=== PATIENT | male | born 1935 | race Caucasian/White ===

== ENCOUNTER 2017-10-02 22:10 | Emergency (ER) | payer MEDICARE, MEDICAID ==
[2017-10-02] MEDS ORDERED: ALBUTEROL SULFATE 0.083% NEB 2.5 MG/3 ML AMPUL NEB ONE (22:18)
--- NOTE | 2017-10-02 22:23 | ER Document Report ---
ED General - General Stated Complaint: SHORTNESS OF BREATH Time Seen by Provider: 10/02/17 22:13 Notes: Patient is a 2-year-old male presents with complaint of cough and congestion. Says he has been coughing for about 2 weeks now. He said his wheezing got worse over last 24 hours and frequent emesis. EMS arrived and wheezing and rhonchi throughout. The given to do nebs as well as Solu-Medrol. Patient says he feels much improved. Oxygen saturations when paramedics arrived was 96% on room air. He denies any chest pain. No leg swelling or edema. No subjective fevers at home. He did see his doctor on the week and he says he was placed on medication that he took for 5 days. He does not remember the name of it. No vomiting. No diarrhea. No other complaints at this time. He otherwise feels well. TRAVEL OUTSIDE OF THE [place] IN LAST 30 DAYS: No - Related Data Allergies/Adverse Reactions: Penicillins Allergy (Verified 05/22/15 17:20) SWELLS Past Medical History - Social History Smoking Status: Unknown if Ever Smoked Frequency of alcohol use: None Drug Abuse: None Family History: Reviewed & Not Pertinent, CAD, Hypertension - Past Medical History Cardiac Medical History: Reports: Hx Coronary Artery Disease, Hx Heart Attack, Hx Hypertension Pulmonary Medical History: Reports: Hx COPD, Hx Sleep Apnea Neurological Medical History: Reports: Hx Cerebrovascular Accident - "years ago " Endocrine Medical History: Reports: Hx Diabetes Mellitus Type 2 Renal/ Medical History: Reports: Hx Benign Prostatic Hyperplasia GI Medical History: Reports: Hx Gastroesophageal Reflux Disease Musculoskeltal Medical History: Reports Hx Arthritis Past Surgical History: Reports: Hx Cardiac Catheterization - RCA, LDA, Hx Coronary Stent - RCA & LAD, Hx Orthopedic Surgery - right clavicle - Immunizations Hx Diphtheria, Pertussis, Tetanus Vaccination: Yes Review of Systems - Review of Systems Notes: My Normal Review Basic REVIEW OF SYSTEMS: CONSTITUTIONAL : Denies fever, chills, or sweats. EENT: Congestion CARDIOVASCULAR: Denies chest pain. RESPIRATORY: Coughing GASTROINTESTINAL: Denies abdominal pain. Denies nausea, vomiting, or diarrhea. Denies constipation. Last BM: MUSCULOSKELETAL: Denies neck or back pain or joint pain or swelling. SKIN: Denies rash or skin lesions. NEUROLOGICAL: Denies altered mental status or loss of consciousness. Denies headache. Denies weakness or paralysis or loss of use of either side. Denies problems with gait or speech. Denies sensory or motor loss. ALL OTHER SYSTEMS REVIEWED AND NEGATIVE. Physical Exam - Notes Notes: General Appearance: Well nourished, alert, cooperative, no acute distress, no obvious discomfort. Well-appearing. Vitals: reviewed, See vital signs table. Head: no swelling or tenderness to the head Eyes: PERRL, EOMI, Conjuctiva clear Mouth: No decreasd moisture Throat: No tonsillar inflammation, No airway obstruction Lungs: Scattered wheezing and rhonchi. No accessory muscle use, good air exchange bilaterally. Heart: Normal rate, Regular rythm, No murmur, no rub Abdomen: Normal BS, soft, No rigidity, No abdominal tenderness, No guarding, no rebound, no abdominal masses, no organomegaly Extremities: strength 5/5 in all extremities, good pulses in all extremities, no swelling or tenderness in the extremities, no edema. Skin: warm, dry, appropriate color, no rash Neuro: speech clear, oriented x 3, normal affect, responds appropriately to questions. Course - Re-evaluation Re-evalutation: 10/02/17 23:34 On reevaluation patient's lung camacho are clear. He looks and feels much improved. He is slightly tachycardic but I suspect this is related to the breathing treatments he received. Clinically he has no tachypnea and no hypoxemia. He has no accessory muscle use. He is speaking full sentences and looks well. I feel he is safe to be discharged home. I will place him on low- dose Prednisone for the next 3 days. I am using a lower dose of Prednisone since he is diabetic. He takes Lantus 50 units in the morning and 50 units in the evening. I will have them increase this to 55 units in the morning and evening to help offset the effect of adding prednisone to his regimen. I informed him he should still keep a close eye on his blood sugars return to ER immediately if his blood sugar start to increase or if he starts having difficulty breathing or fevers. Patient's son is also in the room and agrees with plan. Patient agrees with plan will be discharged home. - Laboratory Result Diagrams: 10/02/17 22:47 10/02/17 22:47 Laboratory results interpreted by me: 12/25/17 12/25/17 22:47 22:47 Hgb 11.7 L Hct 37.4 L MCV 74 L MCH 23.2 L MCHC 31.2 L RDW 18.1 H Glucose 150 H - EKG Interpretation by Me Additional EKG results interpreted by me: 10/02/17 22:42 EKG is reviewed and interpreted by me. EKG shows sinus tachycardia with rate of [address] segment elevation. Very mild ST segment depression in lead I. This is consistent with his old EKG from April 18, 2015. OR interval, QRS duration, QTc intervals are within normal range. Discharge - Discharge Clinical Impression: Bronchitis Condition: Good Disposition: HOME, SELF-CARE Additional Instructions: I started you on prednisone for the next 3 days. You will take 3 tablets a day for the next 3 days. This helps reduce inflammation in your lungs. Continue to use your albuterol inhaler as 2 puffs every 4 hours to help with coughing or wheezing. Return to the ER if you start having wheezing or difficulty breathing despite using your inhaler. The prednisone may increase your blood sugar. Therefore please increase your insulin from 50 units to 55 units in the morning and evening. Please keep a close eye on your blood sugars. If your blood sugars are consistently high or are going above 300 please return to the ER so we can treat your blood sugar. Please return to the ER immediately if you have fevers, difficulty breathing, chest pain, or feel unwell. Prescriptions: Prednisone 30 mg PO DAILY #9 tablet
[2017-10-02 22:56] LABS: ABSOLUTE EOSINOPHILS # (AUTO) 0.1 10^3/uL (0.0-0.6); ABSOLUTE LYMPHOCYTES (AUTO) 2.2 10^3/uL (0.5-4.7); ABSOLUTE MONOCYTES (AUTO) 0.7 10^3/uL (0.1-1.4); ABSOLUTE NEUT (AUTO) 7.2 10^3/uL (1.7-8.2); BASOPHILS % (AUTO) 0.3 % (0-2); EOSINOPHILS % (AUTO) 1.4 % (0-6); HEMATOCRIT 37.4 % (37.9-51.0); HEMOGLOBIN 11.7 g/dL (13.5-17.0); HGB HCT DIFFERENCE -2.3; LYMPHOCYTES % (AUTO) 21.7 % (13-45); MEAN CORPUSCULAR HEMOGLOBIN 23.2 pg (27.0-33.4); MEAN CORPUSCULAR HGB CONC 31.2 g/dL (32.0-36.0); MEAN CORPUSCULAR VOLUME 74 fl (80-97); MONOCYTES % (AUTO) 6.4 % (3-13); RED BLOOD COUNT 5.03 10^6/uL (4.35-5.55); RED CELL DISTRIBUTION WIDTH 18.1 % (11.5-14.0); SEGMENTED NEUTROPHILS % (AUTO) 70.2 % (42-78); WHITE BLOOD COUNT 10.3 10^3/uL (4.0-10.5)
--- NOTE | 2017-10-02 23:11 | RADIOLOGY REPORT (SQ) ---
EXAM DESCRIPTION: CHEST SINGLE VIEW COMPLETED DATE/TIME: 10/02/2017 11:03 pm REASON FOR STUDY: wheezing, cough COMPARISON: 04/22/2015 NUMBER OF VIEWS: One view. TECHNIQUE: Single frontal radiographic view of the chest acquired. LIMITATIONS: None. FINDINGS: LUNGS AND PLEURA: No opacities, masses or pneumothorax. No pleural effusion. MEDIASTINUM AND HILAR STRUCTURES: No masses. Contour normal. HEART AND VASCULAR STRUCTURES: Heart enlarged without failure. Normal vasculature. BONES: No acute findings. HARDWARE: None in the chest. OTHER: No other significant finding. IMPRESSION: HEART ENLARGED WITHOUT FAILURE. NO OTHER SIGNIFICANT RADIOGRAPHIC FINDING IN THE CHEST. TECHNICAL DOCUMENTATION: JOB ID: [id number] [employer] All Rights Reserved
[2017-10-02 23:17] LABS: ANION GAP 13 (5-19); BLOOD UREA NITROGEN 17 mg/dL (7-20); CALCIUM 9.4 mg/dL (8.4-10.2); CARBON DIOXIDE 26 mmol/L (22-30); CHLORIDE 105 mmol/L (98-107); CREATININE RESULT 1.08 mg/dL (0.52-1.25); GLUCOSE 150 mg/dL (75-110); SODIUM 143.6 mmol/L (137-145)
[2017-10-02 23:49] VITALS: BP 185/104
--- NOTE | 2017-10-02 23:58 | EKG REPORT ---
SEVERITY:- OTHERWISE NORMAL ECG - SINUS TACHYCARDIA ATRIAL PREMATURE COMPLEX : Confirmed by: Arpan Aleman 02-Oct-2017 23:57:41
== END 2017-10-02 23:45 | disposition home or self-care (01) ==
LOC: ER 22:10
DX: J40 Bronchitis, not specified as acute or chronic (principal); I25.10 Atherosclerotic heart disease of native coronary artery without angina pectoris; I10 Essential (primary) hypertension; J44.9 Chronic obstructive pulmonary disease, unspecified; E11.9 Type 2 diabetes mellitus without complications; Z88.0 Allergy status to penicillin; I25.2 Old myocardial infarction; Z86.73 Personal history of transient ischemic attack (TIA), and cerebral infarction without residual deficits; Z79.4 Long term (current) use of insulin
CPT/HCPCS: 93005; 94640; 99285; 36415; 85025; 80048; 71010; 93010; A9270

== ENCOUNTER 2017-10-14 05:56 | Inpatient (IN) | payer MEDICARE, MEDICAID ==
--- NOTE | 2017-10-14 06:45 | ER Document Report ---
ED General - General Chief Complaint: Hip Pain Stated Complaint: FALL, HIP PAIN Time Seen by Provider: 10/14/17 06:07 Mode of Arrival: Medic Information source: Patient Notes: 82 yr old male hx copd diabetes presents with complaints of left hip pain after fall. pt unable ot bear weight. denies any other injuries pt given fentanyl by ems. pt on 2L nc at all times TRAVEL OUTSIDE OF THE [place] IN LAST 30 DAYS: No - HPI Onset: Just prior to arrival Onset/Duration: Sudden Quality of pain: Sharp Severity: Moderate Pain Level: 4 Associated symptoms: Body/muscle aches Exacerbated by: Movement Relieved by: Denies Similar symptoms previously: No Recently seen / treated by doctor: No - Related Data Allergies/Adverse Reactions: Penicillins Allergy (Verified 05/22/15 17:20) SWELLS Past Medical History - Social History Smoking Status: Former Smoker Cigarette use (# per day): No Chew tobacco use (# tins/day): No Smoking Education Provided: No Family History: Reviewed & Not Pertinent, CAD, Hypertension - Past Medical History Cardiac Medical History: Reports: Hx Coronary Artery Disease, Hx Heart Attack, Hx Hypertension Pulmonary Medical History: Reports: Hx COPD, Hx Sleep Apnea Neurological Medical History: Reports: Hx Cerebrovascular Accident - "years ago " Endocrine Medical History: Reports: Hx Diabetes Mellitus Type 2 Renal/ Medical History: Reports: Hx Benign Prostatic Hyperplasia. Denies: Hx Peritoneal Dialysis GI Medical History: Reports: Hx Gastroesophageal Reflux Disease Musculoskeltal Medical History: Reports Hx Arthritis Past Surgical History: Reports: Hx Cardiac Catheterization - RCA, LDA, Hx Coronary Stent - RCA & LAD, Hx Orthopedic Surgery - right clavicle - Immunizations Hx Diphtheria, Pertussis, Tetanus Vaccination: Yes Review of Systems - Review of Systems Notes: REVIEW OF SYSTEMS: CONSTITUTIONAL : Denies fever, chills, or sweats. Denies recent illness. EENT: Denies eye, ear, throat, or mouth pain or symptoms. Denies nasal or sinus congestion or discharge. Denies throat, tongue, or mouth swelling or difficulty swallowing. CARDIOVASCULAR: Denies chest pain. Denies palpitations or racing or irregular heart beat. Denies ankle edema. RESPIRATORY: Denies cough, cold, or chest congestion. Denies shortness of breath, difficulty breathing, or wheezing. GASTROINTESTINAL: Denies abdominal pain or distention. Denies nausea, vomiting , or diarrhea. Denies blood in vomitus, stools, or per rectum. Denies black, tarry stools. Denies constipation. GENITOURINARY: Denies difficulty urinating, painful urination, burning, frequency, blood in urine, or discharge. MUSCULOSKELETAL: admits to left hip pain SKIN: Denies rash, lesions or sores. HEMATOLOGIC : Denies easy bruising or bleeding. LYMPHATIC: Denies swollen, enlarged glands. NEUROLOGICAL: Denies confusion or altered mental status. Denies passing out or loss of consciousness. Denies dizziness or lightheadedness. Denies headache. Denies weakness or paralysis or loss of use of either side. Denies problems with gait or speech. Denies sensory loss, numbness, or tingling. Denies seizures. PSYCHIATRIC: Denies anxiety or stress. Denies depression, suicidal ideation, or homicidal ideation. ALL OTHER SYSTEMS REVIEWED AND NEGATIVE. Dictation was performed using [employer] voice recognition software PHYSICAL EXAMINATION: GENERAL: Well-appearing, well-nourished and in no acute distress. HEAD: Atraumatic, normocephalic. EYES: Pupils equal round and reactive to light, extraocular movements intact, sclera anicteric, conjunctiva are normal. ENT: Nares patent, oropharynx clear without exudates. Moist mucous membranes. NECK: Normal range of motion, supple without lymphadenopathy LUNGS: Breath sounds clear to auscultation bilaterally and equal. No wheezes rales or rhonchi. HEART: Regular rate and rhythm without murmurs ABDOMEN: Soft, nontender, nondistended abdomen. No guarding, no rebound. No masses appreciated. Musculoskeletal: limited rom of the left leg due ot pain, shortened and externally rotated NEUROLOGICAL: Cranial nerves grossly intact. Normal speech, normal gait. Normal sensory, motor exams PSYCH: Normal mood, normal affect. SKIN: Warm, Dry, normal turgor, no rashes or lesions noted. Physical Exam - Vital signs Vitals: Resp BP Pulse Ox 22 H 152/78 H 99 10/14/17 07:00 10/14/17 07:00 10/14/17 07:00 Course - Re-evaluation Re-evalutation: 10/14/17 07:00 X-ray immediately performed, patient is noted to have a hip fracture, hospitalist Minor , has been called and they will call back with a day shift 10/14/17 07:50 Dr Olga casillas ,she will admit - Vital Signs Vital signs: Temp Pulse Resp BP Pulse Ox 22 H 152/78 H 99 10/14/17 07:00 10/14/17 07:00 10/14/17 07:00 - Laboratory Result Diagrams: 10/14/17 07:10 10/14/17 07:10 Laboratory results interpreted by me: 10/14/17 10/14/17 10/14/17 07:10 07:10 07:30 WBC 18.3 H Hgb 11.6 L Hct 37.7 L MCV 74 L MCH 23.0 L MCHC 30.9 L RDW 17.9 H Seg Neutrophils % 82.4 H Lymphocytes % 7.6 L Absolute Neutrophils 15.1 H Absolute Monocytes 1.7 H Glucose 206 H Alkaline Phosphatase 146 H Urine Protein 30 H Urine Glucose (UA) >=500 H Urine Ketones TRACE H Urine Blood SMALL H - Diagnostic Test Radiology reviewed: Image reviewed, Reports reviewed Discharge - Discharge Clinical Impression: Femur fracture, left Qualifiers: Encounter type: initial encounter Femur location: unspecified portion of femur Fracture type: closed Fracture morphology: unspecified fracture morphology Qualified Code(s): S72.92XA - Unspecified fracture of left femur, initial encounter for closed fracture Coronary artery disease Qualifiers: Coronary Disease-Associated Artery/Lesion type: unspecified vessel or lesion type [place] vs. transplanted heart: [place] heart Associated angina: with unspecified angina Qualified Code(s): I25.119 - Atherosclerotic heart disease of [place] coronary artery with unspecified angina pectoris COPD (chronic obstructive pulmonary disease) Qualifiers: COPD type: chronic bronchitis Chronic bronchitis type: simple Qualified Code(s) : J41.0 - Simple chronic bronchitis Condition: Stable Disposition: ADMITTED INPATIENT Admitting Provider: Hospitalist Unit Admitted: Telemetry
--- NOTE | 2017-10-14 07:07 | RADIOLOGY REPORT (SQ) ---
EXAM DESCRIPTION: HIP LEFT AP/LATERAL CLINICAL HISTORY: 82 years, Male, fall COMPARISON: None. NUMBER OF VIEWS:1 LIMITATIONS: Positioning. Single frontal view only. FINDINGS: Deformity of the left proximal femur may indicate impacted intertrochanteric fracture. Atherosclerosis. Metallic seeds of the lower pelvis. IMPRESSION: Left proximal femoral fracture/deformity. Limitation. 2010 [facility] [employer]- All Rights Reserved
--- NOTE | 2017-10-14 07:13 | RADIOLOGY REPORT (SQ) ---
EXAM DESCRIPTION: CHEST SINGLE VIEW CLINICAL HISTORY: 82 years, Male, fall with injury COMPARISON: 10/02/2017. NUMBER OF VIEWS: 2 LIMITATIONS: None. FINDINGS: Prominent interstitium, normal cardiac silhouette, atherosclerosis, partial resection/deformity of an right mid thoracic anterior ribs and right first anterior rib deformity, metallic anchors of the left humeral head, and no pneumothorax. Stable. IMPRESSION: No acute cardiopulmonary findings. 2010 [employer]- All Rights Reserved
[2017-10-14 07:25] LABS: ABSOLUTE BASOPHILS # (AUTO) 0.1 10^3/uL (0.0-0.2); ABSOLUTE LYMPHOCYTES (AUTO) 1.4 10^3/uL (0.5-4.7); ABSOLUTE MONOCYTES (AUTO) 1.7 10^3/uL (0.1-1.4); ABSOLUTE NEUT (AUTO) 15.1 10^3/uL (1.7-8.2); BASOPHILS % (AUTO) 0.5 % (0-2); EOSINOPHILS % (AUTO) 0.3 % (0-6); HEMATOCRIT 37.7 % (37.9-51.0); HEMOGLOBIN 11.6 g/dL (13.5-17.0); LYMPHOCYTES % (AUTO) 7.6 % (13-45); MEAN CORPUSCULAR HGB CONC 30.9 g/dL (32.0-36.0); MEAN CORPUSCULAR VOLUME 74 fl (80-97); MONOCYTES % (AUTO) 9.2 % (3-13); PLATELET COUNT 379 10^3/uL (150-450); RED BLOOD COUNT 5.06 10^6/uL (4.35-5.55); RED CELL DISTRIBUTION WIDTH 17.9 % (11.5-14.0); SEGMENTED NEUTROPHILS % (AUTO) 82.4 % (42-78); TOTAL CELLS COUNTED % (AUTO) 100 %; WHITE BLOOD COUNT 18.3 10^3/uL (4.0-10.5)
[2017-10-14 07:31] LABS: INTERNATIONAL RATION (INR) 1.01; PARTIAL THROMBOPLASTIN TIME 29.1 SEC (23.5-35.8)
[2017-10-14 07:42] LABS: APPEARANCE,URINE CLEAR; BILIRUBIN,URINE NEGATIVE (NEGATIVE); COLOR,URINE YELLOW; GLUCOSE, URINE >=500 mg/dL (NEGATIVE); KETONES,URINE TRACE mg/dL (NEGATIVE); LEUKOCYTE ESTERASE,URINE NEGATIVE (NEGATIVE); NITRITE,URINE NEGATIVE (NEGATIVE); PROTEIN,URINE 30 mg/dL (NEGATIVE); URINE SPECIFIC GRAVITY 1.028; UROBILINOGEN,URINE NEGATIVE mg/dL (<2.0)
[2017-10-14 07:45] LABS: ALANINE AMINOTRANSFERASE 47 U/L (21-72); ALKALINE PHOSPHATASE 146 U/L (38-126); ANION GAP 12 (5-19); ASPARTATE AMINO TRANSFERASE 38 U/L (17-59); BILIRUBIN,DIRECT 0.2 mg/dL (0.0-0.4); BILIRUBIN,TOTAL 0.7 mg/dL (0.2-1.3); BLOOD UREA NITROGEN 19 mg/dL (7-20); CALCIUM 9.1 mg/dL (8.4-10.2); CARBON DIOXIDE 26 mmol/L (22-30); CHLORIDE 105 mmol/L (98-107); GLUCOSE 206 mg/dL (75-110); POTASSIUM 4.3 mmol/L (3.6-5.0); SODIUM 143.4 mmol/L (137-145); TOTAL PROTEIN 6.8 g/dL (6.3-8.2)
[2017-10-14] MEDS ORDERED: ONDANSETRON 4 MG TAB.RAPDIS PO PRN (08:19)
[2017-10-14] MEDS ORDERED: OXYCODONE-ACETAMINOPHEN 5-325 MG TABLET PO PRN (08:19)
[2017-10-14] MEDS ORDERED: ONDANSETRON HCL INJ/PF 4 MG/2 ML SDV IV PRN (08:19)
[2017-10-14] MEDS ORDERED: DEXTROSE 40% GEL 15 GM TUBE PO PRN ×4 (08:27→11:47)
[2017-10-14] MEDS ORDERED: DEXTROSE 50%-WATER 25 GM/50 ML DISP.SYRIN IV PRN ×4 (08:27→11:47)
[2017-10-14] MEDS ORDERED: GLUCAGON,HUMAN RECOMB 1 MG INJ IM PRN (08:27)
[2017-10-14 08:37] LABS: MAGNESIUM 1.9 mg/dL (1.6-2.3); PHOSPHORUS 3.9 mg/dL (2.5-4.5)
[2017-10-14] MEDS ORDERED: PANTOPRAZOLE SODIUM 40 MG VIAL IV SCH (10:00)
[2017-10-14] MEDS: HYDROCODONE/ACETAMINOPHEN 5-325 MG TABLET PO PRN (10:06)
--- NOTE | 2017-10-14 11:37 | EKG REPORT ---
SEVERITY:- BORDERLINE ECG - SINUS TACHYCARDIA BORDERLINE T ABNORMALITIES, LATERAL LEADS : Confirmed by: Arpan Aleman 14-Oct-2017 11:37:06
[2017-10-14] MEDS ORDERED: GLUCAGON,HUMAN RECOMB 1 MG INJ SUBCUT PRN (11:47)
--- NOTE | 2017-10-14 12:11 | RADIOLOGY REPORT (SQ) ---
EXAM DESCRIPTION: CT LT LOWER EXTREMITY WITHOUT COMPLETED DATE/TIME: 10/14/2017 11:55 am REASON FOR STUDY: left hip fracture COMPARISON: None. TECHNIQUE: CT scan of the left hip performed without intravenous or oral contrast. Images reviewed with soft tissue and bone windows. Reconstructed coronal and sagittal MPR images reviewed. All imag es stored on PACS. All CT scanners at this facility use dose modulation, iterative reconstruction, and/or weight based d osing when appropriate to reduce radiation dose to as low as reasonably achievable (ALARA). [facility]: Dose Right [facility]: CareDose [facility]: Dose Right [facility]: Teradose 4D [facility]: [employer] RADIATION DOSE: CT Rad equipment meets quality standard of care and radiation dose reduction techniq ues were employed. CTDIvol: 22.5 mGy. DLP: 537 mGy-cm. mGy. LIMITATIONS: None. FINDINGS: VISUALIZE PELVIC BONES: No acute fracture. No worrisome bone lesions. VISUALIZED SPINE: No acute findings. SYMPTOMATIC HIP: Unchanged appearance of intertrochanteric femoral neck fracture. OPPOSITE HIP: Not imaged. PELVIC SOFT TISSUES: No significant findings. EXTRAPELVIC SOFT TISSUES: No significant findings. OTHER: [place] catheter in place. IMPRESSION: STABLE APPEARANCE OF LEFT FEMORAL NECK FRACTURE. TECHNICAL DOCUMENTATION: JOB ID: [id number] Quality ID # [id number]: Final reports with documentation of one or more dose reduction techniques (e.g., Au tomated exposure control, adjustment of the mA and/or kV according to patient size, use of iterative reconstruction technique) 2010 [employer]- All Rights Reserved
[2017-10-14] MEDS: MORPHINE SULFATE 10 MG/ML INJ IV PRN ×3 (13:13→22:32)
[2017-10-14] MEDS: LEVALBUTEROL HCL NEB 1.25 MG/3 ML AMPUL NEB PRN ×3 (13:39→23:11)
--- NOTE | 2017-10-14 17:58 | XCELERA REPORT ---
[address] [address] Transthoracic Echocardiogram Report Name: MICHAELA KUHN Age: 82 yrs Gender: Male : 1935 Patient Status: Inpatient Patient Location: [address] [place] [address] Study Date: 10/14/2017 03:22 PM Height: 67 in Weight: 180 lb BSA: 1.9 m2 Procedure: A two-dimensional transthoracic echocardiogram with color flow and Doppler was performed. Study Quality: Technically suboptimal. Poor endocardial visualisation.Poor doppler interogation..Hence interpretation is limited by these. Reason For Study: CAD / Preoperative Cardiac Evaluation. History: CAD / Preoperative Cardiac Evaluation. Ordering Physician: MAXX DRAKE Performed By: Vida Potter Interpretation Summary Poor endocardial visualisation.Poor doppler interogation..Hence interpretation is limited by these. The left ventricle is grossly normal size. There is mild concentric left ventricular hypertrophy. LV EF is Probaly 35% Left ventricular systolic function is moderately reduced. LV diastolic function not assessed. The LV apex is seerely Hypokinetic.(Probably akinetic.).The rest of the LV keller probably moderately hypokietic. The right ventricle is not well visualized secondary to technical limitations Right atrium not well visualized secondary to technical limitations Probably normal LA size.. There is no evidence of mitral valve prolapse. There is a trace amount of mitral regurgitation There is no mitral valve stenosis. There is no aortic valve stenosis There is no LVOT obstruction. No aortic regurgitation is present. There is no tricuspid stenosis. Probably no TR , but poor doppler interogation of the valve..Cannot assess RVSP due to lack of TR jet. There is no pericardial effusion. MMode/2D Measurements & Calculations RVDd: 2.3 cm LVIDd: 5.6 cm FS: 19.5 % Ao root diam: 2.8 cm IVSd: 1.2 cm LVIDs: 4.5 cm EDV(Teich): 156.5 ml LVPWd: 1.2 cm ESV(Teich): 94.6 ml Ao root area: 6.3 cm2 EF(Teich): 39.6 % LA dimension: 2.8 cm Doppler Measurements & Calculations MV E max leisa: MV P1/2t max leisa: Ao V2 max: LV V1 max P.8 cm/sec 144.8 cm/sec 120.8 cm/sec 2.5 mmHg MV P1/2t: 31.1 msec Ao max PG: LV V1 max: 5.8 mmHg 79.5 cm/sec MVA(P1/2t): 7.1 cm2 MV dec slope: 1365 cm/sec2 PA V2 max: 144.8 cm/sec PA max P.4 mmHg Left Ventricle The left ventricle is grossly normal size. There is mild concentric left ventricular hypertrophy. LV EF is Probaly 35%. Left ventricular systolic function is moderately reduced. LV diastolic function not assessed. The LV apex is seerely Hypokinetic.(Probably akinetic.).The rest of the LV keller probably moderately hypokietic. There is no thrombus. Right Ventricle The right ventricle is not well visualized secondary to technical limitations. Atria Right atrium not well visualized secondary to technical limitations. Probably normal LA size.. Mitral Valve There is no evidence of mitral valve prolapse. There is no vegetation seen on the mitral valve. There is no mitral valve stenosis. There is a trace amount of mitral regurgitation. Aortic Valve There is no aortic valvular vegetation. There is no aortic valve stenosis. There is no LVOT obstruction. No aortic regurgitation is present. Tricuspid Valve There is no tricuspid stenosis. Probably no TR , but poor doppler interogation of the valve..Cannot assess RVSP due to lack of TR jet. Pulmonic Valve The pulmonic valve is not well visualized. Great Vessels The aortic root is not well visualized. Effusions There is no pericardial effusion. : MAXX DRAKE > Herminia Hussein
[2017-10-14] MEDS ORDERED: LORAZEPAM 1 MG TABLET PO PRN (18:08)
--- NOTE | 2017-10-14 18:08 | PDOC H&P ---
History of Present Illness Admission Date/PCP: October 14, 2017 Dr. Juan A Hdz History of Present Illness: 82-year-old gentleman with past medical history of COPD, oxygen dependent Diabetes Former smoker Coronary artery disease, status post RCA and LAD stents CA Hypertension Sleep apnea History of stroke Benign prostatic hypertrophy Gastroesophageal reflux disease Arthritis Right clavicle orthopedic surgery He sustained a fall and then developed left hip pain and was unable to bear weight. X-ray showed a left hip fracture. He says he was sitting in the kitchen at the table and got up suddenly and felt lightheaded and fell down. Past Medical History Cardiac Medical History: Reports: Coronary Artery Disease, Myocardial Infarction , Hypertension Pulmonary Medical History: Reports: Chronic Obstructive Pulmonary Disease (COPD) , Sleep Apnea Endocrine Medical History: Reports: Diabetes Mellitus Type 2 GI Medical History: Reports: Gastroesophageal Reflux Disease Musculoskeltal Medical History: Reports: Arthritis Hematology: Denies: Anemia, Sickle Cell Disease Past Surgical History Past Surgical History: Reports: Cardiac Catheterization - RCA, LDA, Coronary Stent - RCA & LAD, Orthopedic Surgery - right clavicle Social History Smoking Status: Former Smoker Frequency of Alcohol Use: None Hx Recreational Drug Use: No Hx Prescription Drug Abuse: No Family History Family History: Reviewed & Not Pertinent, CAD, Hypertension Parental Family History Reviewed: Yes Children Family History Reviewed: Yes Sibling(s) Family History Reviewed.: Yes Medication/Allergy Home Medications: Albuterol Sulfate [Ventolin Hfa] 2 puff IH Q4HP PRN 10/14/17 Aspirin [Aspirin EC] 81 mg PO QAM 10/14/17 Budesonide/Formoterol Fumarate [Symbicort Hfa 160-4.5 Mcg Inhaler 6 gm] 2 puff IH Q12 10/14/17 Cetirizine HCl [Zyrtec 10 mg Tablet] 1 tab PO DAILY 10/14/17 Diltiazem HCl [Cardizem Cd 120 mg Capsule] 1 cap.sr PO DAILY 10/14/17 Dorzolamide HCl [Trusopt] 1 drop OU BID 10/14/17 Empagliflozin [Jardiance] 25 mg PO QAM 10/14/17 Gabapentin [Neurontin 300 mg Capsule] 300 mg PO BID 10/14/17 Insulin Detemir [Levemir Flextouch] 50 unit SQ BID 10/14/17 Ipratropium/Albuterol Sulfate [Duoneb 3 ml Ampul] 3 ml NEB RTQIDP PRN 10/14/17 Lorazepam [Ativan 1 mg Tablet] 1 mg PO DAILYP PRN 10/14/17 Omeprazole 40 mg PO Q6AM 10/14/17 Sitagliptin Phos/Metformin HCl [Janumet Xr 100-1,000 mg Tablet] 1 ea PO DAILY Tamsulosin HCl [Flomax 0.4 mg Cap.sr] 0.4 mg PO DAILY 10/14/17 Tramadol HCl [Ultram 50 mg Tablet] 50 mg PO TIDP PRN 10/14/17 Allergies/Adverse Reactions: Penicillins Allergy (Verified 05/22/15 17:20) CHIKIS Review of Systems All systems: reviewed and no additional remarkable complaints except as stated Cardiovascular: ABSENT: chest pain, orthropnea, palpitations Gastrointestinal: ABSENT: abdominal pain, dysphagia Musculoskeletal: PRESENT: other - Right hip pain Neurological: ABSENT: focal weakness Psychiatric: ABSENT: anxiety, hallucinations Physical Exam Vital Signs: Temp Pulse Resp BP Pulse Ox 99 F 20 143/72 H 99 10/14/17 08:12 10/14/17 08:00 10/14/17 08:00 10/14/17 07:00 Intake & Output 10/13/17 10/14/17 10/15/17 06:59 06:59 06:59 Weight 81.647 kg Additional comments: Elderly gentleman, lying in bed not in acute distress Lungs: Clear to auscultation bilaterally Cardiac: S1-S2 regular no murmurs heard no peripheral edema Abdomen: Soft, no focal tenderness, normal bowel sounds Skin: Warm and dry Neurologic: Awake and alert oriented 3 no facial droop. Results Laboratory Results: 10/14/17 07:10 10/14/17 07:10 10/14/17 10/14/17 10/14/17 07:10 07:10 07:30 WBC 18.3 H RBC 5.06 Hgb 11.6 L Hct 37.7 L MCV 74 L MCH 23.0 L MCHC 30.9 L RDW 17.9 H Plt Count 379 Seg Neutrophils % 82.4 H Lymphocytes % 7.6 L Monocytes % 9.2 Eosinophils % 0.3 Basophils % 0.5 Absolute Neutrophils 15.1 H Absolute Lymphocytes 1.4 Absolute Monocytes 1.7 H Absolute Eosinophils 0.0 Absolute Basophils 0.1 Sodium 143.4 Potassium 4.3 Chloride 105 Carbon Dioxide 26 Anion Gap 12 BUN 19 Creatinine 0.96 Est GFR ( Amer) > 60 Est GFR (Non-Af Amer) > 60 Glucose 206 H Calcium 9.1 Total Bilirubin 0.7 AST 38 ALT 47 Alkaline Phosphatase 146 H Total Protein 6.8 Albumin 4.0 Urine Color YELLOW Urine Appearance CLEAR Urine pH 6.0 Ur Specific [place] 1.028 Urine Protein 30 H Urine Glucose (UA) >=500 H Urine Ketones TRACE H Urine Blood SMALL H Urine Nitrite NEGATIVE Ur Leukocyte Esterase NEGATIVE Urine RBC (Auto) 1 Impressions: Chest X-Ray 10/14/17 00:00 IMPRESSION: No acute cardiopulmonary findings. 2010 [employer]- All Rights Reserved Hip X-Ray 10/14/17 06:00 IMPRESSION: Left proximal femoral fracture/deformity. Limitation. 2010 [employer]- All Rights Reserved Assessment & Plan - Diagnosis (1) Closed left hip fracture Qualifiers: Encounter type: initial encounter Qualified Code(s): S72.002A - Fracture of unspecified part of neck of left femur, initial encounter for closed fracture Is this a current diagnosis for this admission?: Yes Plan: Plan for surgery tomorrow after cardiology clearance. Would be moderate to high risk given his comorbidities. He denies angina. (2) Hypertension Is this a current diagnosis for this admission?: Yes Plan: Continue outpatient medications. (3) BPH (benign prostatic hyperplasia) Is this a current diagnosis for this admission?: Yes (4) COPD (chronic obstructive pulmonary disease) Qualifiers: COPD type: chronic bronchitis Chronic bronchitis type: simple Qualified Code(s): J41.0 - Simple chronic bronchitis (5) Coronary artery disease Qualifiers: Coronary Disease-Associated Artery/Lesion type: unspecified vessel or lesion type [place] vs. transplanted heart: [place] heart Associated angina: with unspecified angina Qualified Code(s): I25.119 - Atherosclerotic heart disease of [place] coronary artery with unspecified angina pectoris (6) Diabetes mellitus Qualifiers: Diabetes mellitus type: type 2 Is this a current diagnosis for this admission?: Yes (7) Obstructive sleep apnea Is this a current diagnosis for this admission?: Yes - Time Time Spent: 50 to 70 Minutes
[2017-10-14] MEDS ORDERED: GABAPENTIN 300 MG CAPSULE PO ONE (19:30)
[2017-10-14] MEDS ORDERED: BUDESONIDE/FORMOTEROL 160-4.5 MCG 60 PUFF/6 GM MDI IH ONE (19:30)
[2017-10-14] MEDS ORDERED: DILTIAZEM HCL 120 MG CAP.SR.24H PO ONE (19:30)
[2017-10-14] MEDS ORDERED: DORZOLAMIDE HCL 2% OPH SOLN 10 ML OU ONE (19:30)
[2017-10-14] MEDS ORDERED: TAMSULOSIN HCL 0.4 MG CAP.SR.24H PO ONE (19:30)
--- NOTE | 2017-10-14 20:08 | EKG REPORT ---
SEVERITY:- ABNORMAL ECG - SINUS TACHYCARDIA PROBABLE INFERIOR INFARCT, OLD LATERAL LEADS ARE ALSO INVOLVED : Confirmed by: Arpan Aleman 14-Oct-2017 20:08:35
[2017-10-14] MEDS ORDERED: METOPROLOL TARTRATE PF/INJ 5 MG/5 ML SDV IV ONE (20:30)
[2017-10-14] MEDS ORDERED: ASPIRIN 81 MG TABLET, CHEWABLE PO ONE (20:30)
--- NOTE | 2017-10-14 21:06 | PDOC PROGRESS REPORT ---
Subjective Progress Note for:: 10/14/17 Subjective:: Progress note for Charlie Mcmullen: Reason for consultation: Preoperative cardiac risk assessment in a patient with a history of coronary artery disease old myocardial infarction, history of stents, hypertension, diabetes mellitus, and COPD. Note that the patient's echocardiogram was suboptimal and poor, but showed old MD in the LV apex, with a estimated LV ejection fraction of probably 35%. Patient without any chest pain or discomfort. There is no symptoms of acute exacerbation of COPD. The patient states that he has been feeling lightheaded for a few days. He came to the emergency room after he felt dizzy and fell, and had pain in his left hip. He was found to have a left femoral neck fracture. The patient denies any loss of consciousness. No palpitations, no chest pain or discomfort. His EKG initially showed some subtle lateral ST T changes. In view of this is the patient is a diabetic, even though it was thought that the patient was a high risk for surgery due to his multiple medical problems, a troponin I was ordered. The troponin came back at 8.8. His CPK-MB was 37.5. Patient has been asymptomatic. The results came back after I spoke to the patient and the patient's son that the patient was high risk, with complications including perioperative MD, congestive heart failure, arrhythmia, and even . The patient and his son was spoken to prior to the results of the troponin I, and CPK-MB results when available. Even though the excepted the risks to undergo surgery, I had discussed with Dr. HARRIS about the high risk, but in view of the patient's asymptomatic status that he would be moderate to high risk for cardiac complications perioperatively, and that we would watch him closely cardiac claire with EKG serial EKGs, monitoring and cardiac biomarkers. But in view of the abnormal troponin results, and CPK-MB results we have decided to reschedule the surgery, after discussions with the patient's training development manager Dr. Frank. In the meantime we would get a chest CTA, to make sure that the patient did not have a pulmonary embolism. Also would get thyroid function tests. This was discussed with Dr. Troy Gaxoila the hospitalist, and also Dr. Gaxiola discussed with Dr. HORACE LOJA to hold off on the surgery, until further clarification of the causes of the patient's elevated cardiac biomarkers. Will transfer him to the [facility] telemetry setting, and get serial EKGs and enzymes. Would also get cardiac biomarkers in the a.m. This was rediscussed with the patient and patient's son, and they are agreeable. Subjective what we find in the pulmonary CT angiogram, we discussed with the patient's primary training development manager , as to whether the patient needs cardiac catheterization on not. FORMAL CONSULTATION WILL BE DICTATED/DONE tomorrow. Reason For Visit: LEFT HIP FRACTURE WITH MEDICAL COMORBIDITIES Physical Exam Vital Signs: Temp Pulse Resp BP Pulse Ox 98.5 F 106 H 18 144/77 H 99 10/14/17 17:56 10/14/17 17:56 10/14/17 17:56 10/14/17 17:56 10/14/17 17:56 Intake & Output 10/13/17 10/14/17 10/15/17 06:59 06:59 06:59 Intake Total 1170 Output Total 700 Balance 470 Results Laboratory Results: 10/14/17 10/14/17 10/14/17 18:20 18:20 18:20 Creatine Kinase 589 H CK-MB (CK-2) 37.50 H Troponin I 8.800 Cancelled Impressions: Chest X-Ray 10/14/17 00:00 IMPRESSION: No acute cardiopulmonary findings. 2010 [employer]- All Rights Reserved Lower Extremity CT 10/14/17 00:00 IMPRESSION: STABLE APPEARANCE OF LEFT FEMORAL NECK FRACTURE. Hip X-Ray 10/14/17 06:00 IMPRESSION: Left proximal femoral fracture/deformity. Limitation. 2010 [employer]- All Rights Reserved
[2017-10-14] MEDS: TEMAZEPAM 7.5 MG CAPSULE PO PRN (22:32)
--- NOTE | 2017-10-14 22:40 | RADIOLOGY REPORT (SQ) ---
EXAM DESCRIPTION: CTA CHEST COMPLETED DATE/TIME: 10/14/2017 9:57 pm REASON FOR STUDY: elevated tropoinin COMPARISON: None. TECHNIQUE: CT scan of the chest performed using helical scanning technique with dynamic intravenous contrast injection. Images reviewed with lung, soft tissue and bone windows. Reconstructed coronal and sagittal MPR images reviewed. Additional 3 dimensional post-processing performed to develop Maximal Intensity Projection images (FL P). All images stored on PACS. All CT scanners at this facility use dose modulation, iterative reconstruction, and/or weight based d osing when appropriate to reduce radiation dose to as low as reasonably achievable (ALARA). [facility]: Dose Right [facility]: CareDose [facility]: Dose Right [facility]: Teradose 4D [facility]: [employer] CONTRAST TYPE AND DOSE: contrast/concentration: Isovue mg/ml; Total Contrast Delivered: 73.0 ml; To wade Saline Delivered: 110.0 ml Contrast bolus optimized for the pulmonary arteries. Not diagnostic for the aorta. RENAL FUNCTION: BUN 19; creatinine 0.96 RADIATION DOSE: CT Rad equipment meets quality standard of care and radiation dose reduction techniq ues were employed. CTDIvol: 13.2 - 22.6 mGy. DLP: 916 mGy-cm. . LIMITATIONS: None. FINDINGS: LUNGS AND PLEURA: No masses, infiltrates, pneumothorax. No pleural effusions, calcificati ons. AORTA AND GREAT VESSELS: No aneurysm. Contrast bolus not optimized for the aorta. HEART: No pericardial effusion. Coronary artery calcifications are present. PULMONARY ARTERIES: No emboli visualized in the main pulmonary arteries or the segmental branches. HILAR AND MEDIASTINAL STRUCTURES: No identified masses or abnormal nodes. HARDWARE: None in the chest. UPPER ABDOMEN: No significant findings. Limited exam. THYROID AND OTHER SOFT TISSUES: No masses. No adenopathy. BONES: Healed rib fractures bilaterally with incidental note made of a chronic fracture of the right 8th rib laterally. 3D MIPS: Confirm above findings. OTHER: No other significant finding. IMPRESSION: NORMAL CTA OF THE CHEST. NO PULMONARY EMBOLI. COMMENT: Quality ID # [id number]: Final reports with documentation of one or more dose reduction techniques (e.g., Automated exposure control, adjustment of the mA and/or kV according to patient size, use of iterative reconstruction technique) TECHNICAL DOCUMENTATION: JOB ID: [id number] 2008 [employer]- All Rights Reserved
[2017-10-15] MEDS ORDERED: RINGERS SOLUTION,LACTATED 1,000 ML IV PRN
[2017-10-15] MEDS: MORPHINE SULFATE 10 MG/ML INJ IV PRN ×2 (04:32→17:58)
[2017-10-15 04:59] LABS: ABSOLUTE BASOPHILS # (AUTO) 0.1 10^3/uL (0.0-0.2); ABSOLUTE EOSINOPHILS # (AUTO) 0.1 10^3/uL (0.0-0.6); ABSOLUTE LYMPHOCYTES (AUTO) 1.4 10^3/uL (0.5-4.7); ABSOLUTE MONOCYTES (AUTO) 1.4 10^3/uL (0.1-1.4); ABSOLUTE NEUT (AUTO) 11.7 10^3/uL (1.7-8.2); BASOPHILS % (AUTO) 0.5 % (0-2); EOSINOPHILS % (AUTO) 0.6 % (0-6); HEMATOCRIT 34.7 % (37.9-51.0); LYMPHOCYTES % (AUTO) 9.7 % (13-45); MEAN CORPUSCULAR HEMOGLOBIN 23.6 pg (27.0-33.4); MEAN CORPUSCULAR HGB CONC 31.6 g/dL (32.0-36.0); MEAN CORPUSCULAR VOLUME 75 fl (80-97); MONOCYTES % (AUTO) 9.7 % (3-13); PLATELET COUNT 326 10^3/uL (150-450); RED BLOOD COUNT 4.65 10^6/uL (4.35-5.55); RED CELL DISTRIBUTION WIDTH 18.4 % (11.5-14.0); SEGMENTED NEUTROPHILS % (AUTO) 79.5 % (42-78); TOTAL CELLS COUNTED % (AUTO) 100 %; WHITE BLOOD COUNT 14.6 10^3/uL (4.0-10.5)
[2017-10-15 05:19] LABS: ALANINE AMINOTRANSFERASE 43 U/L (21-72); ALBUMIN 3.3 g/dL (3.5-5.0); ALKALINE PHOSPHATASE 121 U/L (38-126); ANION GAP 16 (5-19); ASPARTATE AMINO TRANSFERASE 88 U/L (17-59); BILIRUBIN,DIRECT 0.4 mg/dL (0.0-0.4); BILIRUBIN,TOTAL 0.8 mg/dL (0.2-1.3); BLOOD UREA NITROGEN 20 mg/dL (7-20); CALCIUM 9.1 mg/dL (8.4-10.2); CARBON DIOXIDE 20 mmol/L (22-30); CHLORIDE 105 mmol/L (98-107); CHOLESTEROL 132.35 mg/dL (0-200); GLUCOSE 161 mg/dL (75-110); MAGNESIUM 2.2 mg/dL (1.6-2.3); PHOSPHORUS 3.8 mg/dL (2.5-4.5); POTASSIUM 4.5 mmol/L (3.6-5.0); SODIUM 141.3 mmol/L (137-145); TRIGLYCERIDES 159 mg/dL (<150)
[2017-10-15] MEDS: LANSOPRAZOLE 30 MG TAB.RAP.DR PO SCH (05:24)
[2017-10-15] MEDS: LEVALBUTEROL HCL NEB 1.25 MG/3 ML AMPUL NEB PRN ×2 (05:26→10:09)
[2017-10-15 05:29] LABS: DIRECT LDL 52 mg/dL (<100)
[2017-10-15 05:34] LABS: FREE T3 2.56 pg/mL (2.77-5.27); FREE T4 (FREE THYROXINE) 1.35 ng/dL (0.78-2.19); VLDL CHOLESTEROL 31.8 mg/dL (10-31)
[2017-10-15 05:35] LABS: TROPONIN I 12.3 ng/mL
[2017-10-15 05:47] LABS: THYROID STIMULATING HORMONE 2.36 uIU/mL (0.47-4.68)
[2017-10-15] MEDS: TAMSULOSIN HCL 0.4 MG CAP.SR.24H PO SCH (09:05)
[2017-10-15] MEDS: GABAPENTIN 300 MG CAPSULE PO SCH ×2 (09:06→17:18)
[2017-10-15] MEDS: INSULIN LISPRO 100 UNIT/ML 3 ML VIAL SUBCUT PRN ×4 (09:06→23:33)
[2017-10-15] MEDS ORDERED: DILTIAZEM HCL 120 MG CAP.SR.24H PO SCH (10:00)
[2017-10-15] MEDS: DORZOLAMIDE HCL 2% OPH SOLN 10 ML OU SCH ×2 (10:39→17:21)
[2017-10-15] MEDS: BUDESONIDE/FORMOTEROL 160-4.5 MCG 60 PUFF/6 GM MDI IH SCH ×2 (10:40→21:38)
[2017-10-15] MEDS ORDERED: METOPROLOL SUCCINATE 25 MG TAB.SR.24H PO ONE ×2 (12:46→17:13)
[2017-10-15] MEDS: IPRATROPIUM/ALBUTEROL 0.5-2.5 MG/3 ML AMPUL NEB PRN (13:06)
[2017-10-15] MEDS ORDERED: NITROGLYCERIN 2% OINTMENT 1 GM PACKET ONE (17:14)
--- NOTE | 2017-10-15 17:28 | EKG REPORT ---
SEVERITY:- BORDERLINE ECG - SINUS TACHYCARDIA BORDERLINE PROLONGED QT INTERVAL : Confirmed by: Arpan Aleman 15-Oct-2017 12:16:24
[2017-10-15] MEDS: HYDROCODONE/ACETAMINOPHEN 5-325 MG TABLET PO PRN ×2 (18:31→22:26)
--- NOTE | 2017-10-15 19:58 | PROGRESS NOTE E ---
Progress Note NAME: MICHAELA KUHN : 1935 AGE: 82Y DATE: 10/15/2017 ROOM: 302 SUBJECTIVE: The patient is an 82-year-old gentleman with a history of coronary artery disease, cardiomyopathy, insulin-dependent diabetes, and hypertension who had a fall and presented to the emergency room with left hip fracture on 10/14. During his cardiac workup, he was found to have positive troponins with a peak of 12. He did not have any chest pain. No EKG changes. OBJECTIVE: VITAL SIGNS: Stable. GENERAL: Elderly gentleman, lying in bed, not in acute distress. LUNGS: Clear to auscultation bilaterally. CARDIAC: S1, S2 regular. No murmurs heard. No peripheral edema. No cyanosis. ABDOMEN: Soft, nontender, nondistended. Bowel sounds normal. ASSESSMENT/PLAN 1. Coronary artery disease: Continue current medications, including aspirin, statin, beta camila, nitroglycerin patch. He is high risk for hip surgery and Dr. Hussein's input is appreciated. Plans are underway to transfer him to [facility] where his correspondence coordinator practices to perhaps get a left heart cath prior to surgery. 2. Left hip fracture: Continue analgesics. 3. Diabetes: Lantus and sliding scale with diabetic diet. DICTATING PHYSICIAN: MAXX DRAKE M.D. [id number] 1946 PHY#: [id number] ID: [id number] JOB#: [id number] ACCT: [id number] cc: >
--- NOTE | 2017-10-15 20:58 | PROGRESS NOTE E ---
Progress Note NAME: MICHAELA KUHN : 1935 AGE: 82Y DATE: 10/15/2017 ROOM: 302 SUBJECTIVE: The patient denies any chest pain or discomfort. He denies any palpitations. There is no shortness of breath or palpitations. There is no arrhythmia seen on the monitor. There is no leg edema. There is no PND. The patient has chronic orthopnea which is unchanged. He has no wheezing, cough, or sputum production. There are no anginal symptoms, pleuritic chest pain or chest pain of other nature. He has no dizziness, near syncope or syncope. There are no symptoms of congestive heart failure. OBJECTIVE: GENERAL: On examination, the patient is well groomed, well nourished, in no acute distress. VITAL SIGNS: He is afebrile with a temperature of 98.8 degrees Fahrenheit, his pulse is 107 beats per minute (sinus tachycardia), the blood pressure is 145/62, the respirations are 20 per minute, O2 sats are 97% on 2 L nasal cannula. HEENT: Head is atraumatic, normocephalic. Eyes: Pupils are equal, round, regular, reactive to light and accommodation. Extraocular movements are normal. There is no conjunctival pallor. There is no scleral icterus. Ears: Tympanic membranes are intact. External auditory canals clear. Nose: There is no nasal mucous membrane inflammation. Nares are patent. Mouth: Mucous membranes of the mouth and tongue are moist. He has no bleeding from the mouth. Throat: There is no redness of the oropharynx. There are no exudates. SKIN: There are no skin rashes. There are no petechiae or ecchymosis. There are no skin lesions. NECK: Supple. There is no JVD. Carotids are equal. There is no bruit. There is no goiter. There is no lymphadenopathy. Trachea central. LUNGS: Show diminished air entry, prolonged expiration on auscultation without any rhonchi, rales or wheezing. On percussion, there is hyperresonance throughout. There is no chest wall tenderness. HEART: S1 and S2 are heard. There is no S3 gallop. There is no S4 gallop. There is a systolic murmur at the left sternal border on the apex. There is no rub. ABDOMEN: Soft and nontender. There is no hepatosplenomegaly. Bowel sounds are well heard. There are no tender areas or masses. EXTREMITIES: Femorals are diminished. There are no femoral bruits. Leg pulses are diminished. There is no pedal edema. There is no DVT or cellulitis. There is no calf tenderness. There is no cyanosis or clubbing. CENTRAL NERVOUS SYSTEM: The patient is conscious, awake, alert, oriented x3 with no focal deficits of his prior CVA. PSYCHIATRIC: The patient's judgment and insight are intact. His affect is normal. DIAGNOSTIC STUDIES: The patient's EKG shows sinus rhythm with mild ST changes which are nonspecific. LABORATORY DATA: The patient's white count is 14,600; hemoglobin is 11; hematocrit is 37.41; platelet count is 326,000. The patient's blood sugar is 171. His BNP is *------*. His calcium is 9.1. His BUN is 20, creatinine is 1.02, his GFR is greater than 60. His potassium is 4.5, his CO2 is 20, and his sodium is 141.3. His albumin is low at 3.3. The patient's troponin I has gone up from 8.8 to 12.3 but the patient has been asymptomatic and there are no signs of congestive heart failure. There are no signs of anginal symptoms and no acute changes on the EKG. IMPRESSION: 1. Elevated troponin I seems to be very increased. The cause of his is perplexing. Although it could occur in a patient with femoral neck fracture, it is too high for that. Also, the patient has cardiomyopathy and may have chronic congestive heart failure but again, it is too high for this. Hence, would need to treat this as an non-ST elevation KS but we will discuss with the patient's primary voyage management system operator, Dr. Frank or the voyage management system operator covering him as to what the next course should be. Also note that the patient's pulmonary CT angiogram done yesterday shows no evidence of pulmonary emboli. 2. Left femoral fracture. Still not ready for surgery until the elevation of troponin I cause is determined. 3. Dizzy spells, question cause. Also the patient states that due to dizziness, he fell but did not lose consciousness. 4. Coronary artery disease. History of old KS. No anginal symptoms. 5. History of LAD and RCA stent a few years ago. 6. Cardiomyopathy with LV ejection fraction of 35% with wall motion abnormalities with moderate diffuse hypokinesis and there being severely hypokinetic to akinetic LV apex, although the echo is not of good quality. 7. Hypertension, fairly well controlled. 8. Diabetes mellitus. 9. COPD, stable, at baseline. 10. Obstructive sleep apnea. Patient is on CPAP. 11. Past history of CVA with right sided weakness which completely resolved and the patient is able to walk. RECOMMENDATION: In view of this, patient's CAD and the rise of his troponin I and the patient's history of cardiomyopathy by echocardiogram done this admission, would recommend stopping the patient's Cardizem which would be deleterious to his survival. We will place the patient on a small dose of Lasix. We will continue the patient on aspirin. Continue the patient on his antidiabetic medication. Also continue CPAP at night. After dropping the patient's Cardizem, we will start the patient on Toprol XL 25 mg p.o. q. 12 hours. Also would start the patient on lisinopril 2.5 mg p.o. q. [address] the patient on nitro paste 2%, 1/2 inch to chest wall q. 6 hours. A message has been sent for the covering voyage management system operator for Dr. Frank to call me. ADDENDUM: At present, the patient is not yet ready for surgery. Dr. Tran who is the covering voyage management system operator for Dr. Frank, spoke to DrEmerald *------* and said that he could not give an opinion unless he saw the patient. Hence, the wait, since the patient seems relatively stable. We will wait to talk to Dr. Frank tomorrow. TIME SPENT: Forty minutes spent on this patient with more than 50% of the time spent on direct patient care. MEDICATIONS: His medications have been reviewed and medications stopped and medication instituted, as mentioned above. At present, would not start the patient on full dose Lovenox or full dose heparin since the patient is asymptomatic, although elevation of troponin I in view of recent femoral neck fracture, which might precipitate bleeding into his hip/groin and further reduce the hemoglobin and cause further problems to his heart. These were discussed with the patient and the patient's son. CODE STATUS: The patient is DNR but his son is the surrogate healthcare decision maker. Medical decision making is of highly complex nature/high complexity. We will follow the patient closely. Discussed with the hospitalist taking care of the patient. We will follow with you. DICTATING PHYSICIAN: CHRISTINA BERGMAN M.D. [id number] PHY#: [id number] ID: [id number] JOB#: [id number] ACCT: [id number] cc: >
[2017-10-15] MEDS ORDERED: LISINOPRIL 5 MG TABLET ONE (21:26)
[2017-10-15] MEDS: TEMAZEPAM 7.5 MG CAPSULE PO PRN (22:25)
[2017-10-16] MEDS: NITROGLYCERIN 2% OINTMENT 1 GM PACKET TP SCH ×3 (00:37→11:20)
[2017-10-16 05:14] LABS: ABSOLUTE BASOPHILS # (AUTO) 0.1 10^3/uL (0.0-0.2); ABSOLUTE EOSINOPHILS # (AUTO) 0.2 10^3/uL (0.0-0.6); ABSOLUTE LYMPHOCYTES (AUTO) 1.2 10^3/uL (0.5-4.7); ABSOLUTE MONOCYTES (AUTO) 1.2 10^3/uL (0.1-1.4); ABSOLUTE NEUT (AUTO) 11.6 10^3/uL (1.7-8.2); BASOPHILS % (AUTO) 0.4 % (0-2); EOSINOPHILS % (AUTO) 1.6 % (0-6); HEMATOCRIT 32.4 % (37.9-51.0); LYMPHOCYTES % (AUTO) 8.5 % (13-45); MEAN CORPUSCULAR HGB CONC 30.8 g/dL (32.0-36.0); MEAN CORPUSCULAR VOLUME 75 fl (80-97); MONOCYTES % (AUTO) 8.3 % (3-13); PLATELET COUNT 284 10^3/uL (150-450); RED BLOOD COUNT 4.34 10^6/uL (4.35-5.55); RED CELL DISTRIBUTION WIDTH 18.5 % (11.5-14.0); SEGMENTED NEUTROPHILS % (AUTO) 81.2 % (42-78); TOTAL CELLS COUNTED % (AUTO) 100 %; WHITE BLOOD COUNT 14.2 10^3/uL (4.0-10.5)
[2017-10-16 05:44] LABS: ANION GAP 12 (5-19); BLOOD UREA NITROGEN 26 mg/dL (7-20); CALCIUM 8.6 mg/dL (8.4-10.2); CARBON DIOXIDE 24 mmol/L (22-30); CHLORIDE 103 mmol/L (98-107); GLUCOSE 177 mg/dL (75-110); MAGNESIUM 2.4 mg/dL (1.6-2.3); PHOSPHORUS 4.2 mg/dL (2.5-4.5); POTASSIUM 4.1 mmol/L (3.6-5.0); SODIUM 138.7 mmol/L (137-145)
[2017-10-16] MEDS: LANSOPRAZOLE 30 MG TAB.RAP.DR PO SCH (06:26)
[2017-10-16] MEDS: INSULIN LISPRO 100 UNIT/ML 3 ML VIAL SUBCUT PRN ×2 (08:36→12:32)
[2017-10-16] MEDS: HYDROCODONE/ACETAMINOPHEN 5-325 MG TABLET PO PRN (08:36)
[2017-10-16] MEDS ORDERED: METOPROLOL SUCCINATE 25 MG TAB.SR.24H PO SCH (10:00)
[2017-10-16] MEDS ORDERED: LISINOPRIL 5 MG TABLET PO SCH (10:00)
[2017-10-16] MEDS: TAMSULOSIN HCL 0.4 MG CAP.SR.24H PO SCH (10:10)
[2017-10-16] MEDS: GABAPENTIN 300 MG CAPSULE PO SCH (10:10)
[2017-10-16] MEDS: DORZOLAMIDE HCL 2% OPH SOLN 10 ML OU SCH (10:11)
[2017-10-16] MEDS: BUDESONIDE/FORMOTEROL 160-4.5 MCG 60 PUFF/6 GM MDI IH SCH (10:11)
--- NOTE | 2017-10-16 10:41 | PDOC TRANSFER SUMMARY ---
General Admission Date/PCP: 10/14/17 08:12 DEVON PHOENIX MD Transfer Date: 10/16/17 Accepting Facility: [facility] Accepting Physician: Dr. Sarah Robbins and Rosamaria Morejon NP Resuscitation Status: Do Not Resuscitate - Transfer Diagnosis (1) Closed left hip fracture Is this a current diagnosis for this admission?: Yes (2) Hypertension Is this a current diagnosis for this admission?: Yes (3) BPH (benign prostatic hyperplasia) Is this a current diagnosis for this admission?: Yes (6) Diabetes mellitus Is this a current diagnosis for this admission?: Yes (7) Obstructive sleep apnea Is this a current diagnosis for this admission?: Yes (8) Ischemic cardiomyopathy Is this a current diagnosis for this admission?: Yes - Transfer Medications Home Medications: Albuterol Sulfate [Ventolin Hfa] 2 puff IH Q4HP PRN 10/14/17 Aspirin [Aspirin EC] 81 mg PO QAM 10/14/17 Budesonide/Formoterol Fumarate [Symbicort HFA 160-4.5 mcg Inhaler 6 gm] 2 puff IH Q12 10/14/17 Cetirizine HCl [Zyrtec 10 mg Tablet] 1 tab PO DAILY 10/14/17 Diltiazem HCl [Cardizem Cd 120 mg Capsule] 1 cap.sr PO DAILY 10/14/17 Dorzolamide HCl [Trusopt] 1 drop OU BID 10/14/17 Empagliflozin [Jardiance] 25 mg PO QAM 10/14/17 Gabapentin [Neurontin 300 mg Capsule] 300 mg PO BID 10/14/17 Insulin Detemir [Levemir Flextouch] 50 unit SQ BID 10/14/17 Ipratropium/Albuterol Sulfate [Duoneb 3 ml Ampul] 3 ml NEB RTQIDP PRN 10/14/17 Lorazepam [Ativan 1 mg Tablet] 1 mg PO DAILYP PRN 10/14/17 Omeprazole 40 mg PO Q6AM 10/14/17 Sitagliptin Phos/Metformin HCl [Janumet Xr 100-1,000 mg Tablet] 1 ea PO DAILY Tamsulosin HCl [Flomax 0.4 mg Cap.sr] 0.4 mg PO DAILY 10/14/17 Tramadol HCl [Ultram 50 mg Tablet] 50 mg PO TIDP PRN 10/14/17 Transfer Medications: Current Medications Hydrocodone Bitart/Acetaminophen ([place] 5-325 Mg Tablet) 1 tab PO Q4HP PRN PRN Reason: MILD TO MODERATE PAIN Stop: 10/21/17 08:24 Last Admin: 10/16/17 08:36 Dose: 1 tab Albuterol/Ipratropium (Duoneb 3 Ml Ampul) 3 ml NEB RTQIDP PRN PRN Reason: SHORTNESS OF BREATH Stop: 11/13/17 18:07 Last Admin: 10/15/17 13:06 Dose: 3 ml Budesonide/Formoterol Fumarate (Symbicort Hfa 160-4.5 Mcg Inhaler 6 Gm) 2 puff IH Q12 IDA Stop: 11/14/17 09:59 Last Admin: 10/16/17 10:11 Dose: 2 puff Dextrose (Dextrose Inj 50% Syringe (25 Gm/50 Ml)) 12.5 gm IV PRN PRN; Protocol PRN Reason: FOR BG 50-69 IN ALERT PATIENT Stop: 11/13/17 08:26 Dextrose (Dextrose Inj 50% Syringe (25 Gm/50 Ml)) 25 gm IV PRN PRN PRN Reason: Protocol Stop: 11/13/17 08:26 Dorzolamide HCl (Trusopt Plus 2% Oph Soln 10 Ml) 1 drop OU BID [facility] Stop: 11/14/17 09:59 Last Admin: 10/16/17 10:11 Dose: 1 drop Gabapentin (Neurontin 300 Mg Capsule) 300 mg PO BID [facility] Stop: 11/14/17 09:59 Last Admin: 10/16/17 10:10 Dose: 300 mg Glucagon (Glucagen Inj 1 Mg Vial) 1 mg IM PRN PRN; Protocol PRN Reason: Evaluate for BG < 70 Stop: 11/13/17 08:26 Glucose (Glutose 40% Gel 15 Gm Tube) 30 gm PO PRN PRN; Protocol PRN Reason: FOR BG < 50 IN ALERT PATIENT Stop: 11/13/17 08:26 Glucose (Glutose 40% Gel 15 Gm Tube) 15 gm PO PRN PRN; Protocol PRN Reason: FOR BG 50-69 IN ALERT PATIENT Stop: 11/13/17 08:26 Insulin Human Lispro (Humalog Insulin 100 Unit/1 Ml 3 Ml Vial) 0 - 12 unit SUBCUT Q6HP PRN PRN Reason: Protocol Stop: 11/13/17 08:26 Last Admin: 10/16/17 08:36 Dose: 2 unit Lansoprazole (Prevacid 30 Mg Odt Tablet) 30 mg PO Q6AM [facility] Stop: 11/14/17 05:59 Last Admin: 10/16/17 06:26 Dose: 30 mg Levalbuterol HCl (Xopenex Neb 1.25 Mg/3 Ml Ampul) 1.25 mg NEB RTQ2HP PRN PRN Reason: SHORTNESS OF BREATH Stop: 11/13/17 08:18 Last Admin: 10/15/17 10:09 Dose: 1.25 mg Lisinopril (Prinivil 5 Mg Tablet) 2.5 mg PO Q12 [facility] Stop: 11/15/17 09:59 Last Admin: 10/16/17 10:09 Dose: 2.5 mg Lorazepam (Ativan 1 Mg Tablet) 1 mg PO DAILYP PRN PRN Reason: ANXIETY Stop: 10/21/17 18:07 Last Admin: 10/15/17 22:25 Dose: 1 mg Metoprolol Succinate (Toprol Xl 25 Mg Tab.Sr) 25 mg PO Q12 [facility] Stop: 11/15/17 09:59 Last Admin: 10/16/17 10:08 Dose: 25 mg Morphine Sulfate (Morphine 10 Mg/Ml Inj) 2 mg IV Q4HP PRN PRN Reason: SEVERE PAIN Stop: 10/21/17 08:27 Last Admin: 10/15/17 17:58 Dose: 2 mg Nitroglycerin (Nitrol 2% Ointment 1gm Packet) 0.5 gm TP Q6 [facility] Stop: 11/15/17 00:00 Last Admin: 10/16/17 06:26 Dose: 0.5 gm Ondansetron HCl (Zofran Odt 4 Mg Tablet) 4 mg PO Q4HP PRN PRN Reason: FOR NAUSEA/VOMITING Stop: 11/13/17 08:18 Ondansetron HCl (Zofran Inj/Pf 4 Mg/2 Ml Sdv) 4 mg IV Q8HP PRN PRN Reason: FOR NAUSEA/VOMITING Stop: 11/13/17 08:18 Tamsulosin HCl (Flomax 0.4 Mg Cap.Sr) 0.4 mg PO DAILY [facility] Stop: 11/14/17 09:59 Last Admin: 10/16/17 10:10 Dose: 0.4 mg Temazepam (Restoril 7.5 Mg Capsule) 7.5 mg PO HSP PRN PRN Reason: SLEEP OR INSOMNIA Stop: 10/21/17 08:18 Last Admin: 10/15/17 22:25 Dose: 7.5 mg - Allergies Allergies/Adverse Reactions: Penicillins Allergy (Verified 05/22/15 17:20) SWELLS - Diet/Activity Discharge Diet: Diabetic Hospital Course Hospital Course: 82-year-old gentleman with past medical history of COPD, oxygen dependent Diabetes Former smoker Coronary artery disease, status post RCA and LAD stents HI Hypertension Sleep apnea History of stroke Benign prostatic hypertrophy Gastroesophageal reflux disease Arthritis Right clavicle orthopedic surgery He reports feeling lightheaded when he got up from sitting at the kitchen table , fell and then developed left hip pain and was unable to bear weight. X-ray showed a left hip fracture. Denies chest pain or discomfort no palpitations or shortness of breath. No edema no paroxysmal nocturnal dyspnea. He has been in sinus rhythm on the monitor. He has chronic orthopnea which is unchanged. Denies any chest pain. No anginal symptoms. Home medications: Albuterol Sulfate [Ventolin Hfa] 2 puff IH Q4HP PRN 10/14/17 Aspirin [Aspirin EC] 81 mg PO QAM 10/14/17 Budesonide/Formoterol Fumarate [Symbicort Hfa 160-4.5 Mcg Inhaler 6 gm] 2 puff IH Q12 10/14/17 Cetirizine HCl [Zyrtec 10 mg Tablet] 1 tab PO DAILY 10/14/17 Diltiazem HCl [Cardizem Cd 120 mg Capsule] 1 cap.sr PO DAILY 10/14/17 Dorzolamide HCl [Trusopt] 1 drop OU BID 10/14/17 Empagliflozin [Jardiance] 25 mg PO QAM 10/14/17 Gabapentin [Neurontin 300 mg Capsule] 300 mg PO BID 10/14/17 Insulin Detemir [Levemir Flextouch] 50 unit SQ BID 10/14/17 Ipratropium/Albuterol Sulfate [Duoneb 3 ml Ampul] 3 ml NEB RTQIDP PRN 10/14/17 Lorazepam [Ativan 1 mg Tablet] 1 mg PO DAILYP PRN 10/14/17 Omeprazole 40 mg PO Q6AM 10/14/17 Sitagliptin Phos/Metformin HCl [Janumet Xr 100-1,000 mg Tablet] 1 ea PO DAILY Tamsulosin HCl [Flomax 0.4 mg Cap.sr] 0.4 mg PO DAILY 10/14/17 Tramadol HCl [Ultram 50 mg Tablet] 50 mg PO TIDP PRN 10/14/17 Allergies: Penicillin Physical exam at the time of discharge: Elderly gentleman, lying in bed not in acute distress Lungs: Clear to auscultation bilaterally Cardiac: S1-S2 regular no murmurs heard no peripheral edema Abdomen: Soft, no focal tenderness, normal bowel sounds Skin: Warm and dry Neurologic: Awake and alert oriented 3 no facial droop. Cardiology preop evaluation was performed troponin and CK was checked as part of this evaluation and initial troponin was 8 and marika up to 12. It is 6 this morning. CK-MB was also elevated 37. The patient had no chest pain whatsoever and EKG showed no acute ST segment or T -wave changes. Dr. Hussein recommended starting the patient on lisinopril. He also stopped the patient's Cardizem and started him on Toprol and also ordered nitroglycerin paste. Dr. Hussein spoke to Dr. Nathan Robertson who agrees that the patient will probably need a left heart catheterization prior to hip surgery. The patient is being transferred to [facility]. He is agreeable. Physical Exam Vital Signs: Temp Pulse Resp BP Pulse Ox 98.3 F 94 18 133/60 H 97 10/16/17 07:50 10/16/17 07:50 10/16/17 07:50 10/16/17 07:50 10/16/17 08:25 Intake & Output 10/15/17 10/16/17 10/17/17 06:59 06:59 06:59 Intake Total 2082 310 Output Total 1375 475 Balance 707 -165 Weight 82.3 kg 83.5 kg Additional comments: see above Results Laboratory Results: 10/16/17 04:07 10/16/17 04:07 10/16/17 10/16/17 04:07 04:07 WBC 14.2 H RBC 4.34 L Hgb 10.0 L Hct 32.4 L MCV 75 L MCH 23.0 L MCHC 30.8 L RDW 18.5 H Plt Count 284 Seg Neutrophils % 81.2 H Lymphocytes % 8.5 L Monocytes % 8.3 Eosinophils % 1.6 Basophils % 0.4 Absolute Neutrophils 11.6 H Absolute Lymphocytes 1.2 Absolute Monocytes 1.2 Absolute Eosinophils 0.2 Absolute Basophils 0.1 Sodium 138.7 Potassium 4.1 Chloride 103 Carbon Dioxide 24 Anion Gap 12 BUN 26 H Creatinine 1.04 Est GFR ( Amer) > 60 Est GFR (Non-Af Amer) > 60 Glucose 177 H Calcium 8.6 Phosphorus 4.2 Magnesium 2.4 H 10/14/17 10/14/17 10/14/17 18:20 18:20 18:20 Creatine Kinase 589 H CK-MB (CK-2) 37.50 H Troponin I 8.800 Cancelled NT-Pro-B Natriuret Pep 10/15/17 10/16/17 10/16/17 03:58 04:07 08:09 Creatine Kinase CK-MB (CK-2) Troponin I 12.300 6.770 NT-Pro-B Natriuret Pep 67235 H 7020 H Impressions: Chest X-Ray 10/14/17 00:00 IMPRESSION: No acute cardiopulmonary findings. 2010 [email or web address]- All Rights Reserved Chest/Abdomen CTA 10/14/17 00:00 IMPRESSION: NORMAL CTA OF THE CHEST. NO PULMONARY EMBOLI. Lower Extremity CT 10/14/17 00:00 IMPRESSION: STABLE APPEARANCE OF LEFT FEMORAL NECK FRACTURE. Hip X-Ray 10/14/17 06:00 IMPRESSION: Left proximal femoral fracture/deformity. Limitation. 2010 [email or web address]- All Rights Reserved Status: Image reviewed by or Plan Discharge Plan: Transfer to [facility]. Time Spent: Greater than 30 Minutes
[2017-10-16] MEDS: IPRATROPIUM/ALBUTEROL 0.5-2.5 MG/3 ML AMPUL NEB PRN (10:48)
[2017-10-16] MEDS: MORPHINE SULFATE 10 MG/ML INJ IV PRN ×2 (11:04→16:43)
[2017-10-16 11:16] VITALS: BP 137/57
--- NOTE | 2017-10-16 16:48 | EKG REPORT ---
SEVERITY:- ABNORMAL ECG - SINUS RHYTHM PACS NONSPECIFIC LATERAL ST-T CHANGES : Confirmed by: Martir Beck MD 16-Oct-2017 16:47:30
--- NOTE | 2017-10-22 18:19 | PROGRESS NOTE E ---
Progress Note NAME: MICHEALA KUHN : 1935 AGE: 82Y DATE: 10/16/2017 ROOM: 302 SUBJECTIVE: The patient denies any chest pain or discomfort. He denies any palpitations. There is no shortness of breath. There is no arrhythmia seen on the monitor. There is no leg edema. There is no PND. The patient had chronic orthopnea which is unchanged. He has no wheezing, cough, or sputum production. There are no anginal symptoms. The patient has no pleuritic chest pain or chest pain of other nature. He has no dizziness, near syncope, or syncope. There are no symptoms of congestive heart failure. OBJECTIVE: GENERAL: On examination, the patient is well groomed and well nourished, in no acute distress. VITAL SIGNS: He is afebrile with a temperature of 98 degrees Fahrenheit. Pulse is 81 beats per minute. Blood pressure 137/57. Respirations are 18 per minute. O2 sats are 97% on 2 L nasal cannula. HEAD: Atraumatic, normocephalic. EYES: Pupils are equal, round, regular, reactive to light and accommodation. Extraocular movements are normal. There is no conjunctival pallor. There is no scleral icterus. EARS: Tympanic membranes are intact. External auditory canals are clear. NOSE: There is no nasal mucosal membrane inflammation. The nares are patent. MOUTH: Mucous membranes of mouth and tongue are moist. There is no bleeding from the mouth. THROAT: There is no redness of the oropharynx. There are no exudates. SKIN: There are no skin rashes. There are no petechiae or ecchymosis. There are no skin lesions. NECK: Supple. There is no JVD. Carotids are equal. There is no bruit. There is no goiter. There is no lymphadenopathy. Trachea is central. LUNGS: Show diminished air entry, prolonged expiration on auscultation, without any rhonchi, rales, or wheezing. On percussion there is hyperresonance throughout. There is no chest-wall tenderness. HEART: S1 and S2 are heard. There is no S3 gallop. There is no S4 gallop. There is a systolic murmur at the left sternal border and the apex. There is no rub. ABDOMEN: Soft, nontender. There is no hepatosplenomegaly. Bowel sounds are well heard. There are no tender areas or masses. EXTREMITIES: Femorals are diminished. . I believe that the patient needs to have his coronaries checked to see if there are any lesions. He has accepted the patient in transfer. Discussed this with the hospitalist and patient and patient's son. NOTE, THE PATIENT IS A DNR. His son is his surrogate healthcare decision maker. 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 The patient has been accepted in transfer. Will sign off. DICTATING PHYSICIAN: CHRISTINA BERGMAN M.D. [id number] ISIS#: [id number] ID: [id number] JOB#: [id number] ACCT: [id number] cc: >
== END 2017-10-16 17:31 | disposition short-term general hospital (02) | DRG 536 ==
LOC: ER 05:56 → EH 08:12 → 5 09:58 → 3N 23:45
PROVIDERS: ADMIT Internal Medicine; ATTEND Internal Medicine
DX: S72.002A Fracture of unspecified part of neck of left femur, initial encounter for closed fracture (principal); Z66 Do not resuscitate; R79.89 Other specified abnormal findings of blood chemistry; I25.10 Atherosclerotic heart disease of native coronary artery without angina pectoris; I50.9 Heart failure, unspecified; I11.0 Hypertensive heart disease with heart failure; I25.5 Ischemic cardiomyopathy; J44.9 Chronic obstructive pulmonary disease, unspecified; E11.9 Type 2 diabetes mellitus without complications; K21.9 Gastro-esophageal reflux disease without esophagitis; N40.0 Benign prostatic hyperplasia without lower urinary tract symptoms; G47.33 Obstructive sleep apnea (adult) (pediatric); I25.2 Old myocardial infarction; W19.XXXA Unspecified fall, initial encounter; Y93.9 Activity, unspecified; Y92.9 Unspecified place or not applicable; Z75.1 Person awaiting admission to adequate facility elsewhere; Z87.891 Personal history of nicotine dependence; Z79.84 Long term (current) use of oral hypoglycemic drugs; Z79.4 Long term (current) use of insulin; Z79.51 Long term (current) use of inhaled steroids; Z79.899 Other long term (current) drug therapy
CPT/HCPCS: 36415; 71045; 71275; 80048; 80053; 80061; 80076; 81001; 82550; 82553; 82962; 83036; 83735; 83880; 84100; 84439; 84443; 84481; 84484; 85025; 85610; 85730; 86850; 86900; 86901; 87040; 87086; 93005; 93010; 93306; 94640; 94660; 99285; J1815; J2270; J3490; J7120; J7620; S0164

== ENCOUNTER 2017-10-28 20:12 | Inpatient (IN) | payer MEDICARE, MEDICAID ==
[2017-10-28] MEDS ORDERED: IPRATROPIUM/ALBUTEROL 0.5-2.5 MG/3 ML AMPUL NEB ONE (20:18)
--- NOTE | 2017-10-28 20:19 | ER Document Report ---
ED Respiratory Problem - General Chief Complaint: Shortness Of Breath Stated Complaint: SHORTNESS OF BREATH Time Seen by Provider: 10/28/17 20:17 Notes: 82-year-old male to the emergency department via EMS for severe shortness of breath. Patient was recently admitted to the hospital for a broken hip. Was transferred to a correction. His only been there for about 2 days. Today began to have severe shortness of breath. Denies any chest pain. Taking all of his regular medications as instructed. TRAVEL OUTSIDE OF THE [place] IN LAST 30 DAYS: No - HPI Patient complains to provider of: CHF, Short of breath Onset: Just prior to arrival Duration: Continuous Severity: Severe Pain Level: 0 Context: Hx CHF, Recent immobilization, Recent surgery - Related Data Allergies/Adverse Reactions: Penicillins Allergy (Verified 10/28/17 20:55) SWELLS Past Medical History - General Information source: Patient - Social History Smoking Status: Smoker,Current Status Unk Frequency of alcohol use: None Drug Abuse: None Lives with: Skilled Nursing Family History: Reviewed & Not Pertinent, CAD, Hypertension - Past Medical History Cardiac Medical History: Reports: Hx Coronary Artery Disease, Hx Heart Attack, Hx Hypertension Pulmonary Medical History: Reports: Hx COPD, Hx Sleep Apnea Neurological Medical History: Reports: Hx Cerebrovascular Accident - "years ago " Endocrine Medical History: Reports: Hx Diabetes Mellitus Type 2 Renal/ Medical History: Reports: Hx Benign Prostatic Hyperplasia. Denies: Hx Peritoneal Dialysis GI Medical History: Reports: Hx Gastroesophageal Reflux Disease Musculoskeltal Medical History: Reports Hx Arthritis Psychiatric Medical History: Denies: Hx Depression Past Surgical History: Reports: Hx Cardiac Catheterization - RCA, LDA, Hx Coronary Stent - RCA & LAD, Hx Orthopedic Surgery - right clavicle - Immunizations Hx Diphtheria, Pertussis, Tetanus Vaccination: Yes Review of Systems - Review of Systems Constitutional: denies: Fever, Malaise, Weakness EENT: No symptoms reported Cardiovascular: Palpitations, Heart racing, Orthopnea, Dizziness, Lightheaded, Edema. denies: Chest pain Respiratory: Cough, Short of breath. denies: Wheezing Gastrointestinal: No symptoms reported Genitourinary: No symptoms reported Male Genitourinary: No symptoms reported Musculoskeletal: See HPI, Other - Right hip pain Skin: No symptoms reported Hematologic/Lymphatic: No symptoms reported Neurological/Psychological: No symptoms reported Physical Exam - Vital signs Vitals: Pulse 160 H 10/28/17 20:18 Interpretation: Tachycardic - General General appearance: Alert, Anxious In distress: Moderate - HEENT Head: Normocephalic, Atraumatic Eyes: Normal Pupils: PERRL - Respiratory Respiratory status: No respiratory distress Chest status: Nontender Breath sounds: Normal Chest palpation: Normal - Cardiovascular Rhythm: Tachycardia Heart sounds: Normal auscultation Murmur: No - Abdominal Inspection: Normal Distension: No distension Bowel sounds: Normal Tenderness: Nontender Organomegaly: No organomegaly - Back Back: Normal, Nontender - Extremities General upper extremity: Normal inspection, Nontender, Normal color, Normal ROM , Normal temperature General lower extremity: Normal inspection, Nontender, Edema, Normal color, Normal ROM, Normal temperature, Normal weight bearing. No: Catrachita's sign - Neurological Neuro grossly intact: Yes Cognition: Normal Orientation: AAOx4 [place] Coma Scale Eye Opening: Spontaneous [place] Coma Scale Verbal: Oriented [place] Coma Scale Motor: Obeys Commands Tucker Coma Scale Total: 15 Speech: Normal Motor strength normal: LUE, RUE, LLE, RLE Sensory: Normal - Psychological Associated symptoms: Normal affect, Normal mood - Skin Skin Temperature: Warm Skin Moisture: Dry Skin Color: Normal Course - Re-evaluation Re-evalutation: 10/28/17 21:41 Patient initially seen when EMS arrived. Heart rate was in the 160s. Appeared to be SVT versus sinus tachycardia. Patient was initially given 10 mg of diltiazem and placed on a diltiazem drip. Heart rate is now much improved and patient is feeling better with a heart rate of 100. Note patient was recently seen here. Troponin was grossly elevated. His hip was fixed. [facility] 10/28/17 23:01 Patient resting comfortably at this time. Heart rate came down with diltiazem. On a diltiazem drip at this time. Troponin is slightly elevated however given the fact that his troponin was over 12 a few weeks ago it is likely trending back down but regardless will need to repeat troponin, keep on drip. Will place in IMCU at this time. Consulted hospitalist who agrees with the admission. - Vital Signs Vital signs: Temp Pulse Resp BP Pulse Ox 98.5 F 160 H 20 133/71 H 100 10/28/17 20:21 10/28/17 20:18 10/28/17 21:01 10/28/17 21:01 10/28/17 21:01 - Laboratory Result Diagrams: 10/28/17 20:23 10/28/17 20:23 Laboratory results interpreted by me: 10/28/17 10/28/17 10/28/17 20:23 20:23 20:23 RBC 3.97 L Hgb 9.4 L Hct 30.8 L MCV 78 L MCH 23.7 L MCHC 30.5 L RDW 19.9 H Plt Count 689 H ABG pO2 ABG O2 Saturation Glucose 132 H Alkaline Phosphatase 184 H NT-Pro-B Natriuret Pep 3410 H Albumin 3.4 L 10/28/17 21:26 RBC Hgb Hct MCV MCH MCHC RDW Plt Count ABG pO2 121.6 H ABG O2 Saturation 98.4 H Glucose Alkaline Phosphatase NT-Pro-B Natriuret Pep Albumin - EKG Interpretation by De EKG shows normal: Intervals, QRS Complexes, ST-T Waves Rate: Tachycardia Critical Care Note - Critical Care Note Total time excluding time spent on procedures (mins): 60 Discharge - Discharge Clinical Impression: Supraventricular tachycardia Heart failure Qualifiers: Heart failure type: unspecified Heart failure chronicity: acute on chronic Qualified Code(s): I50.9 - Heart failure, unspecified Referrals: CLAYTON BURNETT MD [Primary Care Provider] - Follow up as needed
[2017-10-28] MEDS ORDERED: DILTIAZEM HCL INJ 25 MG/5 ML VIAL IV ONE (20:26)
[2017-10-28] MEDS ORDERED: DILTIAZEM HCL/D5W 125 MG/125 ML RTUINJ IV PRN (20:27)
[2017-10-28 20:39] LABS: ABSOLUTE EOSINOPHILS # (AUTO) 0.1 10^3/uL (0.0-0.6); ABSOLUTE LYMPHOCYTES (AUTO) 1.6 10^3/uL (0.5-4.7); ABSOLUTE MONOCYTES (AUTO) 0.7 10^3/uL (0.1-1.4); ABSOLUTE NEUT (AUTO) 5.8 10^3/uL (1.7-8.2); BASOPHILS % (AUTO) 0.6 % (0-2); EOSINOPHILS % (AUTO) 1.8 % (0-6); HEMATOCRIT 30.8 % (37.9-51.0); HEMOGLOBIN 9.4 g/dL (13.5-17.0); LYMPHOCYTES % (AUTO) 19.5 % (13-45); MEAN CORPUSCULAR HEMOGLOBIN 23.7 pg (27.0-33.4); MEAN CORPUSCULAR HGB CONC 30.5 g/dL (32.0-36.0); MEAN CORPUSCULAR VOLUME 78 fl (80-97); MONOCYTES % (AUTO) 8.5 % (3-13); PLATELET COUNT 689 10^3/uL (150-450); RED BLOOD COUNT 3.97 10^6/uL (4.35-5.55); RED CELL DISTRIBUTION WIDTH 19.9 % (11.5-14.0); SEGMENTED NEUTROPHILS % (AUTO) 69.6 % (42-78); TOTAL CELLS COUNTED % (AUTO) 100 %; WHITE BLOOD COUNT 8.4 10^3/uL (4.0-10.5)
[2017-10-28 21:10] LABS: ALANINE AMINOTRANSFERASE 37 U/L (21-72); ALBUMIN 3.4 g/dL (3.5-5.0); ALKALINE PHOSPHATASE 184 U/L (38-126); ANION GAP 9 (5-19); ASPARTATE AMINO TRANSFERASE 37 U/L (17-59); BILIRUBIN,DIRECT 0.3 mg/dL (0.0-0.4); BILIRUBIN,TOTAL 0.5 mg/dL (0.2-1.3); BLOOD UREA NITROGEN 18 mg/dL (7-20); CALCIUM 8.6 mg/dL (8.4-10.2); CARBON DIOXIDE 26 mmol/L (22-30); CHLORIDE 106 mmol/L (98-107); CREATINE KINASE 101 U/L (55-170); GLUCOSE 132 mg/dL (75-110); SODIUM 141.4 mmol/L (137-145); TOTAL PROTEIN 6.7 g/dL (6.3-8.2)
--- NOTE | 2017-10-28 21:17 | RADIOLOGY REPORT (SQ) ---
EXAM DESCRIPTION: CHEST SINGLE VIEW COMPLETED DATE/TIME: 10/28/2017 8:47 pm REASON FOR STUDY: sob COMPARISON: 10/14/2017 EXAM PARAMETERS: NUMBER OF VIEWS: One view. TECHNIQUE: Single frontal radiographic view of the chest acquired. RADIATION DOSE: NA LIMITATIONS: None. FINDINGS: LUNGS AND PLEURA: No opacities, masses or pneumothorax. No pleural effusion. MEDIASTINUM AND HILAR STRUCTURES: No masses. Contour normal. HEART AND VASCULAR STRUCTURES: Heart normal in size. Normal vasculature. BONES: No acute findings. HARDWARE: None in the chest. OTHER: No other significant finding. IMPRESSION: NO ACUTE RADIOGRAPHIC FINDING IN THE CHEST. TECHNICAL DOCUMENTATION: JOB ID: [id number] [employer]- All Rights Reserved
[2017-10-28 21:21] LABS: CREATINE KINASE MB 2.77 ng/mL (<4.55)
[2017-10-28 21:29] LABS: TROPONIN I 0.095 ng/mL
[2017-10-28 21:31] LABS: INTERNATIONAL RATION (INR) 0.97; PROTHROMBIN TIME 13.6 SEC (11.4-15.4)
[2017-10-28 21:32] LABS: PARTIAL THROMBOPLASTIN TIME 32.8 SEC (23.5-35.8)
[2017-10-28 21:46] LABS: ARTERIAL BLOOD BASE EXCESS -0.8 mmol/L; ARTERIAL BLOOD H2CO3 1.19 mmol/L (1.05-1.35); ARTERIAL BLOOD HCO3 23.8 mmol/L (20-26); ARTERIAL BLOOD O2 SATURATION 98.4 % (94-98); ARTERIAL BLOOD PCO2 39.6 mmHg (35-45); ARTERIAL BLOOD PO2 121.6 mmHg (80-100)
[2017-10-28 21:51] LABS: ARTERIAL BLOOD FIO2 4L
--- NOTE | 2017-10-28 22:13 | EKG REPORT ---
SEVERITY:- ABNORMAL ECG - SUPRAVENTRICULAR TACHYCARDIA REPOLARIZATION ABNORMALITY, PROB RATE RELATED : Confirmed by: Arpan Aleman 28-Oct-2017 22:12:42
--- NOTE | 2017-10-28 22:13 | EKG REPORT ---
SEVERITY:- BORDERLINE ECG - SINUS TACHYCARDIA PROBABLE LEFT ATRIAL ABNORMALITY : Confirmed by: Arpan Aleman 28-Oct-2017 22:12:02
[2017-10-28] MEDS ORDERED: MORPHINE SULFATE 10 MG/ML INJ IV ONE (22:16)
--- NOTE | 2017-10-28 22:33 | RADIOLOGY REPORT (SQ) ---
EXAM DESCRIPTION: CTA CHEST COMPLETED DATE/TIME: 10/28/2017 10:04 pm REASON FOR STUDY: sob, tachy, recent sx COMPARISON: 10/14/2017 TECHNIQUE: CT scan of the chest performed using helical scanning technique with dynamic intravenous contrast injection. Images reviewed with lung, soft tissue and bone windows. Reconstructed coronal and sagittal MPR images reviewed. Additional 3 dimensional post-processing performed to develop Maximal Intensity Projection images (OR P). All images stored on PACS. All CT scanners at this facility use dose modulation, iterative reconstruction, and/or weight based d osing when appropriate to reduce radiation dose to as low as reasonably achievable (ALARA). [facility]: Dose Right [facility]: CareDose [facility]: Dose Right [facility]: Teradose 4D [facility]: [employer] CONTRAST TYPE AND DOSE: contrast/concentration: Isovue 370.00 mg/ml; Total Contrast Delivered: 73.0 ml; Total Saline Delivered: 110.0 ml Contrast bolus optimized for the pulmonary arteries. Not diagnostic for the aorta. RENAL FUNCTION: BUN 18; creatinine 0.88 RADIATION DOSE: CT Rad equipment meets quality standard of care and radiation dose reduction techniq ues were employed. CTDIvol: 19.8 - 22.6 mGy. DLP: 890 mGy-cm. . LIMITATIONS: None. FINDINGS: LUNGS AND PLEURA: Small bilateral pleural effusions are present. The lungs appear clear a nd evenly aerated. No pneumothorax. AORTA AND GREAT VESSELS: No aneurysm. Contrast bolus not optimized for the aorta. HEART: No pericardial effusion. Coronary artery disease is present. PULMONARY ARTERIES: No emboli visualized in the main pulmonary arteries or the segmental branches. HILAR AND MEDIASTINAL STRUCTURES: No identified masses or abnormal nodes. HARDWARE: None in the chest. UPPER ABDOMEN: No significant findings. Limited exam. THYROID AND OTHER SOFT TISSUES: No masses. No adenopathy. BONES: Healed and chronic rib fractures unchanged in the study interval. No evidence of acute osseou s injury. 3D MIPS: Confirm above findings. OTHER: No other significant finding. IMPRESSION: 1. Normal CTA of the chest. No pulmonary emboli. 2. Small bilateral pleural effusions without focal consolidation. COMMENT: Quality ID # [id number]: Final reports with documentation of one or more dose reduction techniques (e.g., Automated exposure control, adjustment of the mA and/or kV according to patient size, use of iterative reconstruction technique) TECHNICAL DOCUMENTATION: JOB ID: [id number] [employer]- All Rights Reserved
[2017-10-28] MEDS ORDERED: DILTIAZEM HCL 120 MG CAP.SR.24H PO SCH (23:00)
[2017-10-28] MEDS ORDERED: LEVALBUTEROL HCL NEB 1.25 MG/3 ML AMPUL NEB PRN (23:03)
[2017-10-28] MEDS ORDERED: MAGNESIUM HYDROXIDE SUSP 30 ML UDCUP PO PRN (23:03)
[2017-10-28] MEDS ORDERED: MAG HYDROX/AL HYDROX/SIMETH SUSP 30 ML UDCUP PO PRN (23:03)
[2017-10-28] MEDS ORDERED: DEXTROSE 40% GEL 15 GM TUBE PO PRN ×2 (23:09)
[2017-10-28] MEDS ORDERED: GLUCAGON,HUMAN RECOMB 1 MG INJ IM PRN (23:09)
[2017-10-28] MEDS ORDERED: DEXTROSE 50%-WATER 25 GM/50 ML DISP.SYRIN IV PRN ×2 (23:09)
[2017-10-29] MEDS ORDERED: DILTIAZEM HCL 120 MG CAP.SR.24H PO ONE (01:00)
[2017-10-29 01:03] LABS: ABSOLUTE RETICS # 0.116 10^6/uL (0.028-0.122); RETICULOCYTE COUNT (AUTO) 2.94 % (0.66-2.85)
[2017-10-29] MEDS: ACETAMINOPHEN 325 MG TABLET PO PRN (01:32)
[2017-10-29 02:51] LABS: ABSOLUTE BASOPHILS # (AUTO) 0.1 10^3/uL (0.0-0.2); ABSOLUTE EOSINOPHILS # (AUTO) 0.1 10^3/uL (0.0-0.6); ABSOLUTE LYMPHOCYTES (AUTO) 1.7 10^3/uL (0.5-4.7); ABSOLUTE MONOCYTES (AUTO) 0.7 10^3/uL (0.1-1.4); ABSOLUTE NEUT (AUTO) 4.1 10^3/uL (1.7-8.2); BASOPHILS % (AUTO) 0.9 % (0-2); EOSINOPHILS % (AUTO) 1.9 % (0-6); HEMATOCRIT 28.6 % (37.9-51.0); HEMOGLOBIN 8.9 g/dL (13.5-17.0); LYMPHOCYTES % (AUTO) 25.5 % (13-45); MEAN CORPUSCULAR HGB CONC 31.2 g/dL (32.0-36.0); MEAN CORPUSCULAR VOLUME 77 fl (80-97); MONOCYTES % (AUTO) 10.5 % (3-13); PLATELET COUNT 596 10^3/uL (150-450); RED BLOOD COUNT 3.73 10^6/uL (4.35-5.55); RED CELL DISTRIBUTION WIDTH 19.6 % (11.5-14.0); SEGMENTED NEUTROPHILS % (AUTO) 61.2 % (42-78); TOTAL CELLS COUNTED % (AUTO) 100 %; WHITE BLOOD COUNT 6.6 10^3/uL (4.0-10.5)
[2017-10-29 03:17] LABS: ANION GAP 8 (5-19); BLOOD UREA NITROGEN 15 mg/dL (7-20); CALCIUM 8.4 mg/dL (8.4-10.2); CARBON DIOXIDE 27 mmol/L (22-30); CHLORIDE 108 mmol/L (98-107); CREATINE KINASE 105 U/L (55-170); GLUCOSE 87 mg/dL (75-110); POTASSIUM 4.3 mmol/L (3.6-5.0); SODIUM 143.3 mmol/L (137-145)
[2017-10-29 03:29] LABS: CREATINE KINASE MB 4.64 ng/mL (<4.55)
[2017-10-29 03:30] LABS: IRON(TIBC) 17.9 ug/dL (49-181)
[2017-10-29 03:39] LABS: TROPONIN I 1.02 ng/mL
[2017-10-29] MEDS ORDERED: ASPIRIN 81 MG TABLET, CHEWABLE PO ONE (03:51)
[2017-10-29] MEDS ORDERED: ENOXAPARIN SODIUM INJ 100 MG/1 ML DISP.SYRIN SUBCUT ONE (04:15)
[2017-10-29] MEDS ORDERED: NORMAL SALINE 250 ML IV PRN ×2 (04:46)
--- NOTE | 2017-10-29 05:58 | PDOC H&P ---
History of Present Illness Admission Date/PCP: 10/28/17 23:12 CLAYTON BURNETT MD Patient complains of: Shortness of breath History of Present Illness: MICHAELA KUHN is a 82 year old male with a past medical history of coronary artery disease status post RCA and LAD stent, congestive heart failure, obstructive sleep apnea, oxygen dependent COPD, diabetes and recent left hip fracture status post ORIF 1 week ago. Patient had been in rehabilitation at [facility] when developed severe shortness of breath and chest tightness prompting call to EMS finding SVT in the 170s. He received diltiazem 10 IV and placed at 5/h resulting in heart rate in the 90s and resolution of symptoms. Initial workup is unremarkable and is referred to the hospitalist for admission however results returned during his examination revealing an elevation of troponin from 0.0 to 0.1 he remains pain-free without EKG changes suggestive of acute VA. Past Medical History Cardiac Medical History: Reports: Atrial Fibrillation, Coronary Artery Disease, Myocardial Infarction, Hypertension Pulmonary Medical History: Reports: Chronic Obstructive Pulmonary Disease (COPD) , Sleep Apnea Endocrine Medical History: Reports: Diabetes Mellitus Type 1, Diabetes Mellitus Type 2 GI Medical History: Reports: Gastroesophageal Reflux Disease Musculoskeltal Medical History: Reports: Arthritis Psychiatric Medical History: Denies: Depression Hematology: Denies: Anemia, Sickle Cell Disease Past Surgical History Past Surgical History: Reports: Cardiac Catheterization - RCA, LDA, Coronary Stent - RCA & LAD, Orthopedic Surgery - right clavicle Social History Information Source: Patient, [facility] Records Lives with: Assisted Smoking Status: Former Smoker Frequency of Alcohol Use: None Hx Recreational Drug Use: No Drugs: None Hx Prescription Drug Abuse: No - Advance Directive Resuscitation Status: Do Not Resuscitate Family History Family History: CAD, Hypertension Parental Family History Reviewed: Yes Children Family History Reviewed: Yes Sibling(s) Family History Reviewed.: Yes Medication/Allergy Home Medications: Albuterol Sulfate [Ventolin Hfa] 2 puff IH Q4HP PRN 10/14/17 Aspirin [Aspirin EC] 81 mg PO QAM 10/14/17 Budesonide/Formoterol Fumarate [Symbicort HFA 160-4.5 mcg Inhaler 6 gm] 2 puff IH Q12 10/14/17 Cetirizine HCl [Zyrtec 10 mg Tablet] 1 tab PO DAILY 10/14/17 Diltiazem HCl [Cardizem Cd 120 mg Capsule] 1 cap.sr PO DAILY 10/14/17 Dorzolamide HCl [Trusopt] 1 drop OU BID 10/14/17 Empagliflozin [Jardiance] 25 mg PO QAM 10/14/17 Gabapentin [Neurontin 300 mg Capsule] 300 mg PO BID 10/14/17 Insulin Detemir [Levemir Flextouch] 50 unit SQ BID 10/14/17 Ipratropium/Albuterol Sulfate [Duoneb 3 ml Ampul] 3 ml NEB RTQIDP PRN 10/14/17 Lorazepam [Ativan 1 mg Tablet] 1 mg PO DAILYP PRN 10/14/17 Omeprazole 40 mg PO Q6AM 10/14/17 Sitagliptin Phos/Metformin HCl [Janumet Xr 100-1,000 mg Tablet] 1 ea PO DAILY Tamsulosin HCl [Flomax 0.4 mg Cap.sr] 0.4 mg PO DAILY 10/14/17 Tramadol HCl [Ultram 50 mg Tablet] 50 mg PO TIDP PRN 10/14/17 Dextrose [Glutose 40% Gel 15 gm Tube] 15 gm PO PRN PRN tube 10/16/17 Dextrose [Glutose 40% Gel 15 gm Tube] 30 gm PO PRN PRN tube 10/16/17 Gabapentin [Neurontin 300 mg Capsule] 300 mg PO BID capsule 10/16/17 Glucagon,Human Recombinant [Glucagen Inj 1 mg Vial] 1 mg IM PRN PRN vial Hydrocodone/Acetaminophen [Burgin 5-325 mg Tablet] 1 tab PO Q4HP PRN tablet 05/26 Insulin Lispro [Humalog Insulin (Lispro) 100 unit/mL] 0 - 12 unit SUBCUT Q6HP PRN unit 10/16/17 Levalbuterol HCl [Xopenex Neb 1.25 mg/3 ml Ampul] 1.25 mg NEB RTQ2HP PRN vial.neb 10/16/17 Lisinopril [Prinivil 5 mg Tablet] 2.5 mg PO Q12 tablet 10/16/17 Metoprolol Succinate [Toprol Xl 25 mg Tab.sr] 25 mg PO Q12 tab.sr.24h 10/16/17 Morphine Sulfate [Morphine 10 mg/ml Inj] 2 mg IV Q4HP PRN vial 10/16/17 Nitroglycerin [Nitrol 2% Ointment 1Gm Packet] 0.5 gm TP Q6 oint..gm. 10/16/17 Ondansetron [Zofran Odt 4 mg Tablet] 4 mg PO Q4HP PRN tab.rapdis 10/16/17 Temazepam [Restoril 7.5 mg Capsule] 7.5 mg PO HSP PRN capsule 10/16/17 Allergies/Adverse Reactions: Penicillins Allergy (Verified 10/28/17 20:55) CHIKIS Review of Systems Constitutional: ABSENT: chills, fever(s), headache(s), weight gain, weight loss Eyes: ABSENT: visual disturbances Ears: ABSENT: hearing changes Cardiovascular: ABSENT: chest pain, dyspnea on exertion, edema, orthropnea, palpitations Respiratory: ABSENT: cough, hemoptysis Gastrointestinal: ABSENT: abdominal pain, constipation, diarrhea, hematemesis, hematochezia, nausea, vomiting Genitourinary: ABSENT: dysuria, hematuria Musculoskeletal: ABSENT: joint swelling Integumentary: ABSENT: rash, wounds Neurological: ABSENT: abnormal gait, abnormal speech, confusion, dizziness, focal weakness, syncope Psychiatric: ABSENT: anxiety, depression, homidical ideation, suicidal ideation Endocrine: ABSENT: cold intolerance, heat intolerance, polydipsia, polyuria Hematologic/Lymphatic: ABSENT: easy bleeding, easy bruising Physical Exam Vital Signs: Temp Pulse Resp BP Pulse Ox 97.5 F 90 20 116/48 L 100 10/29/17 03:18 10/29/17 03:18 10/29/17 03:18 10/29/17 03:18 10/29/17 03:18 Intake & Output 10/27/17 10/28/17 10/29/17 11:59 11:59 11:59 Weight 84.3 kg General appearance: PRESENT: no acute distress, well-developed, well-nourished Head exam: PRESENT: atraumatic, normocephalic Eye exam: PRESENT: conjunctiva pink, EOMI, PERRLA. ABSENT: scleral icterus Ear exam: PRESENT: normal external ear exam Mouth exam: PRESENT: moist, tongue midline Neck exam: ABSENT: carotid bruit, JVD, lymphadenopathy, thyromegaly Respiratory exam: PRESENT: clear to auscultation crystal. ABSENT: rales, rhonchi, wheezes Cardiovascular exam: PRESENT: RRR. ABSENT: diastolic murmur, rubs, systolic murmur Pulses: PRESENT: normal dorsalis pedis pul Vascular exam: PRESENT: normal capillary refill GI/Abdominal exam: PRESENT: normal bowel sounds, soft. ABSENT: distended, guarding, mass, organolmegaly, rebound, tenderness Rectal exam: PRESENT: deferred Extremities exam: PRESENT: full ROM. ABSENT: calf tenderness, clubbing, pedal edema Neurological exam: PRESENT: alert, awake, oriented to person, oriented to place , oriented to time, oriented to situation, CN II-XII grossly intact. ABSENT: motor sensory deficit Psychiatric exam: PRESENT: appropriate affect, normal mood. ABSENT: homicidal ideation, suicidal ideation Skin exam: PRESENT: dry, intact, warm. ABSENT: cyanosis, rash Results Laboratory Results: 10/29/17 02:43 10/29/17 02:43 10/28/17 10/29/17 10/29/17 23:25 02:43 02:43 WBC 6.6 RBC 3.73 L Hgb 8.9 L Hct 28.6 L MCV 77 L MCH 24.0 L MCHC 31.2 L RDW 19.6 H Plt Count 596 H Seg Neutrophils % 61.2 Lymphocytes % 25.5 Monocytes % 10.5 Eosinophils % 1.9 Basophils % 0.9 Absolute Neutrophils 4.1 Absolute Lymphocytes 1.7 Absolute Monocytes 0.7 Absolute Eosinophils 0.1 Absolute Basophils 0.1 Sodium 143.3 Potassium 4.3 Chloride 108 H Carbon Dioxide 27 Anion Gap 8 BUN 15 Creatinine 0.85 Est GFR ( Amer) > 60 Est GFR (Non-Af Amer) > 60 Glucose 87 Lactic Acid 1.7 Calcium 8.4 10/29/17 10/29/17 02:43 02:43 Creatine Kinase 105 CK-MB (CK-2) 4.64 H Troponin I 1.020 Impressions: Chest X-Ray 10/28/17 20:17 IMPRESSION: NO ACUTE RADIOGRAPHIC FINDING IN THE CHEST. Chest/Abdomen CTA 10/28/17 20:28 IMPRESSION: 1. Normal CTA of the chest. No pulmonary emboli. 2. Small bilateral pleural effusions without focal consolidation. Assessment & Plan - Diagnosis (1) Non-ST elevation VA (NSTEMI) Is this a current diagnosis for this admission?: Yes Plan: Admission to [facility], continue oxygen, IV Cardizem, aspirin, full dose Lovenox follow-up cardiac enzymes and EKG. Dr. Hussein consulted (2) Anemia Is this a current diagnosis for this admission?: Yes Plan: Multifactorial secondary to acute blood loss of surgery complicated by non-ST elevation VA, 2 units of packed red blood cells ordered, follow-up as transfusion CBC. (3) Heart failure Qualifiers: Heart failure type: unspecified Heart failure chronicity: acute on chronic Qualified Code(s): I50.9 - Heart failure, unspecified Is this a current diagnosis for this admission?: Yes Plan: Exacerbation secondary to SVT, rate control, correct anemia. (4) Supraventricular tachycardia Is this a current diagnosis for this admission?: Yes Plan: Unclear cause however known ischemic cardiomyopathy continue IV Cardizem. Cardiology consulted, (5) Diabetes mellitus Qualifiers: Diabetes mellitus type: type 2 Is this a current diagnosis for this admission?: Yes Plan: Outpatient regiment with sliding scale insulin (6) Obstructive sleep apnea Is this a current diagnosis for this admission?: Yes Plan: BiPAP while asleep - Time Time Spent: 50 to 70 Minutes - Inpatient Certification Medical Necessity: Need Close Monitoring Due to Risk of Patient Decompensation
[2017-10-29] MEDS ORDERED: HEPARIN SOD (PORCINE) 5,000 UNIT/ML 1 ML SYRINGE SUBCUT SCH (06:00)
[2017-10-29] MEDS: LEVALBUTEROL HCL NEB 1.25 MG/3 ML AMPUL NEB SCH ×3 (07:14→19:40)
[2017-10-29] MEDS ORDERED: (PENDING PHARMACY ID) (Empagliflozin [Jardiance] 25 MG) PO SCH (08:00)
[2017-10-29] MEDS: GABAPENTIN 300 MG CAPSULE PO SCH ×2 (09:25→17:29)
[2017-10-29] MEDS: TAMSULOSIN HCL 0.4 MG CAP.SR.24H PO SCH (09:26)
[2017-10-29] MEDS: CETIRIZINE 10 MG TABLET PO SCH (09:26)
[2017-10-29] MEDS: ASPIRIN 81 MG TABLET, ENT COATED PO SCH (09:27)
[2017-10-29] MEDS: DOCUSATE SODIUM 100 MG CAPSULE PO SCH ×2 (09:27→17:29)
[2017-10-29] MEDS ORDERED: LISINOPRIL 5 MG TABLET PO SCH (10:00)
[2017-10-29] MEDS ORDERED: BUDESONIDE/FORMOTEROL 160-4.5 MCG 60 PUFF/6 GM MDI IH SCH (10:00)
[2017-10-29] MEDS ORDERED: DILTIAZEM HCL 120 MG CAP.SR.24H PO SCH (10:00)
[2017-10-29] MEDS ORDERED: METOPROLOL SUCCINATE 25 MG TAB.SR.24H PO SCH ×2 (10:00→15:54)
[2017-10-29] MEDS ORDERED: INSULIN DETEMIR 100 UNIT/ML 3 ML PEN SUBCUT SCH (10:00)
[2017-10-29] MEDS: INSULIN LISPRO 100 UNIT/ML 3 ML VIAL SUBCUT PRN ×2 (12:36→20:48)
[2017-10-29] MEDS: DORZOLAMIDE HCL 2% OPH SOLN 10 ML OU SCH ×2 (12:39→17:29)
[2017-10-29 13:27] LABS: CREATINE KINASE MB 4.09 ng/mL (<4.55); TROPONIN I 0.88 ng/mL
[2017-10-29 14:56] LABS: ABSOLUTE BASOPHILS # (AUTO) 0.1 10^3/uL (0.0-0.2); ABSOLUTE EOSINOPHILS # (AUTO) 0.2 10^3/uL (0.0-0.6); ABSOLUTE MONOCYTES (AUTO) 0.7 10^3/uL (0.1-1.4); ABSOLUTE NEUT (AUTO) 4.9 10^3/uL (1.7-8.2); EOSINOPHILS % (AUTO) 2.2 % (0-6); HEMATOCRIT 30.6 % (37.9-51.0); HEMOGLOBIN 9.7 g/dL (13.5-17.0); LYMPHOCYTES % (AUTO) 15.1 % (13-45); MEAN CORPUSCULAR HEMOGLOBIN 24.8 pg (27.0-33.4); MEAN CORPUSCULAR HGB CONC 31.6 g/dL (32.0-36.0); MEAN CORPUSCULAR VOLUME 78 fl (80-97); MONOCYTES % (AUTO) 9.9 % (3-13); PLATELET COUNT 583 10^3/uL (150-450); RED CELL DISTRIBUTION WIDTH 20.4 % (11.5-14.0); SEGMENTED NEUTROPHILS % (AUTO) 71.8 % (42-78); TOTAL CELLS COUNTED % (AUTO) 100 %; WHITE BLOOD COUNT 6.9 10^3/uL (4.0-10.5)
[2017-10-29] MEDS: TRAMADOL HCL 50 MG TABLET PO PRN (15:03)
[2017-10-29] MEDS ORDERED: LEVALBUTEROL HCL NEB 1.25 MG/3 ML AMPUL NEB PRN (15:17)
[2017-10-29] MEDS ORDERED: IPRATROPIUM/ALBUTEROL 0.5-2.5 MG/3 ML AMPUL NEB PRN (15:17)
[2017-10-29] MEDS ORDERED: LORAZEPAM 1 MG TABLET PO PRN (15:17)
[2017-10-29] MEDS ORDERED: (PENDING PHARMACY ID) (Ondansetron Hcl [Zofran] 4 MG) PO PRN (15:17)
[2017-10-29] MEDS ORDERED: ONDANSETRON 4 MG TAB.RAPDIS PO PRN (15:28)
[2017-10-29 15:38] LABS: CREATINE KINASE MB 3.62 ng/mL (<4.55); TROPONIN I 0.809 ng/mL
--- NOTE | 2017-10-29 15:41 | PDOC PROGRESS REPORT ---
Subjective Progress Note for:: 10/29/17 Subjective:: The patient is sitting up on the side of the bed receiving a breathing treatment. He is acutely short of breath and states that he cannot breathe. It is difficult to get a good review of systems as the patient is quite uncomfortable. He states he is not having any chest pain. No abdominal pain. He is tolerating a diet. Nursing staff reports that he was ordered 2 units of blood at the time of admission. After the first unit the patient's shortness of breath acutely worsened. Reason For Visit: AFIB CHF,COPD EXACERBATION EXACERBATION Physical Exam Vital Signs: Temp Pulse Resp BP Pulse Ox 98.0 F 97 24 H 135/61 H 99 10/29/17 09:04 10/29/17 14:00 10/29/17 07:48 10/29/17 14:01 10/29/17 14:01 Intake & Output 10/28/17 10/29/17 10/30/17 06:59 06:59 06:59 Intake Total 643 790 Output Total 25 Balance 643 765 Weight 81.9 kg General appearance: PRESENT: mild distress, thin, other - Chronically ill- appearing Head exam: PRESENT: atraumatic, normocephalic Mouth exam: PRESENT: moist, tongue midline Respiratory exam: PRESENT: crackles, other - The patient has coarse breath sounds and crackles in the lower bases bilaterally. Cardiovascular exam: PRESENT: tachycardia. ABSENT: diastolic murmur, rubs, systolic murmur GI/Abdominal exam: PRESENT: normal bowel sounds, soft. ABSENT: distended, guarding, mass, organolmegaly, rebound, tenderness Extremities exam: PRESENT: full ROM. ABSENT: calf tenderness, clubbing, pedal edema Neurological exam: PRESENT: alert, awake, oriented to person, oriented to place , oriented to time, oriented to situation, CN II-XII grossly intact. ABSENT: motor sensory deficit Skin exam: PRESENT: dry, intact, warm. ABSENT: cyanosis, rash Results Laboratory Results: 10/29/17 14:13 10/29/17 02:43 10/28/17 10/29/17 10/29/17 23:25 02:43 02:43 WBC 6.6 RBC 3.73 L Hgb 8.9 L Hct 28.6 L MCV 77 L MCH 24.0 L MCHC 31.2 L RDW 19.6 H Plt Count 596 H Seg Neutrophils % 61.2 Lymphocytes % 25.5 Monocytes % 10.5 Eosinophils % 1.9 Basophils % 0.9 Absolute Neutrophils 4.1 Absolute Lymphocytes 1.7 Absolute Monocytes 0.7 Absolute Eosinophils 0.1 Absolute Basophils 0.1 Sodium 143.3 Potassium 4.3 Chloride 108 H Carbon Dioxide 27 Anion Gap 8 BUN 15 Creatinine 0.85 Est GFR ( Amer) > 60 Est GFR (Non-Af Amer) > 60 Glucose 87 Lactic Acid 1.7 Calcium 8.4 Blood Type Antibody Screen 10/29/17 10/29/17 05:10 14:13 WBC 6.9 RBC 3.90 L Hgb 9.7 L Hct 30.6 L MCV 78 L MCH 24.8 L MCHC 31.6 L RDW 20.4 H Plt Count 583 H Seg Neutrophils % 71.8 Lymphocytes % 15.1 Monocytes % 9.9 Eosinophils % 2.2 Basophils % 1.0 Absolute Neutrophils 4.9 Absolute Lymphocytes 1.0 Absolute Monocytes 0.7 Absolute Eosinophils 0.2 Absolute Basophils 0.1 Sodium Potassium Chloride Carbon Dioxide Anion Gap BUN Creatinine Est GFR ( Amer) Est GFR (Non-Af Amer) Glucose Lactic Acid Calcium Blood Type B POSITIVE Antibody Screen NEGATIVE 10/29/17 10/29/17 10/29/17 02:43 02:43 12:34 Creatine Kinase 105 90 CK-MB (CK-2) 4.64 H Troponin I 1.020 10/29/17 10/29/17 12:34 14:13 Creatine Kinase 77 CK-MB (CK-2) 4.09 Troponin I 0.880 Impressions: Chest X-Ray 10/28/17 20:17 IMPRESSION: NO ACUTE RADIOGRAPHIC FINDING IN THE CHEST. Chest/Abdomen CTA 10/28/17 20:28 IMPRESSION: 1. Normal CTA of the chest. No pulmonary emboli. 2. Small bilateral pleural effusions without focal consolidation. Assessment & Plan - Diagnosis (1) Non-ST elevation IN (NSTEMI) Is this a current diagnosis for this admission?: Yes Plan: I believe this was likely a type I myocardial infarction due to his tachycardia at the time of admission. Cardiology has been consulted. He recently had stent placement. We will just continue to keep a close eye on him today. (2) Acute systolic (congestive) heart failure Is this a current diagnosis for this admission?: Yes Plan: The patient had an echocardiogram on October 14, 2017 and was found to have an ejection fraction of 35%. The patient appears to be acutely volume overloaded after his unit of blood. I have asked the nurse to stop the second unit. This was ordered at the time of admission. His repeat H&H is 9.7. I do not believe he needs any more blood at this point. I am going to place the patient on Lasix 40 mg IV twice daily. I will have the nursing staff obtain strict I's and O's. Cardiology has been consulted but has not yet seen the patient. (3) Supraventricular tachycardia Is this a current diagnosis for this admission?: Yes Plan: Resolved at this point. The patient is stable on p.o. Cardizem. No evidence of atrial fibrillation. (4) Anemia Is this a current diagnosis for this admission?: Yes Plan: The patient was ordered 2 units of packed red blood cells. His hemoglobin was 8.9 at the time of admission. I have stopped his second unit of blood as his hemoglobin is 9.7. He does have a microcytic anemia and further workup can be performed as an outpatient. (5) Obstructive sleep apnea Plan: Continue BiPAP at night - Time Time Spent with patient: 25-34 minutes - Inpatient Certification Medical Necessity: Other - Inpatient hospitalization remains necessary. The patient is acutely short of breath this afternoon and is requiring parenteral therapies. He needs evaluation from cardiology. Timing of disposition will be determined by his clinical course.
[2017-10-29] MEDS ORDERED: FUROSEMIDE INJ/PF 20 MG/2 ML SDV IV SCH (15:45)
[2017-10-29] MEDS: LEVOFLOXACIN 500 MG/D5W RTU 500 MG/100 ML RTUPB IV SCH (17:28)
[2017-10-29] MEDS: FUROSEMIDE INJ/PF 40 MG/4 ML SDV IV SCH (17:29)
[2017-10-29] MEDS ORDERED: BUDESONIDE/FORMOTEROL 80-4.5 MCG 60 PUFF/6.9 GM MDI IH SCH (18:00)
[2017-10-29] MEDS ORDERED: DOCUSATE SODIUM 100 MG CAPSULE PO SCH (18:00)
[2017-10-29] MEDS ORDERED: DORZOLAMIDE HCL 2% OPH SOLN 10 ML OU SCH (18:00)
[2017-10-29] MEDS ORDERED: ENOXAPARIN SODIUM INJ 100 MG/1 ML DISP.SYRIN SUBCUT SCH (18:00)
--- NOTE | 2017-10-29 19:49 | EKG REPORT ---
SEVERITY:- ABNORMAL ECG - SINUS RHYTHM NONSPECIFIC T ABNORMALITIES, LATERAL LEADS : Confirmed by: Arpan Aleman 29-Oct-2017 19:48:15
[2017-10-29] MEDS: INSULIN GLARGINE,HUM.REC.ANLOG 1,000 UNIT/10 ML UNIT SUBCUT SCH (20:47)
[2017-10-29] MEDS: ATORVASTATIN CALCIUM 10 MG TABLET PO SCH (20:48)
[2017-10-29] MEDS: BUDESONIDE/FORMOTEROL 80-4.5 MCG 60 PUFF/6.9 GM MDI IH SCH (20:48)
[2017-10-29] MEDS: METOPROLOL SUCCINATE 50 MG TAB.SR.24H PO SCH (20:48)
[2017-10-29] MEDS: TEMAZEPAM 7.5 MG CAPSULE PO PRN (20:48)
[2017-10-29] MEDS ORDERED: GABAPENTIN 300 MG CAPSULE PO SCH (22:00)
[2017-10-29] MEDS ORDERED: INSULIN GLARGINE,HUM.REC.ANLOG 1,000 UNIT/10 ML UNIT SUBCUT SCH (22:00)
[2017-10-29] MEDS ORDERED: INSULIN GLARGINE,HUM.REC.ANLOG 300 UNIT/3 ML INSULN.PEN SUBCUT SCH (22:00)
[2017-10-29] MEDS ORDERED: TAMSULOSIN HCL 0.4 MG CAP.SR.24H PO SCH (22:00)
[2017-10-30] MEDS: LORAZEPAM 1 MG TABLET PO PRN (01:27)
[2017-10-30] MEDS: FUROSEMIDE INJ/PF 40 MG/4 ML SDV IV SCH ×2 (05:38→17:53)
[2017-10-30 06:41] LABS: HEMATOCRIT 30.3 % (37.9-51.0); HEMOGLOBIN 9.6 g/dL (13.5-17.0); MEAN CORPUSCULAR HEMOGLOBIN 24.9 pg (27.0-33.4); MEAN CORPUSCULAR HGB CONC 31.8 g/dL (32.0-36.0); MEAN CORPUSCULAR VOLUME 78 fl (80-97); PLATELET COUNT 574 10^3/uL (150-450); RED BLOOD COUNT 3.87 10^6/uL (4.35-5.55); RED CELL DISTRIBUTION WIDTH 20.9 % (11.5-14.0)
[2017-10-30 07:07] LABS: ANION GAP 8 (5-19); BLOOD UREA NITROGEN 16 mg/dL (7-20); CALCIUM 8.8 mg/dL (8.4-10.2); CARBON DIOXIDE 24 mmol/L (22-30); CHLORIDE 105 mmol/L (98-107); GLUCOSE 152 mg/dL (75-110); POTASSIUM 5.1 mmol/L (3.6-5.0)
--- NOTE | 2017-10-30 08:17 | RADIOLOGY REPORT (SQ) ---
EXAM DESCRIPTION: CHEST SINGLE VIEW COMPLETED DATE/TIME: 10/30/2017 8:08 am REASON FOR STUDY: chf COMPARISON: 10/28/2017. 10/02/2017. FINDINGS: Single-view chest, AP portable upright image timed approximately 0750 hours. Hyperinflated. Mild relatively stable increased markings in the lung bases. No evidence of overt de veloping failure or focal pneumonia. Stable cardiomediastinal silhouette. IMPRESSION: Stable chest without evidence of acute CHF or definite pneumonia. TECHNICAL DOCUMENTATION: JOB ID: [id number]
[2017-10-30] MEDS: LEVALBUTEROL HCL NEB 1.25 MG/3 ML AMPUL NEB SCH ×3 (08:29→20:26)
[2017-10-30] MEDS: ASPIRIN 81 MG TABLET, ENT COATED PO SCH (08:45)
[2017-10-30] MEDS: INSULIN GLARGINE,HUM.REC.ANLOG 1,000 UNIT/10 ML UNIT SUBCUT SCH ×2 (08:45→21:56)
--- NOTE | 2017-10-30 08:51 | EKG REPORT ---
SEVERITY:- ABNORMAL ECG - SINUS RHYTHM PROBABLE ANTEROSEPTAL INFARCT, AGE INDETERM LATERAL LEADS ARE ALSO INVOLVED : Confirmed by: Arpan Aleman 30-Oct-2017 08:50:44
[2017-10-30] MEDS: ENOXAPARIN SODIUM INJ 40 MG/0.4 ML DISP.SYRIN SUBCUT SCH (09:04)
[2017-10-30] MEDS: DORZOLAMIDE HCL 2% OPH SOLN 10 ML OU SCH ×2 (09:04→17:52)
[2017-10-30] MEDS: CETIRIZINE 10 MG TABLET PO SCH (09:05)
[2017-10-30] MEDS: BUDESONIDE/FORMOTEROL 80-4.5 MCG 60 PUFF/6.9 GM MDI IH SCH ×2 (09:05→21:47)
[2017-10-30] MEDS: METOPROLOL SUCCINATE 50 MG TAB.SR.24H PO SCH ×2 (09:06→21:46)
[2017-10-30] MEDS: LISINOPRIL 10 MG TABLET PO SCH (09:06)
[2017-10-30] MEDS: GABAPENTIN 300 MG CAPSULE PO SCH ×2 (09:06→17:52)
[2017-10-30] MEDS: TAMSULOSIN HCL 0.4 MG CAP.SR.24H PO SCH (09:06)
[2017-10-30] MEDS: DOCUSATE SODIUM 100 MG CAPSULE PO SCH ×2 (09:07→17:01)
[2017-10-30 09:11] LABS: APPEARANCE,URINE CLEAR; BILIRUBIN,URINE NEGATIVE (NEGATIVE); COLOR,URINE YELLOW; GLUCOSE, URINE NEGATIVE (NEGATIVE); KETONES,URINE NEGATIVE (NEGATIVE); LEUKOCYTE ESTERASE,URINE NEGATIVE (NEGATIVE); NITRITE,URINE NEGATIVE (NEGATIVE); PROTEIN,URINE NEGATIVE (NEGATIVE); URINE SPECIFIC GRAVITY 1.006; UROBILINOGEN,URINE NEGATIVE mg/dL (<2.0)
--- NOTE | 2017-10-30 09:42 | CONSULTATION REPORT E ---
Consultation Report NAME: MICHAELA KUHN : 1935 AGE: 82Y DATE: 10/29/2017 321 B TO: CHRISTINA BERGMAN M.D. FROM: INES GOMES M.D. Requesting Physician Note that the patient was seen around 9:00 and 45 minutes spent with the patient with more than 50% of the time spent in direct patient care. Also, records from [facility] have been reviewed. HISTORY: The patient is well known to me during the last admission. The patient was here recently with a history of dizziness and fall without syncope and fracture of the left femur. The patient, at that time, had a troponin I, which was elevated suggestive of non-ST elevation MA, although the patient had no chest pain. In view of this, the patient was transferred to [facility] for further workup, including cardiac catheterization and head surgery. The patient was seen there and did not undergo cardiac catheterization, but underwent uneventful and successful surgery of the left femoral fracture. [facility]. As per the patient, there were some problems in him getting his medications and he had sudden onset of palpitations with chest pressure when he had the rapid palpitations and also had shortness of breath with wheezing and cough productive of scanty yellowish sputum. There was no chest pain or discomfort. There was no PND, and the patient has chronic orthopnea. There was no leg edema. Review of the EKG of the rapid heart rate shows that the patient had multifocal atrial tachycardia and not atrial fibrillation. The patient received Cardizem in the emergency room intravenously and converted to sinus rhythm at present. Also, the patient received 1 unit of packed RBCs since his hemoglobin was down to 8.9. At present, the patient states he feels better, although he does have some cough with minimal wheezing. There are no TIA or CVA symptoms. PAST MEDICAL HISTORY: Positive for: 1. History of coronary artery disease. 2. History of MA. 3. History of stents in the LAD and the RCA in the past. He also had an MA at that time. 4. He also has a history of diabetes mellitus type 2. 5. He also has a history of GERD. 6. He also has COPD. 7. Sleep apnea and uses CPAP. 8. He has a past history of right-sided hemiparesis, which completely resolved and the patient is able to walk without any problems. 9. He has no history of seizures or migraines. 10. He also has a history of sleep apnea and uses CPAP. 11. The patient has cardiomyopathy, ischemia, with LV ejection fraction of 30%. SOCIAL HISTORY: The patient is a former smoker. There is no history of ETOH abuse. The patient is a FULL CODE. In the last admission, he was a DNR. His son is the surrogate healthcare decision making. PAST SURGICAL HISTORY: Positive for: 1. Cardiac catheterization. 2. Orthopedic surgery of the right clavicle. 3. Prostate surgery for prostate cancer. 4. He has had bilateral shoulder surgery. 5. Right cataract extraction. REVIEW OF SYSTEMS: CONSTITUTIONAL: Denies any fevers, chills, or rigors. Complains of generalized fatigue and weakness. HEAD: Denies headaches or head injury. EYES: No history of amblyopia, diplopia. No history of amaurosis fugax. EARS: The patient is hard of hearing slightly, but there are no recurrent ear infections. There is no tinnitus. NOSE: No history of hay fever. No history of nosebleeds. No history of nasal polyps. MOUTH: No history of altered taste sensation. No history of ulcers in the mouth. No bleeding from the gums. THROAT: No odynophagia or dysphagia. No history of recurrent sore throats. SKIN: There is no pruritus. There is no skin cancer. There is no psoriasis. NECK: No symptoms of C-spine arthritis. No swelling in the neck. LUNGS: History of asthma and asthmatic bronchitis and COPD. Patient recently with symptoms suggestive of acute exacerbation of COPD and asthmatic bronchitis with scanty sputum production, which is yellowish in color. No hemoptysis. No pleuritic chest pain. No history of pulmonary emboli. History of sleep apnea. He uses CPAP. CARDIAC: History of cardiomyopathy, ischemic. History of coronary artery disease, old MA. History of stent to the LAD and RCA. No recent symptoms. The patient, his last admission, had troponin I elevation. The troponin I is also elevated this admission. He denies any PND. He has chronic orthopnea. There is no leg edema. The patient does have palpitations with chest pressure only when the heart rate is fast. This admission, he is found to have multifocal atrial tachycardia, which has resolved. He has a history of paroxysmal atrial fibrillation in the past. There is no history of syncope. History of dizziness off and on with the fall and recent left femoral fracture for which he was transferred to [facility] for left hip surgery. GASTROINTESTINAL: History of GERD. No history of fatty food intolerance. No history of altered bowel movements. No history of GI bleed. No history of cirrhosis. No abdominal pain. ENDOCRINE: History of diabetes mellitus type 2, insulin dependent. No history of thyroid disease. No history of polydipsia, polyuria. No history of heat or cold intolerance. RENAL: No history of chronic kidney disease. No symptoms of UTI. No history of hematuria, pyuria, or dysuria. History of prostate cancer for which he has had prostate surgery in the past with no recurrence. CENTRAL NERVOUS SYSTEM: No history of TIA or CVA. No history of recurrence. 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 No history of seizures, headaches, or migraines. No history of gait imbalance. MUSCULOSKELETAL: History of arthritis present, but no history of rheumatoid arthritis. CARDIAC: Apart from what is mentioned earlier, he has a history of cardiomyopathy, but no acute symptoms of congestive heart failure. He has chronic systolic heart failure without any decompensation at present. He does have chronic orthopnea as mentioned earlier. PSYCHIATRIC: No history of anxiety or depression. No history of suicide ideation. No history of suicidal ideation. No history of homicidal ideation. HEMATOLOGICAL: No history of calf or buttock claudication. No history of DVT. No bleeding diathesis. When he came in, his hemoglobin was down to 8.9. The patient has received 1 unit of packed RBCs and hemoglobin came up to 9.7. ALLERGIES: He is allergic to PENICILLIN. MEDICATIONS: 1. Tylenol 650 mg p.o. q. 4 hours p.r.n. 2. Aspirin 325 mg p.o. x1 yesterday and 81 mg p.o. q. a.m. 3. Atorvastatin 10 mg p.o. daily at bedtime. 4. Symbicort HFA 160/4.5 mcg inhaler q. 12 hours. 5. Cardizem drip at 5 mg per hour. 6. Cardizem CD 120 mg p.o. q. 12 hours. 7. Colace 100 mg p.o. b.i.d. 8. Trusopt Plus 2% ophthalmic solution 1 drop both eyes b.i.d. 9. Lovenox 80 mg subcutaneously x1 and 85 mg subcutaneously q. 12 hours. 10. Lasix 40 mg IV q. 12 hours. 11. Neurontin 300 mg p.o. b.i.d. for his diabetic neuropathy. 12. Lantus insulin 38 units subcutaneously q. a.m. and 35 units subcutaneously daily at bedtime. 13. Accu-Chek before meals t.i.d. and at bedtime sliding scale insulin coverage. 14. Ipratropium/albuterol nebulizer treatment x1. 15. Xopenex 1.25 mg nebulizer treatment q. 12 hours and 1.25 mg nebulizer treatment q. 6 hours p.r.n. 16. Lisinopril 10 mg p.o. daily. 17. Lorazepam 1 mg p.o. daily. 18. Metoprolol 25 mg q. 12 hours. 19. Morphine 4 mg IV x1. 20. Zofran 4 mg p.o. q. 4 hours p.r.n. for his enlarged prostate, which is controlling his symptoms. 21. Flomax 0.4 mg p.o. daily. 22. Temazepam 7.5 mg p.o. at bedtime p.r.n. 23. Tramadol 50 mg p.o. t.i.d. p.r.n. 24. Hypoglycemic precautions with glucose 40% gel, 15 g and 30 g p.o. respectively p.r.n. hypoglycemia. 25. Glucagon 1 mg IM subcutaneously p.r.n. hypoglycemia. 26. Dextrose 50% 12.5 mg and 25 g IV push p.r.n. hypoglycemia. PHYSICAL EXAMINATION: GENERAL: The patient is well built and well nourished, at present in no acute distress, sitting up in the chair. VITAL SIGNS: He is afebrile with a temperature of 98 degrees Fahrenheit, pulse is 78 beats per minute, which shows regular rhythm with chaotic atrial mechanism. His blood pressure is 121/58, respirations are 18 per minute, O2 saturation is 100% on 4 L nasal cannula. HEAD: Atraumatic, normocephalic. EYES: Pupils are equal, round, regular, reactive to light and accommodation. Extraocular movements are normal. There is no conjunctival pallor. There is no scleral icterus. EARS: Tympanic membranes are intact. External auditory canals are clear. NOSE: There is no deviated nasal septum. There is no inflammation of the nasal mucous membrane. MOUTH: Mucous membranes of the mouth are moist. Tongue is moist. There are no ulcers. There is no bleeding from the gums. THROAT: There is no redness of the oropharynx. There are no exudates. NECK: Supple. There is no JVD. Carotids are equal. There is no bruit. There is no goiter. There is no lymphadenopathy. There are no accessory muscles of respiration in use. JVD is within normal limits. LUNGS: There is diminished air entry, prolonged expiration on auscultation with scattered end-expiratory wheezing and scattered rhonchi. There are no rales or CHF. There is no chest wall tenderness. On percussion, there is hyperresonance. CARDIOVASCULAR: S1 and S2 are heard. There is no S3 gallop. There is no S4 gallop. There is a systolic murmur in the left sternal border of the apex. There is no rub. ABDOMEN: Soft, nontender. There is no hepatosplenomegaly. Bowel sounds are well heard. There are no tender areas or masses. There is no rebound, guarding, or rigidity. EXTREMITIES: Femorals are diminished. There is no femoral bruit. Leg pulses are diminished. There is no pedal edema. There is no DVT or cellulitis. There is no calf tenderness. There is no cyanosis or clubbing. CENTRAL NERVOUS SYSTEM: The patient is conscious, awake, alert, oriented x3 with no focal deficits. PSYCHIATRIC: The patient's judgment and insight are intact. His affect is normal. IMAGING: The patient's initial EKG shows SVT, which is most likely multifocal atrial tachycardia with a ventricular response of 158. Repolarization abnormalities most likely related. His subsequent EKG shows sinus rhythm with chaotic atrial mechanism and left atrial enlargement, which I doubt. The patient's chest CTA shows no evidence of pulmonary embolism, small without focal consolidation. The patient's chest x-ray is essentially negative. The patient's is not accurate. LABORATORY: The patient's sodium is 143.3, potassium 4.3, chloride is 108, CO2 of 27. The patient's BUN is 15, creatinine 0.85. GFR is greater than 60. His glucose is 174, calcium is 8.4. His troponin I initially was 0.88 and has now gone up to 1.020. His CK-MB is 4.64. His CPK-MB is 105. His B12 is 618. His folate is 11.60. The patient's TSH is 4.43. The patient's NT proBNP is 3410. His initial troponin I was 0.095, recently went up to 0.88 and subsequently had gone up to 1.02 and subsequently is now 0.880. The patient's white count is 6600, hemoglobin is 8.9, hematocrit is 28.6. The patient received 1 unit of packed RBC. His platelet count is 596,000 subsequently. His hemoglobin will be repeated and if it is still low, we will get another unit of packed RBC transfusion. The patient's pH yesterday was 7.40, PCO2 was 39.6, PO2 was 121.6, and the O2 saturation was 98.4% on FiO2 of 4 L. IMPRESSION: 1. Multifocal atrial tachycardia. No recurrence of atrial fibrillation. 2. COPD, acute exacerbation. 3. Asthmatic bronchitis. 4. Elevated troponin I, most likely secondary to the patient's cardiomyopathy and the patient's rapid heartbeat. No definite evidence of non-ST elevation MA. 5. Coronary artery disease, history of MA. 6. History of stent in the RCA and diagnosis in the past. 7. Cardiomyopathy, ischemic, with LV ejection fraction in the region of 30-35%. 8. Hypertension, well controlled. 9. Diabetes mellitus type 2, insulin dependent. 10. Sleep apnea syndrome. The patient does use BiPAP. RECOMMENDATION: Will clarify as to whether the patient is a FULL CODE or a DNR. Discussed with the patient and the patient's son. Would recommend continuing current medications. Will stop the patient's Cardizem drip and Cardizem CD and increase patient's metoprolol to 50 mg p.o. q. 12 hours. Continue lisinopril. Continue Lasix. For the asthmatic bronchitis/acute exacerbation of COPD, continue nebulizer treatment, continue antibiotics. Consider also replacing the patient's steroids. Also, would recommend continuing his anti-diabetic medication and also continue aspirin and the JEFF inhibitor. Also, would watch the patient's hemoglobin. If the patient's blood pressure permits, will place the patient on nitrates topically. NOTE: Forty five minutes spent on this patient with more than 50% of the time spent on direct patient care. His medications have been reviewed and medications adjusted. Note that the patient, at present, is a FULL CODE. He used to be a DNR, but will clarify this. The patient's son is the surrogate healthcare decision maker. NOTE: Medical decision making was of high complexity. Will follow with you. DICTATING PHYSICIAN: CHRISTINA BERGMAN M.D. [id number] PHY#: [id number] ID: [id number] JOB#: [id number] ACCT: [id number] cc:CHRISTINA BERGMAN M.D. >
[2017-10-30] MEDS ORDERED: ASPIRIN 325 MG TABLET PO SCH (10:00)
[2017-10-30] MEDS: INSULIN LISPRO 100 UNIT/ML 3 ML VIAL SUBCUT PRN ×2 (13:22→18:14)
[2017-10-30] MEDS: LEVOFLOXACIN 500 MG/D5W RTU 500 MG/100 ML RTUPB IV SCH (17:52)
--- NOTE | 2017-10-30 19:06 | PDOC PROGRESS REPORT ---
Subjective Progress Note for:: 10/30/17 Subjective:: The patient is an 82-year-old male with past medical history significant for coronary artery disease status post stent placement. He has known congestive heart failure with an ejection fraction of 35%. He has oxygen dependent COPD and obstructive sleep apnea. He recently had left hip fracture and was transferred from this facility to [facility] where he had an ORIF and was eventually discharged to subacute rehabilitation. The patient was brought to this facility from rehab after developing severe shortness of breath. He was found to have SVT in the 170s and was referred for admission. The admitting doctor ordered blood for the patient as his hemoglobin was a little on the low side. When I saw the patient yesterday he received 1 unit of packed red blood cells and was in significant respiratory distress. He appeared to be acutely volume overloaded and was started on IV Lasix. Cardiology has seen the patient and we certainly appreciate their input. Today the patient states that he feels better than yesterday but still feels quite short of breath. He states that he cannot lay flat. He states that when he gets up and moves to gets significantly winded. He has a little bit of cough. He has had no chest pain or heart palpitations. No nausea vomiting or diarrhea. No urinary complaints. Reason For Visit: AFIB CHF,COPD EXACERBATION EXACERBATION Physical Exam Vital Signs: Temp Pulse Resp BP Pulse Ox 98.3 F 95 20 142/65 H 100 10/30/17 16:07 10/30/17 16:07 10/30/17 16:07 10/30/17 16:07 10/30/17 17:06 Intake & Output 10/29/17 10/30/17 10/31/17 06:59 06:59 06:59 Intake Total 643 2361 1223 Output Total 525 800 Balance 643 1836 423 Weight 81.9 kg 81.6 kg General appearance: PRESENT: no acute distress, well-developed, well-nourished Head exam: PRESENT: atraumatic, normocephalic Ear exam: PRESENT: normal external ear exam Mouth exam: PRESENT: moist, tongue midline Neck exam: ABSENT: carotid bruit, JVD, lymphadenopathy, thyromegaly Respiratory exam: PRESENT: crackles, decreased breath sounds. ABSENT: rales, rhonchi, wheezes Cardiovascular exam: PRESENT: RRR. ABSENT: diastolic murmur, rubs, systolic murmur Pulses: PRESENT: normal dorsalis pedis pul GI/Abdominal exam: PRESENT: normal bowel sounds, soft. ABSENT: distended, guarding, mass, organolmegaly, rebound, tenderness Extremities exam: PRESENT: full ROM. ABSENT: calf tenderness, clubbing, pedal edema Neurological exam: PRESENT: alert, awake, oriented to person, oriented to place , oriented to time, oriented to situation, CN II-XII grossly intact. ABSENT: motor sensory deficit Skin exam: PRESENT: dry, intact, warm. ABSENT: cyanosis, rash Results Laboratory Results: 10/30/17 06:10 10/30/17 06:10 10/30/17 10/30/17 10/30/17 06:10 06:10 08:50 WBC 6.0 RBC 3.87 L Hgb 9.6 L Hct 30.3 L MCV 78 L MCH 24.9 L MCHC 31.8 L RDW 20.9 H Plt Count 574 H Sodium 137.0 Potassium 5.1 H Chloride 105 Carbon Dioxide 24 Anion Gap 8 BUN 16 Creatinine 0.97 Est GFR ( Amer) > 60 Est GFR (Non-Af Amer) > 60 Glucose 152 H Calcium 8.8 Magnesium 2.0 Urine Color YELLOW Urine Appearance CLEAR Urine pH 5.0 Ur Specific [place] 1.006 Urine Protein NEGATIVE Urine Glucose (UA) NEGATIVE Urine Ketones NEGATIVE Urine Blood NEGATIVE Urine Nitrite NEGATIVE Ur Leukocyte Esterase NEGATIVE Urine RBC (Auto) 0 Stool Occult Blood 10/30/17 11:45 WBC RBC Hgb Hct MCV MCH MCHC RDW Plt Count Sodium Potassium Chloride Carbon Dioxide Anion Gap BUN Creatinine Est GFR ( Amer) Est GFR (Non-Af Amer) Glucose Calcium Magnesium Urine Color Urine Appearance Urine pH Ur Specific [place] Urine Protein Urine Glucose (UA) Urine Ketones Urine Blood Urine Nitrite Ur Leukocyte Esterase Urine RBC (Auto) Stool Occult Blood POSITIVE 10/29/17 10/29/17 10/29/17 02:43 02:43 12:34 Creatine Kinase 105 90 CK-MB (CK-2) 4.64 H Troponin I 1.020 NT-Pro-B Natriuret Pep 10/29/17 10/29/17 10/29/17 12:34 14:13 14:13 Creatine Kinase 77 CK-MB (CK-2) 4.09 3.62 Troponin I 0.880 0.809 NT-Pro-B Natriuret Pep 10/30/17 06:10 Creatine Kinase CK-MB (CK-2) Troponin I NT-Pro-B Natriuret Pep 3770 H Impressions: Chest/Abdomen CTA 10/28/17 20:28 IMPRESSION: 1. Normal CTA of the chest. No pulmonary emboli. 2. Small bilateral pleural effusions without focal consolidation. Chest X-Ray 10/30/17 00:00 IMPRESSION: Stable chest without evidence of acute CHF or definite pneumonia. Assessment & Plan - Diagnosis (1) Elevated troponin Is this a current diagnosis for this admission?: Yes Plan: Cardiology does not feel like this was a non-ST elevation myocardial infarction. It was likely due to his respiratory distress at the time of admission. (2) Acute systolic (congestive) heart failure Is this a current diagnosis for this admission?: Yes Plan: His BNP is actually higher today. Continue 40 mg of IV Lasix twice daily and we will continue to have the nursing staff collect strict I's and O's. (3) Supraventricular tachycardia Is this a current diagnosis for this admission?: Yes Plan: Resolved at this point. Cardiology feels this is a multifocal atrial tachycardia. The patient is stable on p.o. Cardizem. No evidence of atrial fibrillation. (4) Anemia Is this a current diagnosis for this admission?: Yes Plan: The patient was ordered 2 units of packed red blood cells. His hemoglobin was 8.9 at the time of admission. This is his second unit of blood was stopped yesterday. His hemoglobin is quite stable. He does have a heme positive stool. If his hemoglobin remained stable further workup can be obtained as an outpatient. (5) Obstructive sleep apnea Is this a current diagnosis for this admission?: Yes Plan: Continue BiPAP at night - Time Time Spent with patient: 25-34 minutes - Inpatient Certification Medical Necessity: Other - Inpatient hospitalization remains necessary. The patient is still requiring parenteral diuresis and is significantly short of breath. He needs further input from cardiology. Timing of disposition will be determined by his clinical course.
[2017-10-30] MEDS: ATORVASTATIN CALCIUM 10 MG TABLET PO SCH (21:46)
[2017-10-30] MEDS: TEMAZEPAM 7.5 MG CAPSULE PO PRN (21:46)
[2017-10-31] MEDS: LORAZEPAM 1 MG TABLET PO PRN (00:26)
[2017-10-31] MEDS: TRAMADOL HCL 50 MG TABLET PO PRN ×3 (03:09→21:58)
[2017-10-31 05:46] LABS: ABSOLUTE BASOPHILS # (AUTO) 0.1 10^3/uL (0.0-0.2); ABSOLUTE EOSINOPHILS # (AUTO) 0.2 10^3/uL (0.0-0.6); ABSOLUTE LYMPHOCYTES (AUTO) 1.4 10^3/uL (0.5-4.7); ABSOLUTE MONOCYTES (AUTO) 0.8 10^3/uL (0.1-1.4); ABSOLUTE NEUT (AUTO) 3.2 10^3/uL (1.7-8.2); EOSINOPHILS % (AUTO) 3.8 % (0-6); HEMATOCRIT 31.7 % (37.9-51.0); HEMOGLOBIN 10.2 g/dL (13.5-17.0); LYMPHOCYTES % (AUTO) 25.1 % (13-45); MEAN CORPUSCULAR VOLUME 78 fl (80-97); MONOCYTES % (AUTO) 13.7 % (3-13); PLATELET COUNT 554 10^3/uL (150-450); RED BLOOD COUNT 4.07 10^6/uL (4.35-5.55); RED CELL DISTRIBUTION WIDTH 20.5 % (11.5-14.0); SEGMENTED NEUTROPHILS % (AUTO) 56.4 % (42-78); TOTAL CELLS COUNTED % (AUTO) 100 %; WHITE BLOOD COUNT 5.7 10^3/uL (4.0-10.5)
[2017-10-31 06:06] LABS: ANION GAP 6 (5-19); BLOOD UREA NITROGEN 15 mg/dL (7-20); CALCIUM 8.8 mg/dL (8.4-10.2); CARBON DIOXIDE 30 mmol/L (22-30); CHLORIDE 104 mmol/L (98-107); GLUCOSE 108 mg/dL (75-110); MAGNESIUM 1.9 mg/dL (1.6-2.3); POTASSIUM 4.4 mmol/L (3.6-5.0); SODIUM 139.8 mmol/L (137-145)
[2017-10-31] MEDS: LEVALBUTEROL HCL NEB 1.25 MG/3 ML AMPUL NEB SCH ×3 (07:58→20:28)
[2017-10-31] MEDS: DORZOLAMIDE HCL 2% OPH SOLN 10 ML OU SCH ×2 (09:27→19:01)
[2017-10-31] MEDS: ENOXAPARIN SODIUM INJ 40 MG/0.4 ML DISP.SYRIN SUBCUT SCH (09:27)
[2017-10-31] MEDS: BUDESONIDE/FORMOTEROL 80-4.5 MCG 60 PUFF/6.9 GM MDI IH SCH ×2 (09:27→22:54)
[2017-10-31] MEDS: INSULIN GLARGINE,HUM.REC.ANLOG 1,000 UNIT/10 ML UNIT SUBCUT SCH ×2 (09:27→21:58)
[2017-10-31] MEDS: METOPROLOL SUCCINATE 50 MG TAB.SR.24H PO SCH ×2 (09:28→21:58)
[2017-10-31] MEDS: CETIRIZINE 10 MG TABLET PO SCH (09:28)
[2017-10-31] MEDS: LISINOPRIL 10 MG TABLET PO SCH (09:28)
[2017-10-31] MEDS: ASPIRIN 81 MG TABLET, ENT COATED PO SCH (09:28)
[2017-10-31] MEDS: FUROSEMIDE 40 MG TABLET PO SCH (09:28)
[2017-10-31] MEDS: GABAPENTIN 300 MG CAPSULE PO SCH ×2 (09:29→19:00)
[2017-10-31] MEDS: DOCUSATE SODIUM 100 MG CAPSULE PO SCH ×2 (09:29→19:01)
[2017-10-31] MEDS: TAMSULOSIN HCL 0.4 MG CAP.SR.24H PO SCH (09:29)
--- NOTE | 2017-10-31 10:51 | PROGRESS NOTE E ---
Progress Note NAME: MICHAELA KUHN : 1935 AGE: 82Y DATE: 10/30/2017 ROOM: 321 SUBJECTIVE: The patient states that his shortness of breath is slightly improved. He has chronic orthopnea. He denies any chest pain or discomfort. There is no recurrence of MAT or atrial fibrillation. There is no pedal edema. There is no PND. There are no palpitations. There is no syncope or near syncope. There is no ventricular . There is no pedal edema. OBJECTIVE: GENERAL: On examination, the patient is well built and well nourished, at present in no acute distress. He is sitting up in his bed. VITAL SIGNS: He is afebrile with a temperature of 98 degrees Fahrenheit, pulse is 81 beats per minute, blood pressure is 117/55, respirations are 20 per minute, O2 sats 100% on 2 L nasal cannula. HEENT: Head is atraumatic, normocephalic. Eyes: Pupils are equal, round, regular, reactive to light and accommodation. Extraocular movements are normal. There is no conjunctival pallor. There is no scleral icterus. Ears: The patient is hard of hearing. Tympanic membranes are intact. External auditory canals clear. Nose: There is no deviated nasal septum. There is no inflammation of the nasal mucous membrane. Mouth: Mucous membranes of the mouth are moist. Tongue is moist. There are no ulcers. There is no bleeding from the gums. Throat: There is no redness of the oropharynx. There are no exudates. NECK: Supple. There is no JVD. Carotids are equal. There is no bruit. There is no goiter. There is no lymphadenopathy. There is no auxiliary muscles of respirations use. JVD is within normal limits. LUNGS: There is diminished air entry, prolonged expiration on auscultation with scattered end expiratory wheezing which is much less than yesterday and scattered rhonchi. There are no rales of CHF. There is no chest wall tenderness. On percussion, there is hyperresonance. HEART: S1 and S2 are heard. There is no S3 gallop. There is no S4 gallop. S1 is of normal intensity. There is a systolic murmur in the left sternal border on the apex. There is no rub. ABDOMEN: Soft, nontender. There is no hepatosplenomegaly. Bowel sounds are well heard. There are no tender areas or masses. There is no rebound, guarding or rigidity. EXTREMITIES: Femorals are diminished. There are no femoral bruits. Leg pulses are diminished. There is no pedal edema. There is no DVT or cellulitis. There is no calf tenderness. There is no cyanosis or clubbing. CENTRAL NERVOUS SYSTEM: The patient is conscious, awake, alert, oriented x3 with no focal deficit. PSYCHIATRIC: The patient's judgment and insight are intact. His affect is normal. DIAGNOSTIC STUDIES: The patient's EKG shows sinus rhythm with frequent APCs versus chaotic atrial mechanism. I believe the patient chaotic atrial mechanism. The patient probable anterior septal infarct or old lateral and there is T inversion in I and aVL. IMAGING STUDIES: The patient's chest x-ray shows no evidence of congestive heart failure or definite pneumonia. LABORATORY DATA: The patient's white count is 6000; hemoglobin is 9.6; hematocrit is 30.3; platelet count is . The patient's sodium is 137, potassium slightly elevated at 5.1, chloride is 105, CO2 is 24. The patient's BUN is 16, creatinine 0.97, GFR is greater than 60. The patient's glucose is 152, calcium is 8.8, magnesium is 2.0. His NT-proBNP is 3770. The patient's stool occult blood is positive, done today. IMPRESSION: 1. MULTIFOCAL ATRIAL TACHYCARDIA. NO RECURRENCE OF ATRIAL FIBRILLATION. THE MULTIFOCAL ATRIAL TACHYCARDIA IS RESOLVED. THE PATIENT NOW IN CHAOTIC ATRIAL MECHANISM. 2. COPD ACUTE EXACERBATION. 3. ASTHMATIC BRONCHITIS. 4. ELEVATED TROPONIN, MOST LIKELY SECONDARY TO THE PATIENT'S CARDIOMYOPATHY AND THE PATIENT'S RAPID HEARTBEAT. NO DEFINITE EVIDENCE OF NON-ST ELEVATION NM. 5. CORONARY ARTERY DISEASE, HISTORY OF NM. 6. HISTORY OF STENT TO THE RCA AND LAD IN THE PAST. 7. CARDIOMYOPATHY EJECTION FRACTION IN THE REGION OF 30-35%. 8. HYPERTENSION, WELL CONTROLLED. 9. DIABETES MELLITUS TYPE 2, INSULIN DEPENDENT. 10. SLEEP APNEA SYNDROME. Patient does use BiPAP. 11. AT PRESENT, NO EVIDENCE OF DECOMPENSATED CONGESTIVE HEART FAILURE. RECOMMENDATION: 1. Would stop the patient's IV Lasix and start the patient on p.o. Lasix. 2. Would continue the patient's lisinopril and also note that the patient's Cardizem has been discontinued and the patient is on Toprol XL 50 mg p.o. q. 12 hours. 3. Continue antibiotics. 4. Continue respiratory treatments and CPAP/BiPAP at night for sleep apnea. 5. Continue his antidiabetic medications and protocol. 6. Continue respiratory treatments. 7. Note, 30 minutes spent on this patient with more than 50% of the time spent on direct patient care. 8. The patient's medications have been reviewed and adjusted. 9. The plan of care has been discussed with the hospitalist taking care of the patient. 10. Note, medical decision making is of high complexity. 11. Dr. Aleman will follow the patient in the morning. DICTATING PHYSICIAN: CHRISTINA BERGMAN M.D. [id number] BIANCAY#: [id number] ID: [id number] JOB#: [id number] ACCT: [id number] cc: >
--- NOTE | 2017-10-31 11:05 | PDOC PROGRESS REPORT ---
Subjective Progress Note for:: 10/31/17 Subjective:: Patient did not denies any significant complaints. He is noted to be comfortable. He is denying any chest, neck discomfort. Patient denied any sustained palpitations, syncope, near syncope. Patient does have mild pedal edema. Currently wearing support stockings. Reason For Visit: AFIB CHF,COPD EXACERBATION EXACERBATION Physical Exam Vital Signs: Temp Pulse Resp BP Pulse Ox 97.8 F 79 18 132/63 H 96 10/31/17 07:48 10/31/17 08:29 10/31/17 08:29 10/31/17 07:48 10/31/17 08:29 Intake & Output 10/30/17 10/31/17 11/01/17 06:59 06:59 06:59 Intake Total 2361 2019 Output Total 525 1425 Balance 1836 594 Weight 81.6 kg 79.8 kg Exam: GENERAL: well-nourished and in no acute distress. Alert and oriented x3 HEAD: Atraumatic, normocephalic. EYES: Pupils equal round and reactive to light, extraocular movements intact, sclera anicteric, conjunctiva are normal. ENT: TMs normal, nares patent, oropharynx clear without exudates. Moist mucous membranes. No oral ulcerations or bleeding gums noted NECK: supple without lymphadenopathy. Trachea is central. No cervical or axillary lymphadenopathy noted. Carotids are 2+, JVD WNL LUNGS: Respiration seems nonlabored, no significant accessory muscle action noted. Breath sounds clear to auscultation bilaterally and equal noted. No wheezes rales or rhonchi noted. No significant dullness noted on percussion. CHEST: Palpation of the chest wall shows no significant chest wall tenderness. No other significant abnormalities noted. HEART: [place] ACCT EXEC, No PSH, 1/6 RICK aortic area, 1/6 [place]uj[place] systolic murmur mitral area, no rubs, no gallops. ABDOMEN: Soft, no significant tenderness appreciated, normoactive bowel sounds. No guarding, no rebound. No rigidity noted . No masses appreciated. EXTREMITIES: Pedal pulses are 1-2+, no calf tenderness noted. No clubbing or cyanosis.trace to 1+ pedal edema noted. Patient wearing support stockings NEUROLOGICAL: Focused neurological exam showed no significant neurologic deficit. Normal speech, no focal weakness appreciated. PSYCH: Normal mood, normal affect. Judgment and insight within normal limits. SKIN: No significant ecchymosis, rash, ulcerations or signs of pruritus noted. MUSCULOSKELETAL EXAM: No significant joint swelling noted. Results Laboratory Results: 10/31/17 05:26 10/31/17 05:26 10/30/17 10/31/17 10/31/17 11:45 05:26 05:26 WBC 5.7 RBC 4.07 L Hgb 10.2 L Hct 31.7 L MCV 78 L MCH 25.0 L MCHC 32.0 RDW 20.5 H Plt Count 554 H Seg Neutrophils % 56.4 Lymphocytes % 25.1 Monocytes % 13.7 H Eosinophils % 3.8 Basophils % 1.0 Absolute Neutrophils 3.2 Absolute Lymphocytes 1.4 Absolute Monocytes 0.8 Absolute Eosinophils 0.2 Absolute Basophils 0.1 Sodium 139.8 Potassium 4.4 Chloride 104 Carbon Dioxide 30 Anion Gap 6 BUN 15 Creatinine 0.92 Est GFR ( Amer) > 60 Est GFR (Non-Af Amer) > 60 Glucose 108 Calcium 8.8 Magnesium 1.9 Stool Occult Blood POSITIVE 10/29/17 10/29/17 10/29/17 02:43 02:43 12:34 Creatine Kinase 105 90 CK-MB (CK-2) 4.64 H Troponin I 1.020 NT-Pro-B Natriuret Pep 10/29/17 10/29/17 10/29/17 12:34 14:13 14:13 Creatine Kinase 77 CK-MB (CK-2) 4.09 3.62 Troponin I 0.880 0.809 NT-Pro-B Natriuret Pep 10/30/17 06:10 Creatine Kinase CK-MB (CK-2) Troponin I NT-Pro-B Natriuret Pep 3770 H EKG Comments: Telemetry strips shows sinus rhythm without any sustained tacky or bradycardia arrhythmias. Impressions: Chest/Abdomen CTA 10/28/17 20:28 IMPRESSION: 1. Normal CTA of the chest. No pulmonary emboli. 2. Small bilateral pleural effusions without focal consolidation. Chest X-Ray 10/30/17 00:00 IMPRESSION: Stable chest without evidence of acute CHF or definite pneumonia. Assessment & Plan - Diagnosis (1) Elevated troponin Is this a current diagnosis for this admission?: Yes (2) Non-ST elevation MT (NSTEMI) Is this a current diagnosis for this admission?: Yes (3) Supraventricular tachycardia Is this a current diagnosis for this admission?: Yes (4) Coronary artery disease Qualifiers: Coronary Disease-Associated Artery/Lesion type: [place] artery [place] vs. transplanted heart: [place] heart Associated angina: with unspecified angina Qualified Code(s): I25.119 - Atherosclerotic heart disease of [place] coronary artery with unspecified angina pectoris Is this a current diagnosis for this admission?: Yes (5) Ischemic cardiomyopathy Is this a current diagnosis for this admission?: Yes (6) Obstructive sleep apnea Is this a current diagnosis for this admission?: Yes - Notes Notes: Elevated troponin I: Most likely related to supraventricular tachycardia. Currently maintaining sinus rhythm. Recommend beta-camila and digoxin therapy in view of reduced LVEF. Non-ST elevation MT: Most likely precipitated by supply demand mismatch from SVT. Will review previous records and would consider a nuclear stress test if needed. Supraventricular tachycardia: Recommend beta-camila and digoxin therapy. Currently patient on metoprolol succinate 50 mg p.o. twice daily. If these are not tolerated then may consider calcium channel camila therapy such as Cardizem. Coronary artery disease: Recommend aggressive antilipid therapy, antiplatelet, beta blockers, JEFF inhibitor/ARB/entresto therapy. Cardiomyopathy: Recent 2D echocardiogram showed severely depressed LVEF at around 35%. Currently seems euvolemic. Obstructive sleep apnea: Patient will benefit from continuation of CPAP therapy. He could see me in this regard in the office. - Time Time with patient: Greater than 35 minutes - CODE STATUS was discussed, patient remains full code. Surrogate decision-maker unchanged. Multiple medical problems were addressed. More than 50% of the time spent coordinating care, discussing management plans with involved caregivers. Management plans discussed with involved personnels. Medical decision making was of moderate to high complexity, patient's has multiple comorbidities. Medications reviewed and adjusted accordingly: Yes
[2017-10-31] MEDS: INSULIN LISPRO 100 UNIT/ML 3 ML VIAL SUBCUT PRN (13:00)
[2017-10-31] MEDS ORDERED: RANOLAZINE 500 MG TAB.SR.12H PO ONE (13:30)
--- NOTE | 2017-10-31 17:58 | PDOC PROGRESS REPORT ---
Subjective Progress Note for:: 10/31/17 Subjective:: Patient complains of mild shortness of breath Review of systems All organ systems evaluated and negative except as seen subjective All significant laboratories and diagnostics have been reviewed Reason For Visit: AFIB CHF,COPD EXACERBATION EXACERBATION Physical Exam Vital Signs: Temp Pulse Resp BP Pulse Ox 97.5 F 81 18 130/71 H 99 10/31/17 03:08 10/31/17 06:58 10/31/17 03:08 10/31/17 03:08 10/31/17 03:08 Intake & Output 10/30/17 10/31/17 11/01/17 06:59 06:59 06:59 Intake Total 2361 2019 Output Total 525 1425 Balance 1836 594 Weight 81.6 kg 79.8 kg General appearance: PRESENT: no acute distress, cooperative, obese Head exam: PRESENT: normocephalic Eye exam: PRESENT: EOMI, PERRLA Ear exam: PRESENT: normal external ear exam, TM's normal bilaterally Mouth exam: PRESENT: moist, neck supple Neck exam: PRESENT: full ROM. ABSENT: JVD, lymphadenopathy, tenderness Respiratory exam: PRESENT: crackles - Soft basilar crackles. ABSENT: tachypnea , unlabored, wheezes Cardiovascular exam: PRESENT: RRR. ABSENT: diastolic murmur, systolic murmur Vascular exam: PRESENT: normal capillary refill GI/Abdominal exam: PRESENT: normal bowel sounds, soft. ABSENT: guarding, tenderness Extremities exam: PRESENT: full ROM. ABSENT: clubbing, joint swelling, pedal edema Musculoskeletal exam: PRESENT: ambulatory Neurological exam: PRESENT: alert, awake, oriented to person, oriented to place , oriented to time, oriented to situation, CN II-XII grossly intact Psychiatric exam: PRESENT: appropriate affect, normal mood Skin exam: PRESENT: intact, normal color Results Laboratory Results: 10/31/17 05:26 10/31/17 05:26 10/30/17 10/30/17 10/31/17 08:50 11:45 05:26 WBC 5.7 RBC 4.07 L Hgb 10.2 L Hct 31.7 L MCV 78 L MCH 25.0 L MCHC 32.0 RDW 20.5 H Plt Count 554 H Seg Neutrophils % 56.4 Lymphocytes % 25.1 Monocytes % 13.7 H Eosinophils % 3.8 Basophils % 1.0 Absolute Neutrophils 3.2 Absolute Lymphocytes 1.4 Absolute Monocytes 0.8 Absolute Eosinophils 0.2 Absolute Basophils 0.1 Sodium Potassium Chloride Carbon Dioxide Anion Gap BUN Creatinine Est GFR ( Amer) Est GFR (Non-Af Amer) Glucose Calcium Magnesium Urine Color YELLOW Urine Appearance CLEAR Urine pH 5.0 Ur Specific [place] 1.006 Urine Protein NEGATIVE Urine Glucose (UA) NEGATIVE Urine Ketones NEGATIVE Urine Blood NEGATIVE Urine Nitrite NEGATIVE Ur Leukocyte Esterase NEGATIVE Urine RBC (Auto) 0 Stool Occult Blood POSITIVE 10/31/17 05:26 WBC RBC Hgb Hct MCV MCH MCHC RDW Plt Count Seg Neutrophils % Lymphocytes % Monocytes % Eosinophils % Basophils % Absolute Neutrophils Absolute Lymphocytes Absolute Monocytes Absolute Eosinophils Absolute Basophils Sodium 139.8 Potassium 4.4 Chloride 104 Carbon Dioxide 30 Anion Gap 6 BUN 15 Creatinine 0.92 Est GFR ( Amer) > 60 Est GFR (Non-Af Amer) > 60 Glucose 108 Calcium 8.8 Magnesium 1.9 Urine Color Urine Appearance Urine pH Ur Specific [place] Urine Protein Urine Glucose (UA) Urine Ketones Urine Blood Urine Nitrite Ur Leukocyte Esterase Urine RBC (Auto) Stool Occult Blood 10/29/17 10/29/17 10/29/17 02:43 02:43 12:34 Creatine Kinase 105 90 CK-MB (CK-2) 4.64 H Troponin I 1.020 NT-Pro-B Natriuret Pep 10/29/17 10/29/17 10/29/17 12:34 14:13 14:13 Creatine Kinase 77 CK-MB (CK-2) 4.09 3.62 Troponin I 0.880 0.809 NT-Pro-B Natriuret Pep 10/30/17 06:10 Creatine Kinase CK-MB (CK-2) Troponin I NT-Pro-B Natriuret Pep 3770 H Impressions: Chest/Abdomen CTA 10/28/17 20:28 IMPRESSION: 1. Normal CTA of the chest. No pulmonary emboli. 2. Small bilateral pleural effusions without focal consolidation. Chest X-Ray 10/30/17 00:00 IMPRESSION: Stable chest without evidence of acute CHF or definite pneumonia. Assessment & Plan - Diagnosis (1) Acute systolic (congestive) heart failure Is this a current diagnosis for this admission?: Yes Plan: Continue current regimen (2) Anemia Qualifiers: Anemia type: unspecified type Qualified Code(s): D64.9 - Anemia, unspecified Is this a current diagnosis for this admission?: Yes Plan: Stable (3) Non-ST elevation [place] (NSTEMI) Is this a current diagnosis for this admission?: Yes Plan: Likely due to myocardial demand (4) Obstructive sleep apnea Is this a current diagnosis for this admission?: Yes Plan: Contributing to presentation (5) Supraventricular tachycardia Is this a current diagnosis for this admission?: Yes Plan: Resolved - Time Time Spent with patient: 15-24 minutes Medications reviewed and adjusted accordingly: Yes Anticipated discharge: Acute Rehab Within: within 24 hours - Inpatient Certification Based on my medical assessment, after consideration of the patient's comorbidities, presenting symptoms, or acuity I expect that the services needed warrant INPATIENT care.: Yes I certify that my determination is in accordance with my understanding of Medicare's requirements for reasonable and necessary INPATIENT services [42 CFR 412.3e].: Yes Medical Necessity: Need Close Monitoring Due to Risk of Patient Decompensation
[2017-10-31] MEDS: LEVOFLOXACIN 500 MG TABLET PO SCH (21:57)
[2017-10-31] MEDS: ATORVASTATIN CALCIUM 10 MG TABLET PO SCH (21:58)
[2017-10-31] MEDS: RANOLAZINE 500 MG TAB.SR.12H PO SCH (21:58)
[2017-10-31] MEDS: TEMAZEPAM 7.5 MG CAPSULE PO PRN (21:58)
[2017-11-01] MEDS: LORAZEPAM 1 MG TABLET PO PRN (02:28)
[2017-11-01] MEDS: ACETAMINOPHEN 325 MG TABLET PO PRN ×2 (02:28→21:10)
[2017-11-01 05:14] LABS: HEMATOCRIT 30.6 % (37.9-51.0); HEMOGLOBIN 9.7 g/dL (13.5-17.0); MEAN CORPUSCULAR HEMOGLOBIN 24.7 pg (27.0-33.4); MEAN CORPUSCULAR HGB CONC 31.6 g/dL (32.0-36.0); MEAN CORPUSCULAR VOLUME 78 fl (80-97); PLATELET COUNT 512 10^3/uL (150-450); RED BLOOD COUNT 3.91 10^6/uL (4.35-5.55); RED CELL DISTRIBUTION WIDTH 20.6 % (11.5-14.0); WHITE BLOOD COUNT 5.1 10^3/uL (4.0-10.5)
[2017-11-01] MEDS: TRAMADOL HCL 50 MG TABLET PO PRN ×2 (05:54→17:20)
[2017-11-01] MEDS ORDERED: INSULIN GLARGINE,HUM.REC.ANLOG 1,000 UNIT/10 ML UNIT SUBCUT SCH (08:00)
[2017-11-01] MEDS: LEVALBUTEROL HCL NEB 1.25 MG/3 ML AMPUL NEB SCH ×3 (08:12→20:15)
[2017-11-01] MEDS: ENOXAPARIN SODIUM INJ 40 MG/0.4 ML DISP.SYRIN SUBCUT SCH (10:14)
[2017-11-01] MEDS: FUROSEMIDE 40 MG TABLET PO SCH (10:15)
[2017-11-01] MEDS: ASPIRIN 81 MG TABLET, ENT COATED PO SCH (10:15)
[2017-11-01] MEDS: BUDESONIDE/FORMOTEROL 80-4.5 MCG 60 PUFF/6.9 GM MDI IH SCH ×2 (10:15→21:10)
[2017-11-01] MEDS: CETIRIZINE 10 MG TABLET PO SCH (10:16)
[2017-11-01] MEDS: METOPROLOL SUCCINATE 50 MG TAB.SR.24H PO SCH ×2 (10:16→21:10)
[2017-11-01] MEDS: LISINOPRIL 10 MG TABLET PO SCH (10:16)
[2017-11-01] MEDS: TAMSULOSIN HCL 0.4 MG CAP.SR.24H PO SCH (10:17)
[2017-11-01] MEDS: GABAPENTIN 300 MG CAPSULE PO SCH ×2 (10:17→17:19)
[2017-11-01] MEDS: RANOLAZINE 500 MG TAB.SR.12H PO SCH ×2 (10:17→21:10)
[2017-11-01] MEDS: DOCUSATE SODIUM 100 MG CAPSULE PO SCH ×2 (10:18→17:21)
[2017-11-01] MEDS: DORZOLAMIDE HCL 2% OPH SOLN 10 ML OU SCH ×2 (10:18→17:20)
--- NOTE | 2017-11-01 13:58 | PDOC DISCHARGE SUMMARY ---
General - Admit/Disc Date/PCP Admission Date/Primary Care Provider: 10/28/17 23:12 CLAYTON BURNETT MD Discharge Date: 11/01/17 - Discharge Diagnosis (1) Acute systolic (congestive) heart failure Is this a current diagnosis for this admission?: Yes (2) Anemia Is this a current diagnosis for this admission?: Yes (3) Non-ST elevation [place] (NSTEMI) Is this a current diagnosis for this admission?: Yes (4) Obstructive sleep apnea Is this a current diagnosis for this admission?: Yes (5) Supraventricular tachycardia Is this a current diagnosis for this admission?: Yes (6) COPD (chronic obstructive pulmonary disease) Is this a current diagnosis for this admission?: Yes - Additional Information Resuscitation Status: Do Not Resuscitate Discharge Diet: Cardiac, Diabetic Discharge Activity: Activity As Tolerated, Balance Activity w/Rest, Weigh Daily Prescriptions: Furosemide [Lasix 40 mg Tablet] 40 mg PO DAILY #30 tablet Levofloxacin [Levaquin 500 mg Tablet] 500 mg PO QHS #5 tablet Metoprolol Succinate [Toprol Xl 50 mg Tab.sr] 50 mg PO Q12 #60 tab.sr.24h Ranolazine [Ranexa 500 mg Tab.sr] 500 mg PO Q12 #60 tab.sr.12h Home Medications: Aspirin [Aspirin 325 mg Tablet] 325 mg PO DAILY 10/29/17 Atorvastatin Calcium [Lipitor 10 mg Tablet] 10 mg PO QHS 10/29/17 Budesonide/Formoterol Fumarate [Symbicort HFA 80-4.5 mcg Inhaler 6.9 gm] 2 puff IH BID 10/29/17 Docusate Sodium [Colace 100 mg Capsule] 100 mg PO BID 10/29/17 Dorzolamide HCl [Trusopt Plus 2% Oph Soln 10 ml] 1 drop OU BID 10/29/17 Gabapentin [Neurontin 300 mg Capsule] 300 mg PO Q12 10/29/17 Insulin Aspart [Novolog Flexpen] 0 unit SUBCUT .SLD SCALE 10/29/17 Insulin Glargine,Hum.rec.anlog [Lantus] 34 unit SQ QHS 10/29/17 Insulin Glargine,Hum.rec.anlog [Lantus] 38 unit SQ QAM 10/29/17 Ipratropium/Albuterol Sulfate [Duoneb 3 ml Ampul] 3 ml NEB RTQIDP PRN 10/29/17 Levalbuterol HCl [Xopenex Neb 1.25 mg/3 ml Ampul] 1.25 mg NEB RTQ2HP PRN Lisinopril [Prinivil 10 mg Tablet] 10 mg PO DAILY 10/29/17 Lorazepam [Ativan 1 mg Tablet] 1 mg PO DAILYP PRN 10/29/17 Nitroglycerin [Nitrol 2% Ointment 1Gm Packet] 1 gm TP Q6 10/29/17 Omeprazole Magnesium [Prilosec Otc] 30 mg PO DAILY 10/29/17 Ondansetron HCl [Zofran] 4 mg PO Q4HP PRN 10/29/17 Tamsulosin HCl [Flomax 0.4 mg Cap.sr] 0.4 mg PO QHS 10/29/17 Temazepam [Restoril 7.5 mg Capsule] 7.5 mg PO HSP PRN 10/29/17 Furosemide [Lasix 40 mg Tablet] 40 mg PO DAILY #30 tablet 11/01/17 Levofloxacin [Levaquin 500 mg Tablet] 500 mg PO QHS #5 tablet 11/01/17 Metoprolol Succinate [Toprol Xl 50 mg Tab.sr] 50 mg PO Q12 #60 tab.sr.24h Ranolazine [Ranexa 500 mg Tab.sr] 500 mg PO Q12 #60 tab.sr.12h 11/01/17 History of Present Illness History of Present Illness: The patient is an 82-year-old male with past medical history significant for coronary artery disease status post stent placement. He has known congestive heart failure with an ejection fraction of 35%. He has oxygen dependent COPD and obstructive sleep apnea. He recently had left hip fracture and was transferred from this facility to [facility] where he had an ORIF and was eventually discharged to subacute rehabilitation. The patient was brought to this facility from rehab after developing severe shortness of breath. He was found to have SVT in the 170s and was referred for admission. Patient was placed on Cardizem drip with further improvement of rate. Patient was then admitted under the hospitalist service Hospital Course Hospital Course: Patient was admitted under the hospitalist service. Cardiac enzymes were trended and became positive. Findings were consistent with non-STEMI secondary to myocardial demand ischemia in the setting of supraventricular tachycardia. Patient was treated for congestive heart failure as well as for COPD with further improvement of respiratory status. He was transfused 1 unit of packed red blood cell since hemoglobin was less than 10. Patient had been not quite sure where to go as he voiced to this provider that he wanted to go home however later on I was informed that he was agreeable to go [facility]. Since patient had achieved maximum benefit of hospitalization stay prompted to discharge under stable condition Physical Exam Vital Signs: Temp Pulse Resp BP Pulse Ox 97.9 F 70 17 113/52 L 95 11/01/17 03:31 11/01/17 03:31 11/01/17 03:31 11/01/17 03:31 11/01/17 03:31 Intake & Output 10/30/17 10/31/17 11/01/17 06:59 06:59 06:59 Intake Total 2361 2019 1737 Output Total 525 1425 1570 Balance 1836 594 167 Weight 81.6 kg 79.8 kg 78.6 kg General appearance: PRESENT: no acute distress, cooperative Head exam: PRESENT: atraumatic, normocephalic Eye exam: PRESENT: conjunctiva pink, EOMI, PERRLA Mouth exam: PRESENT: moist, neck supple Neck exam: PRESENT: full ROM, tenderness. ABSENT: JVD, lymphadenopathy Respiratory exam: PRESENT: clear to auscultation crystal Cardiovascular exam: PRESENT: RRR. ABSENT: diastolic murmur, systolic murmur Vascular exam: PRESENT: normal capillary refill GI/Abdominal exam: PRESENT: normal bowel sounds, soft. ABSENT: tenderness Extremities exam: PRESENT: full ROM. ABSENT: clubbing, joint swelling, pedal edema Musculoskeletal exam: PRESENT: ambulatory Neurological exam: PRESENT: alert, awake, oriented to person, oriented to place , oriented to time, oriented to situation, CN II-XII grossly intact Psychiatric exam: PRESENT: appropriate affect, normal mood Skin exam: PRESENT: intact, normal color, petechiae Results Laboratory Results: 11/01/17 04:40 10/31/17 05:26 11/01/17 04:40 WBC 5.1 RBC 3.91 L Hgb 9.7 L Hct 30.6 L MCV 78 L MCH 24.7 L MCHC 31.6 L RDW 20.6 H Plt Count 512 H 10/29/17 10/29/17 10/29/17 02:43 02:43 12:34 Creatine Kinase 105 90 CK-MB (CK-2) 4.64 H Troponin I 1.020 NT-Pro-B Natriuret Pep 10/29/17 10/29/17 10/29/17 12:34 14:13 14:13 Creatine Kinase 77 CK-MB (CK-2) 4.09 3.62 Troponin I 0.880 0.809 NT-Pro-B Natriuret Pep 10/30/17 06:10 Creatine Kinase CK-MB (CK-2) Troponin I NT-Pro-B Natriuret Pep 3770 H Impressions: Chest/Abdomen CTA 10/28/17 20:28 IMPRESSION: 1. Normal CTA of the chest. No pulmonary emboli. 2. Small bilateral pleural effusions without focal consolidation. Chest X-Ray 10/30/17 00:00 IMPRESSION: Stable chest without evidence of acute CHF or definite pneumonia. Plan Discharge Plan: Discharge to jail facility Time Spent: Less than 30 Minutes
--- NOTE | 2017-11-01 19:47 | PDOC PROGRESS REPORT ---
Subjective Progress Note for:: 11/01/17 Subjective:: Patient did not denies any significant complaints. He is noted to be comfortable. He is denying any chest, neck discomfort. Patient denied any sustained palpitations, syncope, near syncope. Patient does have mild pedal edema. Currently wearing support stockings. Patient has done well. No further cardiac evaluation planned at this point but patient will benefit from cardiology follow-up as an outpatient. Reason For Visit: AFIB CHF,COPD EXACERBATION EXACERBATION Physical Exam Vital Signs: Temp Pulse Resp BP Pulse Ox 98.4 F 81 16 115/58 L 90 L 11/01/17 15:36 11/01/17 15:36 11/01/17 15:36 11/01/17 15:36 11/01/17 15:36 Intake & Output 10/31/17 11/01/17 11/02/17 06:59 06:59 06:59 Intake Total 2018 1737 1071 Output Total 1425 1570 750 Balance 594 167 321 Weight 79.8 kg 78.6 kg Exam: GENERAL: well-nourished and in no acute distress. Alert and oriented x3 HEAD: Atraumatic, normocephalic. EYES: Pupils equal round and reactive to light, extraocular movements intact, sclera anicteric, conjunctiva are normal. ENT: TMs normal, nares patent, oropharynx clear without exudates. Moist mucous membranes. No oral ulcerations or bleeding gums noted NECK: supple without lymphadenopathy. Trachea is central. No cervical or axillary lymphadenopathy noted. Carotids are 2+, JVD WNL LUNGS: Respiration seems nonlabored, no significant accessory muscle action noted. Breath sounds clear to auscultation bilaterally and equal noted. No wheezes rales or rhonchi noted. No significant dullness noted on percussion. CHEST: Palpation of the chest wall shows no significant chest wall tenderness. No other significant abnormalities noted. 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 ABDOMEN: Soft, no significant tenderness appreciated, normoactive bowel sounds. No guarding, no rebound. No rigidity noted . No masses appreciated. EXTREMITIES: Pedal pulses are 1-2+, no calf tenderness noted. No clubbing or cyanosis.trace to 1+ pedal edema noted. Patient wearing support stockings. NEUROLOGICAL: Focused neurological exam showed no significant neurologic deficit. Normal speech, no focal weakness appreciated. PSYCH: Normal mood, normal affect. Judgment and insight within normal limits. SKIN: No significant ecchymosis, rash, ulcerations or signs of pruritus noted. MUSCULOSKELETAL EXAM: No significant joint swelling noted. Results Laboratory Results: 11/01/17 04:40 10/31/17 05:26 11/01/17 04:40 WBC 5.1 RBC 3.91 L Hgb 9.7 L Hct 30.6 L MCV 78 L MCH 24.7 L MCHC 31.6 L RDW 20.6 H Plt Count 512 H 10/29/17 10/29/17 10/29/17 02:43 02:43 12:34 Creatine Kinase 105 90 CK-MB (CK-2) 4.64 H Troponin I 1.020 NT-Pro-B Natriuret Pep 10/29/17 10/29/17 10/29/17 12:34 14:13 14:13 Creatine Kinase 77 CK-MB (CK-2) 4.09 3.62 Troponin I 0.880 0.809 NT-Pro-B Natriuret Pep 10/30/17 06:10 Creatine Kinase CK-MB (CK-2) Troponin I NT-Pro-B Natriuret Pep 3770 H Impressions: Chest/Abdomen CTA 10/28/17 20:28 IMPRESSION: 1. Normal CTA of the chest. No pulmonary emboli. 2. Small bilateral pleural effusions without focal consolidation. Chest X-Ray 10/30/17 00:00 IMPRESSION: Stable chest without evidence of acute CHF or definite pneumonia. Assessment & Plan - Diagnosis (1) Elevated troponin Is this a current diagnosis for this admission?: Yes (2) Non-ST elevation RI (NSTEMI) Is this a current diagnosis for this admission?: Yes (3) Supraventricular tachycardia Is this a current diagnosis for this admission?: Yes (4) Coronary artery disease Qualifiers: Coronary Disease-Associated Artery/Lesion type: [place] artery [place] vs. transplanted heart: [place] heart Associated angina: with unspecified angina Qualified Code(s): I25.119 - Atherosclerotic heart disease of [place] coronary artery with unspecified angina pectoris Is this a current diagnosis for this admission?: Yes (5) Ischemic cardiomyopathy Is this a current diagnosis for this admission?: Yes (6) Obstructive sleep apnea Is this a current diagnosis for this admission?: Yes - Notes Notes: Elevated troponin I: Most likely related to supraventricular tachycardia. Currently maintaining sinus rhythm. Recommend beta-camila and digoxin therapy in view of reduced LVEF. Non-ST elevation RI: Most likely precipitated by supply demand mismatch from SVT. Will review previous records and would consider a nuclear stress test if needed. Supraventricular tachycardia: Recommend beta-camila and digoxin therapy. Currently patient on metoprolol succinate 50 mg p.o. twice daily. If these are not tolerated then may consider calcium channel camila therapy such as Cardizem. Coronary artery disease: Recommend aggressive antilipid therapy, antiplatelet, beta blockers, JEFF inhibitor/ARB/entresto therapy. Cardiomyopathy: Recent 2D echocardiogram showed severely depressed LVEF at around 35%. Currently seems euvolemic. Obstructive sleep apnea: Patient will benefit from continuation of CPAP therapy. He could see me in this regard in the office. Patient should follow-up with boilermaker's assistant as he needs quite close follow-up for medication adjustment especially in view of severely depressed LVEF. - Time Time with patient: Greater than 35 minutes - CODE STATUS was discussed, patient remains full code. Surrogate decision-maker unchanged. Multiple medical problems were addressed. More than 50% of the time spent coordinating care, discussing management plans with involved caregivers. Management plans discussed with involved personnels. Medical decision making was of moderate to high complexity, patient's has multiple comorbidities. Medications reviewed and adjusted accordingly: Yes
[2017-11-01 21:07] VITALS: BP 105/47
[2017-11-01] MEDS: LEVOFLOXACIN 500 MG TABLET PO SCH (21:10)
[2017-11-01] MEDS: ATORVASTATIN CALCIUM 10 MG TABLET PO SCH (21:10)
[2017-11-01] MEDS: INSULIN GLARGINE,HUM.REC.ANLOG 1,000 UNIT/10 ML UNIT SUBCUT SCH (22:12)
== END 2017-11-02 07:48 | DRG 281 ==
LOC: ER 20:12 → EH 23:12 → 3W 10-29 02:20
PROVIDERS: ADMIT Internal Medicine; ATTEND Internal Medicine
PROC: 30233N1 Transfusion of Nonautologous Red Blood Cells into Peripheral Vein, Percutaneous Approach (ICD-10-PCS; principal; 2017-10-29)
DX: I11.0 Hypertensive heart disease with heart failure (principal); I21.4 Non-ST elevation (NSTEMI) myocardial infarction; I47.1 Supraventricular tachycardia; J44.1 Chronic obstructive pulmonary disease with (acute) exacerbation; I69.851 Hemiplegia and hemiparesis following other cerebrovascular disease affecting right dominant side; I50.23 Acute on chronic systolic (congestive) heart failure; Z66 Do not resuscitate; I25.10 Atherosclerotic heart disease of native coronary artery without angina pectoris; D64.9 Anemia, unspecified; E11.9 Type 2 diabetes mellitus without complications; N40.0 Benign prostatic hyperplasia without lower urinary tract symptoms; K21.9 Gastro-esophageal reflux disease without esophagitis; G47.33 Obstructive sleep apnea (adult) (pediatric); I25.2 Old myocardial infarction; Z99.81 Dependence on supplemental oxygen; Z79.84 Long term (current) use of oral hypoglycemic drugs; Z79.82 Long term (current) use of aspirin; Z79.4 Long term (current) use of insulin; Z79.51 Long term (current) use of inhaled steroids; Z79.899 Other long term (current) drug therapy
CPT/HCPCS: 36415; 36430; 71045; 71275; 80048; 80053; 81001; 82272; 82550; 82553; 82607; 82728; 82746; 82803; 82962; 83540; 83550; 83605; 83735; 83880; 84443; 84484; 85025; 85027; 85045; 85610; 85730; 86850; 86900; 86901; 86920; 93005; 93010; 94640; 94660; 96365; 96366; 96375; 99291; J1650; J1815; J1940; J1956; J2270; J3490; J7620; P9016

== ENCOUNTER 2017-11-23 21:46 | Emergency (ER) | payer MEDICARE, MEDICAID ==
[2017-11-23] MEDS ORDERED: IPRATROPIUM/ALBUTEROL 0.5-2.5 MG/3 ML AMPUL NEB ONE (22:53)
[2017-11-23 22:54] LABS: APPEARANCE,URINE CLEAR; BILIRUBIN,URINE NEGATIVE (NEGATIVE); COLOR,URINE STRAW; GLUCOSE, URINE NEGATIVE (NEGATIVE); KETONES,URINE NEGATIVE (NEGATIVE); LEUKOCYTE ESTERASE,URINE NEGATIVE (NEGATIVE); NITRITE,URINE NEGATIVE (NEGATIVE); PROTEIN,URINE NEGATIVE (NEGATIVE); URINE SPECIFIC GRAVITY 1.009; UROBILINOGEN,URINE NEGATIVE mg/dL (<2.0)
--- NOTE | 2017-11-23 23:31 | ER Document Report ---
ED General - General Chief Complaint: Breathing Difficulty Stated Complaint: BLOOD PRESSURE ISSUE Time Seen by Provider: 11/23/17 22:53 Mode of Arrival: Ambulatory Information source: Patient Notes: 82-year-old male history of hypertension COPD CHF presents with complaints of intermittent cough of one-month duration. Patient denies any fevers or chills, denies any nausea vomiting or diarrea. Pt notes non productive cough, is supposed to be on oxygen at home but does not use it. TRAVEL OUTSIDE OF THE [place] IN LAST 30 DAYS: No - HPI Onset: Other Onset/Duration: Intermittent Quality of pain: No pain Severity: Mild Pain Level: Denies Context: Family also notes they had 3 blood pressure readings which were either very high or very low within 5-10 minutes, including one with a systolic diastolic were tender points away from each other Associated symptoms: Nonproductive cough Exacerbated by: Denies Relieved by: Denies Similar symptoms previously: Yes Recently seen / treated by doctor: Yes - Related Data Allergies/Adverse Reactions: Penicillins Allergy (Verified 10/28/17 20:55) SWELLS Past Medical History - Social History Smoking Status: Former Smoker Cigarette use (# per day): Yes Chew tobacco use (# tins/day): No Smoking Education Provided: No Family History: CAD, Hypertension - Past Medical History Cardiac Medical History: Reports: Hx Atrial Fibrillation, Hx Coronary Artery Disease, Hx Heart Attack, Hx Hypertension Pulmonary Medical History: Reports: Hx COPD, Hx Sleep Apnea Neurological Medical History: Reports: Hx Cerebrovascular Accident - "years ago " Endocrine Medical History: Reports: Hx Diabetes Mellitus Type 1, Hx Diabetes Mellitus Type 2 Renal/ Medical History: Reports: Hx Benign Prostatic Hyperplasia. Denies: Hx Peritoneal Dialysis GI Medical History: Reports: Hx Gastroesophageal Reflux Disease Musculoskeltal Medical History: Reports Hx Arthritis Psychiatric Medical History: Denies: Hx Depression Past Surgical History: Reports: Hx Cardiac Catheterization - RCA, LDA, Hx Coronary Stent - RCA & LAD, Hx Orthopedic Surgery - right clavicle - Immunizations Hx Diphtheria, Pertussis, Tetanus Vaccination: Yes Review of Systems - Review of Systems Notes: REVIEW OF SYSTEMS: CONSTITUTIONAL : Denies fever, chills, or sweats. Denies recent illness. EENT: Denies eye, ear, throat, or mouth pain or symptoms. Denies nasal or sinus congestion or discharge. Denies throat, tongue, or mouth swelling or difficulty swallowing. CARDIOVASCULAR: Denies chest pain. Denies palpitations or racing or irregular heart beat. Denies ankle edema. RESPIRATORY: Admits to cough congestion GASTROINTESTINAL: Denies abdominal pain or distention. Denies nausea, vomiting , or diarrhea. Denies blood in vomitus, stools, or per rectum. Denies black, tarry stools. Denies constipation. GENITOURINARY: Denies difficulty urinating, painful urination, burning, frequency, blood in urine, or discharge. MUSCULOSKELETAL: Denies back or neck pain or stiffness. Denies joint pain or swelling. SKIN: Denies rash, lesions or sores. HEMATOLOGIC : Denies easy bruising or bleeding. LYMPHATIC: Denies swollen, enlarged glands. NEUROLOGICAL: Denies confusion or altered mental status. Denies passing out or loss of consciousness. Denies dizziness or lightheadedness. Denies headache. Denies weakness or paralysis or loss of use of either side. Denies problems with gait or speech. Denies sensory loss, numbness, or tingling. Denies seizures. PSYCHIATRIC: Denies anxiety or stress. Denies depression, suicidal ideation, or homicidal ideation. ALL OTHER SYSTEMS REVIEWED AND NEGATIVE. Dictation was performed using [employer] voice recognition software PHYSICAL EXAMINATION: GENERAL: Elderly male no acute distress HEAD: Atraumatic, normocephalic. EYES: Pupils equal round and reactive to light, extraocular movements intact, sclera anicteric, conjunctiva are normal. ENT: Nares patent, oropharynx clear without exudates. Moist mucous membranes. NECK: Normal range of motion, supple without lymphadenopathy LUNGS: Coarse breath sound left upper lobe HEART: Regular rate and rhythm without murmurs ABDOMEN: Soft, nontender, nondistended abdomen. No guarding, no rebound. No masses appreciated. Musculoskeletal: Normal range of motion, no pitting or edema. No cyanosis. NEUROLOGICAL: Cranial nerves grossly intact. Normal speech, normal gait. Normal sensory, motor exams PSYCH: Normal mood, normal affect. SKIN: Warm, Dry, normal turgor, no rashes or lesions noted. Physical Exam - Vital signs Vitals: Temp Pulse Resp BP Pulse Ox 97.6 F 102 H 24 H 149/77 H 97 11/23/17 21:57 11/23/17 21:57 11/23/17 21:57 11/23/17 21:57 11/23/17 21:57 Course - Re-evaluation Re-evalutation: 11/24/17 02:19 X-ray noted no significant abnormality patient feels much better after breathing treatment BNP was slightly elevated but no pleural effusion edema noted a CTA has been ordered given the patient has been intermittently tachycardic 11/24/17 02:39 Patient's IV infiltrated, he is refusing any further IV attempts, obviously cannot rule out a pulmonary emboli as a result, patient is alert oriented understands risks and benefits 11/24/17 03:21 CT without contrast noted nodules, report has been given to family patient. Patient still does not want a CTA, I will therefore discharge him with understand that this is not a complete workup and is AGAINST MEDICAL ADVICE After performing a Medical Screening Examination, I spoke with the patient at length in regards to leaving the hospital against medical advice. I do not believe the patient should leave but the patient is alert oriented x4, understands the risks and benefits of staying and leaving including disability and . Pt understands that he can return at any time for further care and is more than welcome to do so. Pt verbalizes this understanding. - Vital Signs Vital signs: Temp Pulse Resp BP Pulse Ox 97.6 F 102 H 24 H 149/77 H 98 11/23/17 21:57 11/23/17 21:57 11/23/17 21:57 11/23/17 21:57 11/23/17 22:53 - Laboratory Result Diagrams: 11/24/17 00:15 11/24/17 00:15 Laboratory results interpreted by me: 11/24/17 11/24/17 11/24/17 00:15 00:15 00:15 Hgb 11.8 L Hct 36.8 L MCV 78 L MCH 25.1 L RDW 19.6 H Potassium 3.5 L Glucose 60 L Alkaline Phosphatase 131 H Creatine Kinase 51 L NT-Pro-B Natriuret Pep 4900 H - Diagnostic Test Radiology reviewed: Image reviewed, Reports reviewed - EKG Interpretation by Me EKG shows normal: Doran - As noted, Intervals, QRS Complexes, ST-T Waves Discharge - Discharge Clinical Impression: COPD (chronic obstructive pulmonary disease) Qualifiers: COPD type: unspecified COPD Qualified Code(s): J44.9 - Chronic obstructive pulmonary disease, unspecified Hypertension Qualifiers: Hypertension type: essential hypertension Qualified Code(s): I10 - Essential ( primary) hypertension CHF (congestive heart failure) Qualifiers: Heart failure type: unspecified Heart failure chronicity: unspecified Qualified Code(s): I50.9 - Heart failure, unspecified Condition: Stable Disposition: AGAINST MEDICAL ADVICE Instructions: Chronic Obstructive Lung Disease ([facility]), Congestive Heart Failure ([facility]) Referrals: DEVON PHOENIX MD [Primary Care Provider] - Follow up tomorrow
--- NOTE | 2017-11-23 23:46 | RADIOLOGY REPORT (SQ) ---
EXAM DESCRIPTION: CHEST SINGLE VIEW CLINICAL HISTORY: 82 years, Male, copd chf, wheezing sob COMPARISON: 10/30/2017 NUMBER OF VIEWS: 1 LIMITATIONS: None. FINDINGS: Adequate lung volume, clear parenchyma, normal cardiac silhouette, atherosclerosis, and multilevel deformity at the lateral aspect of the right hemithorax. Partially imaged osteotomy plate and screws of the right humeral shaft. Metallic anchor fixation of the left humeral head. IMPRESSION: No acute cardiopulmonary findings.
[2017-11-24 00:26] LABS: ABSOLUTE EOSINOPHILS # (AUTO) 0.2 10^3/uL (0.0-0.6); ABSOLUTE LYMPHOCYTES (AUTO) 2.8 10^3/uL (0.5-4.7); ABSOLUTE MONOCYTES (AUTO) 0.7 10^3/uL (0.1-1.4); ABSOLUTE NEUT (AUTO) 4.4 10^3/uL (1.7-8.2); BASOPHILS % (AUTO) 0.3 % (0-2); EOSINOPHILS % (AUTO) 2.1 % (0-6); HEMATOCRIT 36.8 % (37.9-51.0); HEMOGLOBIN 11.8 g/dL (13.5-17.0); LYMPHOCYTES % (AUTO) 35.1 % (13-45); MEAN CORPUSCULAR HEMOGLOBIN 25.1 pg (27.0-33.4); MEAN CORPUSCULAR HGB CONC 32.1 g/dL (32.0-36.0); MEAN CORPUSCULAR VOLUME 78 fl (80-97); MONOCYTES % (AUTO) 8.7 % (3-13); PLATELET COUNT 325 10^3/uL (150-450); RED CELL DISTRIBUTION WIDTH 19.6 % (11.5-14.0); SEGMENTED NEUTROPHILS % (AUTO) 53.8 % (42-78); TOTAL CELLS COUNTED % (AUTO) 100 %; WHITE BLOOD COUNT 8.1 10^3/uL (4.0-10.5)
[2017-11-24 00:46] LABS: ALANINE AMINOTRANSFERASE 43 U/L (21-72); ALBUMIN 3.7 g/dL (3.5-5.0); ALKALINE PHOSPHATASE 131 U/L (38-126); ANION GAP 13 (5-19); ASPARTATE AMINO TRANSFERASE 42 U/L (17-59); BILIRUBIN,DIRECT 0.4 mg/dL (0.0-0.4); BILIRUBIN,TOTAL 0.4 mg/dL (0.2-1.3); BLOOD UREA NITROGEN 16 mg/dL (7-20); CALCIUM 9.1 mg/dL (8.4-10.2); CARBON DIOXIDE 26 mmol/L (22-30); CHLORIDE 104 mmol/L (98-107); CREATINE KINASE 51 U/L (55-170); GLUCOSE 60 mg/dL (75-110); POTASSIUM 3.5 mmol/L (3.6-5.0); SODIUM 142.9 mmol/L (137-145); TOTAL PROTEIN 6.8 g/dL (6.3-8.2)
[2017-11-24 01:02] LABS: CREATINE KINASE MB 1.62 ng/mL (<4.55); TROPONIN I 0.031 ng/mL
--- NOTE | 2017-11-24 03:17 | RADIOLOGY REPORT (SQ) ---
EXAM DESCRIPTION: CT CHEST WITHOUT CLINICAL HISTORY: 82 years Male, COUGH,COPD,CHF COMPARISON: None. TECHNIQUE: No contrast. Coronal and sagittal reformat. This exam was performed according to our departmental dose-optimization program, which includes automated exposure control, adjustment of the mA and/or kV according to patient size and/or use of iterative reconstruction technique. FINDINGS: No acute cardiopulmonary findings. Two likely benign 0.2 and 0.3 cm pulmonary nodules the right lower lobe and 0.2 cm calcified granuloma the left upper lobe without suspicious interval change compared with prior exam from October 28, 2017; for low-risk patients, no follow-up is warranted and for high-risk patients, optional twelve-month CT surveillance recommended. Mild mediastinal lymphadenopathy includes a precarinal lymph node measuring 1.6 x 0.5 cm without suspicious interval change. Moderate coronary arterial calcification. Atherosclerosis. Moderate pancreatic atrophy. Atherosclerosis. Metallic anchor fixation of the left humeral head and osteotomy plate-screw fixation partially imaged the right humeral shaft. IMPRESSION: 1. No acute cardiopulmonary findings. 2. Two likely benign pulmonary nodules of the right lower lobe; for low-risk patients, no follow up is recommended. If high risk, patient's, optional [address] surveillance recommended.
[2017-11-24 03:27] VITALS: BP 148/71
--- NOTE | 2017-11-24 10:59 | EKG REPORT ---
SEVERITY:- ABNORMAL ECG - SINUS RHYTHM ATRIAL PREMATURE COMPLEX PROBABLE INFERIOR INFARCT, OLD BORDERLINE PROLONGED QT INTERVAL : Confirmed by: Arpan Aleman 24-Nov-2017 10:58:57
== END 2017-11-24 03:41 | disposition left against medical advice (07) ==
LOC: ER 21:46
DX: J44.9 Chronic obstructive pulmonary disease, unspecified (principal); Z91.19 Patient's noncompliance with other medical treatment and regimen; I11.0 Hypertensive heart disease with heart failure; I50.9 Heart failure, unspecified; I25.10 Atherosclerotic heart disease of native coronary artery without angina pectoris; R91.8 Other nonspecific abnormal finding of lung field; R00.0 Tachycardia, unspecified; E11.9 Type 2 diabetes mellitus without complications; R05 Cough; Z88.0 Allergy status to penicillin; Z95.5 Presence of coronary angioplasty implant and graft; Z53.20 Procedure and treatment not carried out because of patient's decision for unspecified reasons
CPT/HCPCS: 93005; 94640; 99285; 36415; 82553; 82550; 85025; 80053; 81001; 84484; 83880; 71045; 71250; 93010; A9270; J7620

== ENCOUNTER 2018-01-30 04:22 | Emergency (ER) | payer MEDICARE, MEDICAID ==
--- NOTE | 2018-01-30 04:42 | ER Document Report ---
ED Respiratory Problem - General Stated Complaint: DIFFICULTY BREATHING Time Seen by Provider: 01/30/18 04:31 Notes: Patient is an 82-year-old male who presents emergency department the chief complaint of shortness of breath. Patient states he has had shortness of breath for the past couple weeks. Patient states that he woke up this evening short of breath that he utilized 3 home albuterol treatments without any significant improvement in shortness of breath. He denies any chest pain. Admits to significant wheezing prior to arrival. Also received an A&A2 and 125 mg of IM Solu-Medrol via EMS. Was initially satting 88% on room air despite that he supposed to be on 2 L nasal cannula at night when he sleeps. Patient patient is afebrile with a temp of 98.7 Past medical history significant for COPD on 2 L nightly, congestive heart failure, history of coronary artery disease with previous stents location unknown, diabetes TRAVEL OUTSIDE OF THE [place] IN LAST 30 DAYS: No - Related Data Allergies/Adverse Reactions: Penicillins Allergy (Verified 10/28/17 20:55) SWELLS Past Medical History - Social History Smoking Status: Former Smoker Family History: CAD, Hypertension - Past Medical History Cardiac Medical History: Reports: Hx Atrial Fibrillation, Hx Coronary Artery Disease, Hx Heart Attack, Hx Hypertension Pulmonary Medical History: Reports: Hx COPD, Hx Sleep Apnea Neurological Medical History: Reports: Hx Cerebrovascular Accident - "years ago " Endocrine Medical History: Reports: Hx Diabetes Mellitus Type 1, Hx Diabetes Mellitus Type 2 Renal/ Medical History: Reports: Hx Benign Prostatic Hyperplasia. Denies: Hx Peritoneal Dialysis GI Medical History: Reports: Hx Gastroesophageal Reflux Disease Musculoskeltal Medical History: Reports Hx Arthritis Psychiatric Medical History: Denies: Hx Depression Past Surgical History: Reports: Hx Cardiac Catheterization - RCA, LDA, Hx Coronary Stent - RCA & LAD, Hx Orthopedic Surgery - right clavicle - Immunizations Hx Diphtheria, Pertussis, Tetanus Vaccination: Yes Review of Systems - Review of Systems Notes: REVIEW OF SYSTEMS: CONSTITUTIONAL : Denies fever, chills, or sweats. Denies recent illness. EENT: Denies eye, ear, throat, or mouth pain or symptoms. Denies nasal or sinus congestion or discharge. Denies throat, tongue, or mouth swelling or difficulty swallowing. CARDIOVASCULAR: Denies chest pain. Denies palpitations or racing or irregular heart beat. Denies ankle edema. RESPIRATORY: Denies cough, cold, or chest congestion. Admits to shortness of breath, difficulty breathing, or wheezing. GASTROINTESTINAL: Denies abdominal pain or distention. Denies nausea, vomiting , or diarrhea. Denies blood in vomitus, stools, or per rectum. Denies black, tarry stools. Denies constipation. GENITOURINARY: Denies difficulty urinating, painful urination, burning, frequency, blood in urine, or discharge. MUSCULOSKELETAL: Denies any muscle spasms, difficulty walking, extremity pain SKIN: Denies rash, lesions or sores. HEMATOLOGIC : Denies easy bruising or bleeding. LYMPHATIC: Denies swollen, enlarged glands. NEUROLOGICAL: Denies confusion or altered mental status. Denies passing out or loss of consciousness. Denies dizziness or lightheadedness. Denies headache. Denies weakness or paralysis or loss of use of either side. Denies problems with gait or speech. Denies sensory loss, numbness, or tingling. Denies seizures. PSYCHIATRIC: Denies anxiety or stress. Denies depression, suicidal ideation, or homicidal ideation. ALL OTHER SYSTEMS REVIEWED AND NEGATIVE. Dictation was performed using [employer] voice recognition software first 1 she is chest pain-free came back she is at 0.4 and she said her chest pain was coming back Physical Exam - Vital signs Vitals: Pulse Ox 100 01/30/18 04:32 - Notes Notes: PHYSICAL EXAM GENERAL: Alert, interacts well. HEAD: Normocephalic, atraumatic. EYES: Pupils equal, round, and reactive to light. Extraocular movements intact. ENT: Oral mucosa moist, tongue midline. NECK: Full range of motion. Supple. Trachea midline. LUNGS: Rhonchi noted throughout without rales. No respiratory distress. HEART: Regular rate and rhythm. No murmurs, gallops, or rubs. ABDOMEN: Soft, nondistended, nontender. No guarding, rebound, or rigidity.. Bowel sounds present in all 4 quadrants. EXTREMITIES: Moves all 4 extremities spontaneously. 2+ pitting edema, radial and dorsalis pedis pulses 2/4 bilaterally. No cyanosis. NEUROLOGICAL: Alert and oriented x4. Normal speech. PSYCH: Normal affect, normal mood. SKIN: Warm, dry, normal turgor. No rashes or lesions noted. Course - Re-evaluation Re-evalutation: 01/30/18 06:24 Patient is an 82-year-old male who presents emergency department with chief complaint of shortness of breath and continues to deny chest pain. EKG shows evidence of A. fib with RVR at a rate of 120. Patient not anticoagulated. New when compared to previous EKG on 01/16/2018 when he was sinus rhythm. Troponin elevated at .303 which is elevated from his baseline when it was .046 on . Patient breathing comfortably on home O2 01/30/18 06:47 Accepted to [facility] for A fib RVR with NSTEMI vs. demand ischemia by Dr. William Michael. Will not initiate anticoagulants at this time per hospitalist request. HR controlled at 93 and BP with systolic of 156. 01/30/18 07:30 Patient resting comfortably and easily arousable. Vital signs improved after initiation of Cardizem drip. Heart rate remaining in the 90s with a blood pressure of systolics of 150s. Symptomatically improved after multiple breathing treatments received via EMS. Patient stable for transport. - Vital Signs Vital signs: Temp Pulse Resp BP Pulse Ox 17 151/67 H 96 01/30/18 07:01 01/30/18 07:00 01/30/18 07:01 - Laboratory Result Diagrams: 01/30/18 04:45 01/30/18 04:45 Laboratory results interpreted by me: 01/30/18 01/30/18 01/30/18 04:45 04:45 04:45 WBC 13.2 H Hgb 10.2 L Hct 33.1 L MCV 76 L MCH 23.5 L MCHC 30.9 L RDW 16.4 H Absolute Neutrophils 10.2 H VBG pCO2 VBG HCO3 Sodium 147.3 H Potassium 3.3 L Glucose 174 H NT-Pro-B Natriuret Pep 3770 H 01/30/18 04:45 WBC Hgb Hct MCV MCH MCHC RDW Absolute Neutrophils VBG pCO2 66.0 H* VBG HCO3 33.6 H Sodium Potassium Glucose NT-Pro-B Natriuret Pep - Diagnostic Test Radiology reviewed: Image reviewed, Reports reviewed - EKG Interpretation by Me EKG shows normal: abnormal: ST-T Waves Rate: Tachycardia Rhythm: A.Fib - new onset When compared to previous EKG there are: Changes noted Discharge - Discharge Clinical Impression: Non-ST elevation IN (NSTEMI) Atrial fibrillation Qualifiers: Atrial fibrillation type: unspecified Qualified Code(s): I48.91 - Unspecified atrial fibrillation Condition: Stable Disposition: [facility]
[2018-01-30 04:55] LABS: VENOUS BLOOD HCO3 33.6 mmol/L (20-32); VENOUS BLOOD PH 7.33 (7.30-7.42)
[2018-01-30 04:58] LABS: ABSOLUTE EOSINOPHILS # (AUTO) 0.1 10^3/uL (0.0-0.6); ABSOLUTE LYMPHOCYTES (AUTO) 1.9 10^3/uL (0.5-4.7); ABSOLUTE MONOCYTES (AUTO) 0.9 10^3/uL (0.1-1.4); ABSOLUTE NEUT (AUTO) 10.2 10^3/uL (1.7-8.2); BASOPHILS % (AUTO) 0.3 % (0-2); EOSINOPHILS % (AUTO) 1.1 % (0-6); HEMATOCRIT 33.1 % (37.9-51.0); HEMOGLOBIN 10.2 g/dL (13.5-17.0); LYMPHOCYTES % (AUTO) 14.4 % (13-45); MEAN CORPUSCULAR HEMOGLOBIN 23.5 pg (27.0-33.4); MEAN CORPUSCULAR HGB CONC 30.9 g/dL (32.0-36.0); MEAN CORPUSCULAR VOLUME 76 fl (80-97); MONOCYTES % (AUTO) 6.9 % (3-13); PLATELET COUNT 324 10^3/uL (150-450); RED BLOOD COUNT 4.35 10^6/uL (4.35-5.55); RED CELL DISTRIBUTION WIDTH 16.4 % (11.5-14.0); SEGMENTED NEUTROPHILS % (AUTO) 77.3 % (42-78); TOTAL CELLS COUNTED % (AUTO) 100 %; WHITE BLOOD COUNT 13.2 10^3/uL (4.0-10.5)
[2018-01-30] MEDS ORDERED: LEVOFLOXACIN 750 MG/D5W RTU 750 MG/150 ML RTUPB IV ONE (05:04)
[2018-01-30 05:10] LABS: ALANINE AMINOTRANSFERASE 34 U/L (21-72); ALBUMIN 3.6 g/dL (3.5-5.0); ALKALINE PHOSPHATASE 114 U/L (38-126); ANION GAP 14 (5-19); ASPARTATE AMINO TRANSFERASE 25 U/L (17-59); BILIRUBIN,DIRECT 0.3 mg/dL (0.0-0.4); BILIRUBIN,TOTAL 0.5 mg/dL (0.2-1.3); BLOOD UREA NITROGEN 15 mg/dL (7-20); CALCIUM 8.9 mg/dL (8.4-10.2); CARBON DIOXIDE 30 mmol/L (22-30); CHLORIDE 103 mmol/L (98-107); GLUCOSE 174 mg/dL (75-110); POTASSIUM 3.3 mmol/L (3.6-5.0); SODIUM 147.3 mmol/L (137-145); TOTAL PROTEIN 6.9 g/dL (6.3-8.2)
[2018-01-30] MEDS ORDERED: MAGNESIUM SULFATE/D5W 1 GM/100 ML RTUPB IV SCH (05:15)
[2018-01-30 05:27] LABS: TROPONIN I 0.303 ng/mL
[2018-01-30] MEDS ORDERED: DILTIAZEM HCL INJ 25 MG/5 ML VIAL IV ONE (05:41)
[2018-01-30] MEDS ORDERED: DILTIAZEM HCL/D5W 125 MG/125 ML RTUINJ IV PRN (05:41)
--- NOTE | 2018-01-30 05:50 | RADIOLOGY REPORT (SQ) ---
EXAM DESCRIPTION: CHEST SINGLE VIEW CLINICAL HISTORY: 82 years Male, SOB COMPARISON: 2.15.18 NUMBER OF VIEWS/TECHNIQUE: 1/AP LIMITATIONS: None. FINDINGS: Small right basilar opacity-effusion, mild interstitial markings, normal cardiac silhouette, atherosclerosis, right sixth posterior rib deformity, and partially imaged hardware in the left humeral head. Stable. IMPRESSION: Mild pulmonary edema. Small right basilar pneumonia, atelectasis, and/or effusion.
[2018-01-30] MEDS ORDERED: DILTIAZEM HCL INJ 25 MG/5 ML VIAL ONE (06:04)
[2018-01-30 07:30] VITALS: BP 151/67
--- NOTE | 2018-01-30 07:47 | EKG REPORT ---
SEVERITY:- ABNORMAL ECG - ATRIAL FIBRILLATION, V-RATE 97-142 RBBB AND LPFB BORDERLINE INFERIOR Q WAVES : Confirmed by: Martir Beck MD 30-Jan-2018 07:46:40
== END 2018-01-30 07:45 | disposition short-term general hospital (02) ==
LOC: ER 04:22
DX: I21.4 Non-ST elevation (NSTEMI) myocardial infarction (principal); R06.02 Shortness of breath; R06.00 Dyspnea, unspecified; I48.91 Unspecified atrial fibrillation; I25.10 Atherosclerotic heart disease of native coronary artery without angina pectoris; I10 Essential (primary) hypertension; J44.9 Chronic obstructive pulmonary disease, unspecified; E11.9 Type 2 diabetes mellitus without complications; Z86.73 Personal history of transient ischemic attack (TIA), and cerebral infarction without residual deficits; Z88.0 Allergy status to penicillin; I25.2 Old myocardial infarction
CPT/HCPCS: 93005; 99285; 96365; 36415; 85025; 80053; 84484; 82803; 83605; 83880; 71045; 93010; J3490

== ENCOUNTER 2018-02-16 11:10 | Emergency (ER) | payer MEDICARE, MEDICAID ==
--- NOTE | 2018-02-16 11:40 | ER Document Report ---
ED Fall - General Stated Complaint: LOW BLOOD SUGAR Time Seen by Provider: 02/16/18 11:23 Notes: Patient was found on the floor this morning by visiting granddaughter. He apparently fell, perhaps due to low blood sugar. EMS was called and found his blood sugar was 29. They gave him an amp of D50. They noted skin tears on his right arm and his right shoulder was injured, questioning whether he might have a dislocation. Patient lives alone, but his granddaughter visits him for 6 hours a day 7 days a week. He was fine yesterday when she last saw him. 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 He is usually ambulatory. Granddaughter says he has been his usual self in the past few days , not ill in any way. No vomiting or diarrhea. No chest pains. Some shortness of breath. Patient was recently in the hospital at [place] for atrial fibrillation with RVR and pneumonia. Granddaughter says he was discharged a couple of weeks ago. History of insulin-dependent diabetes, atrial fibrillation, currently controlled, left hip replacement. TRAVEL OUTSIDE OF THE [place] IN LAST 30 DAYS: No - Related data Allergies/Adverse Reactions: Penicillins Allergy (Verified 10/28/17 20:55) SWELLS Past Medical History - Social History Smoking Status: Unknown if Ever Smoked Family History: Reviewed & Not Pertinent, CAD, Hypertension - Past Medical History Cardiac Medical History: Reports: Hx Atrial Fibrillation, Hx Coronary Artery Disease, Hx Heart Attack, Hx Hypertension Pulmonary Medical History: Reports: Hx COPD, Hx Sleep Apnea Neurological Medical History: Reports: Hx Cerebrovascular Accident - "years ago " Endocrine Medical History: Reports: Hx Diabetes Mellitus Type 1, Hx Diabetes Mellitus Type 2 Renal/ Medical History: Reports: Hx Benign Prostatic Hyperplasia GI Medical History: Reports: Hx Gastroesophageal Reflux Disease Musculoskeltal Medical History: Reports Hx Arthritis Past Surgical History: Reports: Hx Cardiac Catheterization - RCA, LDA, Hx Coronary Stent - RCA & LAD, Hx Orthopedic Surgery - right clavicle, left THR - Immunizations Hx Diphtheria, Pertussis, Tetanus Vaccination: Yes Review of Systems - Review of Systems Notes: REVIEW OF SYSTEMS: CONSTITUTIONAL : Denies fever. EENT: Denies eye, ear, nose or mouth or throat pain or other symptoms. CARDIOVASCULAR: Denies chest pain. RESPIRATORY: Has some cough and congestion with some shortness. GASTROINTESTINAL: Denies abdominal pain or nausea, vomiting, or diarrhea. GENITOURINARY: Denies difficulty or painful urinating, urinary frequency, blood in urine. MUSCULOSKELETAL: Denies back or neck pain. Denies joint pain or swelling. Right shoulder appears to be in place without fracture to my clinical exam. SKIN: Denies rash or skin lesions. Has extensive skin tears of the right upper extremity from his fall today. NEUROLOGICAL: Unsure if patient experienced LOC or altered mental status because he was alone. Denies headache. Denies sensory loss or motor deficits. ALL OTHER SYSTEMS REVIEWED AND NEGATIVE. Physical Exam - Vital signs Vitals: Resp 25 H 02/16/18 11:15 Interpretation: Normal. No: Hypoxic - O2 sat 93% upon arrival on room air. - Notes Notes: PHYSICAL EXAMINATION: GENERAL: Well-appearing, in no acute distress. HEAD: Atraumatic, normocephalic. EYES: Pupils equal round and reactive to light, extraocular movements intact. ENT: oropharynx clear without exudates. Moist mucous membranes. NECK: Normal range of motion, supple. LUNGS: Some mild fine expiratory wheezes in both upper lung camacho. HEART: Regular rate and rhythm without murmurs. ABDOMEN: Soft, nontender. No guarding or rebound. No masses. BACK: No tenderness throughout entire back. EXTREMITIES: Normal range of motion without pain. +2 pretibial pitting edema bilaterally. Negative Homans. NEUROLOGICAL: Normal speech. gait not tested. Grossly normal sensory, motor, and reflex exams. Awake, alert, and not sure if oriented x3. Cranial nerves normal. PSYCH: Normal mood, normal affect. SKIN: Warm, dry, no rashes. Course - Re-evaluation Re-evalutation: 02/16/18 13:42 As patient is being worked up, nurse points out that he seems to be congested and wheezing and having some difficulty breathing. This is occurring mostly as he is being set up to get a chest x-ray. He does have bilateral expiratory wheezes, diffusely through both lung camacho and these are increased over his wheezes he had at arrival. A DuoNeb has been ordered. Chest x-ray shows some cardiomegaly, but no acute process. Blood sugar continues to run somewhat low although he has a IV drip going with D5 solution. 02/16/18 16:55 Patient finished the liter of D5 and normal saline and his blood sugar is in the 30s. Have given him an amp of D50 and will put him on a drip with D10 and 1 /4 normal saline. Patient's troponin shows 145, although the patient has no cardiac symptoms such as chest pains, etc. His EKG looks like atrial fibrillation and some ST changes in the inferior leads, perhaps ST elevation in lead II's, 3, and aVF. However, these same changes are present on EKG that the patient had done here just 3 weeks ago, on January 30, before he was sent to [facility] in [place] for atrial fibrillation. He also had a positive troponin at that time. An attempt at a second EKG was less successful than the first and does not help in discerning ST elevation or not. I do not think the patient qualifies for thrombolytics since he could have laid on that floor for many hours since last seen by the granddaughter about 6 PM last night, when his granddaughter left, until he was found this morning around 10 AM Patient's white count of 22,800 noted. I do not have a source for infection yet. His chest x-ray shows some cardiomegaly but nothing that looks like a pneumonia. Awaiting urine results. 02/16/18 20:12 Urinalysis was negative. Just spoke with Dr. Borges at [facility] in [place] and he has accepted the patient in transfer. Patient continues to be on D10 IV solution with his latest blood sugar of 56. Patient does not want to have the CPAP on so I discontinued it for now. - Vital Signs Vital signs: Temp Pulse Resp BP Pulse Ox 21 H 138/70 H 100 02/16/18 20:01 02/16/18 20:00 02/16/18 20:01 - Laboratory Result Diagrams: 02/16/18 12:59 02/16/18 12:59 Laboratory results interpreted by me: 02/16/18 02/16/18 02/16/18 12:22 12:59 12:59 WBC 22.8 H Hgb 11.0 L Hct 36.2 L MCV 76 L MCH 23.1 L MCHC 30.5 L RDW 18.0 H Seg Neuts % (Manual) 83 H Lymphocytes % (Manual) 11 L Abs Neuts (Manual) 18.9 H VBG pCO2 VBG HCO3 Sodium 146.8 H Potassium 3.2 L Carbon Dioxide 36 H BUN 25 H Glucose 52 L POC Glucose 55 L NT-Pro-B Natriuret Pep Urine Protein Urine Blood Ur Leukocyte Esterase 02/16/18 02/16/18 02/16/18 13:02 15:18 16:20 WBC Hgb Hct MCV MCH MCHC RDW Seg Neuts % (Manual) Lymphocytes % (Manual) Abs Neuts (Manual) VBG pCO2 71.7 H* VBG HCO3 41.4 H Sodium Potassium Carbon Dioxide BUN Glucose POC Glucose 62 L 56 L NT-Pro-B Natriuret Pep Urine Protein Urine Blood Ur Leukocyte Esterase 02/16/18 02/16/18 02/16/18 16:20 16:25 18:22 WBC Hgb Hct MCV MCH MCHC RDW Seg Neuts % (Manual) Lymphocytes % (Manual) Abs Neuts (Manual) VBG pCO2 VBG HCO3 Sodium Potassium Carbon Dioxide BUN Glucose POC Glucose 67 L NT-Pro-B Natriuret Pep 62917 H Urine Protein 30 H Urine Blood SMALL H Ur Leukocyte Esterase TRACE H 02/16/18 02/16/18 19:12 19:42 WBC Hgb Hct MCV MCH MCHC RDW Seg Neuts % (Manual) Lymphocytes % (Manual) Abs Neuts (Manual) VBG pCO2 VBG HCO3 Sodium Potassium Carbon Dioxide BUN Glucose POC Glucose 59 L 58 L NT-Pro-B Natriuret Pep Urine Protein Urine Blood Ur Leukocyte Esterase - EKG Interpretation by Me Rhythm: A.Fib Rhodelia/QRS: RBBB Additional EKG results interpreted by me: 02/16/18 17:02 See my discussion of the patient's EKGs under the ED course. Discharge - Discharge Referrals: DEVON PHOENIX MD [Primary Care Provider] - Follow up as needed
--- NOTE | 2018-02-16 12:55 | RADIOLOGY REPORT (SQ) ---
EXAM DESCRIPTION: SHOULDER RIGHT 2 OR MORE VIEWS COMPLETED DATE/TIME: 02/16/2018 12:45 pm REASON FOR STUDY: fall COMPARISON: 01/23/2015 NUMBER OF VIEWS: Three views. TECHNIQUE: Internal rotation, external rotation, and Y view images acquired of the right shoulder. LIMITATIONS: None. FINDINGS: MINERALIZATION: Osteopenia. BONES: Defect in the proximal clavicle. Old humeral fracture status post plate and screw fixation. JOINTS: No dislocation. VISUALIZED LUNGS AND RIBS: No pneumothorax. No rib fracture. SOFT TISSUES: No radiopaque foreign body. OTHER: No other significant finding. IMPRESSION: No acute findings. TECHNICAL DOCUMENTATION: JOB ID: [id number] [employer]- All Rights Reserved Reading location - IP/workstation name: Unknown
[2018-02-16 13:31] LABS: ANION GAP 11 (5-19); BLOOD UREA NITROGEN 25 mg/dL (7-20); CALCIUM 8.6 mg/dL (8.4-10.2); CARBON DIOXIDE 36 mmol/L (22-30); CHLORIDE 100 mmol/L (98-107); GLUCOSE 52 mg/dL (75-110); POTASSIUM 3.2 mmol/L (3.6-5.0); SODIUM 146.8 mmol/L (137-145)
[2018-02-16 13:32] LABS: ALANINE AMINOTRANSFERASE 38 U/L (21-72); ALBUMIN 3.5 g/dL (3.5-5.0); ALKALINE PHOSPHATASE 83 U/L (38-126); ASPARTATE AMINO TRANSFERASE 50 U/L (17-59); BILIRUBIN,DIRECT 0.4 mg/dL (0.0-0.4); BILIRUBIN,TOTAL 0.5 mg/dL (0.2-1.3); TOTAL PROTEIN 6.3 g/dL (6.3-8.2)
[2018-02-16 13:33] LABS: HEMATOCRIT 36.2 % (37.9-51.0); MEAN CORPUSCULAR HEMOGLOBIN 23.1 pg (27.0-33.4); MEAN CORPUSCULAR HGB CONC 30.5 g/dL (32.0-36.0); MEAN CORPUSCULAR VOLUME 76 fl (80-97); PLATELET COUNT 333 10^3/uL (150-450); RED BLOOD COUNT 4.78 10^6/uL (4.35-5.55); WHITE BLOOD COUNT 22.8 10^3/uL (4.0-10.5)
[2018-02-16] MEDS ORDERED: IPRATROPIUM/ALBUTEROL 0.5-2.5 MG/3 ML AMPUL NEB ONE ×3 (13:33→15:25)
--- NOTE | 2018-02-16 13:41 | EKG REPORT ---
SEVERITY:- ABNORMAL ECG - ATRIAL FIBRILLATION, V-RATE 84-115 RBBB AND LPFB INFERIOR INFARCT, AGE INDETERMINATE CONSIDER ANTERIOR INFARCT : Confirmed by: Martir Beck MD 16-Feb-2018 13:40:55
[2018-02-16 13:56] LABS: ABSOLUTE LYMPHOCYTES# (MANUAL) 2.5 10^3/uL (0.5-4.7); ABSOLUTE MONOCYTES # (MANUAL) 1.4 10^3/uL (0.1-1.4); ABSOLUTE NEUTROPHILS# (MANUAL) 18.9 10^3/uL (1.7-8.2); BASOPHILS % (MANUAL) 0 % (0-2); EOSINOPHILS % (MANUAL) 0 % (0-6); LYMPHOCYTES % (MANUAL) 11 % (13-45); MONOCYTES % (MANUAL) 6 % (3-13); SEGMENTED NEUTROPHILS % (MAN) 83 % (42-78); TOTAL CELLS COUNTED 100
[2018-02-16 14:00] LABS: ANISOCYTOSIS 1+; TOXIC GRANULATION SLIGHT
[2018-02-16 14:01] LABS: PLATELET COMMENT ADEQUATE
--- NOTE | 2018-02-16 14:05 | RADIOLOGY REPORT (SQ) ---
EXAM DESCRIPTION: CHEST SINGLE VIEW COMPLETED DATE/TIME: 02/16/2018 1:36 pm REASON FOR STUDY: Difficulty breathing and shortness of breath. COMPARISON: 01/30/2018 EXAM PARAMETERS: NUMBER OF VIEWS: One view. TECHNIQUE: Single frontal radiographic view of the chest acquired. RADIATION DOSE: NA LIMITATIONS: None. FINDINGS: LUNGS AND PLEURA: Chronic interstitial changes. No effusions. MEDIASTINUM AND HILAR STRUCTURES: No masses. Contour normal. HEART AND VASCULAR STRUCTURES: Pulmonary vascular redistribution. Cardiomegaly. BONES: No acute findings. HARDWARE: None in the chest. OTHER: No other significant finding. IMPRESSION: Stable, chronic changes. TECHNICAL DOCUMENTATION: JOB ID: [id number] [employer]- All Rights Reserved Reading location - IP/workstation name: Unknown
[2018-02-16] MEDS ORDERED: DEXTROSE 50%-WATER 25 GM/50 ML DISP.SYRIN IV ONE ×3 (16:28→20:23)
[2018-02-16 16:32] LABS: VENOUS BLOOD BASE EXCESS 13.5 mmol/L; VENOUS BLOOD HCO3 41.4 mmol/L (20-32); VENOUS BLOOD PH 7.38 (7.30-7.42)
[2018-02-16 16:35] LABS: VENOUS BLOOD PCO2 71.7 mmHg (35-63)
[2018-02-16 16:46] LABS: APPEARANCE,URINE CLEAR; BILIRUBIN,URINE NEGATIVE (NEGATIVE); COLOR,URINE YELLOW; GLUCOSE, URINE NEGATIVE (NEGATIVE); KETONES,URINE NEGATIVE (NEGATIVE); LEUKOCYTE ESTERASE,URINE TRACE (NEGATIVE); NITRITE,URINE NEGATIVE (NEGATIVE); PROTEIN,URINE 30 mg/dL (NEGATIVE); URINE SPECIFIC GRAVITY 1.013; UROBILINOGEN,URINE NEGATIVE mg/dL (<2.0)
[2018-02-16] MEDS ORDERED: DEXTROSE 10%-1/4 NORMAL SALINE 250 ML IV ONE (16:49)
--- NOTE | 2018-02-16 19:25 | RADIOLOGY REPORT (SQ) ---
EXAM DESCRIPTION: CT HEAD WITHOUT COMPLETED DATE/TIME: 02/16/2018 6:57 pm REASON FOR STUDY: Altered mental status COMPARISON: 04/18/2015 TECHNIQUE: Axial images acquired through the brain without intravenous contrast. Images reviewed wi th bone, brain and subdural windows. Additional sagittal and coronal reconstructions were generated. Images stored on PACS. All CT scanners at this facility use dose modulation, iterative reconstruction, and/or weight based d osing when appropriate to reduce radiation dose to as low as reasonably achievable (ALARA). [facility]: Dose Right [facility]: CareDose [facility]: Dose Right [facility]: Teradose 4D [facility]: [employer] RADIATION DOSE: mGy. LIMITATIONS: None. FINDINGS: VENTRICLES: Prominent ventricles secondary to involutional atrophy. CEREBRUM: Cortical atrophy. No masses. No hemorrhage. No midline shift. No evidence for acute inf arction. Extensive areas of low density in the white matter most likely chronic small vessel ischemic changes. CEREBELLUM: No masses. No hemorrhage. No alteration of density. No evidence for acute infarction. EXTRAAXIAL SPACES: No fluid collections. No masses. ORBITS AND GLOBE: No intra- or extraconal masses. Normal contour of globe without masses. CALVARIUM: No fracture. PARANASAL SINUSES: No fluid or mucosal thickening. SOFT TISSUES: No mass or hematoma. OTHER: No other significant finding. IMPRESSION: MICROVASCULAR ISCHEMIA AND GENERALIZED ATROPHY. NO ACUTE IMAGING FINDINGS IN THE BRAIN EVIDENCE OF ACUTE STROKE: NO. COMMENT: Quality ID # [id number]: Final reports with documentation of one or more dose reduction techniques (e.g., Automated exposure control, adjustment of the mA and/or kV according to patient size, use of iterative reconstruction technique) TECHNICAL DOCUMENTATION: JOB ID: [id number] [employer]- All Rights Reserved Reading location - IP/workstation name: [email or web address]
[2018-02-16 21:07] LABS: CREATINE KINASE 815 U/L (55-170)
[2018-02-16 22:47] VITALS: BP 145/62
== END 2018-02-16 22:42 | disposition short-term general hospital (02) ==
LOC: ER 11:10
DX: E11.649 Type 2 diabetes mellitus with hypoglycemia without coma (principal); Z79.4 Long term (current) use of insulin; S51.811A Laceration without foreign body of right forearm, initial encounter; T14.8XXA Other injury of unspecified body region, initial encounter; S49.91XA Unspecified injury of right shoulder and upper arm, initial encounter; W19.XXXA Unspecified fall, initial encounter; Y92.009 Unspecified place in unspecified non-institutional (private) residence as the place of occurrence of the external cause; I48.91 Unspecified atrial fibrillation; J44.9 Chronic obstructive pulmonary disease, unspecified; I51.7 Cardiomegaly; R05 Cough; R06.02 Shortness of breath; I25.10 Atherosclerotic heart disease of native coronary artery without angina pectoris; I25.2 Old myocardial infarction; I10 Essential (primary) hypertension; Z88.0 Allergy status to penicillin; Z86.73 Personal history of transient ischemic attack (TIA), and cerebral infarction without residual deficits; Z87.01 Personal history of pneumonia (recurrent)
CPT/HCPCS: 93005; 96376; 94640 ×2; 99285; 96361; 96374; 36415; 87040; 87086; 82962; 82550; 85025; 80053; 81001; 84484; 82803; 83605; 83880; 71045; 73030; 70450; 93010; 94660; J3490 ×2; A9270; J7620

== ENCOUNTER 2018-12-23 14:31 | Emergency (ER) | payer MEDICARE, MEDICAID ==
--- NOTE | 2018-12-23 14:59 | ER Document Report ---
ED Medical Screen (RME) - General Chief Complaint: Fall Stated Complaint: FALL/BACK PAIN Time Seen by Provider: 12/23/18 14:58 Primary Care Provider: AVELINO RAYA MD [Primary Care Provider] - Follow up as needed Notes: Patient was walking outside using his walker when he apparently lost his balance and fell backward hitting his head on the ground. He was not unconscious and has no neurologic symptoms. Did not have any seizure activity. His only complaint is some pain in the back of his head and left shoulder pain. Also has a small skin tear over the left elbow. TRAVEL OUTSIDE OF THE [place] IN LAST 30 DAYS: No - Related Data Allergies/Adverse Reactions: Penicillins Allergy (Verified 10/28/17 20:55) SWELLS Past Medical History - Past Medical History Cardiac Medical History: Reports: Hx Atrial Fibrillation, Hx Coronary Artery Disease, Hx Heart Attack, Hx Hypertension Pulmonary Medical History: Reports: Hx COPD, Hx Sleep Apnea Neurological Medical History: Reports: Hx Cerebrovascular Accident - "years ago" Endocrine Medical History: Reports: Hx Diabetes Mellitus Type 1, Hx Diabetes Mellitus Type 2 Renal/ Medical History: Reports: Hx Benign Prostatic Hyperplasia. Denies: Hx Peritoneal Dialysis GI Medical History: Reports: Hx Gastroesophageal Reflux Disease Musculoskeltal Medical History: Reports Hx Arthritis Psychiatric Medical History: Denies: Hx Depression Past Surgical History: Reports: Hx Cardiac Catheterization - RCA, LDA, Hx Coronary Stent - RCA & LAD, Hx Orthopedic Surgery - right clavicle, left THR - Immunizations Hx Diphtheria, Pertussis, Tetanus Vaccination: Yes History of Influenza Vaccine for 07/2017 - 12/2017 Season: Yes Influenza Administration Date for 07/2017 - 12/2017 Season: 07/09/17 Physical Exam - Vital signs Vitals: Temp Pulse Resp BP Pulse Ox 97.5 F 79 16 160/61 H 96 12/23/18 14:35 12/23/18 14:35 12/23/18 14:35 12/23/18 14:35 12/23/18 14:35 Course - Vital Signs Vital signs: Temp Pulse Resp BP Pulse Ox 97.5 F 79 16 160/61 H 96 12/23/18 14:35 12/23/18 14:35 12/23/18 14:35 12/23/18 14:35 12/23/18 14:35 Doctor's Discharge - Discharge Referrals: AVELINO RAYA MD [Primary Care Provider] - Follow up as needed
--- NOTE | 2018-12-23 15:39 | RADIOLOGY REPORT (SQ) ---
EXAM DESCRIPTION: SHOULDER LEFT 2 OR MORE VIEWS COMPLETED DATE/TIME: 12/23/2018 3:27 pm REASON FOR STUDY: Fell and landed on left arm, c/o shoulder pain COMPARISON: None. NUMBER OF VIEWS: Three views. TECHNIQUE: Internal rotation, external rotation, and Y view images acquired of the left shoulder. LIMITATIONS: None. FINDINGS: MINERALIZATION: Normal. BONES: No acute fracture or dislocation. No worrisome bone lesions. Suture anchors present in the p roximal left humeral head. Probable prior resection of the acromioclavicular joint. JOINTS: No dislocation. VISUALIZED LUNGS AND RIBS: No pneumothorax. No rib fracture. SOFT TISSUES: No radiopaque foreign body. OTHER: No other significant finding. IMPRESSION: No fracture or dislocation of the left shoulder. Postoperative findings of prior rotato r cuff repair and probable prior resection of the acromioclavicular joint. TECHNICAL DOCUMENTATION: JOB ID: [id number] [employer]- All Rights Reserved Reading location - IP/workstation name: [email or web address]
--- NOTE | 2018-12-23 16:14 | RADIOLOGY REPORT (SQ) ---
EXAM DESCRIPTION: CT HEAD WITHOUT COMPLETED DATE/TIME: 12/23/2018 4:02 pm REASON FOR STUDY: Fell and hit back of head, no loss of conscious COMPARISON: 02/16/2018 TECHNIQUE: Axial images acquired through the brain without intravenous contrast. Images reviewed wi th bone, brain and subdural windows. Additional sagittal and coronal reconstructions were generated. Images stored on PACS. All CT scanners at this facility use dose modulation, iterative reconstruction, and/or weight based d osing when appropriate to reduce radiation dose to as low as reasonably achievable (ALARA). [facility]: Dose Right [facility]: CareDose [facility]: Dose Right [facility]: Teradose 4D [facility]: [employer] RADIATION DOSE: CT Rad equipment meets quality standard of care and radiation dose reduction techniq ues were employed. CTDIvol: 55.2 mGy. DLP: 1112 mGy-cm. mGy. LIMITATIONS: None. FINDINGS: VENTRICLES: Ventricles and cortical sulci are appropriate for the patient's age, similar t o prior. CEREBRUM: No masses. No hemorrhage. No midline shift. No evidence for acute infarction. Unchanged moderate scattered supratentorial hypodensities. Small chronic lacunar infarcts of the right basal g anglia and right centrum semiovale. 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 No hemorrhage. No alteratio n of density. No evidence for acute infarction. EXTRAAXIAL SPACES: No fluid collections. No masses. ORBITS AND GLOBE: No intra- or extraconal masses. Normal contour of globe without masses. CALVARIUM: No fracture. PARANASAL SINUSES: Small polyp versus mucous retention cyst of the right maxillary sinus. Remainder of the visualized paranasal sinuses are clear. SOFT TISSUES: No mass or hematoma. OTHER: No other significant finding. IMPRESSION: 1. No acute intracranial hemorrhage. 2. Chronic microvascular ischemic disease, similar to prior. EVIDENCE OF ACUTE STROKE: NO. COMMENT: Quality ID # [id number]: Final reports with documentation of one or more dose reduction techniques (e.g., Automated exposure control, adjustment of the mA and/or kV according to patient size, use of iterative reconstruction technique) TECHNICAL DOCUMENTATION: JOB ID: [id number] [employer]- All Rights Reserved Reading location - IP/workstation name: [email or web address]
[2018-12-23] MEDS ORDERED: IPRATROPIUM/ALBUTEROL 0.5-2.5 MG/3 ML AMPUL NEB ONE (16:59)
[2018-12-23] MEDS ORDERED: HYDROCODONE/ACETAMINOPHEN 5-325 MG TABLET PO ONE (16:59)
--- NOTE | 2018-12-23 16:59 | ER Document Report ---
ED Fall - General Chief Complaint: Fall Stated Complaint: FALL/BACK PAIN Time Seen by Provider: 12/23/18 14:58 Primary Care Provider: AVELINO RAYA MD [ASSOCIATE] - Follow up as needed Notes: 83-year-old male presents emergency department for fall while outside using his walker when he apparently lost his balance and fell backward hitting his head on the ground. He was not unconscious and has no neurologic symptoms. Did not have any seizure activity. His only complaint is some pain in the back of his head and left shoulder pain. Patient is not on anticoagulation. Patient is also complaining of some mid back pain in the thoracic region. Patient denies history of atrial fibrillation or history of syncope. Denies abdominal pain, no other complaints TRAVEL OUTSIDE OF THE [place] IN LAST 30 DAYS: No - Related data Allergies/Adverse Reactions: Penicillins Allergy (Verified 10/28/17 20:55) SWELLS Past Medical History - Social History Smoking Status: Former Smoker Chew tobacco use (# tins/day): Yes Family History: Reviewed & Not Pertinent, CAD, Hypertension Patient has suicidal ideation: No Patient has homicidal ideation: No - Past Medical History Cardiac Medical History: Reports: Hx Atrial Fibrillation, Hx Coronary Artery Disease, Hx Heart Attack, Hx Hypertension Pulmonary Medical History: Reports: Hx COPD, Hx Sleep Apnea Neurological Medical History: Reports: Hx Cerebrovascular Accident - "years ago" Endocrine Medical History: Reports: Hx Diabetes Mellitus Type 1, Hx Diabetes Mellitus Type 2 Renal/ Medical History: Reports: Hx Benign Prostatic Hyperplasia. Denies: Hx Peritoneal Dialysis GI Medical History: Reports: Hx Gastroesophageal Reflux Disease Musculoskeletal Medical History: Reports Hx Arthritis Psychiatric Medical History: Denies: Hx Depression Past Surgical History: Reports: Hx Cardiac Catheterization - RCA, LDA, Hx Coronary Stent - RCA & LAD, Hx Orthopedic Surgery - right clavicle, left THR - Immunizations Hx Diphtheria, Pertussis, Tetanus Vaccination: Yes Review of Systems - Review of Systems Constitutional: See HPI EENT: No symptoms reported Cardiovascular: See HPI Respiratory: See HPI Gastrointestinal: See HPI Genitourinary: No symptoms reported Male Genitourinary: No symptoms reported Musculoskeletal: No symptoms reported Skin: No symptoms reported Hematologic/Lymphatic: No symptoms reported Neurological/Psychological: See HPI Physical Exam - Vital signs Vitals: Temp Pulse Resp BP Pulse Ox 97.5 F 79 16 160/61 H 96 12/23/18 14:35 12/23/18 14:35 12/23/18 14:35 12/23/18 14:35 12/23/18 14:35 - Notes Notes: PHYSICAL EXAMINATION: Reviewed vital signs and charting by RN GENERAL: Alert, interacts well. No acute distress. HEAD: Normocephalic, atraumatic. EYES: Pupils equal, round, and reactive to light. Extraocular movements intact. ENT: Oral mucosa moist, tongue midline. NECK: Full range of motion. Supple. Trachea midline. LUNGS: Clear to auscultation bilaterally, diffuse inspiratory and expiratory wheezes, rales, or rhonchi. No respiratory distress. HEART: Regular rate and rhythm. No murmur ABDOMEN: soft, non-tender. Non-distended. Bowel sounds present in all 4 quadrants. no McBurney's point tenderness, no Miller sign. EXTREMITIES: Moves all 4 extremities spontaneously. No edema, No cyanosis. BACK: no cervical or lumbar midline tenderness, ++ midline thoracic tenderness. No saddle anesthesia, normal distal neurovascular exam. NEUROLOGICAL: Alert and oriented x3. Normal speech. PSYCH: Normal affect, normal mood. SKIN: Warm, dry, normal turgor. No rashes or lesions noted. Course - Re-evaluation Re-evalutation: 12/23/18 16:58 Overall well-appearing male, history of COPD. Diffuse inspiratory expiratory wheezing. We will give him a breathing treatment. Complaining of midline thoracic back pain. Acute tenderness to palpation midline approximately T9-T10. Will additionally obtain a thoracic PA/Lat x-ray. CT head negative for intracranial bleed. Right shoulder x-ray negative for dislocation, fracture, pneumothorax. 12/23/18 17:42 Thoracic spine x-ray ordered and results show no evidence of acute fracture or dislocation or step-off. Most likely represents muscular trauma or contusion of the bone. At this point patient is safe and stable to discharge home. 12/23/18 17:49 Reassessed patient after breathing treatment and he is moving air better but still has diffuse inspiratory and expiratory wheezing. I offered patient a breathing treatment and he stated he would like one. I will give him another DuoNeb. 12/23/18 19:24 Patient states she is feeling much better and he always has wheezing at baseline. He is complaining of pain and is requesting a refill on his tramadol. I am comfortable giving him a prescription for that. Vital signs have been stable throughout patient is mentating normally and he is safe and stable to discharge home. - Vital Signs Vital signs: Temp Pulse Resp BP Pulse Ox 97.5 F 79 20 194/80 H 97 12/23/18 14:35 12/23/18 14:35 12/23/18 17:20 12/23/18 17:20 12/23/18 17:20 Discharge - Discharge Clinical Impression: Fall Qualifiers: Encounter type: initial encounter Qualified Code(s): W19.XXXA - Unspecified fall, initial encounter Condition: Good Disposition: HOME, SELF-CARE Additional Instructions: You have been seen in the Emergency Department (ED) today following a fall. Your workup today did not reveal any injuries that require you to stay in the hospital. You can expect, though, to be stiff and sore for the next several days. You can take Tylenol 1000 mg every 6 hours as needed for pain. You can apply a hot pack or electric heating pad to the sore areas. You can also use topical "Aspercreme with lidocaine" to sore areas as needed. Please follow up with your primary care doctor as soon as possible regarding today's ED visit and your recent fall. Call your doctor or return to the ED if you develop a sudden or severe headache, confusion, slurred speech, facial droop, weakness or numbness in any arm or leg, extreme fatigue, vomiting more than two times, severe abdominal pain, or other symptoms that concern you. Referrals: AVELINO RAYA MD [ASSOCIATE] - Follow up as needed
--- NOTE | 2018-12-23 17:35 | RADIOLOGY REPORT (SQ) ---
EXAM DESCRIPTION: T SPINE AP/LAT COMPLETED DATE/TIME: 12/23/2018 5:25 pm REASON FOR STUDY: thoracic midline tenderness/ fall COMPARISON: 01/16/2018 NUMBER OF VIEWS: Three views. TECHNIQUE: AP and lateral radiographic images acquired of the thoracic spine. LIMITATIONS: None. FINDINGS: MINERALIZATION: Osteopenia. ALIGNMENT: Normal. No scoliosis. VERTEBRAE: No fracture or bone lesion. Maintained height, normal segmentation. DISCS: No significant loss of height or significant narrowing. No large osteophytes. HARDWARE: None in the spine. MEDIASTINUM AND SOFT TISSUES: The aorta is mildly tortuous and calcific. VISUALIZED LUNG MCCULLOUGH: Clear. OTHER: No other significant finding. IMPRESSION: Osteopenia without definite evidence of acute fracture TECHNICAL DOCUMENTATION: JOB ID: [id number] [employer]- All Rights Reserved Reading location - IP/workstation name: [email or web address]
[2018-12-23 20:01] VITALS: BP 168/71
== END 2018-12-23 19:30 | disposition home or self-care (01) ==
LOC: ER 14:31
DX: M54.9 Dorsalgia, unspecified (principal); R51 Headache; M25.512 Pain in left shoulder; M54.6 Pain in thoracic spine; W19.XXXA Unspecified fall, initial encounter; Z87.891 Personal history of nicotine dependence; I25.10 Atherosclerotic heart disease of native coronary artery without angina pectoris; I10 Essential (primary) hypertension; J44.9 Chronic obstructive pulmonary disease, unspecified
CPT/HCPCS: 94640; 99284; 73030; 72070; 70450; A9270 ×2; J7620

== ENCOUNTER 2018-12-29 07:47 | Inpatient (IN) | payer MEDICARE, MEDICAID ==
[2018-12-29] MEDS ORDERED: IPRATROPIUM/ALBUTEROL 0.5-2.5 MG/3 ML AMPUL NEB ONE (07:55)
--- NOTE | 2018-12-29 07:57 | ER Document Report ---
ED Medical Screen (RME) - General Stated Complaint: DIFFICULTY BREATHING Time Seen by Provider: 12/29/18 07:53 Notes: 83-year-old male with a history of CHF, COPD, CAD, [place] comes by EMS for chief complaint of difficulty breathing, worsening times 1 week. EMS reports in itially him having rails, he was placed on CPAP, he was on home oxygen at 3 L and he was in the low 90s and oxygen saturation with respiratory distress. He was also given a nitroglycerin patch placed on his chest. He was not at his house, he was at a friend's house who called EMS, he does not have his medications with him, he is a poor historian. Denies fever. TRAVEL OUTSIDE OF THE [place] IN LAST 30 DAYS: No - Related Data Allergies/Adverse Reactions: Penicillins Allergy (Verified 10/28/17 20:55) SWELLS Past Medical History - Past Medical History Cardiac Medical History: Reports: Hx Atrial Fibrillation, Hx Coronary Artery Disease, Hx Heart Attack, Hx Hypertension Pulmonary Medical History: Reports: Hx COPD, Hx Sleep Apnea Neurological Medical History: Reports: Hx Cerebrovascular Accident - "years ago" Endocrine Medical History: Reports: Hx Diabetes Mellitus Type 1, Hx Diabetes Mellitus Type 2 Renal/ Medical History: Reports: Hx Benign Prostatic Hyperplasia. Denies: Hx Peritoneal Dialysis GI Medical History: Reports: Hx Gastroesophageal Reflux Disease Musculoskeltal Medical History: Reports Hx Arthritis Psychiatric Medical History: Denies: Hx Depression Past Surgical History: Reports: Hx Cardiac Catheterization - RCA, LDA, Hx Coronary Stent - RCA & LAD, Hx Orthopedic Surgery - right clavicle, left THR - Immunizations Hx Diphtheria, Pertussis, Tetanus Vaccination: Yes History of Influenza Vaccine for 07/2017 - 12/2017 Season: Yes Influenza Administration Date for 07/2017 - 12/2017 Season: 07/09/17 Physical Exam - Respiratory Respiratory status: Respiratory distress, Labored, Tachypnea Breath sounds: Decreased air movement, Other - Expiratory rhonchi heard throughout, no overt wheezing or rales heard. - Extremities General lower extremity: Edema - 1+ edema bilaterally Course - Re-evaluation Re-evalutation: Patient with tachypnea on CPAP. I do not appreciate rales, this is difficult to hear, I hear expiratory rhonchi. Because of his ongoing tachypnea patient will be transitioned from CPAP to BiPAP, workup pending. I have greeted and performed a rapid initial assessment of this patient. A comprehensive ED assessment and evaluation of the patient, analysis of test results and completion of the medical decision making process will be conducted by additional ED providers.
[2018-12-29] MEDS ORDERED: MAGNESIUM SULFATE/D5W 1 GM/100 ML RTUPB IV ONE ×2 (08:17→08:18)
--- NOTE | 2018-12-29 08:23 | ER Document Report ---
Addendum entered and electronically signed by THERESE CAMPBELL PA-C 12/29/18 15:04: Critical Care Note - Critical Care Note Total time excluding time spent on procedures (mins): 37 Original Note: ED General - General Chief Complaint: Shortness Of Breath Stated Complaint: DIFFICULTY BREATHING Time Seen by Provider: 12/29/18 07:53 Primary Care Provider: DEVON PHOENIX MD [Primary Care Provider] - Follow up as needed TRAVEL OUTSIDE OF THE [place] IN LAST 30 DAYS: No - HPI Notes: Patient is an 83-year-old male with a history of A. fib, CHF, COPD (on 2 L via nasal cannula at home), coronary artery disease with previous stent placement, insulin-dependent diabetic who presents to the emergency department complaining of shortness of breath intermittently over the last week with a dry nonproductive cough. Patient states that he does become short of breath at rest and with ambulation that is outside of his normal. Patient states that he has had increased work of breathing as well. EMS arrived and initially placed him on a CPAP due to oxygen saturation at 90% and increased work of breathing. Patient states that he did really well and responded well to the CPAP and was transitioned here in the emergency department upon triage to BiPAP. Patient states that he is feeling much better on the BiPAP and has had to be admitted in the past for the same issue. Patient states that he is otherwise able to eat and drink without difficulty. He is urinating normally and having normal bowel movements. He is not having any chest pain. Denies any headache, fever, neck pain, URI, sore throat, chest pain, palpitations, syncope, abdominal pain, nausea/vomiting/diarrhea, urinary retention, dysuria, hematuria,or rash. - Related Data Allergies/Adverse Reactions: Penicillins Allergy (Verified 10/28/17 20:55) SWELLS Past Medical History - Social History Smoking Status: Former Smoker Family History: Reviewed & Not Pertinent, CAD, Hypertension Patient has suicidal ideation: No Patient has homicidal ideation: No - Past Medical History Cardiac Medical History: Reports: Hx Atrial Fibrillation, Hx Coronary Artery Disease, Hx Heart Attack, Hx Hypertension Pulmonary Medical History: Reports: Hx COPD, Hx Sleep Apnea Neurological Medical History: Reports: Hx Cerebrovascular Accident - "years ago" Endocrine Medical History: Reports: Hx Diabetes Mellitus Type 1, Hx Diabetes Mellitus Type 2 Renal/ Medical History: Reports: Hx Benign Prostatic Hyperplasia. Denies: Hx Peritoneal Dialysis GI Medical History: Reports: Hx Gastroesophageal Reflux Disease Musculoskeletal Medical History: Reports Hx Arthritis Psychiatric Medical History: Denies: Hx Depression Past Surgical History: Reports: Hx Cardiac Catheterization - RCA, LDA, Hx Coronary Stent - RCA & LAD, Hx Orthopedic Surgery - right clavicle, left THR - Immunizations Hx Diphtheria, Pertussis, Tetanus Vaccination: Yes Review of Systems - Review of Systems -: Yes All other systems reviewed and negative Physical Exam - Vital signs Vitals: Resp Pulse Ox 16 99 12/29/18 07:54 12/29/18 07:54 - Notes Notes: PHYSICAL EXAMINATION: GENERAL: Well-appearing, well-nourished and in no acute distress. A&Ox4. Answers questions appropriately. HEAD: Atraumatic, normocephalic. EYES: Pupils equal round and reactive to light, extraocular movements intact, sclera anicteric, conjunctiva are normal. ENT: Nares patent and without discharge. oropharynx clear without exudates. No tonsilar hypertrophy or erythema. Moist mucous membranes. NECK: Normal range of motion, supple without lymphadenopathy LUNGS: expiratory rhonchi with mild wheeze L>R. + mild tachypnea, but does not appear to be distressed on Bipap. HEART: Regular rate and rhythm without murmurs, rubs, gallops. ABDOMEN: Soft, nontender, nondistended abdomen. No guarding, no rebound. No masses appreciated. Normal bowel sounds present. No CVA tenderness bilaterally. Musculoskeletal: FROM to passive/active. Strength 5+/5. Catrachita neg. No asymmetry to LE's. Extremities: No cyanosis, clubbing, or edema b/l. Peripheral pulses 2+. Capillary refill less than 3 seconds. NEUROLOGICAL: Normal speech, normal gait. PSYCH: Normal mood, normal affect. SKIN: Warm, Dry, normal turgor, no rashes or lesions noted. Course - Re-evaluation Re-evalutation: 12/29/18 12:40 [facility] called for transfer for NSTEMI. Waiting for call back. Patient has been to [facility] for his past N STEMI's. His rubber heel and sole press tender is also in [place]. 324mg aspirin ordered as well as Heparin protocol. Arterial blood gas ordered as well as a lactic (previous lactic cancelled,?). Pt is in no acute distress and has no CP. No fever. Trop 0.[address] Sandoval has been consulted who is in agreement with plan. We had a prolonged period trying to obtain vascular access on this patient. Pt had been stuck on multiple occasions by lab and nurses w. minimal to no success. Dr. Sandoval initially placed an US guided to the rt AC which did not work out. We then had to obtain access to the IJ right side with an 18g IV. Pt has been on BIPAP throughout his stay and has otherwise remained asymptomatic. He also received 2 breathing treatments and magnesium. 12/29/18 13:41 I spoke with [facility], who will accept patient for transfer but cautions that it will be a 24-hour wait as they do not have any beds. He also states that based on their rubber heel and sole press tender note from the last time he was there he has not a candidate for stents or bypass and is a medical management type patient. He does recommend either keeping him if we are able to or transferring to another facility. Pt currently placed on wait-list. I then spoke with our hospitalist, Dr. Mcmahon, who would like me to speak with Dr. Hussein prior to excepting for admission here. Dr. Hussein agrees with admission as he is not a candidate for stents or bypass. I then spoke with Dr. Steward who is going to speak with Dr. Hussein and call me back after case reviewed. 12/29/18 14:16 Dr. Steward is accepting the patient to [facility] and states pt is DNR/DNI. Transfer cancelled. - Vital Signs Vital signs: Temp Pulse Resp BP Pulse Ox 21 H 167/76 H 100 12/29/18 09:00 12/29/18 08:23 12/29/18 09:00 - Laboratory Result Diagrams: 12/29/18 08:55 12/29/18 08:55 Laboratory results interpreted by me: 12/29/18 12/29/18 12/29/18 08:55 08:55 10:35 WBC 13.4 H RBC 3.97 L Hgb 11.1 L Hct 34.6 L RDW 15.4 H Monocytes % (Manual) 14 H Abs Neuts (Manual) 9.4 H Abs Monocytes (Manual) 1.9 H BUN 22 H Glucose 211 H Direct Bilirubin 0.5 H NT-Pro-B Natriuret Pep Urine Protein 100 H Urine Glucose (UA) 50 H Urine Ketones TRACE H Urine Urobilinogen 2.0 H 12/29/18 11:39 WBC RBC Hgb Hct RDW Monocytes % (Manual) Abs Neuts (Manual) Abs Monocytes (Manual) BUN Glucose Direct Bilirubin NT-Pro-B Natriuret Pep 9650 H Urine Protein Urine Glucose (UA) Urine Ketones Urine Urobilinogen Discharge - Discharge Clinical Impression: NSTEMI (non-ST elevated myocardial infarction) Condition: Stable Disposition: ADMITTED INPATIENT Admitting Provider: Hospitalist - Dr. Steward Unit Admitted: IMCU Referrals: DEVON PHOENIX MD [Primary Care Provider] - Follow up as needed
--- NOTE | 2018-12-29 08:40 | RADIOLOGY REPORT (SQ) ---
EXAM DESCRIPTION: CHEST SINGLE VIEW COMPLETED DATE/TIME: 12/29/2018 8:02 am REASON FOR STUDY: bed 2 sepsis COMPARISON: 01/16/2018. FINDINGS: Single-view chest AP portable upright timed approximately 0756 hours. No new lines or tubes. Hyperinflated with suspected areas of scarring, COPD. Stable cardiomediastinal silhouette. Osteopenic. IMPRESSION: Generally stable chest, likely COPD. TECHNICAL DOCUMENTATION: JOB ID: [id number] Reading location - IP/workstation name: [email or web address]
[2018-12-29 09:14] LABS: HEMATOCRIT 34.6 % (37.9-51.0); HEMOGLOBIN 11.1 g/dL (13.5-17.0); MEAN CORPUSCULAR HEMOGLOBIN 27.9 pg (27.0-33.4); MEAN CORPUSCULAR HGB CONC 32.1 g/dL (32.0-36.0); MEAN CORPUSCULAR VOLUME 87 fl (80-97); RED BLOOD COUNT 3.97 10^6/uL (4.35-5.55); RED CELL DISTRIBUTION WIDTH 15.4 % (11.5-14.0); WHITE BLOOD COUNT 13.4 10^3/uL (4.0-10.5)
[2018-12-29 09:23] LABS: ALANINE AMINOTRANSFERASE 30 U/L (21-72); ALBUMIN 3.7 g/dL (3.5-5.0); ALKALINE PHOSPHATASE 91 U/L (38-126); ANION GAP 10 (5-19); ASPARTATE AMINO TRANSFERASE 33 U/L (17-59); BILIRUBIN,DIRECT 0.5 mg/dL (0.0-0.4); BILIRUBIN,TOTAL 0.8 mg/dL (0.2-1.3); BLOOD UREA NITROGEN 22 mg/dL (7-20); CALCIUM 9.1 mg/dL (8.4-10.2); CARBON DIOXIDE 26 mmol/L (22-30); CHLORIDE 101 mmol/L (98-107); GLUCOSE 211 mg/dL (75-110); POTASSIUM 4.8 mmol/L (3.6-5.0); SODIUM 137.1 mmol/L (137-145)
[2018-12-29 09:35] LABS: PLATELET COUNT 391 10^3/uL (150-450)
[2018-12-29 09:38] LABS: ABSOLUTE MONOCYTES # (MANUAL) 1.9 10^3/uL (0.1-1.4); ABSOLUTE NEUTROPHILS# (MANUAL) 9.4 10^3/uL (1.7-8.2); BASOPHILS % (MANUAL) 1 % (0-2); EOSINOPHILS % (MANUAL) 0 % (0-6); LYMPHOCYTES % (MANUAL) 15 % (13-45); MONOCYTES % (MANUAL) 14 % (3-13); OVALOCYTES SLIGHT; POIKILOCYTOSIS SLIGHT; SEGMENTED NEUTROPHILS % (MAN) 70 % (42-78); TOTAL CELLS COUNTED 100
[2018-12-29 09:39] LABS: PLATELET CLUMPS PRESENT; PLATELET COMMENT ADEQUATE
[2018-12-29] MEDS ORDERED: ALBUTEROL SULFATE 0.083% NEB 2.5 MG/3 ML AMPUL NEB ONE (10:16)
[2018-12-29 11:14] LABS: APPEARANCE,URINE CLEAR; BILIRUBIN,URINE NEGATIVE (NEGATIVE); COLOR,URINE YELLOW; GLUCOSE, URINE 50 mg/dL (NEGATIVE); KETONES,URINE TRACE mg/dL (NEGATIVE); LEUKOCYTE ESTERASE,URINE NEGATIVE (NEGATIVE); NITRITE,URINE NEGATIVE (NEGATIVE); PROTEIN,URINE 100 mg/dL (NEGATIVE); URINE SPECIFIC GRAVITY 1.027
[2018-12-29] MEDS ORDERED: KETOROLAC TROMETHAMINE INJ/PF 30 MG/1 ML SDV IV ONE (11:22)
--- NOTE | 2018-12-29 11:51 | ER Document Report ---
Doctor's Note Notes: 12/29/18 11:49 Procedure note: Right IJ central catheter placement Indication: vascular access Informed consent obtained in written form Area prepped with ChloraPrep Sterile PPE including sterile gloves used Ultrasound assistance using linear probe with sterile cover and sterile gel 18-gauge 1.25 inch single lumen catheter placed in right IJ One attempt No immediate complications Placement confirmed with ultrasound and blood draw, flushes easily Secured in place with tape
[2018-12-29 12:17] LABS: TROPONIN I 0.191 ng/mL
[2018-12-29] MEDS ORDERED: ASPIRIN 81 MG TABLET, CHEWABLE PO ONE (12:18)
--- NOTE | 2018-12-29 12:31 | EKG REPORT ---
SEVERITY:- ABNORMAL ECG - SINUS TACHYCARDIA RBBB AND LPFB : Confirmed by: Arpan Aleman 29-Dec-2018 12:30:54
[2018-12-29] MEDS ORDERED: HEPARIN SOD (PORCINE) 1,000 UNIT/ML 10 ML VIAL IV ONE ×2 (12:39→17:00)
[2018-12-29 12:40] LABS: VENOUS BLOOD BASE EXCESS 0.1 mmol/L; VENOUS BLOOD PCO2 47.5 mmHg (35-63); VENOUS BLOOD PH 7.36 (7.30-7.42)
[2018-12-29] MEDS ORDERED: TRAMADOL HCL 50 MG TABLET PO PRN (14:32)
[2018-12-29] MEDS ORDERED: GUAIFENESIN 200 MG PO PRN (14:32)
[2018-12-29] MEDS ORDERED: LORAZEPAM 1 MG TABLET PO PRN (14:32)
[2018-12-29] MEDS ORDERED: IPRATROPIUM/ALBUTEROL 0.5-2.5 MG/3 ML AMPUL NEB PRN (14:32)
[2018-12-29] MEDS ORDERED: (PENDING PHARMACY ID) (Ondansetron Hcl [Zofran] 4 MG) PO PRN (14:32)
[2018-12-29] MEDS ORDERED: TEMAZEPAM 7.5 MG CAPSULE PO PRN (14:32)
[2018-12-29] MEDS ORDERED: LEVALBUTEROL HCL NEB 1.25 MG/3 ML AMPUL NEB PRN ×2 (14:32→15:10)
[2018-12-29] MEDS ORDERED: ONDANSETRON HCL INJ/PF 4 MG/2 ML SDV IV PRN (14:35)
[2018-12-29] MEDS ORDERED: HEPARIN SODIUM,PORCINE/D5W 25,000 UNIT/250 ML RTUINJ IV PRN (14:46)
--- NOTE | 2018-12-29 15:21 | PDOC H&P ---
History of Present Illness Admission Date/PCP: 12/29/18 14:35 DEVON PHOENIX MD Patient complains of: Shortness of breath for 1 week History of Present Illness: MICHAELA KUHN is a 83 year old male history of atrial fibrillation, COPD on 2 L oxygen at home, diabetic, hypertensive, coronary artery disease with stent placement, congestive heart failure came to the emergency room with complaints of shortness of breath for 1 week. As per the patient shortness of breath associated with a dry cough. Denies any chest pains. Denies any nausea vomiting diarrhea. Denies any headaches dizzy spells and sweating. EMS was called and he was placed on CPAP because oxygen saturation is noted to be to be around 90% on room air and he is tachypneic. Patient responded well to CPAP and in the emergency room it was changed to BiPAP. On examination patient is still on BiPAP communicating okay. In the emergency room cardiac workup was done EKG shows sinus tachycardia and troponin is 0.191 with a BNP of 9650. medical consult was called for admission. Past Medical History Cardiac Medical History: Reports: Atrial Fibrillation, Coronary Artery Disease, Myocardial Infarction, Hypertension Pulmonary Medical History: Reports: Chronic Obstructive Pulmonary Disease (COPD), Sleep Apnea Endocrine Medical History: Reports: Diabetes Mellitus Type 2 GI Medical History: Reports: Gastroesophageal Reflux Disease Musculoskeltal Medical History: Reports: Arthritis Psychiatric Medical History: Denies: Depression Hematology: Denies: Anemia, Sickle Cell Disease Past Surgical History Past Surgical History: Reports: Cardiac Catheterization - RCA, LDA, Coronary Stent - RCA & LAD, Orthopedic Surgery - right clavicle, left THR Social History Smoking Status: Former Smoker Frequency of Alcohol Use: None Hx Recreational Drug Use: No Drugs: None Hx Prescription Drug Abuse: No - Advance Directive Resuscitation Status: Do Not Resuscitate Family History Family History: Reviewed & Not Pertinent, CAD, Hypertension Parental Family History Reviewed: Yes Children Family History Reviewed: Yes Sibling(s) Family History Reviewed.: Yes Medication/Allergy Allergies/Adverse Reactions: Penicillins Allergy (Verified 10/28/17 20:55) CHIKIS Review of Systems Constitutional: ABSENT: fever(s), headache(s) Eyes: ABSENT: visual disturbances Ears: ABSENT: hearing changes Respiratory: ABSENT: cough, hemoptysis Gastrointestinal: ABSENT: abdominal pain, constipation, diarrhea, hematemesis, hematochezia, nausea, vomiting Musculoskeletal: ABSENT: joint swelling Neurological: ABSENT: abnormal gait, abnormal speech, confusion, dizziness, focal weakness, syncope Psychiatric: ABSENT: anxiety, depression, homidical ideation, suicidal ideation Physical Exam Vital Signs: Temp Pulse Resp BP Pulse Ox 21 H 167/76 H 100 12/29/18 09:00 12/29/18 08:23 12/29/18 09:00 Intake & Output 12/28/18 12/29/18 12/30/18 06:59 06:59 06:59 Intake Total 200 Balance 200 Weight 68.2 kg General appearance: PRESENT: no acute distress Head exam: PRESENT: atraumatic Eye exam: PRESENT: PERRLA Ear exam: PRESENT: normal external ear exam Neck exam: ABSENT: carotid bruit, JVD, lymphadenopathy, thyromegaly Respiratory exam: PRESENT: clear to auscultation crystal. ABSENT: rales, rhonchi, wheezes Cardiovascular exam: PRESENT: tachycardia GI/Abdominal exam: PRESENT: normal bowel sounds, soft. ABSENT: distended, guarding, mass, organolmegaly, rebound, tenderness Extremities exam: PRESENT: full ROM. ABSENT: calf tenderness, clubbing, pedal edema Neurological exam: PRESENT: alert, awake, oriented to person, oriented to place, oriented to time, oriented to situation, CN II-XII grossly intact. ABSENT: motor sensory deficit Psychiatric exam: PRESENT: appropriate affect, normal mood. ABSENT: homicidal ideation, suicidal ideation Results Laboratory Results: 12/29/18 08:55 12/29/18 08:55 12/29/18 12/29/18 12/29/18 08:55 08:55 10:35 WBC 13.4 H RBC 3.97 L Hgb 11.1 L Hct 34.6 L MCV 87 MCH 27.9 MCHC 32.1 RDW 15.4 H Plt Count 391 Seg Neutrophils % Not Reportable Lymphocytes % Not Reportable Monocytes % Not Reportable Eosinophils % Not Reportable Basophils % Not Reportable Absolute Neutrophils Not Reportable Absolute Lymphocytes Not Reportable Absolute Monocytes Not Reportable Absolute Eosinophils Not Reportable Absolute Basophils Not Reportable VBG pH VBG pCO2 VBG HCO3 VBG Base Excess Sodium 137.1 Potassium 4.8 Chloride 101 Carbon Dioxide 26 Anion Gap 10 BUN 22 H Creatinine 0.85 Est GFR ( Amer) > 60 Est GFR (Non-Af Amer) > 60 Glucose 211 H Calcium 9.1 Total Bilirubin 0.8 AST 33 ALT 30 Alkaline Phosphatase 91 Total Protein 7.0 Albumin 3.7 Urine Color YELLOW Urine Appearance CLEAR Urine pH 6.0 Ur Specific [place] 1.027 Urine Protein 100 H Urine Glucose (UA) 50 H Urine Ketones TRACE H Urine Blood NEGATIVE Urine Nitrite NEGATIVE Ur Leukocyte Esterase NEGATIVE Urine WBC (Auto) 1 Urine RBC (Auto) 1 12/29/18 12:24 WBC RBC Hgb Hct MCV MCH MCHC RDW Plt Count Seg Neutrophils % Lymphocytes % Monocytes % Eosinophils % Basophils % Absolute Neutrophils Absolute Lymphocytes Absolute Monocytes Absolute Eosinophils Absolute Basophils VBG pH 7.36 VBG pCO2 47.5 VBG HCO3 26.0 VBG Base Excess 0.1 Sodium Potassium Chloride Carbon Dioxide Anion Gap BUN Creatinine Est GFR ( Amer) Est GFR (Non-Af Amer) Glucose Calcium Total Bilirubin AST ALT Alkaline Phosphatase Total Protein Albumin Urine Color Urine Appearance Urine pH Ur Specific [place] Urine Protein Urine Glucose (UA) Urine Ketones Urine Blood Urine Nitrite Ur Leukocyte Esterase Urine WBC (Auto) Urine RBC (Auto) 12/29/18 11:39 Troponin I 0.191 NT-Pro-B Natriuret Pep 9650 H Impressions: Chest X-Ray 12/29/18 07:48 IMPRESSION: Generally stable chest, likely COPD. Assessment and Plan - Diagnosis (1) NSTEMI (non-ST elevated myocardial infarction) Is this a current diagnosis for this admission?: Yes Plan: 12/29/2018-patient came in with shortness of breath with elevated troponins and ER physician spoke to the data analysis assistant in [facility], as per the patient's data analysis assistant patient is not a candidate for stent placement medical management was recommended. Dr. Hussein was consulted he agreed to keep the patient here with IV heparin drip. Patient signed a DNR/DNI. He is going to be placed in IMCU. Start on heparin drip. To restart his home medications. To order cardiac enzymes x3 with EKG. Morphine 2 mg every 6 hours as needed for chest pain was placed. GI prophylaxis was provided. Plan to do the labs tomorrow including lipid panel and hemoglobin A1c. She was placed on oxygen 2 L nasal cannula and also placed on BiPAP on as needed basis. (2) Acute on chronic respiratory failure with hypoxemia Is this a current diagnosis for this admission?: Yes Plan: 12/29/2018-patient history of COPD on home oxygen 2 L. EMS noted to have a pulse ox from 90 started on CPAP when it was switched to BiPAP in the emergency room. At the time of examination patient is still on BiPAP. Acute on chronic respiratory failure with hypoxia most likely secondary to COPD exacerbation. To start him on Xopenex nebulizations every 4 as needed. (3) Diabetes mellitus Qualifiers: Diabetes mellitus type: type 2 Is this a current diagnosis for this admission?: No Plan: 12/29/2018-patient has history of type 2 diabetes mellitus. Start him on insulin sliding scale before meals and at bedtime. To check her hemoglobin A1c in the morning. (4) CHF (congestive heart failure) Is this a current diagnosis for this admission?: No Plan: 12/29/2018-echocardiogram was done last year shows EF of 35% unable to assess the diastolic function because of the atrial fibrillation. Patient has acute on chronic congestive heart failure systolic in nature. BNP is 9650. Chest x-ray did not show any bilateral pleural effusions. Plan is to give Lasix 40 mg IV daily. - Time Time Spent with patient: 25-34 minutes Medications reviewed and adjusted accordingly: Yes Anticipated discharge: SNF
[2018-12-29 17:52] LABS: ARTERIAL BLOOD BASE EXCESS 1.1 mmol/L; ARTERIAL BLOOD H2CO3 1.13 mmol/L (1.05-1.35); ARTERIAL BLOOD O2 SATURATION 98.8 % (94-98); ARTERIAL BLOOD PCO2 37.4 mmHg (35-45); ARTERIAL BLOOD PH 7.44 (7.35-7.45); ARTERIAL BLOOD PO2 134.5 mmHg (80-100); ARTERIAL BLOOD TOTAL CO2 26.2 mmol/L (23-27)
[2018-12-29 17:53] LABS: ARTERIAL BLOOD FIO2 35%
[2018-12-29] MEDS ORDERED: ALBUTEROL SULFATE HFA (90 MCG/PUFF) 200 PUFF/8.5 GM MDI IH ONE (17:53)
[2018-12-29] MEDS: ALBUTEROL SULFATE HFA (90 MCG/PUFF) 200 PUFF/8.5 GM MDI IH SCH ×2 (17:54→23:47)
[2018-12-29] MEDS: LEVOFLOXACIN 500 MG/D5W RTU 500 MG/100 ML RTUPB IV SCH (17:54)
[2018-12-29] MEDS ORDERED: NITROGLYCERIN 2% OINTMENT 1 GM PACKET TP SCH (18:00)
[2018-12-29] MEDS ORDERED: DOCUSATE SODIUM 100 MG CAPSULE PO SCH (18:00)
[2018-12-29] MEDS ORDERED: DORZOLAMIDE HCL 2% OPH SOLN 10 ML OU SCH (18:00)
[2018-12-29] MEDS ORDERED: ENOXAPARIN SODIUM INJ 80 MG/0.8 ML DISP.SYRIN SUBCUT SCH (18:00)
[2018-12-29] MEDS ORDERED: (PENDING PHARMACY ID) (Brinzolamide/Brimonidine Tart [Simbrinza 1%-0.2% Eye Drops] 1 DROP) OU SCH (18:00)
[2018-12-29] MEDS ORDERED: DEXTROSE 40% GEL 15 GM TUBE PO PRN ×2 (18:33)
[2018-12-29] MEDS ORDERED: GLUCAGON,HUMAN RECOMB 1 MG INJ IM PRN (18:33)
[2018-12-29] MEDS ORDERED: DEXTROSE 50%-WATER 25 GM/50 ML DISP.SYRIN IV PRN ×2 (18:33)
[2018-12-29] MEDS ORDERED: DILTIAZEM HCL 30 MG TABLET PO ONE (18:54)
[2018-12-29] MEDS ORDERED: DILTIAZEM HCL/D5W 125 MG/125 ML RTUINJ IV ONE (19:58)
[2018-12-29 20:15] LABS: APPEARANCE,URINE SLIGHTLY-CLOUDY; BILIRUBIN,URINE NEGATIVE (NEGATIVE); COLOR,URINE DARK YELLOW; GLUCOSE, URINE NEGATIVE (NEGATIVE); KETONES,URINE TRACE mg/dL (NEGATIVE); LEUKOCYTE ESTERASE,URINE NEGATIVE (NEGATIVE); NITRITE,URINE NEGATIVE (NEGATIVE); PROTEIN,URINE 100 mg/dL (NEGATIVE); URINE SPECIFIC GRAVITY 1.028
[2018-12-29 20:26] LABS: HEMATOCRIT 31.5 % (37.9-51.0); HEMOGLOBIN 10.4 g/dL (13.5-17.0); MEAN CORPUSCULAR HEMOGLOBIN 28.3 pg (27.0-33.4); MEAN CORPUSCULAR VOLUME 86 fl (80-97); PLATELET COUNT 305 10^3/uL (150-450); RED BLOOD COUNT 3.67 10^6/uL (4.35-5.55); WHITE BLOOD COUNT 9.1 10^3/uL (4.0-10.5)
[2018-12-29 20:31] LABS: PROTHROMBIN TIME 14.8 SEC (11.4-15.4)
[2018-12-29 20:32] LABS: PARTIAL THROMBOPLASTIN TIME 47.5 SEC (23.5-35.8)
[2018-12-29] MEDS ORDERED: DILTIAZEM HCL/D5W 125 MG/125 ML RTUINJ IV PRN (20:38)
[2018-12-29 20:42] LABS: ABSOLUTE LYMPHOCYTES# (MANUAL) 0.9 10^3/uL (0.5-4.7); ABSOLUTE MONOCYTES # (MANUAL) 0.7 10^3/uL (0.1-1.4); ABSOLUTE NEUTROPHILS# (MANUAL) 7.3 10^3/uL (1.7-8.2); EOSINOPHILS % (MANUAL) 2 % (0-6); LYMPHOCYTES % (MANUAL) 10 % (13-45); METAMYELOCYTES % (MANUAL) 1 % (0); MONOCYTES % (MANUAL) 8 % (3-13); SEGMENTED NEUTROPHILS % (MAN) 79 % (42-78); TOTAL CELLS COUNTED 100
[2018-12-29 20:43] LABS: PLATELET COMMENT ADEQUATE
[2018-12-29 20:44] LABS: ANISOCYTOSIS 1+
[2018-12-29 20:45] LABS: POLYCHROMASIA SLIGHT
[2018-12-29 20:46] LABS: TOXIC GRANULATION 3+; TOXIC VACUOLATION PRESENT
[2018-12-29 20:52] LABS: CREATINE KINASE MB 1.32 ng/mL (<4.55)
[2018-12-29 21:02] LABS: TROPONIN I 0.222 ng/mL
[2018-12-29] MEDS ORDERED: METOPROLOL SUCCINATE 50 MG TAB.SR.24H PO SCH (22:00)
[2018-12-29] MEDS ORDERED: GABAPENTIN 300 MG CAPSULE PO SCH (22:00)
[2018-12-29] MEDS ORDERED: ATORVASTATIN CALCIUM 10 MG TABLET PO SCH (22:00)
[2018-12-29] MEDS ORDERED: RANOLAZINE 500 MG TAB.SR.12H PO SCH (22:00)
[2018-12-29] MEDS ORDERED: INSULIN GLARGINE,HUM.REC.ANLOG 1,000 UNIT/10 ML VIAL SUBCUT SCH (22:00)
[2018-12-29] MEDS ORDERED: TAMSULOSIN HCL 0.4 MG CAP.SR.24H PO SCH (22:00)
--- NOTE | 2018-12-29 22:08 | EKG REPORT ---
SEVERITY:- ABNORMAL ECG - SINUS RHYTHM RBBB AND LPFB : Confirmed by: Arpan Aleman 29-Dec-2018 22:07:16
--- NOTE | 2018-12-29 22:08 | EKG REPORT ---
SEVERITY:- ABNORMAL ECG - SINUS TACHYCARDIA PROBABLE LEFT ATRIAL ABNORMALITY RBBB AND LPFB : Confirmed by: Arpan Aleman 29-Dec-2018 22:07:31
[2018-12-29] MEDS: INSULIN REG, HUMAN 100 UNIT/ML 3 ML VIAL (PYX) SUBCUT SCH (22:20)
[2018-12-29] MEDS: FAMOTIDINE 20 MG TABLET PO SCH (22:20)
[2018-12-29] MEDS: ATORVASTATIN CALCIUM 40 MG TABLET PO SCH (22:20)
[2018-12-29] MEDS: TAMSULOSIN HCL 0.4 MG CAP.SR.24H PO SCH (22:20)
[2018-12-29] MEDS: RANOLAZINE 500 MG TAB.SR.12H PO SCH (22:20)
[2018-12-29] MEDS: DILTIAZEM HCL 30 MG TABLET PO SCH (23:47)
[2018-12-29] MEDS: ACETAMINOPHEN 325 MG TABLET PO PRN (23:48)
[2018-12-30 02:39] LABS: ABSOLUTE LYMPHOCYTES (AUTO) 1.3 10^3/uL (0.5-4.7); ABSOLUTE NEUT (AUTO) 7.4 10^3/uL (1.7-8.2); BASOPHILS % (AUTO) 0.3 % (0-2); EOSINOPHILS % (AUTO) 0.1 % (0-6); HEMOGLOBIN 9.5 g/dL (13.5-17.0); LYMPHOCYTES % (AUTO) 13.6 % (13-45); MEAN CORPUSCULAR HGB CONC 32.6 g/dL (32.0-36.0); MEAN CORPUSCULAR VOLUME 86 fl (80-97); MONOCYTES % (AUTO) 10.5 % (3-13); PLATELET COUNT 263 10^3/uL (150-450); RED BLOOD COUNT 3.39 10^6/uL (4.35-5.55); RED CELL DISTRIBUTION WIDTH 14.9 % (11.5-14.0); SEGMENTED NEUTROPHILS % (AUTO) 75.5 % (42-78); TOTAL CELLS COUNTED % (AUTO) 100 %; WHITE BLOOD COUNT 9.9 10^3/uL (4.0-10.5)
[2018-12-30 03:02] LABS: ALANINE AMINOTRANSFERASE 21 U/L (21-72); ALBUMIN 2.8 g/dL (3.5-5.0); ALKALINE PHOSPHATASE 72 U/L (38-126); ANION GAP 7 (5-19); ASPARTATE AMINO TRANSFERASE 18 U/L (17-59); BILIRUBIN,DIRECT 0.4 mg/dL (0.0-0.4); BILIRUBIN,TOTAL 0.7 mg/dL (0.2-1.3); BLOOD UREA NITROGEN 21 mg/dL (7-20); CALCIUM 8.4 mg/dL (8.4-10.2); CARBON DIOXIDE 24 mmol/L (22-30); CHLORIDE 103 mmol/L (98-107); CHOLESTEROL 100.67 mg/dL (0-200); GLUCOSE 159 mg/dL (75-110); POTASSIUM 4.1 mmol/L (3.6-5.0); SODIUM 134.2 mmol/L (137-145); TOTAL PROTEIN 5.5 g/dL (6.3-8.2); TRIGLYCERIDES 105 mg/dL (<150)
[2018-12-30 03:13] LABS: DIRECT LDL 39 mg/dL (<100)
[2018-12-30 03:14] LABS: CREATINE KINASE MB 0.92 ng/mL (<4.55); TROPONIN I 0.315 ng/mL
[2018-12-30] MEDS: LEVOTHYROXINE SODIUM 0.05 MG TABLET PO SCH (05:34)
[2018-12-30] MEDS: ALBUTEROL SULFATE HFA (90 MCG/PUFF) 200 PUFF/8.5 GM MDI IH SCH ×4 (05:34→23:06)
[2018-12-30] MEDS: DILTIAZEM HCL 30 MG TABLET PO SCH ×4 (05:34→23:06)
[2018-12-30] MEDS: PANTOPRAZOLE SODIUM 40 MG TABLET.DR PO SCH (05:34)
[2018-12-30] MEDS: ENOXAPARIN SODIUM INJ 80 MG/0.8 ML DISP.SYRIN SUBCUT SCH ×2 (05:35→17:57)
[2018-12-30] MEDS: INSULIN REG, HUMAN 100 UNIT/ML 3 ML VIAL (PYX) SUBCUT SCH ×4 (07:52→22:48)
[2018-12-30] MEDS ORDERED: INSULIN GLARGINE,HUM.REC.ANLOG 1,000 UNIT/10 ML VIAL SUBCUT SCH (08:00)
--- NOTE | 2018-12-30 09:48 | PDOC PROGRESS REPORT ---
Subjective Progress Note for:: 12/30/18 Subjective:: 83 year old male history of atrial fibrillation, COPD on 2 L oxygen at home, diabetic, hypertensive, coronary artery disease with stent placement, congestive heart failure came to the emergency room with complaints of shortness of breath for 1 week. As per the patient shortness of breath associated with a dry cough. Denies any chest pains. Denies any nausea vomiting diarrhea. Denies any headaches dizzy spells and sweating. EMS was called and he was placed on CPAP because oxygen saturation is noted to be to be around 90% on room air and he is tachypneic. Patient responded well to CPAP and in the emergency room it was changed to BiPAP. On examination patient is still on BiPAP communicating okay. In the emergency room cardiac workup was done EKG shows sinus tachycardia and troponin is 0.191 with a BNP of 9650. medical consult was called for admission. 12/[id number]-jinc-old male with history of atrial fibrillation COPD on 2 L oxygen at home history of coronary artery disease with multiple stent placements came in with shortness of breath initial troponin is elevated 0.19 and a second 1 is 0.22 31 is 0.318 his combiner in [place] spoke to the ER physician here and the recommendation is patient is not a candidate for surgery medical management is the only option. We placed him here in the hospital and a cardiology consult was requested with Dr. Hussein his recommendation is also medical management. Patient is still chest pain-free. And he came in with atrial fibrillation with RVR and he converted to sinus rhythm. Patient is comfortably in the bed denies any complaints. No acute events in the last 24 hours. Reason For Visit: NSTEMI (NON-ST ELEVATED MYOCARDIAL INFARCTION) Physical Exam Vital Signs: Temp Pulse Resp BP Pulse Ox 98.7 F 106 H 18 102/61 96 12/30/18 08:22 12/30/18 08:22 12/30/18 08:22 12/30/18 08:22 12/30/18 08:22 Intake & Output 12/29/18 12/30/18 12/31/18 06:59 06:59 06:59 Intake Total 300 Output Total 30 Balance 270 Weight 71.7 kg General appearance: PRESENT: no acute distress, other - On BiPAP Head exam: PRESENT: atraumatic Eye exam: PRESENT: PERRLA Mouth exam: PRESENT: moist, tongue midline Neck exam: ABSENT: carotid bruit, JVD, lymphadenopathy, thyromegaly Respiratory exam: PRESENT: crackles, decreased breath sounds, rhonchi Cardiovascular exam: PRESENT: tachycardia GI/Abdominal exam: PRESENT: normal bowel sounds, soft. ABSENT: distended, guarding, mass, organolmegaly, rebound, tenderness Neurological exam: PRESENT: alert, awake, oriented to person, oriented to place, oriented to time, oriented to situation, CN II-XII grossly intact. ABSENT: motor sensory deficit Psychiatric exam: PRESENT: appropriate affect, normal mood. ABSENT: homicidal ideation, suicidal ideation Results Laboratory Results: 12/30/18 02:29 12/30/18 02:29 12/29/18 12/29/18 12/29/18 08:55 10:35 12:24 WBC 13.4 H RBC 3.97 L Hgb 11.1 L Hct 34.6 L MCV 87 MCH 27.9 MCHC 32.1 RDW 15.4 H Plt Count 391 Seg Neutrophils % Lymphocytes % Monocytes % Eosinophils % Basophils % Absolute Neutrophils Absolute Lymphocytes Absolute Monocytes Absolute Eosinophils Absolute Basophils Carbonic Acid HCO3/H2CO3 Ratio ABG pH ABG pCO2 ABG pO2 ABG HCO3 ABG O2 Saturation ABG Base Excess VBG pH 7.36 VBG pCO2 47.5 VBG HCO3 26.0 VBG Base Excess 0.1 FiO2 Sodium Potassium Chloride Carbon Dioxide Anion Gap BUN Creatinine Est GFR ( Amer) Est GFR (Non-Af Amer) Glucose Lactic Acid Calcium Magnesium Total Bilirubin AST ALT Alkaline Phosphatase Total Protein Albumin Triglycerides Cholesterol LDL Cholesterol Direct VLDL Cholesterol HDL Cholesterol TSH Urine Color YELLOW Urine Appearance CLEAR Urine pH 6.0 Ur Specific [place] 1.027 Urine Protein 100 H Urine Glucose (UA) 50 H Urine Ketones TRACE H Urine Blood NEGATIVE Urine Nitrite NEGATIVE Ur Leukocyte Esterase NEGATIVE Urine WBC (Auto) 1 Urine RBC (Auto) 1 12/29/18 12/29/18 12/29/18 17:40 19:50 20:18 WBC RBC Hgb Hct MCV MCH MCHC RDW Plt Count Seg Neutrophils % Lymphocytes % Monocytes % Eosinophils % Basophils % Absolute Neutrophils Absolute Lymphocytes Absolute Monocytes Absolute Eosinophils Absolute Basophils Carbonic Acid 1.13 HCO3/H2CO3 Ratio 22:1 ABG pH 7.44 ABG pCO2 37.4 ABG pO2 134.5 H ABG HCO3 25.0 H ABG O2 Saturation 98.8 H ABG Base Excess 1.1 VBG pH VBG pCO2 VBG HCO3 VBG Base Excess FiO2 35% Sodium Potassium Chloride Carbon Dioxide Anion Gap BUN Creatinine Est GFR ( Amer) Est GFR (Non-Af Amer) Glucose Lactic Acid 1.4 Calcium Magnesium Total Bilirubin AST ALT Alkaline Phosphatase Total Protein Albumin Triglycerides Cholesterol LDL Cholesterol Direct VLDL Cholesterol HDL Cholesterol TSH Urine Color DARK YELLOW Urine Appearance SLIGHTLY-CLOUDY Urine pH 5.0 Ur Specific [place] 1.028 Urine Protein 100 H Urine Glucose (UA) NEGATIVE Urine Ketones TRACE H Urine Blood NEGATIVE Urine Nitrite NEGATIVE Ur Leukocyte Esterase NEGATIVE Urine WBC (Auto) 1 Urine RBC (Auto) 1 12/29/18 12/30/18 12/30/18 20:18 02:29 02:29 WBC 9.1 9.9 RBC 3.67 L 3.39 L Hgb 10.4 L 9.5 L Hct 31.5 L 29.0 L MCV 86 86 MCH 28.3 28.0 MCHC 33.0 32.6 RDW 15.0 H 14.9 H Plt Count 305 263 Seg Neutrophils % Not Reportable 75.5 Lymphocytes % Not Reportable 13.6 Monocytes % Not Reportable 10.5 Eosinophils % Not Reportable 0.1 Basophils % Not Reportable 0.3 Absolute Neutrophils Not Reportable 7.4 Absolute Lymphocytes Not Reportable 1.3 Absolute Monocytes Not Reportable 1.0 Absolute Eosinophils Not Reportable 0.0 Absolute Basophils Not Reportable 0.0 Carbonic Acid HCO3/H2CO3 Ratio ABG pH ABG pCO2 ABG pO2 ABG HCO3 ABG O2 Saturation ABG Base Excess VBG pH VBG pCO2 VBG HCO3 VBG Base Excess FiO2 Sodium 134.2 L Potassium 4.1 Chloride 103 Carbon Dioxide 24 Anion Gap 7 BUN 21 H Creatinine 1.05 Est GFR ( Amer) > 60 Est GFR (Non-Af Amer) > 60 Glucose 159 H Lactic Acid Calcium 8.4 Magnesium 2.4 H Total Bilirubin 0.7 AST 18 ALT 21 Alkaline Phosphatase 72 Total Protein 5.5 L Albumin 2.8 L Triglycerides 105 Cholesterol 100.67 LDL Cholesterol Direct 39 VLDL Cholesterol 21.0 HDL Cholesterol 54 TSH Urine Color Urine Appearance Urine pH Ur Specific [place] Urine Protein Urine Glucose (UA) Urine Ketones Urine Blood Urine Nitrite Ur Leukocyte Esterase Urine WBC (Auto) Urine RBC (Auto) 12/30/18 02:29 WBC RBC Hgb Hct MCV MCH MCHC RDW Plt Count Seg Neutrophils % Lymphocytes % Monocytes % Eosinophils % Basophils % Absolute Neutrophils Absolute Lymphocytes Absolute Monocytes Absolute Eosinophils Absolute Basophils Carbonic Acid HCO3/H2CO3 Ratio ABG pH ABG pCO2 ABG pO2 ABG HCO3 ABG O2 Saturation ABG Base Excess VBG pH VBG pCO2 VBG HCO3 VBG Base Excess FiO2 Sodium Potassium Chloride Carbon Dioxide Anion Gap BUN Creatinine Est GFR ( Amer) Est GFR (Non-Af Amer) Glucose Lactic Acid Calcium Magnesium Total Bilirubin AST ALT Alkaline Phosphatase Total Protein Albumin Triglycerides Cholesterol LDL Cholesterol Direct VLDL Cholesterol HDL Cholesterol TSH 5.88 H Urine Color Urine Appearance Urine pH Ur Specific [place] Urine Protein Urine Glucose (UA) Urine Ketones Urine Blood Urine Nitrite Ur Leukocyte Esterase Urine WBC (Auto) Urine RBC (Auto) 12/29/18 12/29/18 12/29/18 11:39 20:18 20:18 Creatine Kinase 41 L CK-MB (CK-2) 1.32 Troponin I 0.191 0.222 NT-Pro-B Natriuret Pep 9650 H 12/30/18 12/30/18 12/30/18 02:29 02:29 02:29 Creatine Kinase 36 L CK-MB (CK-2) 0.92 Troponin I 0.315 NT-Pro-B Natriuret Pep 37432 H Impressions: Chest X-Ray 12/29/18 07:48 IMPRESSION: Generally stable chest, likely COPD. Assessment and Plan - Diagnosis (1) NSTEMI (non-ST elevated myocardial infarction) Is this a current diagnosis for this admission?: Yes Plan: 12/29/2018-patient came in with shortness of breath with elevated troponins and ER physician spoke to the combiner in [facility], as per the patient's combiner patient is not a candidate for stent placement medical management was recommended. Dr. Hussein was consulted he agreed to keep the patient here with IV heparin drip. Patient signed a DNR/DNI. He is going to be placed in IMCU. Start on heparin drip. To restart his home medications. To order cardiac enzymes x3 with EKG. Morphine 2 mg every 6 hours as needed for chest pain was placed. GI prophylaxis was provided. Plan to do the labs tomorrow including lipid panel and hemoglobin A1c. She was placed on oxygen 2 L nasal cannula and also placed on BiPAP on as needed basis. 12/30/2018-patient came in with shortness of breath no chest pain since admission. No chest pains reported in the emergency room. Elevated troponins most likely secondary to oxygen demand mismatch. GI consult was done. He was in atrial fibrillation when he came in and started on Cardizem drip he converted to sinus rhythm last night. His troponin is 0.318. Presently on Lovenox 70 mg subcu daily. He is on also on aspirin ,plavix and atorvastatin. Plan is to continue the present management. (2) Acute on chronic respiratory failure with hypoxemia Is this a current diagnosis for this admission?: Yes Plan: 12/29/2018-patient history of COPD on home oxygen 2 L. EMS noted to have a pulse ox from 90 started on CPAP when it was switched to BiPAP in the emergency room. At the time of examination patient is still on BiPAP. Acute on chronic respiratory failure with hypoxia most likely secondary to COPD exacerbation. To start him on Xopenex nebulizations every 4 as needed. 12/30/2018-patient has history of COPD on oxygen 2 L at home. Came in with acute on chronic respiratory failure with hypoxia. He still requiring BiPAP on and off. Pulse ox is 96% on 4 L today. Patient is on Xopenex nebulizations every 4 as needed. IV Solu-Medrol was not started because of the high heart rate last night. Chest x-ray is not suggestive of any pneumonia. (3) Diabetes mellitus Qualifiers: Diabetes mellitus type: type 2 Is this a current diagnosis for this admission?: No Plan: 12/29/2018-patient has history of type 2 diabetes mellitus. Start him on insulin sliding scale before meals and at bedtime. To check her hemoglobin A1c in the morning. 12/30/2018-patient has type 2 diabetes mellitus, hemoglobin A1c 7.8 he is on insulin sliding scale before meals and at bedtime. Dietary consult is going to be requested. To start him on Lantus 10 units twice a day. Diet exercise compliant with medications discussed with the patient. (4) CHF (congestive heart failure) Is this a current diagnosis for this admission?: No Plan: 12/29/2018-echocardiogram was done last year shows EF of 35% unable to assess the diastolic function because of the atrial fibrillation. Patient has acute on chronic congestive heart failure systolic in nature. BNP is 9650. Chest x-ray did not show any bilateral pleural effusions. Plan is to give Lasix 40 mg IV daily. 12/30/2018-patient has a chronic systolic heart failure. BNP today is 19,600. Started on Lasix 40 mg IV daily. Patient is also on lisinopril 5 mg p.o. daily blood pressure today is 111/52 with a heart rate of 96 plan is to continue the present management to check the BNP tomorrow. (5) DNR (do not resuscitate) Is this a current diagnosis for this admission?: Yes Plan: 12/30/2018-patient is alert awake oriented when I spoke to him in the ER he wants his CODE STATUS is DNR/DNI. (6) Anemia Qualifiers: Anemia type: unspecified type Qualified Code(s): D64.9 - Anemia, unspecified Is this a current diagnosis for this admission?: Yes Plan: 12/30/2018-patient has anemia of chronic disease. Most likely secondary to chronic kidney disease. - Time Time Spent with patient: 15-24 minutes Medications reviewed and adjusted accordingly: Yes Anticipated discharge: SNF
[2018-12-30] MEDS ORDERED: ASPIRIN 325 MG TABLET PO SCH (10:00)
[2018-12-30] MEDS ORDERED: FUROSEMIDE 40 MG TABLET PO SCH (10:00)
[2018-12-30] MEDS ORDERED: LISINOPRIL 10 MG TABLET PO SCH (10:00)
[2018-12-30] MEDS ORDERED: FUROSEMIDE INJ/PF 40 MG/4 ML SDV IV SCH (10:00)
[2018-12-30 10:05] LABS: CREATINE KINASE MB 0.88 ng/mL (<4.55); TROPONIN I 0.293 ng/mL
[2018-12-30] MEDS: CLOPIDOGREL BISULFATE 75 MG TABLET PO SCH (10:33)
[2018-12-30] MEDS: FAMOTIDINE 20 MG TABLET PO SCH ×2 (10:33→22:47)
[2018-12-30] MEDS: SITAGLIPTIN PHOSPHATE 50 MG TABLET PO SCH (10:33)
[2018-12-30] MEDS: FUROSEMIDE INJ/PF 40 MG/4 ML SDV IV SCH (10:33)
[2018-12-30] MEDS: LISINOPRIL 5 MG TABLET PO SCH (10:33)
[2018-12-30] MEDS: METOPROLOL SUCCINATE 25 MG TAB.SR.24H PO SCH (10:33)
[2018-12-30] MEDS: ASPIRIN 81 MG TABLET, CHEWABLE PO SCH (10:34)
[2018-12-30] MEDS: RANOLAZINE 500 MG TAB.SR.12H PO SCH ×2 (10:34→22:50)
[2018-12-30] MEDS: INSULIN GLARGINE,HUM.REC.ANLOG 1,000 UNIT/10 ML VIAL SUBCUT SCH ×2 (12:10→22:48)
[2018-12-30] MEDS: FLUTICASONE/VILANTEROL 200-25 MCG/DOSE IH SCH (12:10)
[2018-12-30 16:18] LABS: CREATINE KINASE MB 0.54 ng/mL (<4.55); TROPONIN I 0.256 ng/mL
[2018-12-30] MEDS: LEVOFLOXACIN 500 MG/D5W RTU 500 MG/100 ML RTUPB IV SCH (17:56)
[2018-12-30] MEDS: ACETAMINOPHEN 325 MG TABLET PO PRN (18:09)
--- NOTE | 2018-12-30 18:30 | PDOC CONSULTATION ---
Consultation-Blank Consultation: Cardiology consultation on 12/30/2018. Patient briefly seen on the night of 12/29/2018 and patient started on IV Cardizem drip for M FAT. Formal consult rendered at 11 AM on 12/30/2017. REASON FOR CONSULTATION: Patient with a history of coronary artery disease and copd ,on home oxygen, admitted with the history of increasing shortness of breath with the significant increase in his short of breath with the wheezing and acute respiratory distress and was found to have a O2 saturation 90% with on room air and tachypneic in the emergency room and placed on BiPAP. All the patient denies any chest pain or discomfort the patient EKG did not show any ischemic changes except from what looks to be sinus tachycardia versus multifocal atrial tachycardia, with the patient's troponin being elevated. HISTORY PRESENT ILLNESS: Patient is a 83-year-old male with known history of COPD on home oxygen, history of coronary artery disease, history of SD and stents in the past, history of hypertension, admitted with increasing shortness of breath since 1 week with cough and intermittent wheezing. The patient is also productive of sputum which is yellowish green in colour. The patient came to emergency room with severe shortness of breath is found to be tachypneic. He denies any chest pain or discomfort, and his O2 saturations were 90% on room air. The patient although he had no symptoms of angina the patient's troponin I is elevated. The patient's EKG does show an initial EKG of sinus tachycardia versus multifocal atrial tachycardia, and subsequent EKG clearly shows the patient has multifocal atrial tachycardia. The patient yesterday had an episode of rapid heartbeat with a right bundle branch block pattern which was multifocal atrial tachycardia, the patient was started on IV Cardizem drip. Even when the patient's heart rate was fast the patient had no anginal symptoms. His troponin I has been seen to be elevated. He does have orthopnea but denies any PND or leg edema. There is no palpitations or syncope. The patient denies any fever chills or rigors. But does have cough, with greenish yellowish sputum. No hemoptysis. PAST medical history: History of coronary artery disease, history of SD, and history of stents in the LAD and RCA in the past at which time he had also an SD. He also has a history of diabetes mellitus type 2. He also has COPD on home oxygen. He also has a history of hypertension and history of GERD. He does have a history of sleep apnea and uses CPAP. He has a past history of right-sided hemiparesis which completely resolved and the patient is able to walk without problems. 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 He also has a history of prostate cancer, and states he is cured by prostatectomy. SOCIAL History: Patient is a former smoker there is no history of EtOH abuse. DISPOSITION: The patient is DNR. His son is his surrogate healthcare decision maker. PAST SURGICAL HISTORY: Cardiac catheterization and stent placement. Orthopedic surgery right clavicle. Prostate surgery for prostate cancer. He has had bilateral social shoulder surgery and right cataract extraction. He is also had right femur surgery. REVIEW OF SYSTEMS: PHYSICAL EXAMINATION: The patient appears to be his stated age. He appears to be chronically ill. At present mild distress due to shortness of breath. \\ Selected Entries 10/29/17 12/30/18 12/30/18 09:04 08:22 09:00 Temperature 98.7 F Temperature Oral Oral Source Pulse Rate 106 H Heart Rate ( 103 Monitors) Respiratory 18 Rate Respiratory Pattern Blood Pressure Blood Pressure Mean BP Location BP Position O2 Sat by Pulse 96 Oximetry Oxygen Delivery Method ( includes room air) Fraction of Inspired Oxygen (FIO2) Oxygen Flow 4.00 Rate Oxygen Delivery Nasal Cannula Method Percent of Oxygen 12/30/18 12/30/18 12/30/18 10:00 11:00 11:57 Temperature Temperature Source Pulse Rate Heart Rate ( 83 Monitors) Respiratory 22 H Rate Respiratory Normal Pattern Blood Pressure Blood Pressure Mean BP Location BP Position O2 Sat by Pulse Oximetry Oxygen Delivery Bi-pap Method ( includes room air) Fraction of 35 Inspired Oxygen (FIO2) Oxygen Flow 4.00 Rate Oxygen Delivery Method Percent of 35 Oxygen 12/30/18 12:00 Temperature 98.7 F Temperature Axillary Source Pulse Rate 83 Heart Rate ( Monitors) Respiratory 25 H Rate Respiratory Pattern Blood Pressure 102/50 L Blood Pressure 67 Mean BP Location Left Arm BP Position Supine O2 Sat by Pulse 98 Oximetry Oxygen Delivery Method ( includes room air) Fraction of Inspired Oxygen (FIO2) Oxygen Flow Rate Oxygen Delivery Bipap Method Percent of Oxygen HEAD: Head is atraumatic and normocephalic. EYES: Pupils are equal round regular reactive to light accommodation. Extraocular movements are normal, there is no conjunctival pallor, and no scleral icterus. EARS: Tympanic membranes are intact external auditory canals are clear. NOSE: There is no inflammation of the nasal mucous membrane there is no deviated nasal septum. MOUTH: Mucous membranes of mouth and tongue are moist, there is no ulcers in the mouth or tongue, and no bleeding from the gums. THROAT: There is no redness of the oropharynx, no exudate seen. SKIN: There is no petechia or ecchymosis. There is no rashes or lesions. NECK: Supple. There is no JVD. Carotids are equal there is no bruit. There is no lymphadenopathy. There is no goiter. Trachea central LUNGS: There is diminished air entry and prolonged expiration. Clear to auscultation bilaterally, no wheezes, or rales. There is bilateral extensive rhonchi. There is no rales of CHF on percussion there is hyperresonance although there is no chest wall tenderness HEART: S1 and S2 are heard. S1 is of normal intensity, there is no S3 or S4 gallops. There is a systolic murmur the left sternal border and the apex. There is no rub. ABDOMEN: Normoactive bowel sounds, soft, nontender, no masses, no rebound, no guarding. There is no hepatosplenomegaly. EXTREMITIES: Femorals are slightly diminished. There is no femoral bruits. Leg pulses are diminished. There is no pedal edema. There is no DVT or cellulitis. There is no cyanosis or clubbing. There is no calf tenderness. NEUROLOGICAL the patient is awake alert oriented 3 with no focal deficits. PSYCHIATRIC: The patient judgment and insight are intact his affect is normal. EKG shows initially sinus tachycardia versus multifocal atrial tachycardia. Subsequent EKG shows multifocal atrial tachycardia. No ischemic changes in either EKGs. Current Medications Generic Name Dose Route Start Last Admin Trade Name Freq PRN Reason Stop Dose Admin Acetaminophen 650 mg 12/29/18 14:35 12/30/18 18:09 Tylenol 325 Mg Tablet PO 01/28/19 14:34 650 mg Q4HP PRN Administration FEVER >101 Albuterol 2 puff 12/29/18 18:00 12/30/18 17:58 Proair Hfa Inhalation Aerosol 8.5 Gm Mdi IH 01/28/19 17:59 2 puff Q6 IDA Administration Aspirin 81 mg 12/30/18 10:00 12/30/18 10:34 Aspirin 81 Mg Chewable Tablet PO 01/29/19 09:59 81 mg DAILY IDA Administration Atorvastatin Calcium 40 mg 12/29/18 22:00 12/29/18 22:20 Lipitor 40 Mg Tablet PO 01/28/19 21:59 40 mg QHS IDA Administration Clopidogrel Bisulfate 75 mg 12/30/18 10:00 12/30/18 10:33 Plavix 75 Mg Tablet PO 01/29/19 09:59 75 mg DAILY IDA Administration Dextrose 25 gm 12/29/18 18:33 Dextrose Inj 50% Syringe (25 Gm/50 Ml) IV 01/28/19 18:32 PRN PRN PER PROTOCOL Protocol Dextrose 12.5 gm 12/29/18 18:33 Dextrose Inj 50% Syringe (25 Gm/50 Ml) IV 01/28/19 18:32 PRN PRN FOR BG 50-69 IN ALERT PATIENT Protocol Diltiazem HCl 30 mg 12/30/18 00:00 12/30/18 17:57 Cardizem 30 Mg Tablet PO 01/29/19 00:00 30 mg Q6 IDA Administration Enoxaparin Sodium 70 mg 12/30/18 06:00 12/30/18 17:57 Lovenox Inj 80 Mg/0.8 Ml Disp.Syrin SUBCUT 01/29/19 05:59 70 mg Q12A IDA Administration Famotidine 20 mg 12/29/18 22:00 12/30/18 10:33 Pepcid 20 Mg Tablet PO 01/28/19 21:59 20 mg Q12 IDA Administration Fluticasone/Vilanterol 1 inh 12/30/18 10:00 12/30/18 12:10 Breo 200-25 Mcg Ellipta 14 Dose/Dpi IH 01/29/19 09:59 1 inhaler DAILY IDA Administration Furosemide 40 mg 12/30/18 10:00 12/30/18 10:33 Lasix Inj/Pf 40 Mg/4 Ml Sdv IV 01/29/19 09:59 40 mg DAILY IDA Administration Glucagon 1 mg 12/29/18 18:33 Glucagen Inj 1 Mg Vial IM 01/28/19 18:32 PRN PRN Evaluate for BG < 70 Protocol Glucose 15 gm 12/29/18 18:33 Glutose 40% Gel 15 Gm Tube PO 01/28/19 18:32 PRN PRN FOR BG 50-69 IN ALERT PATIENT Protocol Glucose 30 gm 12/29/18 18:33 Glutose 40% Gel 15 Gm Tube PO 01/28/19 18:32 PRN PRN FOR BG < 50 IN ALERT PATIENT Protocol Levofloxacin/Dextrose 500 mg in 100 mls @ 100 mls/hr 12/29/18 18:00 12/30/18 17:56 Levaquin Rtu 500mg/D5w 100 Ml Premix IV 01/05/19 17:59 100 mls/hr QPM IDA 100 mls/hr Administration Diltiazem HCl 125 mg in 125 mls @ 0 mls/hr 12/29/18 20:38 12/29/18 20:00 Cardizem Rtu Inj 125 Mg-D5w 125 Ml Premix IV 01/28/19 20:37 5 mls/hr CONTINUOUS PRN 5 mls/hr THIS MED IS NOT "PRN" Administration Protocol Titrate Insulin Glargine 10 unit 12/30/18 11:00 12/30/18 12:10 Lantus Insulin 100 Unit/1 Ml 10 Ml SUBCUT 01/29/19 10:59 10 unit Q12 IDA Administration Insulin Human Regular 0 - 12 unit 12/29/18 22:00 12/30/18 17:56 Humulin R (Pyxis) Insulin 100 Unit/Ml 3ml SUBCUT 01/28/19 21:59 4 unit ACHS IDA Administration Protocol Levalbuterol HCl 1.25 mg 12/29/18 15:10 Xopenex Neb 1.25 Mg/3 Ml Ampul NEB 01/28/19 15:09 Q6HP PRN FOR WHEEZING Levothyroxine Sodium 0.05 mg 12/30/18 06:00 12/30/18 05:34 Synthroid 0.05 Mg Tablet PO 01/29/19 05:59 0.05 mg Q6AM IDA Administration Lisinopril 5 mg 12/30/18 10:00 12/30/18 10:33 Prinivil 5 Mg Tablet PO 01/29/19 09:59 5 mg DAILY IDA Administration Metoprolol Succinate 25 mg 12/30/18 10:00 12/30/18 10:33 Toprol Xl 25 Mg Tab.Sr PO 01/29/19 09:59 25 mg DAILY IDA Administration Ondansetron HCl 4 mg 12/29/18 14:35 Zofran Inj/Pf 4 Mg/2 Ml Sdv IV 01/28/19 14:34 Q8HP PRN FOR NAUSEA/VOMITING Pantoprazole Sodium 40 mg 12/30/18 06:00 12/30/18 05:[address] Tablet PO 01/29/19 05:59 40 mg Q6AM IDA Administration Patient Own Medication 1 drop 12/29/18 18:00 Brinzolamide/Brimonidine Tart [Simbrinza 1%-0.2% Eye Drops] OU 01/28/19 17:59 BID IDA Ranolazine 500 mg 12/29/18 22:00 12/30/18 10:34 Ranexa 500 Mg Tab.Sr PO 01/28/19 21:59 500 mg Q12 IDA Administration Sitagliptin Phosphate 50 mg 12/30/18 10:00 12/30/18 10:33 Januvia 50 Mg Tablet PO 01/29/19 09:59 50 mg DAILY IDA Administration Sodium Chloride 2.5 ml 12/29/18 22:00 12/30/18 13:15 Saline Flush 2.5 Ml Monoject Prefil Syrin IV 01/28/19 21:59 2.5 ml Q8 IDA Administration Tamsulosin HCl 0.4 mg 12/29/18 22:00 12/29/18 22:20 Flomax 0.4 Mg Cap.Sr PO 01/28/19 21:59 0.4 mg QHS IDA Administration Discontinued Medications Generic Name Dose Route Start Last Admin Trade Name Freq PRN Reason Stop Dose Admin Albuterol 2.5 mg 12/29/18 10:16 12/29/18 10:42 Ventolin 0.083% Neb 2.5 Mg/3 Ml Ampul NEB 12/29/18 10:17 2.5 mg NOW ONE Administration Albuterol Confirm 12/29/18 17:53 12/29/18 18:14 Proair Hfa Inhalation Aerosol 8.5 Gm Mdi Administered 12/29/18 17:54 Not Given Dose 200 puff IH .STK-MED ONE Albuterol/Ipratropium 3 ml 12/29/18 07:55 12/29/18 08:12 Duoneb 3 Ml Ampul NEB 12/29/18 07:56 3 ml NOW ONE Administration Aspirin 324 mg 12/29/18 12:18 12/29/18 13:39 Aspirin 81 Mg Chewable Tablet PO 12/29/18 12:19 324 mg NOW ONE Administration Diltiazem HCl 30 mg 12/29/18 18:54 12/29/18 19:30 Cardizem 30 Mg Tablet PO 12/29/18 18:55 30 mg NOW ONE Administration Enoxaparin Sodium 70 mg 12/29/18 18:00 12/29/18 17:53 Lovenox Inj 80 Mg/0.8 Ml Disp.Syrin SUBCUT 01/28/19 17:59 70 mg Q12H IDA Administration Furosemide 40 mg 12/30/18 10:00 Lasix Inj/Pf 40 Mg/4 Ml Sdv IV 01/29/19 09:59 DAILY IDA Heparin Sodium (Porcine) 4,000 unit 12/29/18 12:39 12/29/18 14:42 Heparin Inj 1,000 Unit/Ml 10 Ml Vial IV 12/29/18 12:40 Not Given NOW ONE Heparin Sodium (Porcine) 4,000 unit 12/29/18 17:00 12/29/18 17:46 Heparin Inj 1,000 Unit/Ml 10 Ml Vial IV 12/29/18 17:01 Not Given NOW ONE Magnesium Sulfate/Dextrose 1 gm in 100 mls @ 0 mls/hr 12/29/18 08:17 12/29/18 13:42 Magnesium Sulfate Rtu-D5w 1 Gm/100 Ml Premix IV 12/29/18 08:18 Infused NOW ONE Infusion As Directed Magnesium Sulfate/Dextrose 1 gm in 100 mls @ 0 mls/hr 12/29/18 08:18 12/29/18 13:42 Magnesium Sulfate Rtu-D5w 1 Gm/100 Ml Premix IV 12/29/18 08:19 Infused NOW ONE Infusion As Directed Heparin Sodium/Dextrose 25,000 unit in 250 mls @ 0 mls/hr 12/29/18 14:46 Heparin Rtu 25,000 Unit/250 Ml D5w Premix IV 01/28/19 14:45 CONTINUOUS PRN THIS MED IS NOT "PRN" Protocol Titrate Diltiazem HCl Confirm 12/29/18 19:58 12/29/18 22:03 Cardizem Rtu Inj 125 Mg-D5w 125 Ml Premix Administered 12/29/18 19:59 Not Given Dose 125 mg in 125 mls @ ud IV .STK-MED ONE Ketorolac Tromethamine 30 mg 12/29/18 11:22 12/29/18 11:33 Toradol Inj/Pf 30 Mg/1 Ml Sdv IV 12/29/18 11:23 30 mg NOW ONE Administration Home Medications: Albuterol Sulfate [Proair HFA Inhalation Aerosol 8.5 gm MDI] 2 puff IH Q6 12/29/18 Aspirin [Aspirin 81 mg Chewable Tablet] 81 mg PO DAILY 12/29/18 Atorvastatin Calcium [Lipitor 40 mg Tablet] 40 mg PO QHS 12/29/18 Brinzolamide/Brimonidine Tart [Simbrinza 1%-0.2% Eye Drops] 1 drop OU BID 12/29/18 Budesonide/Formoterol Fumarate [Symbicort HFA 160-4.5 mcg Inhaler 6 gm] 2 puff IH Q12 12/29/18 Clopidogrel Bisulfate [Plavix 75 mg Tablet] 75 mg PO DAILY 12/29/18 Lisinopril [Prinivil 5 mg Tablet] 5 mg PO DAILY 12/29/18 Metoprolol Succinate [Toprol Xl 25 mg Tab.sr] 25 mg PO DAILY 12/29/18 Omeprazole 40 mg PO DAILY 12/29/18 Ranolazine [Ranolazine ER] 500 mg PO Q12 12/29/18 Sitagliptin Phosphate [Januvia 50 mg Tablet] 50 mg PO DAILY 12/29/18 Insulin Aspart [Novolog Insulin (Aspart) 100 unit/mL] 10 unit SQ AC 12/30/18 Insulin Detemir [Levemir] 26 units SQ BID 12/30/18 Labs- Entire Visit 12/29/18 12/29/18 12/29/18 08:55 08:55 10:35 WBC 13.4 H RBC 3.97 L Hgb 11.1 L Hct 34.6 L MCV 87 MCH 27.9 MCHC 32.1 RDW 15.4 H Plt Count 391 Total Counted 100 Seg Neutrophils % Not Reportable Seg Neuts % (Manual) 70 Lymphocytes % Not Reportable Lymphocytes % (Manual) 15 Monocytes % Not Reportable Monocytes % (Manual) 14 H Eosinophils % Not Reportable Eosinophils % (Manual) 0 Basophils % Not Reportable Basophils % (Manual) 1 Metamyelocytes % Absolute Neutrophils Not Reportable Abs Neuts (Manual) 9.4 H Absolute Lymphocytes Not Reportable Abs Lymphs (Manual) 2.0 Absolute Monocytes Not Reportable Abs Monocytes (Manual) 1.9 H Absolute Eosinophils Not Reportable Absolute Eos (Manual) 0.0 Absolute Basophils Not Reportable Abs Basophils (Manual) 0.1 Toxic Granulation Toxic Vacuolation Clumped Platelets PRESENT Platelet Comment ADEQUATE Polychromasia Poikilocytosis SLIGHT Anisocytosis Ovalocytes SLIGHT PT INR APTT Carbonic Acid HCO3/H2CO3 Ratio ABG pH ABG pCO2 ABG pO2 ABG HCO3 ABG Total CO2 ABG O2 Saturation ABG Base Excess VBG pH VBG pCO2 VBG HCO3 VBG Base Excess FiO2 Sodium 137.1 Potassium 4.8 Chloride 101 Carbon Dioxide 26 Anion Gap 10 BUN 22 H Creatinine 0.85 Est GFR ( Amer) > 60 Est GFR (Non-Af Amer) > 60 Glucose 211 H POC Glucose Hemoglobin A1c % Lactic Acid Calcium 9.1 Magnesium Total Bilirubin 0.8 Direct Bilirubin 0.5 H Neonat Total Bilirubin Not Reportable Neonat Direct Bilirubin Not Reportable Neonat Indirect Bili Not Reportable AST 33 ALT 30 Alkaline Phosphatase 91 Creatine Kinase CK-MB (CK-2) Troponin I NT-Pro-B Natriuret Pep Total Protein 7.0 Albumin 3.7 Triglycerides Cholesterol LDL Cholesterol Direct VLDL Cholesterol HDL Cholesterol TSH Urine Color YELLOW Urine Appearance CLEAR Urine pH 6.0 Ur Specific [place] 1.027 Urine Protein 100 H Urine Glucose (UA) 50 H Urine Ketones TRACE H Urine Blood NEGATIVE Urine Nitrite NEGATIVE Urine Bilirubin NEGATIVE Urine Urobilinogen 2.0 H Ur Leukocyte Esterase NEGATIVE Urine WBC (Auto) 1 Urine RBC (Auto) 1 U Hyaline Cast (Auto) Squamous Epi Cells Auto Urine Mucus (Auto) RARE Urine Ascorbic Acid NEGATIVE 12/29/18 12/29/18 12/29/18 11:39 12:24 17:40 WBC RBC Hgb Hct MCV MCH MCHC RDW Plt Count Total Counted Seg Neutrophils % Seg Neuts % (Manual) Lymphocytes % Lymphocytes % (Manual) Monocytes % Monocytes % (Manual) Eosinophils % Eosinophils % (Manual) Basophils % Basophils % (Manual) Metamyelocytes % Absolute Neutrophils Abs Neuts (Manual) Absolute Lymphocytes Abs Lymphs (Manual) Absolute Monocytes Abs Monocytes (Manual) Absolute Eosinophils Absolute Eos (Manual) Absolute Basophils Abs Basophils (Manual) Toxic Granulation Toxic Vacuolation Clumped Platelets Platelet Comment Polychromasia Poikilocytosis Anisocytosis Ovalocytes PT INR APTT Carbonic Acid 1.13 HCO3/H2CO3 Ratio 22:1 ABG pH 7.44 ABG pCO2 37.4 ABG pO2 134.5 H ABG HCO3 25.0 H ABG Total CO2 26.2 ABG O2 Saturation 98.8 H ABG Base Excess 1.1 VBG pH 7.36 VBG pCO2 47.5 VBG HCO3 26.0 VBG Base Excess 0.1 FiO2 35% Sodium Potassium Chloride Carbon Dioxide Anion Gap BUN Creatinine Est GFR ( Amer) Est GFR (Non-Af Amer) Glucose POC Glucose Hemoglobin A1c % Lactic Acid Calcium Magnesium Total Bilirubin Direct Bilirubin Neonat Total Bilirubin Neonat Direct Bilirubin Neonat Indirect Bili AST ALT Alkaline Phosphatase Creatine Kinase CK-MB (CK-2) Troponin I 0.191 NT-Pro-B Natriuret Pep 9650 H Total Protein Albumin Triglycerides Cholesterol LDL Cholesterol Direct VLDL Cholesterol HDL Cholesterol TSH Urine Color Urine Appearance Urine pH Ur Specific [place] Urine Protein Urine Glucose (UA) Urine Ketones Urine Blood Urine Nitrite Urine Bilirubin Urine Urobilinogen Ur Leukocyte Esterase Urine WBC (Auto) Urine RBC (Auto) U Hyaline Cast (Auto) Squamous Epi Cells Auto Urine Mucus (Auto) Urine Ascorbic Acid 12/29/18 12/29/18 12/29/18 17:57 19:50 20:18 WBC RBC Hgb Hct MCV MCH MCHC RDW Plt Count Total Counted Seg Neutrophils % Seg Neuts % (Manual) Lymphocytes % Lymphocytes % (Manual) Monocytes % Monocytes % (Manual) Eosinophils % Eosinophils % (Manual) Basophils % Basophils % (Manual) Metamyelocytes % Absolute Neutrophils Abs Neuts (Manual) Absolute Lymphocytes Abs Lymphs (Manual) Absolute Monocytes Abs Monocytes (Manual) Absolute Eosinophils Absolute Eos (Manual) Absolute Basophils Abs Basophils (Manual) Toxic Granulation Toxic Vacuolation Clumped Platelets Platelet Comment Polychromasia Poikilocytosis Anisocytosis Ovalocytes PT INR APTT Carbonic Acid HCO3/H2CO3 Ratio ABG pH ABG pCO2 ABG pO2 ABG HCO3 ABG Total CO2 ABG O2 Saturation ABG Base Excess VBG pH VBG pCO2 VBG HCO3 VBG Base Excess FiO2 Sodium Potassium Chloride Carbon Dioxide Anion Gap BUN Creatinine Est GFR ( Amer) Est GFR (Non-Af Amer) Glucose POC Glucose 217 H Hemoglobin A1c % Lactic Acid 1.4 Calcium Magnesium Total Bilirubin Direct Bilirubin Neonat Total Bilirubin Neonat Direct Bilirubin Neonat Indirect Bili AST ALT Alkaline Phosphatase Creatine Kinase CK-MB (CK-2) Troponin I NT-Pro-B Natriuret Pep Total Protein Albumin Triglycerides Cholesterol LDL Cholesterol Direct VLDL Cholesterol HDL Cholesterol TSH Urine Color DARK YELLOW Urine Appearance SLIGHTLY-CLOUDY Urine pH 5.0 Ur Specific [place] 1.028 Urine Protein 100 H Urine Glucose (UA) NEGATIVE Urine Ketones TRACE H Urine Blood NEGATIVE Urine Nitrite NEGATIVE Urine Bilirubin NEGATIVE Urine Urobilinogen 2.0 H Ur Leukocyte Esterase NEGATIVE Urine WBC (Auto) 1 Urine RBC (Auto) 1 U Hyaline Cast (Auto) 1 Squamous Epi Cells Auto <1 Urine Mucus (Auto) OCC Urine Ascorbic Acid NEGATIVE 12/29/18 12/29/18 12/29/18 20:18 20:18 20:18 WBC 9.1 RBC 3.67 L Hgb 10.4 L Hct 31.5 L MCV 86 MCH 28.3 MCHC 33.0 RDW 15.0 H Plt Count 305 Total Counted 100 Seg Neutrophils % Not Reportable Seg Neuts % (Manual) 79 H Lymphocytes % Not Reportable Lymphocytes % (Manual) 10 L Monocytes % Not Reportable Monocytes % (Manual) 8 Eosinophils % Not Reportable Eosinophils % (Manual) 2 Basophils % Not Reportable Basophils % (Manual) Not Reportable Metamyelocytes % 1 H Absolute Neutrophils Not Reportable Abs Neuts (Manual) 7.3 Absolute Lymphocytes Not Reportable Abs Lymphs (Manual) 0.9 Absolute Monocytes Not Reportable Abs Monocytes (Manual) 0.7 Absolute Eosinophils Not Reportable Absolute Eos (Manual) 0.2 Absolute Basophils Not Reportable Abs Basophils (Manual) 0.0 Toxic Granulation 3+ Toxic Vacuolation PRESENT Clumped Platelets Platelet Comment ADEQUATE Polychromasia SLIGHT Poikilocytosis Anisocytosis 1+ Ovalocytes PT INR APTT Carbonic Acid HCO3/H2CO3 Ratio ABG pH ABG pCO2 ABG pO2 ABG HCO3 ABG Total CO2 ABG O2 Saturation ABG Base Excess VBG pH VBG pCO2 VBG HCO3 VBG Base Excess FiO2 Sodium Potassium Chloride Carbon Dioxide Anion Gap BUN Creatinine Est GFR ( Amer) Est GFR (Non-Af Amer) Glucose POC Glucose Hemoglobin A1c % Lactic Acid Calcium Magnesium Total Bilirubin Direct Bilirubin Neonat Total Bilirubin Neonat Direct Bilirubin Neonat Indirect Bili AST ALT Alkaline Phosphatase Creatine Kinase 41 L CK-MB (CK-2) 1.32 Troponin I 0.222 NT-Pro-B Natriuret Pep Total Protein Albumin Triglycerides Cholesterol LDL Cholesterol Direct VLDL Cholesterol HDL Cholesterol TSH Urine Color Urine Appearance Urine pH Ur Specific [place] Urine Protein Urine Glucose (UA) Urine Ketones Urine Blood Urine Nitrite Urine Bilirubin Urine Urobilinogen Ur Leukocyte Esterase Urine WBC (Auto) Urine RBC (Auto) U Hyaline Cast (Auto) Squamous Epi Cells Auto Urine Mucus (Auto) Urine Ascorbic Acid 12/29/18 12/29/18 12/30/18 20:18 22:08 02:29 WBC RBC Hgb Hct MCV MCH MCHC RDW Plt Count Total Counted Seg Neutrophils % Seg Neuts % (Manual) Lymphocytes % Lymphocytes % (Manual) Monocytes % Monocytes % (Manual) Eosinophils % Eosinophils % (Manual) Basophils % Basophils % (Manual) Metamyelocytes % Absolute Neutrophils Abs Neuts (Manual) Absolute Lymphocytes Abs Lymphs (Manual) Absolute Monocytes Abs Monocytes (Manual) Absolute Eosinophils Absolute Eos (Manual) Absolute Basophils Abs Basophils (Manual) Toxic Granulation Toxic Vacuolation Clumped Platelets Platelet Comment Polychromasia Poikilocytosis Anisocytosis Ovalocytes PT 14.8 INR 1.10 APTT 47.5 H Carbonic Acid HCO3/H2CO3 Ratio ABG pH ABG pCO2 ABG pO2 ABG HCO3 ABG Total CO2 ABG O2 Saturation ABG Base Excess VBG pH VBG pCO2 VBG HCO3 VBG Base Excess FiO2 Sodium Potassium Chloride Carbon Dioxide Anion Gap BUN Creatinine Est GFR ( Amer) Est GFR (Non-Af Amer) Glucose POC Glucose 276 H Hemoglobin A1c % Lactic Acid Calcium Magnesium Total Bilirubin Direct Bilirubin Neonat Total Bilirubin Neonat Direct Bilirubin Neonat Indirect Bili AST ALT Alkaline Phosphatase Creatine Kinase 36 L CK-MB (CK-2) Troponin I NT-Pro-B Natriuret Pep Total Protein Albumin Triglycerides Cholesterol LDL Cholesterol Direct VLDL Cholesterol HDL Cholesterol TSH Urine Color Urine Appearance Urine pH Ur Specific [place] Urine Protein Urine Glucose (UA) Urine Ketones Urine Blood Urine Nitrite Urine Bilirubin Urine Urobilinogen Ur Leukocyte Esterase Urine WBC (Auto) Urine RBC (Auto) U Hyaline Cast (Auto) Squamous Epi Cells Auto Urine Mucus (Auto) Urine Ascorbic Acid 12/30/18 12/30/18 12/30/18 02:29 02:29 02:29 WBC 9.9 RBC 3.39 L Hgb 9.5 L Hct 29.0 L MCV 86 MCH 28.0 MCHC 32.6 RDW 14.9 H Plt Count 263 Total Counted Seg Neutrophils % 75.5 Seg Neuts % (Manual) Lymphocytes % 13.6 Lymphocytes % (Manual) Monocytes % 10.5 Monocytes % (Manual) Eosinophils % 0.1 Eosinophils % (Manual) Basophils % 0.3 Basophils % (Manual) Metamyelocytes % Absolute Neutrophils 7.4 Abs Neuts (Manual) Absolute Lymphocytes 1.3 Abs Lymphs (Manual) Absolute Monocytes 1.0 Abs Monocytes (Manual) Absolute Eosinophils 0.0 Absolute Eos (Manual) Absolute Basophils 0.0 Abs Basophils (Manual) Toxic Granulation Toxic Vacuolation Clumped Platelets Platelet Comment Polychromasia Poikilocytosis Anisocytosis Ovalocytes PT INR APTT Carbonic Acid HCO3/H2CO3 Ratio ABG pH ABG pCO2 ABG pO2 ABG HCO3 ABG Total CO2 ABG O2 Saturation ABG Base Excess VBG pH VBG pCO2 VBG HCO3 VBG Base Excess FiO2 Sodium 134.2 L Potassium 4.1 Chloride 103 Carbon Dioxide 24 Anion Gap 7 BUN 21 H Creatinine 1.05 Est GFR ( Amer) > 60 Est GFR (Non-Af Amer) > 60 Glucose 159 H POC Glucose Hemoglobin A1c % Lactic Acid Calcium 8.4 Magnesium 2.4 H Total Bilirubin 0.7 Direct Bilirubin 0.4 Neonat Total Bilirubin Not Reportable Neonat Direct Bilirubin Not Reportable Neonat Indirect Bili Not Reportable AST 18 ALT 21 Alkaline Phosphatase 72 Creatine Kinase CK-MB (CK-2) 0.92 Troponin I 0.315 NT-Pro-B Natriuret Pep Total Protein 5.5 L Albumin 2.8 L Triglycerides 105 Cholesterol 100.67 LDL Cholesterol Direct 39 VLDL Cholesterol 21.0 HDL Cholesterol 54 TSH Urine Color Urine Appearance Urine pH Ur Specific [place] Urine Protein Urine Glucose (UA) Urine Ketones Urine Blood Urine Nitrite Urine Bilirubin Urine Urobilinogen Ur Leukocyte Esterase Urine WBC (Auto) Urine RBC (Auto) U Hyaline Cast (Auto) Squamous Epi Cells Auto Urine Mucus (Auto) Urine Ascorbic Acid 12/30/18 12/30/18 12/30/18 02:29 02:29 02:29 WBC RBC Hgb Hct MCV MCH MCHC RDW Plt Count Total Counted Seg Neutrophils % Seg Neuts % (Manual) Lymphocytes % Lymphocytes % (Manual) Monocytes % Monocytes % (Manual) Eosinophils % Eosinophils % (Manual) Basophils % Basophils % (Manual) Metamyelocytes % Absolute Neutrophils Abs Neuts (Manual) Absolute Lymphocytes Abs Lymphs (Manual) Absolute Monocytes Abs Monocytes (Manual) Absolute Eosinophils Absolute Eos (Manual) Absolute Basophils Abs Basophils (Manual) Toxic Granulation Toxic Vacuolation Clumped Platelets Platelet Comment Polychromasia Poikilocytosis Anisocytosis Ovalocytes PT INR APTT Carbonic Acid HCO3/H2CO3 Ratio ABG pH ABG pCO2 ABG pO2 ABG HCO3 ABG Total CO2 ABG O2 Saturation ABG Base Excess VBG pH VBG pCO2 VBG HCO3 VBG Base Excess FiO2 Sodium Potassium Chloride Carbon Dioxide Anion Gap BUN Creatinine Est GFR ( Amer) Est GFR (Non-Af Amer) Glucose POC Glucose Hemoglobin A1c % 7.8 H Lactic Acid Calcium Magnesium Total Bilirubin Direct Bilirubin Neonat Total Bilirubin Neonat Direct Bilirubin Neonat Indirect Bili AST ALT Alkaline Phosphatase Creatine Kinase CK-MB (CK-2) Troponin I NT-Pro-B Natriuret Pep 92611 H Total Protein Albumin Triglycerides Cholesterol LDL Cholesterol Direct VLDL Cholesterol HDL Cholesterol TSH 5.88 H Urine Color Urine Appearance Urine pH Ur Specific [place] Urine Protein Urine Glucose (UA) Urine Ketones Urine Blood Urine Nitrite Urine Bilirubin Urine Urobilinogen Ur Leukocyte Esterase Urine WBC (Auto) Urine RBC (Auto) U Hyaline Cast (Auto) Squamous Epi Cells Auto Urine Mucus (Auto) Urine Ascorbic Acid 12/30/18 12/30/18 12/30/18 07:33 09:06 09:06 WBC RBC Hgb Hct MCV MCH MCHC RDW Plt Count Total Counted Seg Neutrophils % Seg Neuts % (Manual) Lymphocytes % Lymphocytes % (Manual) Monocytes % Monocytes % (Manual) Eosinophils % Eosinophils % (Manual) Basophils % Basophils % (Manual) Metamyelocytes % Absolute Neutrophils Abs Neuts (Manual) Absolute Lymphocytes Abs Lymphs (Manual) Absolute Monocytes Abs Monocytes (Manual) Absolute Eosinophils Absolute Eos (Manual) Absolute Basophils Abs Basophils (Manual) Toxic Granulation Toxic Vacuolation Clumped Platelets Platelet Comment Polychromasia Poikilocytosis Anisocytosis Ovalocytes PT INR APTT Carbonic Acid HCO3/H2CO3 Ratio ABG pH ABG pCO2 ABG pO2 ABG HCO3 ABG Total CO2 ABG O2 Saturation ABG Base Excess VBG pH VBG pCO2 VBG HCO3 VBG Base Excess FiO2 Sodium Potassium Chloride Carbon Dioxide Anion Gap BUN Creatinine Est GFR ( Amer) Est GFR (Non-Af Amer) Glucose POC Glucose 221 H Hemoglobin A1c % Lactic Acid Calcium Magnesium Total Bilirubin Direct Bilirubin Neonat Total Bilirubin Neonat Direct Bilirubin Neonat Indirect Bili AST ALT Alkaline Phosphatase Creatine Kinase 29 L CK-MB (CK-2) 0.88 Troponin I 0.293 NT-Pro-B Natriuret Pep Total Protein Albumin Triglycerides Cholesterol LDL Cholesterol Direct VLDL Cholesterol HDL Cholesterol TSH Urine Color Urine Appearance Urine pH Ur Specific [place] Urine Protein Urine Glucose (UA) Urine Ketones Urine Blood Urine Nitrite Urine Bilirubin Urine Urobilinogen Ur Leukocyte Esterase Urine WBC (Auto) Urine RBC (Auto) U Hyaline Cast (Auto) Squamous Epi Cells Auto Urine Mucus (Auto) Urine Ascorbic Acid 12/30/18 12/30/18 12/30/18 11:05 15:35 15:35 WBC RBC Hgb Hct MCV MCH MCHC RDW Plt Count Total Counted Seg Neutrophils % Seg Neuts % (Manual) Lymphocytes % Lymphocytes % (Manual) Monocytes % Monocytes % (Manual) Eosinophils % Eosinophils % (Manual) Basophils % Basophils % (Manual) Metamyelocytes % Absolute Neutrophils Abs Neuts (Manual) Absolute Lymphocytes Abs Lymphs (Manual) Absolute Monocytes Abs Monocytes (Manual) Absolute Eosinophils Absolute Eos (Manual) Absolute Basophils Abs Basophils (Manual) Toxic Granulation Toxic Vacuolation Clumped Platelets Platelet Comment Polychromasia Poikilocytosis Anisocytosis Ovalocytes PT INR APTT Carbonic Acid HCO3/H2CO3 Ratio ABG pH ABG pCO2 ABG pO2 ABG HCO3 ABG Total CO2 ABG O2 Saturation ABG Base Excess VBG pH VBG pCO2 VBG HCO3 VBG Base Excess FiO2 Sodium Potassium Chloride Carbon Dioxide Anion Gap BUN Creatinine Est GFR ( Amer) Est GFR (Non-Af Amer) Glucose POC Glucose 206 H Hemoglobin A1c % Lactic Acid Calcium Magnesium Total Bilirubin Direct Bilirubin Neonat Total Bilirubin Neonat Direct Bilirubin Neonat Indirect Bili AST ALT Alkaline Phosphatase Creatine Kinase 25 L CK-MB (CK-2) 0.54 Troponin I 0.256 NT-Pro-B Natriuret Pep Total Protein Albumin Triglycerides Cholesterol LDL Cholesterol Direct VLDL Cholesterol HDL Cholesterol TSH Urine Color Urine Appearance Urine pH Ur Specific [place] Urine Protein Urine Glucose (UA) Urine Ketones Urine Blood Urine Nitrite Urine Bilirubin Urine Urobilinogen Ur Leukocyte Esterase Urine WBC (Auto) Urine RBC (Auto) U Hyaline Cast (Auto) Squamous Epi Cells Auto Urine Mucus (Auto) Urine Ascorbic Acid 12/30/18 16:35 WBC RBC Hgb Hct MCV MCH MCHC RDW Plt Count Total Counted Seg Neutrophils % Seg Neuts % (Manual) Lymphocytes % Lymphocytes % (Manual) Monocytes % Monocytes % (Manual) Eosinophils % Eosinophils % (Manual) Basophils % Basophils % (Manual) Metamyelocytes % Absolute Neutrophils Abs Neuts (Manual) Absolute Lymphocytes Abs Lymphs (Manual) Absolute Monocytes Abs Monocytes (Manual) Absolute Eosinophils Absolute Eos (Manual) Absolute Basophils Abs Basophils (Manual) Toxic Granulation Toxic Vacuolation Clumped Platelets Platelet Comment Polychromasia Poikilocytosis Anisocytosis Ovalocytes PT INR APTT Carbonic Acid HCO3/H2CO3 Ratio ABG pH ABG pCO2 ABG pO2 ABG HCO3 ABG Total CO2 ABG O2 Saturation ABG Base Excess VBG pH VBG pCO2 VBG HCO3 VBG Base Excess FiO2 Sodium Potassium Chloride Carbon Dioxide Anion Gap BUN Creatinine Est GFR ( Amer) Est GFR (Non-Af Amer) Glucose POC Glucose 204 H Hemoglobin A1c % Lactic Acid Calcium Magnesium Total Bilirubin Direct Bilirubin Neonat Total Bilirubin Neonat Direct Bilirubin Neonat Indirect Bili AST ALT Alkaline Phosphatase Creatine Kinase CK-MB (CK-2) Troponin I NT-Pro-B Natriuret Pep Total Protein Albumin Triglycerides Cholesterol LDL Cholesterol Direct VLDL Cholesterol HDL Cholesterol TSH Urine Color Urine Appearance Urine pH Ur Specific [place] Urine Protein Urine Glucose (UA) Urine Ketones Urine Blood Urine Nitrite Urine Bilirubin Urine Urobilinogen Ur Leukocyte Esterase Urine WBC (Auto) Urine RBC (Auto) U Hyaline Cast (Auto) Squamous Epi Cells Auto Urine Mucus (Auto) Urine Ascorbic Acid Chest X-Ray 12/29/18 07:48 IMPRESSION: Generally stable chest, likely COPD. IMPRESSION/RECOMMENDATION: 1. Elevated troponin I most likely secondary to his acute exacerbation of COPD, hypoxemia, and multifocal atrial tachycardia. This is a type II supply demand mismatch myocardial infarction, and not a non-ST elevation SD. Hence we will treat the underlying cause, and not treat this is a non-ST elevation SD. 2. Acute on chronic respiratory failure: Would recommend treatment with BiPAP, respiratory treatments, supplemental oxygen, steroids, and antibiotics. 3. Acute exacerbation of COPD, with possibly infective bronchitis: Recommend t reat with BiPAP, supplemental oxygen, respiratory treatments, steroids, and antibiotics. 4. Multifocal atrial tachycardia: Continue the patient on IV Cardizem drip at 5 mg/h, increase as tolerated. Subsequently we will convert this to oral long- acting Cardizem preparation. 5.Coronary artery disease: History of prior prior SD. History of stents in the RCA and left anterior descending artery. 6. Hypertension: Blood pressure well controlled. 7. Diabetes mellitus: Continue antidiabetic regimen, and periodic checks on this blood sugars. 8. Obstructive sleep apnea: Continue CPAP at night Is reviewed. Medications adjusted, new medications added. Management plan discussed with the identification of the case. Medical decision making is of high complexity. 60 minutes spent on this patient more than 50% of time spent in direct patient care. We will follow
[2018-12-30 22:00] LABS: CREATINE KINASE MB 0.56 ng/mL (<4.55); TROPONIN I 0.243 ng/mL
[2018-12-30] MEDS: TAMSULOSIN HCL 0.4 MG CAP.SR.24H PO SCH (22:47)
[2018-12-30] MEDS: ATORVASTATIN CALCIUM 40 MG TABLET PO SCH (22:47)
--- NOTE | 2018-12-30 23:52 | EKG REPORT ---
SEVERITY:- ABNORMAL ECG - SINUS TACHYCARDIA MULTIPLE ATRIAL PREMATURE COMPLEXES RBBB AND LPFB BORDERLINE INFERIOR Q WAVES : Confirmed by: Arpan Aleman 30-Dec-2018 23:51:57
[2018-12-31] MEDS: ACETAMINOPHEN 325 MG TABLET PO PRN ×2 (03:18→15:46)
[2018-12-31 05:35] LABS: HEMATOCRIT 25.9 % (37.9-51.0); HEMOGLOBIN 8.7 g/dL (13.5-17.0); MEAN CORPUSCULAR HEMOGLOBIN 28.7 pg (27.0-33.4); MEAN CORPUSCULAR HGB CONC 33.4 g/dL (32.0-36.0); MEAN CORPUSCULAR VOLUME 86 fl (80-97); PLATELET COUNT 248 10^3/uL (150-450); RED BLOOD COUNT 3.02 10^6/uL (4.35-5.55); RED CELL DISTRIBUTION WIDTH 14.7 % (11.5-14.0); WHITE BLOOD COUNT 8.6 10^3/uL (4.0-10.5)
[2018-12-31] MEDS: PANTOPRAZOLE SODIUM 40 MG TABLET.DR PO SCH (05:46)
[2018-12-31] MEDS: ALBUTEROL SULFATE HFA (90 MCG/PUFF) 200 PUFF/8.5 GM MDI IH SCH ×4 (05:46→23:04)
[2018-12-31] MEDS: ENOXAPARIN SODIUM INJ 80 MG/0.8 ML DISP.SYRIN SUBCUT SCH (05:46)
[2018-12-31] MEDS: LEVOTHYROXINE SODIUM 0.05 MG TABLET PO SCH (05:46)
[2018-12-31 05:48] LABS: ALANINE AMINOTRANSFERASE 22 U/L (21-72); ALBUMIN 2.6 g/dL (3.5-5.0); ALKALINE PHOSPHATASE 71 U/L (38-126); ANION GAP 10 (5-19); ASPARTATE AMINO TRANSFERASE 15 U/L (17-59); BILIRUBIN,DIRECT 0.4 mg/dL (0.0-0.4); BILIRUBIN,TOTAL 0.6 mg/dL (0.2-1.3); BLOOD UREA NITROGEN 36 mg/dL (7-20); CALCIUM 8.1 mg/dL (8.4-10.2); CARBON DIOXIDE 24 mmol/L (22-30); CHLORIDE 99 mmol/L (98-107); GLUCOSE 167 mg/dL (75-110); POTASSIUM 3.9 mmol/L (3.6-5.0); SODIUM 133.4 mmol/L (137-145); TOTAL PROTEIN 5.2 g/dL (6.3-8.2)
[2018-12-31 06:30] LABS: ABSOLUTE LYMPHOCYTES# (MANUAL) 1.2 10^3/uL (0.5-4.7); ABSOLUTE MONOCYTES # (MANUAL) 0.8 10^3/uL (0.1-1.4); ABSOLUTE NEUTROPHILS# (MANUAL) 6.6 10^3/uL (1.7-8.2); BAND NEUTROPHILS % (MANUAL) 1 % (3-5); BASOPHILS % (MANUAL) 0 % (0-2); EOSINOPHILS % (MANUAL) 0 % (0-6); LYMPHOCYTES % (MANUAL) 14 % (13-45); METAMYELOCYTES % (MANUAL) 1 % (0); MONOCYTES % (MANUAL) 9 % (3-13); SEGMENTED NEUTROPHILS % (MAN) 75 % (42-78); TOTAL CELLS COUNTED 100
[2018-12-31 06:38] LABS: ANISOCYTOSIS SLIGHT; HYPOCHROMASIA SLIGHT; OVALOCYTES 1+
[2018-12-31 06:39] LABS: PLATELET COMMENT ADEQUATE
[2018-12-31] MEDS: INSULIN REG, HUMAN 100 UNIT/ML 3 ML VIAL (PYX) SUBCUT SCH ×4 (08:45→21:54)
[2018-12-31] MEDS ORDERED: NORMAL SALINE 250 ML IV PRN ×2 (10:14)
[2018-12-31] MEDS: RANOLAZINE 500 MG TAB.SR.12H PO SCH ×2 (10:17→21:51)
[2018-12-31] MEDS: LISINOPRIL 5 MG TABLET PO SCH (10:17)
[2018-12-31] MEDS: FUROSEMIDE 20 MG TABLET PO SCH (10:17)
[2018-12-31] MEDS: SITAGLIPTIN PHOSPHATE 50 MG TABLET PO SCH (10:18)
[2018-12-31] MEDS: FAMOTIDINE 20 MG TABLET PO SCH ×2 (10:18→21:52)
[2018-12-31] MEDS: ASPIRIN 81 MG TABLET, CHEWABLE PO SCH (10:18)
[2018-12-31] MEDS: CLOPIDOGREL BISULFATE 75 MG TABLET PO SCH (10:18)
[2018-12-31] MEDS: METOPROLOL SUCCINATE 25 MG TAB.SR.24H PO SCH (10:18)
[2018-12-31] MEDS: FLUTICASONE/VILANTEROL 200-25 MCG/DOSE IH SCH (10:23)
[2018-12-31] MEDS: INSULIN GLARGINE,HUM.REC.ANLOG 1,000 UNIT/10 ML VIAL SUBCUT SCH ×2 (10:24→21:54)
--- NOTE | 2018-12-31 10:37 | PDOC PROGRESS REPORT ---
Subjective Progress Note for:: 12/31/18 Subjective:: 83 year old male history of atrial fibrillation, COPD on 2 L oxygen at home, diabetic, hypertensive, coronary artery disease with stent placement, congestive heart failure came to the emergency room with complaints of shortness of breath for 1 week. As per the patient shortness of breath associated with a dry cough. Denies any chest pains. Denies any nausea vomiting diarrhea. Denies any headaches dizzy spells and sweating. EMS was called and he was placed on CPAP because oxygen saturation is noted to be to be around 90% on room air and he is tachypneic. Patient responded well to CPAP and in the emergency room it was changed to BiPAP. On examination patient is still on BiPAP communicating okay. In the emergency room cardiac workup was done EKG shows sinus tachycardia and troponin is 0.191 with a BNP of 9650. medical consult was called for admission. 12/[id number]-dwqw-old male with history of atrial fibrillation COPD on 2 L oxygen at home history of coronary artery disease with multiple stent placements came in with shortness of breath initial troponin is elevated 0.19 and a second 1 is 0.22 31 is 0.318 his quarter supervisor in [place] spoke to the ER physician here and the recommendation is patient is not a candidate for surgery medical management is the only option. We placed him here in the hospital and a cardiology consult was requested with Dr. Hussein his recommendation is also medical management. Patient is still chest pain-free. And he came in with atrial fibrillation with RVR and he converted to sinus rhythm. Patient is comfortably in the bed denies any complaints. No acute events in the last 24 hours. 12/31/2018-no acute events in the last 24 hours. Patient is afebrile. Dr. Hussein sign him off today. Patient still having the shortness of breath and wheezes. But is getting much better today. Comfortable in the bed expressing desire to go home. Explained to him that he may need to stay at least 24 hours to 48 hours. Reason For Visit: NSTEMI (NON-ST ELEVATED MYOCARDIAL INFARCTION) Physical Exam Vital Signs: Temp Pulse Resp BP Pulse Ox 97.8 F 77 20 102/41 L 98 12/31/18 08:09 12/31/18 08:09 12/31/18 08:09 12/31/18 09:47 12/31/18 08:09 Intake & Output 12/30/18 12/31/18 01/01/19 06:59 06:59 06:59 Intake Total 300 1172 Output Total 30 Balance 270 1172 Weight 71.7 kg 70.2 kg General appearance: PRESENT: mild distress, thin Head exam: PRESENT: atraumatic Mouth exam: PRESENT: moist, tongue midline Neck exam: ABSENT: carotid bruit, JVD, lymphadenopathy, thyromegaly Respiratory exam: PRESENT: crackles, decreased breath sounds, rhonchi, wheezes Cardiovascular exam: PRESENT: tachycardia GI/Abdominal exam: PRESENT: normal bowel sounds, soft. ABSENT: distended, guarding, mass, organolmegaly, rebound, tenderness Extremities exam: PRESENT: full ROM. ABSENT: calf tenderness, clubbing, pedal edema Neurological exam: PRESENT: alert, awake, oriented to person, oriented to place, oriented to time, oriented to situation, CN II-XII grossly intact. ABSENT: motor sensory deficit Psychiatric exam: PRESENT: appropriate affect, normal mood. ABSENT: homicidal ideation, suicidal ideation Results Laboratory Results: 12/31/18 04:30 12/31/18 04:30 12/31/18 12/31/18 04:30 04:30 WBC 8.6 RBC 3.02 L Hgb 8.7 L Hct 25.9 L MCV 86 MCH 28.7 MCHC 33.4 RDW 14.7 H Plt Count 248 Seg Neutrophils % Not Reportable Lymphocytes % Not Reportable Monocytes % Not Reportable Eosinophils % Not Reportable Basophils % Not Reportable Absolute Neutrophils Not Reportable Absolute Lymphocytes Not Reportable Absolute Monocytes Not Reportable Absolute Eosinophils Not Reportable Absolute Basophils Not Reportable Sodium 133.4 L Potassium 3.9 Chloride 99 Carbon Dioxide 24 Anion Gap 10 BUN 36 H Creatinine 1.71 H Est GFR ( Amer) 46 L Est GFR (Non-Af Amer) 38 L Glucose 167 H Calcium 8.1 L Magnesium 2.3 Total Bilirubin 0.6 AST 15 L ALT 22 Alkaline Phosphatase 71 Total Protein 5.2 L Albumin 2.6 L 12/29/18 12/29/18 12/29/18 11:39 20:18 20:18 Creatine Kinase 41 L CK-MB (CK-2) 1.32 Troponin I 0.191 0.222 NT-Pro-B Natriuret Pep 9650 H 03/24/19 03/24/19 03/24/19 02:29 02:29 02:29 Creatine Kinase 36 L CK-MB (CK-2) 0.92 Troponin I 0.315 NT-Pro-B Natriuret Pep 42003 H 12/30/18 12/30/18 12/30/18 09:06 09:06 15:35 Creatine Kinase 29 L 25 L CK-MB (CK-2) 0.88 Troponin I 0.293 NT-Pro-B Natriuret Pep 12/30/18 12/30/18 12/30/18 15:35 21:20 21:20 Creatine Kinase 29 L CK-MB (CK-2) 0.54 0.56 Troponin I 0.256 0.243 NT-Pro-B Natriuret Pep Impressions: Chest X-Ray 12/29/18 07:48 IMPRESSION: Generally stable chest, likely COPD. Assessment and Plan - Diagnosis (1) NSTEMI (non-ST elevated myocardial infarction) Is this a current diagnosis for this admission?: Yes Plan: 12/29/2018-patient came in with shortness of breath with elevated troponins and ER physician spoke to the quarter supervisor in [facility], as per the patient's quarter supervisor patient is not a candidate for stent placement medical management was recommended. Dr. Hussein was consulted he agreed to keep the patient here with IV heparin drip. Patient signed a DNR/DNI. He is going to be placed in IMCU. Start on heparin drip. To restart his home medications. To order cardiac enzymes x3 with EKG. Morphine 2 mg every 6 hours as needed for chest pain was placed. GI prophylaxis was provided. Plan to do the labs tomorrow including lipid panel and hemoglobin A1c. She was placed on oxygen 2 L nasal cannula and also placed on BiPAP on as needed basis. 12/30/2018-patient came in with shortness of breath no chest pain since admission. No chest pains reported in the emergency room. Elevated troponins most likely secondary to oxygen demand mismatch. GI consult was done. He was in atrial fibrillation when he came in and started on Cardizem drip he converted to sinus rhythm last night. His troponin is 0.318. Presently on Lovenox 70 mg subcu daily. He is on also on aspirin ,plavix and atorvastatin. Plan is to continue the present management. 12/31/[id number]-EVLCA is ruled out. Patient has elevated troponin I because demand and supply mismatch. This is due to COPD exacerbation. His troponins are trending down. We are going to switch from treatment dose of Lovenox to 40 mg of Lovenox subcu daily. Patient denies any chest pains since the admission. Ekg shows multifocal atrial tachycardia. (2) Acute on chronic respiratory failure with hypoxemia Is this a current diagnosis for this admission?: Yes Plan: 12/29/2018-patient history of COPD on home oxygen 2 L. EMS noted to have a pulse ox from 90 started on CPAP when it was switched to BiPAP in the emergency room. At the time of examination patient is still on BiPAP. Acute on chronic respiratory failure with hypoxia most likely secondary to COPD exacerbation. To start him on Xopenex nebulizations every 4 as needed. 12/30/2018-patient has history of COPD on oxygen 2 L at home. Came in with acute on chronic respiratory failure with hypoxia. He still requiring BiPAP on and off. Pulse ox is 96% on 4 L today. Patient is on Xopenex nebulizations every 4 as needed. IV Solu-Medrol was not started because of the high heart rate last night. Chest x-ray is not suggestive of any pneumonia. 12/31/2018 1 patient has history of COPD on 2 L of oxygen at home. Admitted for acute on chronic respiratory failure with hypoxia secondary to COPD exacerb ation. Plan is to continue the Xopenex nebulizations, albuterol inhalation every 6 hours, requested for flutter valve therapy. to Repeat the chest x-ray today. Patient presently on levofloxacin. Blood cultures are negative so far. (3) Diabetes mellitus Qualifiers: Diabetes mellitus type: type 2 Is this a current diagnosis for this admission?: No Plan: 12/29/2018-patient has history of type 2 diabetes mellitus. Start him on insulin sliding scale before meals and at bedtime. To check her hemoglobin A1c in the morning. 12/30/2018-patient has type 2 diabetes mellitus, hemoglobin A1c 7.8 he is on insulin sliding scale before meals and at bedtime. Dietary consult is going to be requested. To start him on Lantus 10 units twice a day. Diet exercise compliant with medications discussed with the patient. 12/31/2018 patient has history of type 2 diabetes mellitus, hemoglobin A1c 7.8 blood sugar this morning is 217 he is on insulin sliding scale before meals and at bedtime started on Lantus 10 units twice a day he is also on a Januvia 50 mg p.o. daily. Because of the elevated creatinines Januvia dose was decreased to 25 mg p.o. daily. Plan is to increase the Lantus to 15 units twice a day. Dietary consult was requested. (4) CHF (congestive heart failure) Is this a current diagnosis for this admission?: No Plan: 12/29/2018-echocardiogram was done last year shows EF of 35% unable to assess the diastolic function because of the atrial fibrillation. Patient has acute on chronic congestive heart failure systolic in nature. BNP is 9650. Chest x-ray did not show any bilateral pleural effusions. Plan is to give Lasix 40 mg IV daily. 12/30/2018-patient has a chronic systolic heart failure. BNP today is 19,600. Started on Lasix 40 mg IV daily. Patient is also on lisinopril 5 mg p.o. daily blood pressure today is 111/52 with a heart rate of 96 plan is to continue the present management to check the BNP tomorrow. 12/31/2018-patient has history of chronic systolic heart failure latest BNP from yesterday's 19,600 he was on IV Lasix 40 mg daily his creatinine is elevated from 0.85-1.71 today plan is to switch Lasix to 20 mg p.o. daily. To check BMP tomorrow. To do the follow-up chest x-ray today. Patient is not in fluid overload. (5) DNR (do not resuscitate) Is this a current diagnosis for this admission?: Yes (6) Anemia Qualifiers: Anemia type: unspecified type Qualified Code(s): D64.9 - Anemia, unspecified Is this a current diagnosis for this admission?: Yes Plan: 12/30/2018-patient has anemia of chronic disease. Most likely secondary to chronic kidney disease. 12/03/2018-patient has history of anemia of chronic disease most likely secondary to chronic kidney disease. Hemoglobin dropped to 8.7 from 11.1 we going to give 1 unit of PRBC today. He is on full dose of Lovenox plan to switch her to DVT prophylaxis dose and is also on aspirin and Plavix plan is to continue those medications. (7) Acute kidney injury Is this a current diagnosis for this admission?: Yes Plan: 12/31/2018 patient's admission creatinine is 0.85 it was sent to 1.71 today it may be secondary to IV Lasix therapy. Lasix is switched to 20 mg p.o. daily. Plan to recheck the labs tomorrow. (8) Hyponatremia Is this a current diagnosis for this admission?: Yes Plan: 12/31/2018-serum sodium level today is 133.4, hyponatremia most likely secondary to Lasix. IV Lasix is switched to p.o. Lasix today. Plan to recheck the sodium levels tomorrow. - Time Time Spent with patient: 15-24 minutes Smoking Cessation Education: 3 to 10 minutes Medications reviewed and adjusted accordingly: Yes
[2018-12-31] MEDS: FUROSEMIDE INJ/PF 40 MG/4 ML SDV IV SCH (11:02)
[2018-12-31] MEDS ORDERED: ONDANSETRON HCL INJ/PF 4 MG/2 ML SDV IV PRN (13:00)
--- NOTE | 2018-12-31 16:15 | RADIOLOGY REPORT (SQ) ---
EXAM DESCRIPTION: CHEST SINGLE VIEW COMPLETED DATE/TIME: 12/31/2018 4:03 pm REASON FOR STUDY: copd COMPARISON: 12/29/2018. EXAM PARAMETERS: NUMBER OF VIEWS: One view. TECHNIQUE: Single frontal radiographic view of the chest acquired. RADIATION DOSE: NA LIMITATIONS: None. FINDINGS: LUNGS AND PLEURA: Interval development of patchy airspace disease in the right lung base. Left lung clear. MEDIASTINUM AND HILAR STRUCTURES: No masses. Contour normal. HEART AND VASCULAR STRUCTURES: Heart normal in size. Normal vasculature. BONES: No acute findings. HARDWARE: Hardware in the right humerus. OTHER: No other significant finding. IMPRESSION: ATELECTASIS VERSUS DEVELOPING INFILTRATE IN THE RIGHT LUNG BASE. TECHNICAL DOCUMENTATION: JOB ID: [id number]- All Rights Reserved Reading location - IP/workstation name: [email or web address]
[2018-12-31] MEDS: ATORVASTATIN CALCIUM 40 MG TABLET PO SCH (21:51)
[2018-12-31] MEDS: TAMSULOSIN HCL 0.4 MG CAP.SR.24H PO SCH (21:51)
[2018-12-31] MEDS: ENOXAPARIN SODIUM INJ 40 MG/0.4 ML DISP.SYRIN SUBCUT SCH (21:52)
[2018-12-31] MEDS ORDERED: ENOXAPARIN SODIUM INJ 80 MG/0.8 ML DISP.SYRIN SUBCUT SCH (22:00)
--- NOTE | 2018-12-31 22:54 | Progress Note ---
Provider Note Provider Note: CARDIOLOGY PROGRESS NOTE by Dr. Herminia Dowd on 12/31/2018.
[2019-01-01 05:23] LABS: HEMATOCRIT 28.3 % (37.9-51.0); HEMOGLOBIN 9.7 g/dL (13.5-17.0); MEAN CORPUSCULAR HEMOGLOBIN 29.2 pg (27.0-33.4); MEAN CORPUSCULAR HGB CONC 34.3 g/dL (32.0-36.0); MEAN CORPUSCULAR VOLUME 85 fl (80-97); PLATELET COUNT 287 10^3/uL (150-450); RED BLOOD COUNT 3.33 10^6/uL (4.35-5.55); RED CELL DISTRIBUTION WIDTH 14.9 % (11.5-14.0); WHITE BLOOD COUNT 7.5 10^3/uL (4.0-10.5)
[2019-01-01] MEDS: LEVOTHYROXINE SODIUM 0.05 MG TABLET PO SCH (05:36)
[2019-01-01] MEDS: ALBUTEROL SULFATE HFA (90 MCG/PUFF) 200 PUFF/8.5 GM MDI IH SCH ×4 (05:36→23:15)
[2019-01-01 05:44] LABS: ALANINE AMINOTRANSFERASE 21 U/L (21-72); ALBUMIN 2.7 g/dL (3.5-5.0); ALKALINE PHOSPHATASE 75 U/L (38-126); ANION GAP 9 (5-19); ASPARTATE AMINO TRANSFERASE 21 U/L (17-59); BILIRUBIN,DIRECT 0.4 mg/dL (0.0-0.4); BILIRUBIN,TOTAL 0.6 mg/dL (0.2-1.3); BLOOD UREA NITROGEN 34 mg/dL (7-20); CALCIUM 8.4 mg/dL (8.4-10.2); CARBON DIOXIDE 24 mmol/L (22-30); CHLORIDE 103 mmol/L (98-107); GLUCOSE 116 mg/dL (75-110); POTASSIUM 4.3 mmol/L (3.6-5.0); TOTAL PROTEIN 5.3 g/dL (6.3-8.2)
[2019-01-01 06:08] LABS: ABSOLUTE LYMPHOCYTES# (MANUAL) 1.2 10^3/uL (0.5-4.7); ABSOLUTE MONOCYTES # (MANUAL) 0.3 10^3/uL (0.1-1.4); BASOPHILS % (MANUAL) 0 % (0-2); EOSINOPHILS % (MANUAL) 0 % (0-6); LYMPHOCYTES % (MANUAL) 16 % (13-45); METAMYELOCYTES % (MANUAL) 1 % (0); MONOCYTES % (MANUAL) 4 % (3-13); SEGMENTED NEUTROPHILS % (MAN) 79 % (42-78); TOTAL CELLS COUNTED 100
[2019-01-01 06:09] LABS: TOXIC GRANULATION 1+; TOXIC VACUOLATION PRESENT
[2019-01-01 06:10] LABS: ANISOCYTOSIS SLIGHT; OVALOCYTES 1+; PLATELET COMMENT ADEQUATE; POIKILOCYTOSIS 1+; SCHISTOCYTES SLIGHT; TEAR DROP CELLS 1+
[2019-01-01] MEDS: ACETAMINOPHEN 325 MG TABLET PO PRN ×2 (08:29→21:27)
[2019-01-01] MEDS: INSULIN REG, HUMAN 100 UNIT/ML 3 ML VIAL (PYX) SUBCUT SCH ×4 (09:05→21:33)
[2019-01-01] MEDS ORDERED: LEVALBUTEROL HCL NEB 1.25 MG/3 ML AMPUL NEB PRN (09:53)
[2019-01-01] MEDS ORDERED: SITAGLIPTIN PHOSPHATE 50 MG TABLET PO SCH (10:00)
[2019-01-01] MEDS: METOPROLOL SUCCINATE 25 MG TAB.SR.24H PO SCH (10:21)
[2019-01-01] MEDS: RANOLAZINE 500 MG TAB.SR.12H PO SCH ×2 (10:21→21:27)
[2019-01-01] MEDS: LISINOPRIL 5 MG TABLET PO SCH (10:22)
[2019-01-01] MEDS: ASPIRIN 81 MG TABLET, CHEWABLE PO SCH (10:22)
[2019-01-01] MEDS: FAMOTIDINE 20 MG TABLET PO SCH ×2 (10:22→21:27)
[2019-01-01] MEDS: FUROSEMIDE 20 MG TABLET PO SCH (10:22)
[2019-01-01] MEDS: CLOPIDOGREL BISULFATE 75 MG TABLET PO SCH (10:22)
[2019-01-01] MEDS: FLUTICASONE/VILANTEROL 200-25 MCG/DOSE IH SCH (10:23)
[2019-01-01] MEDS: SITAGLIPTIN PHOSPHATE 25 MG TABLET PO SCH (10:26)
[2019-01-01] MEDS: INSULIN GLARGINE,HUM.REC.ANLOG 1,000 UNIT/10 ML VIAL SUBCUT SCH ×2 (11:11→21:33)
--- NOTE | 2019-01-01 16:08 | PDOC PROGRESS REPORT ---
Subjective Progress Note for:: 12/25/18 Subjective:: This is an 83 yr old male with a PMH of atrial fibrillation, COPD on 2 L oxygen at home, diabetic, hypertensive, coronary artery disease with stent placement, congestive heart failure who presented with increasing shortness of breath. He was admitted for COPD exacerbation and was initially requiring BIPAP. He was also found to have elevated troponins deemed to be from demand ischemia. No acute event overnight. This morning, he says his breathing continues to im prove but he is not at his baseline yet. He says he does not have chest pain and never had chest pain. Reason For Visit: NSTEMI (NON-ST ELEVATED MYOCARDIAL INFARCTION) Physical Exam Vital Signs: Temp Pulse Resp BP Pulse Ox 97.3 F 73 18 127/50 H 100 01/01/19 12:17 01/01/19 12:17 01/01/19 12:17 01/01/19 12:17 01/01/19 12:17 Intake & Output 12/31/18 01/01/19 01/02/19 06:59 06:59 06:59 Intake Total 1172 1547 275 Balance 1172 1547 275 Weight 154 lb 12.232 oz 158 lb 1.143 oz General appearance: PRESENT: no acute distress, well-developed, well-nourished Head exam: PRESENT: atraumatic, normocephalic Eye exam: PRESENT: conjunctiva pink, EOMI, PERRLA. ABSENT: scleral icterus Ear exam: PRESENT: normal external ear exam Mouth exam: PRESENT: moist, tongue midline Neck exam: ABSENT: carotid bruit, JVD, lymphadenopathy, thyromegaly Respiratory exam: PRESENT: wheezes - minimal on the bases. ABSENT: rales, rhonchi Cardiovascular exam: PRESENT: RRR. ABSENT: diastolic murmur, rubs, systolic murmur Pulses: PRESENT: normal dorsalis pedis pul GI/Abdominal exam: PRESENT: normal bowel sounds, soft. ABSENT: distended, guarding, mass, organolmegaly, rebound, tenderness Rectal exam: PRESENT: deferred Neurological exam: PRESENT: alert, awake, oriented to person, oriented to place, oriented to time, oriented to situation, CN II-XII grossly intact. ABSENT: motor sensory deficit Results Laboratory Results: 01/01/19 04:52 01/01/19 04:52 12/31/18 01/01/19 01/01/19 11:37 04:52 04:52 WBC 7.5 RBC 3.33 L Hgb 9.7 L Hct 28.3 L MCV 85 MCH 29.2 MCHC 34.3 RDW 14.9 H Plt Count 287 Seg Neutrophils % Not Reportable Lymphocytes % Not Reportable Monocytes % Not Reportable Eosinophils % Not Reportable Basophils % Not Reportable Absolute Neutrophils Not Reportable Absolute Lymphocytes Not Reportable Absolute Monocytes Not Reportable Absolute Eosinophils Not Reportable Absolute Basophils Not Reportable Sodium 136.0 L Potassium 4.3 Chloride 103 Carbon Dioxide 24 Anion Gap 9 BUN 34 H Creatinine 1.34 H Est GFR ( Amer) > 60 Est GFR (Non-Af Amer) 51 L Glucose 116 H Calcium 8.4 Magnesium 2.4 H Total Bilirubin 0.6 AST 21 ALT 21 Alkaline Phosphatase 75 Total Protein 5.3 L Albumin 2.7 L Blood Type B POSITIVE Antibody Screen NEGATIVE 12/29/18 12/29/18 12/29/18 11:39 20:18 20:18 Creatine Kinase 41 L CK-MB (CK-2) 1.32 Troponin I 0.191 0.222 NT-Pro-B Natriuret Pep 9650 H 12/30/18 12/30/18 12/30/18 02:29 02:29 02:29 Creatine Kinase 36 L CK-MB (CK-2) 0.92 Troponin I 0.315 NT-Pro-B Natriuret Pep 37501 H 12/30/18 12/30/18 12/30/18 09:06 09:06 15:35 Creatine Kinase 29 L 25 L CK-MB (CK-2) 0.88 Troponin I 0.293 NT-Pro-B Natriuret Pep 12/30/18 12/30/18 12/30/18 15:35 21:20 21:20 Creatine Kinase 29 L CK-MB (CK-2) 0.54 0.56 Troponin I 0.256 0.243 NT-Pro-B Natriuret Pep 01/01/19 04:52 Creatine Kinase CK-MB (CK-2) Troponin I NT-Pro-B Natriuret Pep 2640 H Impressions: Chest X-Ray 12/31/18 00:00 IMPRESSION: ATELECTASIS VERSUS DEVELOPING INFILTRATE IN THE RIGHT LUNG BASE. Assessment and Plan - Diagnosis (1) Acute on chronic respiratory failure with hypoxemia Is this a current diagnosis for this admission?: Yes Plan: Secondary to COPD exacerbation. Currently on 2 lpm via [place]. (2) COPD exacerbation Is this a current diagnosis for this admission?: Yes Plan: Continue with prednisone 20 mg bid today. Continue breathing treatments. (3) Elevated troponin Is this a current diagnosis for this admission?: Yes Plan: Likely from demand ischemia. No acute EKG changes. He is not complaining of any chest pain. - Time Time Spent with patient: 25-34 minutes
[2019-01-01] MEDS: PREDNISONE 20 MG TABLET PO SCH (18:14)
[2019-01-01] MEDS: ATORVASTATIN CALCIUM 40 MG TABLET PO SCH (21:27)
[2019-01-01] MEDS: ENOXAPARIN SODIUM INJ 40 MG/0.4 ML DISP.SYRIN SUBCUT SCH (21:27)
[2019-01-01] MEDS: TAMSULOSIN HCL 0.4 MG CAP.SR.24H PO SCH (21:27)
--- NOTE | 2019-01-01 21:37 | Progress Note ---
Provider Note Provider Note: CARDIOLOGY PROGRESS NOTE by Dr. ansariion has been on 01/01/2019. SUBJECTIVE: Patient denies any chest pain or discomfort. There is no further MFM Matey on the monitor. There is no PND. The patient has chronic orthopnea. There is no leg edema. His breathing is much much improved. He denies any cough or sputum production. There is no TIA CVA symptoms. PHYSICAL EXAMINATION: The patient appears to be chronically ill. But in no acute distress. He is well-groomed. Selected Entries 01/01/19 07:50 Temperature 97.9 F Temperature Oral Source Pulse Rate 87 Respiratory 18 Rate Blood Pressure 132/98 H Blood Pressure 109 Mean BP Location Left Arm BP Position Supine O2 Sat by Pulse 99 Oximetry Oxygen Flow 3.00 Rate Oxygen Delivery Nasal Cannula Method HEAD: Head is atraumatic and normocephalic. EYES: Pupils are equal round regular reactive to light accommodation. Extraocular movements are normal, there is no conjunctival pallor, and no scleral icterus. EARS: Tympanic membranes are intact external auditory canals are clear. NOSE: There is no inflammation of the nasal mucous membrane there is no deviated nasal septum. MOUTH: Mucous membranes of mouth and tongue are moist, there is no ulcers in the mouth or tongue, and no bleeding from the gums. THROAT: There is no redness of the oropharynx, no exudate seen. SKIN: There is no petechia or ecchymosis. There is no rashes or lesions. NECK: Supple. There is no JVD. Carotids are equal there is no bruit. There is no lymphadenopathy. There is no goiter. Trachea central LUNGS: There is diminished air entry and prolonged expiration. Clear to auscultation bilaterally, no wheezes, or rales. There is very occasional and faint rhonchi. There is no rales of CHF on percussion there is hyperresonance although there is no chest wall tenderness HEART: S1 and S2 are heard. S1 is of normal intensity, there is no S3 or S4 gallops. There is a systolic murmur the left sternal border and the apex. There is no rub. ABDOMEN: Normoactive bowel sounds, soft, nontender, no masses, no rebound, no guarding. There is no hepatosplenomegaly. EXTREMITIES: Femorals are slightly diminished. There is no femoral bruits. Leg pulses are diminished. There is no pedal edema. There is no DVT or cellulitis. There is no cyanosis or clubbing. There is no calf tenderness. NEUROLOGICAL the patient is awake alert oriented 3 with no focal deficits. PSYCHIATRIC: The patient judgment and insight are intact his affect is normal. EKG shows initially sinus tachycardia versus multifocal atrial tachycardia. Subsequent EKG shows multifocal atrial tachycardia. No ischemic changes in either EKGs. 01/01/19 01/01/19 01/01/19 04:52 04:52 04:52 WBC 7.5 RBC 3.33 L Hgb 9.7 L Hct 28.3 L MCV 85 MCH 29.2 MCHC 34.3 RDW 14.9 H Plt Count 287 Total Counted 100 Seg Neutrophils % Not Reportable Seg Neuts % (Manual) 79 H Sodium 136.0 L Potassium 4.3 Chloride 103 Carbon Dioxide 24 Anion Gap 9 Est GFR (Non-Af Amer) 51 L Glucose 116 H Calcium 8.4 Magnesium 2.4 H Total Bilirubin 0.6 Direct Bilirubin 0.4 Neonat Total Bilirubin Not Reportable Neonat Direct Bilirubin Not Reportable Neonat Indirect Bili Not Reportable AST 21 ALT 21 Alkaline Phosphatase 75 NT-Pro-B Natriuret Pep 2640 H Total Protein 5.3 L Albumin 2.7 L IMPRESSION/RECOMMENDATION: 1. Elevated troponin I most likely secondary to his acute exacerbation of COPD, hypoxemia, and multifocal atrial tachycardia. This is a type II supply demand mismatch myocardial infarction, and not a non-ST elevation OH. Hence we will treat the underlying cause, and not treat this is a non-ST elevation OH. 2. Acute on chronic respiratory failure: Would recommend treatment with BiPAP, respiratory treatments, supplemental oxygen, steroids, and antibiotics. 3. Acute exacerbation of COPD, with possibly infective bronchitis: Recommend treat with BiPAP, supplemental oxygen, respiratory treatments, steroids, and antibiotics. 4. Multifocal atrial tachycardia: Continue the patient on IV Cardizem drip at 5 mg/h, increase as tolerated. Subsequently we will convert this to oral long- acting Cardizem preparation. 5.Coronary artery disease: History of prior prior OH. History of stents in the RCA and left anterior descending artery. 6. Hypertension: Blood pressure well controlled. 7. Diabetes mellitus: Continue antidiabetic regimen, and periodic checks on this blood sugars. 8. Obstructive sleep apnea: Continue CPAP at night Is reviewed. Medications adjusted, new medications added. Management plan discussed with the identification of the case. Medical decision making is of high complexity. 40 minutes spent on this patient more than 50% of time spent in direct patient care Will sign off.
[2019-01-02] MEDS: ALBUTEROL SULFATE HFA (90 MCG/PUFF) 200 PUFF/8.5 GM MDI IH SCH ×3 (05:09→17:24)
[2019-01-02] MEDS: LEVOTHYROXINE SODIUM 0.05 MG TABLET PO SCH (05:09)
[2019-01-02 05:37] LABS: HEMATOCRIT 32.1 % (37.9-51.0); HEMOGLOBIN 10.7 g/dL (13.5-17.0); MEAN CORPUSCULAR HEMOGLOBIN 28.5 pg (27.0-33.4); MEAN CORPUSCULAR HGB CONC 33.3 g/dL (32.0-36.0); MEAN CORPUSCULAR VOLUME 85 fl (80-97); PLATELET COUNT 334 10^3/uL (150-450); RED BLOOD COUNT 3.75 10^6/uL (4.35-5.55); RED CELL DISTRIBUTION WIDTH 15.1 % (11.5-14.0); WHITE BLOOD COUNT 4.9 10^3/uL (4.0-10.5)
[2019-01-02] MEDS: INSULIN REG, HUMAN 100 UNIT/ML 3 ML VIAL (PYX) SUBCUT SCH ×4 (08:05→22:38)
[2019-01-02] MEDS: FLUTICASONE/VILANTEROL 200-25 MCG/DOSE IH SCH (11:01)
[2019-01-02] MEDS: INSULIN GLARGINE,HUM.REC.ANLOG 1,000 UNIT/10 ML VIAL SUBCUT SCH ×2 (11:01→22:37)
[2019-01-02] MEDS: SITAGLIPTIN PHOSPHATE 25 MG TABLET PO SCH (11:02)
[2019-01-02] MEDS: PREDNISONE 20 MG TABLET PO SCH ×2 (11:02→17:24)
[2019-01-02] MEDS: ASPIRIN 81 MG TABLET, CHEWABLE PO SCH (11:03)
[2019-01-02] MEDS: LISINOPRIL 5 MG TABLET PO SCH (11:03)
[2019-01-02] MEDS: RANOLAZINE 500 MG TAB.SR.12H PO SCH ×2 (11:03→22:36)
[2019-01-02] MEDS: FAMOTIDINE 20 MG TABLET PO SCH ×2 (11:03→22:36)
[2019-01-02] MEDS: FUROSEMIDE 20 MG TABLET PO SCH (11:03)
[2019-01-02] MEDS: CLOPIDOGREL BISULFATE 75 MG TABLET PO SCH (11:03)
[2019-01-02] MEDS: METOPROLOL SUCCINATE 25 MG TAB.SR.24H PO SCH (11:04)
[2019-01-02] MEDS: LEVOFLOXACIN 500 MG TABLET PO SCH (12:47)
--- NOTE | 2019-01-02 15:18 | PDOC PROGRESS REPORT ---
Subjective Progress Note for:: 01/02/19 Subjective:: This is an 83 yr old male with a PMH of atrial fibrillation, COPD on 2 L oxygen at home, CHF, diabetic, hypertensive, coronary artery disease with stent placement, congestive heart failure who presented with increasing shortness of breath. He was admitted for COPD exacerbation and was initially requiring BIPAP. He was also found to have elevated troponins deemed to be from demand ischemia. 01/01: This morning, he says his breathing continues to improve but he is not at his baseline yet. He says he does not have chest pain and never had chest pain. 01/02: No acute event overnight. He continues to improve and says that his breathing is almost at his baseline. Denies chest pain. Anticipate discharge in the next 24 hrs. Reason For Visit: NSTEMI (NON-ST ELEVATED MYOCARDIAL INFARCTION) Physical Exam Vital Signs: Temp Pulse Resp BP Pulse Ox 97.5 F 88 16 148/54 H 97 01/02/19 11:27 01/02/19 12:03 01/02/19 12:03 01/02/19 11:27 01/02/19 12:03 Intake & Output 01/01/19 01/02/19 01/03/19 06:59 06:59 06:59 Intake Total 1547 1781 Balance 1547 1781 Weight 158 lb 1.143 oz 152 lb 5.431 oz General appearance: PRESENT: no acute distress, well-developed, well-nourished Head exam: PRESENT: atraumatic, normocephalic Eye exam: PRESENT: conjunctiva pink, EOMI, PERRLA. ABSENT: scleral icterus Ear exam: PRESENT: normal external ear exam Mouth exam: PRESENT: moist, tongue midline Neck exam: ABSENT: carotid bruit, JVD, lymphadenopathy, thyromegaly Respiratory exam: PRESENT: wheezes - minimal. ABSENT: rales, rhonchi Cardiovascular exam: PRESENT: RRR. ABSENT: diastolic murmur, rubs, systolic murmur Pulses: PRESENT: normal dorsalis pedis pul Vascular exam: PRESENT: normal capillary refill GI/Abdominal exam: PRESENT: normal bowel sounds, soft. ABSENT: distended, guarding, mass, organolmegaly, rebound, tenderness Rectal exam: PRESENT: deferred Neurological exam: PRESENT: alert, awake, oriented to person, oriented to place, oriented to time, oriented to situation, CN II-XII grossly intact. ABSENT: mo tor sensory deficit Results Laboratory Results: 01/02/19 05:00 01/01/19 04:52 01/02/19 05:00 WBC 4.9 RBC 3.75 L Hgb 10.7 L Hct 32.1 L MCV 85 MCH 28.5 MCHC 33.3 RDW 15.1 H Plt Count 334 12/29/18 12/29/18 12/29/18 11:39 20:18 20:18 Creatine Kinase 41 L CK-MB (CK-2) 1.32 Troponin I 0.191 0.222 NT-Pro-B Natriuret Pep 9650 H 12/30/18 12/30/18 12/30/18 02:29 02:29 02:29 Creatine Kinase 36 L CK-MB (CK-2) 0.92 Troponin I 0.315 NT-Pro-B Natriuret Pep 17727 H 12/30/18 12/30/18 12/30/18 09:06 09:06 15:35 Creatine Kinase 29 L 25 L CK-MB (CK-2) 0.88 Troponin I 0.293 NT-Pro-B Natriuret Pep 12/30/18 12/30/18 12/30/18 15:35 21:20 21:20 Creatine Kinase 29 L CK-MB (CK-2) 0.54 0.56 Troponin I 0.256 0.243 NT-Pro-B Natriuret Pep 01/01/19 04:52 Creatine Kinase CK-MB (CK-2) Troponin I NT-Pro-B Natriuret Pep 2640 H Impressions: Chest X-Ray 12/31/18 00:00 IMPRESSION: ATELECTASIS VERSUS DEVELOPING INFILTRATE IN THE RIGHT LUNG BASE. Assessment and Plan - Diagnosis (1) Acute on chronic respiratory failure with hypoxemia Is this a current diagnosis for this admission?: Yes Plan: Secondary to COPD exacerbation. Currently on 2 lpm via [place]. (2) COPD exacerbation Is this a current diagnosis for this admission?: Yes Plan: 01/02: Resolving. Continue prednisone. Continue breathing treatments. (3) Elevated troponin Is this a current diagnosis for this admission?: Yes Plan: Likely from demand ischemia. No acute EKG changes. He is not complaining of any chest pain. (4) Pneumonia Is this a current diagnosis for this admission?: Yes Plan: CXR showed possible right basal infiltrate. Levaquin 500 mg daily. Incentive spirometry. (5) CHF (congestive heart failure) Is this a current diagnosis for this admission?: Yes Plan: Last known EF in Oct 2017 was 30%. Currently not in exacerbation. - Time Time Spent with patient: 15-24 minutes
[2019-01-02] MEDS: TAMSULOSIN HCL 0.4 MG CAP.SR.24H PO SCH (22:36)
[2019-01-02] MEDS: ATORVASTATIN CALCIUM 40 MG TABLET PO SCH (22:36)
[2019-01-02] MEDS: ENOXAPARIN SODIUM INJ 40 MG/0.4 ML DISP.SYRIN SUBCUT SCH (22:37)
[2019-01-03] MEDS: ALBUTEROL SULFATE HFA (90 MCG/PUFF) 200 PUFF/8.5 GM MDI IH SCH ×4 (00:47→17:06)
[2019-01-03] MEDS: ACETAMINOPHEN 325 MG TABLET PO PRN (00:47)
[2019-01-03] MEDS: LEVOTHYROXINE SODIUM 0.05 MG TABLET PO SCH (05:00)
[2019-01-03 05:51] LABS: ANION GAP 8 (5-19); BLOOD UREA NITROGEN 28 mg/dL (7-20); CALCIUM 9.1 mg/dL (8.4-10.2); CARBON DIOXIDE 28 mmol/L (22-30); CHLORIDE 101 mmol/L (98-107); GLUCOSE 203 mg/dL (75-110); POTASSIUM 4.9 mmol/L (3.6-5.0); SODIUM 136.8 mmol/L (137-145)
[2019-01-03] MEDS: INSULIN REG, HUMAN 100 UNIT/ML 3 ML VIAL (PYX) SUBCUT SCH ×4 (08:07→21:37)
[2019-01-03] MEDS: RANOLAZINE 500 MG TAB.SR.12H PO SCH ×2 (09:28→21:10)
[2019-01-03] MEDS: FUROSEMIDE 20 MG TABLET PO SCH (09:28)
[2019-01-03] MEDS: FLUTICASONE/VILANTEROL 200-25 MCG/DOSE IH SCH (09:28)
[2019-01-03] MEDS: ASPIRIN 81 MG TABLET, CHEWABLE PO SCH (09:29)
[2019-01-03] MEDS: FAMOTIDINE 20 MG TABLET PO SCH ×2 (09:29→21:10)
[2019-01-03] MEDS: SITAGLIPTIN PHOSPHATE 25 MG TABLET PO SCH (09:29)
[2019-01-03] MEDS: LEVOFLOXACIN 500 MG TABLET PO SCH (09:29)
[2019-01-03] MEDS: CLOPIDOGREL BISULFATE 75 MG TABLET PO SCH (09:29)
[2019-01-03] MEDS: METOPROLOL SUCCINATE 25 MG TAB.SR.24H PO SCH (09:29)
[2019-01-03] MEDS: LISINOPRIL 5 MG TABLET PO SCH (09:29)
[2019-01-03] MEDS: PREDNISONE 20 MG TABLET PO SCH ×2 (09:29→17:06)
[2019-01-03] MEDS: INSULIN GLARGINE,HUM.REC.ANLOG 1,000 UNIT/10 ML VIAL SUBCUT SCH ×2 (09:30→21:37)
--- NOTE | 2019-01-03 15:11 | RADIOLOGY REPORT (SQ) ---
EXAM DESCRIPTION: CHEST SINGLE VIEW COMPLETED DATE/TIME: 01/03/2019 2:59 pm REASON FOR STUDY: sob COMPARISON: CT angio chest 11/24/2017 Chest films 01/16/2018, 12/29/2018, 12/31/2018 EXAM PARAMETERS: NUMBER OF VIEWS: One view. TECHNIQUE: Single frontal radiographic view of the chest acquired. RADIATION DOSE: NA LIMITATIONS: None. FINDINGS: LUNGS AND PLEURA: No opacities, masses or pneumothorax. No pleural effusion. MEDIASTINUM AND HILAR STRUCTURES: No masses. Contour normal. HEART AND VASCULAR STRUCTURES: Mild cardiomegaly, stable BONES: Multiple old healed right rib fractures. Bilateral upper extremity hardware HARDWARE: Old bilateral upper extremity orthopedic hardware OTHER: No other significant finding. IMPRESSION: Resolved right basilar airspace disease as compared to 12/31/2018. TECHNICAL DOCUMENTATION: JOB ID: [id number] [employer]- All Rights Reserved Reading location - IP/workstation name: [email or web address]
--- NOTE | 2019-01-03 18:19 | PDOC PROGRESS REPORT ---
Subjective Progress Note for:: 01/03/19 Subjective:: This is an 83 yr old male with a PMH of atrial fibrillation, COPD on 2 L oxygen at home, CHF, diabetic, hypertensive, coronary artery disease with stent placement, congestive heart failure who presented with increasing shortness of breath. He was admitted for COPD exacerbation and was initially requiring BIPAP. He was also found to have elevated troponins deemed to be from demand ischemia. 01/01: This morning, he says his breathing continues to improve but he is not at his baseline yet. He says he does not have chest pain and never had chest pain. 01/02: He continues to improve and says that his breathing is almost at his baseline. Denies chest pain. 01/03: No acute event overnight. This morning, patient says he is more SOB. He apparently refused his breathing treatments overnight. He had some bilateral wheezing today but this has slightly improved from yesterday. He did desaturate to 85%. Will defer discharge today, will increase steroids today. Emphasized compliance to breathing treatments. Reason For Visit: NSTEMI (NON-ST ELEVATED MYOCARDIAL INFARCTION) Physical Exam Vital Signs: Temp Pulse Resp BP Pulse Ox 97.9 F 76 20 147/58 H 98 01/03/19 15:57 01/03/19 15:57 01/03/19 15:57 01/03/19 15:57 01/03/19 15:57 Intake & Output 01/02/19 01/03/19 01/04/19 06:59 06:59 06:59 Intake Total 1781 1662 450 Balance 1781 1662 450 Weight 152 lb 5.431 oz 152 lb 12.485 oz General appearance: PRESENT: no acute distress, well-developed, well-nourished Head exam: PRESENT: atraumatic, normocephalic Eye exam: PRESENT: conjunctiva pink, EOMI, PERRLA. ABSENT: scleral icterus Ear exam: PRESENT: normal external ear exam Mouth exam: PRESENT: moist, tongue midline Neck exam: ABSENT: carotid bruit, JVD, lymphadenopathy, thyromegaly Respiratory exam: PRESENT: wheezes. ABSENT: rales, rhonchi Cardiovascular exam: PRESENT: RRR. ABSENT: diastolic murmur, rubs, systolic murmur Pulses: PRESENT: normal dorsalis pedis pul GI/Abdominal exam: PRESENT: normal bowel sounds, soft. ABSENT: distended, guarding, mass, organolmegaly, rebound, tenderness Rectal exam: PRESENT: deferred Neurological exam: PRESENT: alert, awake, oriented to person, oriented to place, oriented to time, oriented to situation, CN II-XII grossly intact. ABSENT: motor sensory deficit Results Laboratory Results: 01/02/19 05:00 01/03/19 04:53 01/03/19 04:53 Sodium 136.8 L Potassium 4.9 Chloride 101 Carbon Dioxide 28 Anion Gap 8 BUN 28 H Creatinine 1.02 Est GFR ( Amer) > 60 Est GFR (Non-Af Amer) > 60 Glucose 203 H Calcium 9.1 12/29/18 12/29/18 12/29/18 11:39 20:18 20:18 Creatine Kinase 41 L CK-MB (CK-2) 1.32 Troponin I 0.191 0.222 NT-Pro-B Natriuret Pep 9650 H 12/30/18 12/30/18 12/30/18 02:29 02:29 02:29 Creatine Kinase 36 L CK-MB (CK-2) 0.92 Troponin I 0.315 NT-Pro-B Natriuret Pep 11999 H 12/30/18 12/30/18 12/30/18 09:06 09:06 15:35 Creatine Kinase 29 L 25 L CK-MB (CK-2) 0.88 Troponin I 0.293 NT-Pro-B Natriuret Pep 12/30/18 12/30/18 12/30/18 15:35 21:20 21:20 Creatine Kinase 29 L CK-MB (CK-2) 0.54 0.56 Troponin I 0.256 0.243 NT-Pro-B Natriuret Pep 01/01/19 04:52 Creatine Kinase CK-MB (CK-2) Troponin I NT-Pro-B Natriuret Pep 2640 H Impressions: Chest X-Ray 01/03/19 00:00 IMPRESSION: Resolved right basilar airspace disease as compared to 12/31/2018. Assessment and Plan - Diagnosis (1) Acute on chronic respiratory failure with hypoxemia Is this a current diagnosis for this admission?: Yes Plan: Secondary to COPD exacerbation. Currently on 2 lpm via [place]. (2) COPD exacerbation Is this a current diagnosis for this admission?: Yes Plan: 01/02: Resolving. Continue prednisone. Continue breathing treatments. 01/03: Increase prednisone to 40 mg bid. Emphasized compliance to scheduled breathing treatments. (3) Elevated troponin Is this a current diagnosis for this admission?: Yes Plan: Likely from demand ischemia. No acute EKG changes. He is not complaining of any chest pain. (4) Pneumonia Is this a current diagnosis for this admission?: Yes Plan: CXR showed possible right basal infiltrate. Levaquin 500 mg daily. Incentive spirometry. (5) CHF (congestive heart failure) Is this a current diagnosis for this admission?: Yes Plan: Last known EF in Oct 2017 was 30%. Currently not in exacerbation. - Time Time Spent with patient: 15-24 minutes
[2019-01-03] MEDS: ATORVASTATIN CALCIUM 40 MG TABLET PO SCH (21:10)
[2019-01-03] MEDS: TAMSULOSIN HCL 0.4 MG CAP.SR.24H PO SCH (21:10)
[2019-01-03] MEDS: ENOXAPARIN SODIUM INJ 40 MG/0.4 ML DISP.SYRIN SUBCUT SCH (21:10)
[2019-01-04] MEDS: ACETAMINOPHEN 325 MG TABLET PO PRN (00:08)
[2019-01-04] MEDS: ALBUTEROL SULFATE HFA (90 MCG/PUFF) 200 PUFF/8.5 GM MDI IH SCH ×3 (00:10→12:34)
[2019-01-04] MEDS: LEVOTHYROXINE SODIUM 0.05 MG TABLET PO SCH (05:22)
[2019-01-04 05:33] LABS: HEMATOCRIT 32.6 % (37.9-51.0); HEMOGLOBIN 10.9 g/dL (13.5-17.0); MEAN CORPUSCULAR HEMOGLOBIN 28.2 pg (27.0-33.4); MEAN CORPUSCULAR HGB CONC 33.4 g/dL (32.0-36.0); MEAN CORPUSCULAR VOLUME 84 fl (80-97); PLATELET COUNT 368 10^3/uL (150-450); RED BLOOD COUNT 3.87 10^6/uL (4.35-5.55); RED CELL DISTRIBUTION WIDTH 14.6 % (11.5-14.0)
[2019-01-04 06:26] LABS: WHITE BLOOD COUNT 10.4 10^3/uL (4.0-10.5)
[2019-01-04] MEDS: INSULIN REG, HUMAN 100 UNIT/ML 3 ML VIAL (PYX) SUBCUT SCH ×2 (08:15→12:34)
[2019-01-04] MEDS: SITAGLIPTIN PHOSPHATE 25 MG TABLET PO SCH (09:09)
[2019-01-04] MEDS: PREDNISONE 20 MG TABLET PO SCH (09:10)
[2019-01-04] MEDS: LISINOPRIL 5 MG TABLET PO SCH (09:10)
[2019-01-04] MEDS: RANOLAZINE 500 MG TAB.SR.12H PO SCH (09:10)
[2019-01-04] MEDS: LEVOFLOXACIN 500 MG TABLET PO SCH (09:10)
[2019-01-04] MEDS: METOPROLOL SUCCINATE 25 MG TAB.SR.24H PO SCH (09:10)
[2019-01-04] MEDS: CLOPIDOGREL BISULFATE 75 MG TABLET PO SCH (09:10)
[2019-01-04] MEDS: FAMOTIDINE 20 MG TABLET PO SCH (09:10)
[2019-01-04] MEDS: ASPIRIN 81 MG TABLET, CHEWABLE PO SCH (09:10)
[2019-01-04] MEDS: FUROSEMIDE 20 MG TABLET PO SCH (09:10)
[2019-01-04] MEDS: FLUTICASONE/VILANTEROL 200-25 MCG/DOSE IH SCH (09:11)
[2019-01-04] MEDS: INSULIN GLARGINE,HUM.REC.ANLOG 1,000 UNIT/10 ML VIAL SUBCUT SCH (09:12)
[2019-01-04 13:49] VITALS: BP 113/47
--- NOTE | 2019-01-04 18:05 | PDOC DISCHARGE SUMMARY ---
General - Admit/Disc Date/PCP Admission Date/Primary Care Provider: 12/29/18 14:35 DEVON PHOENIX MD Discharge Date: 01/04/19 - Discharge Diagnosis (1) Acute on chronic respiratory failure with hypoxemia Is this a current diagnosis for this admission?: Yes (2) COPD exacerbation Is this a current diagnosis for this admission?: Yes (3) Elevated troponin Is this a current diagnosis for this admission?: Yes (4) Pneumonia Is this a current diagnosis for this admission?: Yes (5) CHF (congestive heart failure) Is this a current diagnosis for this admission?: Yes - Additional Information Resuscitation Status: Do Not Resuscitate Discharge Diet: Cardiac, Diabetic Discharge Activity: Activity As Tolerated, Balance Activity w/Rest Prescriptions: Budesonide/Formoterol Fumarate [Symbicort HFA 160-4.5 mcg Inhaler 6 gm] 2 puff I H Q12 #1 inhaler Diltiazem HCl [Cardizem 30 mg Tablet] 30 mg PO Q8 #90 tablet Levofloxacin [Levaquin 500 mg Tablet] 500 mg PO DAILY 2 Days #2 tablet Prednisone [Deltasone 20 mg Tablet] 20 mg PO BID #10 tablet Tiotropium [place] [Spiriva Handihaler 5 Cap/Kit (18 Mcg/Cap)] 1 cap IH DAILY #30 capsule Home Medications: Albuterol Sulfate [Proair HFA Inhalation Aerosol 8.5 gm MDI] 2 puff IH Q6 12/29/18 Aspirin [Aspirin 81 mg Chewable Tablet] 81 mg PO DAILY 12/29/18 Atorvastatin Calcium [Lipitor 40 mg Tablet] 40 mg PO QHS 12/29/18 Brinzolamide/Brimonidine Tart [Simbrinza 1%-0.2% Eye Drops] 1 drop OU BID 12/29/18 Clopidogrel Bisulfate [Plavix 75 mg Tablet] 75 mg PO DAILY 12/29/18 Lisinopril [Prinivil 5 mg Tablet] 5 mg PO DAILY 12/29/18 Metoprolol Succinate [Toprol Xl 25 mg Tab.sr] 25 mg PO DAILY 12/29/18 Omeprazole 40 mg PO DAILY 12/29/18 Ranolazine [Ranolazine ER] 500 mg PO Q12 12/29/18 Sitagliptin Phosphate [Januvia 50 mg Tablet] 50 mg PO DAILY 12/29/18 Insulin Aspart [Novolog Insulin (Aspart) 100 unit/mL] 10 unit SQ AC 12/30/18 Insulin Detemir [Levemir] 26 units SQ BID 12/30/18 Budesonide/Formoterol Fumarate [Symbicort HFA 160-4.5 mcg Inhaler 6 gm] 2 puff IH Q12 #1 inhaler 01/04/19 Diltiazem HCl [Cardizem 30 mg Tablet] 30 mg PO Q8 #90 tablet 01/04/19 Levofloxacin [Levaquin 500 mg Tablet] 500 mg PO DAILY 2 Days #2 tablet 01/04/19 Levothyroxine Sodium [Synthroid 0.05 mg Tablet] 0.05 mg PO Q6AM tablet 01/04/19 Prednisone [Deltasone 20 mg Tablet] 20 mg PO BID #10 tablet 01/04/19 Tiotropium [place] [Spiriva Handihaler 5 Cap/Kit (18 Mcg/Cap)] 1 cap IH DAILY #30 capsule 01/04/19 History of Present Illness History of Present Illness: Admitting hospitalist's H&P: MICHAELA KUHN is a 83 year old male history of atrial fibrillation, COPD on 2 L oxygen at home, diabetic, hypertensive, coronary artery disease with stent placement, congestive heart failure came to the emergency room with complaints of shortness of breath for 1 week. As per the patient shortness of breath associated with a dry cough. Denies any chest pains. Denies any nausea vomiting diarrhea. Denies any headaches dizzy spells and sweating. EMS was called and he was placed on CPAP because oxygen saturation is noted to be to be around 90% on room air and he is tachypneic. Patient responded well to CPAP and in the emergency room it was changed to BiPAP. On examination patient is still on BiPAP communicating okay. In the emergency room cardiac workup was done EKG shows sinus tachycardia and troponin is 0.191 with a BNP of 9650. Hospital Course Hospital Course: This is an 83 yr old male with a PMH of atrial fibrillation, COPD on 2 L oxygen at home, CHF, diabetic, hypertensive, coronary artery disease with stent placement, congestive heart failure who presented with increasing shortness of breath. He was admitted for COPD exacerbation and was initially requiring BIPAP. He was also found to have elevated troponins deemed to be from demand ischemia. He says he does not have chest pain and never had chest pain. EKG was also unremarkable. His chest x-ray did show a possible right lower lobe pneumonia. He was started on steroids, breahting treatments and Levaquin. He did improve and returned to his baseline eventually. He has been ambulating thru the hallways with his walker with no acute issues. He will be discharged on 5 more days of prednisone, 2 more days of Levaquin and continued on Symbicort. Spiriva was also added to his regimen. Physical Exam Vital Signs: Temp Pulse Resp BP Pulse Ox 97.4 F 76 16 113/47 L 97 01/04/19 13:38 01/04/19 13:38 01/04/19 13:38 01/04/19 13:38 01/04/19 13:38 Intake & Output 01/03/19 01/04/19 01/05/19 06:59 06:59 06:59 Intake Total 1662 1300 150 Balance 1662 1300 150 Weight 152 lb 12.485 oz 152 lb 8.958 oz General appearance: PRESENT: no acute distress, well-developed, well-nourished Head exam: PRESENT: atraumatic, normocephalic Eye exam: PRESENT: conjunctiva pink, EOMI, PERRLA. ABSENT: scleral icterus Ear exam: PRESENT: normal external ear exam Mouth exam: PRESENT: moist, tongue midline Neck exam: ABSENT: carotid bruit, JVD, lymphadenopathy, thyromegaly Respiratory exam: PRESENT: wheezes - very minimal wheezes. ABSENT: rales, rhonchi Cardiovascular exam: PRESENT: RRR. ABSENT: diastolic murmur, rubs, systolic murmur Pulses: PRESENT: normal dorsalis pedis pul GI/Abdominal exam: PRESENT: normal bowel sounds, soft. ABSENT: distended, guarding, mass, organolmegaly, rebound, tenderness Rectal exam: PRESENT: deferred Extremities exam: PRESENT: full ROM. ABSENT: calf tenderness, clubbing, pedal edema Neurological exam: PRESENT: alert, awake, oriented to person, oriented to place, oriented to time, oriented to situation, CN II-XII grossly intact. ABSENT: motor sensory deficit Results Laboratory Results: 01/04/19 04:56 01/03/19 04:53 01/04/19 04:56 WBC 10.4 D RBC 3.87 L Hgb 10.9 L Hct 32.6 L MCV 84 MCH 28.2 MCHC 33.4 RDW 14.6 H Plt Count 368 12/30/18 09:06 Blood Blood Culture - Final NO GROWTH IN 5 DAYS 12/30/18 02:29 Blood Blood Culture - Final NO GROWTH IN 5 DAYS 12/29/18 12/29/18 12/29/18 11:39 20:18 20:18 Creatine Kinase 41 L CK-MB (CK-2) 1.32 Troponin I 0.191 0.222 NT-Pro-B Natriuret Pep 9650 H 12/30/18 12/30/18 12/30/18 02:29 02:29 02:29 Creatine Kinase 36 L CK-MB (CK-2) 0.92 Troponin I 0.315 NT-Pro-B Natriuret Pep 02501 H 12/30/18 12/30/18 12/30/18 09:06 09:06 15:35 Creatine Kinase 29 L 25 L CK-MB (CK-2) 0.88 Troponin I 0.293 NT-Pro-B Natriuret Pep 12/30/18 12/30/18 12/30/18 15:35 21:20 21:20 Creatine Kinase 29 L CK-MB (CK-2) 0.54 0.56 Troponin I 0.256 0.243 NT-Pro-B Natriuret Pep 01/01/19 04:52 Creatine Kinase CK-MB (CK-2) Troponin I NT-Pro-B Natriuret Pep 2640 H Impressions: Chest X-Ray 01/03/19 00:00 IMPRESSION: Resolved right basilar airspace disease as compared to 12/31/2018. Qualifiers - * PATIENT BEING DISCHARGED WITH ANY OF THE FOLLOWING DIAGNOSIS: No
== END 2019-01-04 16:56 | disposition home health service (06) | DRG 189 ==
LOC: ER 07:47 → EH 14:35 → 3W 16:47
PROVIDERS: ADMIT Internal Medicine; ATTEND Internal Medicine
PROC: 30233N1 Transfusion of Nonautologous Red Blood Cells into Peripheral Vein, Percutaneous Approach (ICD-10-PCS; principal; 2018-12-31)
DX: J96.21 Acute and chronic respiratory failure with hypoxia (principal); J18.9 Pneumonia, unspecified organism; I50.23 Acute on chronic systolic (congestive) heart failure; J44.1 Chronic obstructive pulmonary disease with (acute) exacerbation; N17.9 Acute kidney failure, unspecified; E87.1 Hypo-osmolality and hyponatremia; Z66 Do not resuscitate; I50.9 Heart failure, unspecified; I11.0 Hypertensive heart disease with heart failure; I48.91 Unspecified atrial fibrillation; E11.8 Type 2 diabetes mellitus with unspecified complications; I25.10 Atherosclerotic heart disease of native coronary artery without angina pectoris; K21.9 Gastro-esophageal reflux disease without esophagitis; D64.9 Anemia, unspecified; N40.0 Benign prostatic hyperplasia without lower urinary tract symptoms; G47.33 Obstructive sleep apnea (adult) (pediatric); Z99.81 Dependence on supplemental oxygen; Z95.5 Presence of coronary angioplasty implant and graft; Z87.891 Personal history of nicotine dependence; I25.2 Old myocardial infarction; Z79.01 Long term (current) use of anticoagulants; Z79.82 Long term (current) use of aspirin; Z79.4 Long term (current) use of insulin; Z79.51 Long term (current) use of inhaled steroids; Z79.899 Other long term (current) drug therapy; Z79.52 Long term (current) use of systemic steroids
CPT/HCPCS: 36415; 36430; 36600; 71045; 80048; 80053; 80061; 81001; 82550; 82553; 82803; 82962; 83036; 83605; 83735; 83880; 84443; 84484; 85025; 85027; 85610; 85730; 86850; 86900; 86901; 86920; 87040; 93005; 93010; 94660; 94667; 94668; 96365; 96366; 96375; 99291; C1751; J1650; J1815; J1885; J1940; J1956; J3475; J3490; J7512; J7620; P9016

== ENCOUNTER 2019-03-12 13:05 | Inpatient (IN) | payer MEDICARE, MEDICAID ==
--- NOTE | 2019-03-12 13:28 | ER Document Report ---
ED Medical Screen (RME) - General Chief Complaint: Shortness Of Breath Stated Complaint: DIFFICULTY BREATHING Time Seen by Provider: 03/12/19 13:24 Mode of Arrival: Wheelchair Information source: Patient, Relative - Granddaughter Notes: Patient presents emergency department with difficulty breathing for the past 3 to 4 days and also chest pain right-sided. Patient has history of cardiac dis ease. Patient is taking Plavix. Patient is also on home O2. Patient presents with multiple bruises. No complaints of fever vomiting or diarrhea. ST, 100% 02SAT ON 4L/NC I have greeted and performed a rapid initial assessment of this patient. A comprehensive ED assessment and evaluation of the patient, analysis of test results and completion of the medical decision making process will be conducted by additional ED providers. Dictation of this chart was performed using voice recognition software; therefore, there may be some unintended grammatical errors. TRAVEL OUTSIDE OF THE [place] IN LAST 30 DAYS: No - Related Data Allergies/Adverse Reactions: Penicillins Allergy (Verified 03/12/19 13:17) SWELLS Past Medical History - Social History Chew tobacco use (# tins/day): Yes Frequency of alcohol use: None Drug Abuse: None - Past Medical History Cardiac Medical History: Reports: Hx Atrial Fibrillation, Hx Coronary Artery Disease, Hx Heart Attack, Hx Hypertension Pulmonary Medical History: Reports: Hx COPD, Hx Sleep Apnea Neurological Medical History: Reports: Hx Cerebrovascular Accident - "years ago" Endocrine Medical History: Reports: Hx Diabetes Mellitus Type 1, Hx Diabetes Mellitus Type 2 Renal/ Medical History: Reports: Hx Benign Prostatic Hyperplasia. Denies: Hx Peritoneal Dialysis GI Medical History: Reports: Hx Gastroesophageal Reflux Disease Musculoskeltal Medical History: Reports Hx Arthritis Psychiatric Medical History: Denies: Hx Depression Past Surgical History: Reports: Hx Cardiac Catheterization - RCA, LDA, Hx Coronary Stent - RCA & LAD, Hx Orthopedic Surgery - right clavicle, left THR - Immunizations Hx Diphtheria, Pertussis, Tetanus Vaccination: Yes History of Influenza Vaccine for 07/2017 - 12/2017 Season: Yes Influenza Administration Date for 07/2017 - 12/2017 Season: 07/09/17 Physical Exam - Vital signs Vitals: Temp Pulse Resp BP Pulse Ox 97.4 F 125 H 24 H 139/67 H 97 03/12/19 13:12 03/12/19 13:12 03/12/19 13:12 03/12/19 13:12 03/12/19 13:12 Course - Vital Signs Vital signs: Temp Pulse Resp BP Pulse Ox 97.4 F 125 H 24 H 139/67 H 97 03/12/19 13:12 03/12/19 13:12 03/12/19 13:12 03/12/19 13:12 03/12/19 13:12
--- NOTE | 2019-03-12 14:06 | RADIOLOGY REPORT (SQ) ---
EXAM DESCRIPTION: CHEST 2 VIEWS COMPLETED DATE/TIME: 03/12/2019 1:42 pm REASON FOR STUDY: cp COMPARISON: 01/03/2019 EXAM PARAMETERS: NUMBER OF VIEWS: two views TECHNIQUE: Digital Frontal and Lateral radiographic views of the chest acquired. RADIATION DOSE: NA LIMITATIONS: none FINDINGS: LUNGS AND PLEURA: No opacities, masses or pneumothorax. No pleural effusion. MEDIASTINUM AND HILAR STRUCTURES: No masses or contour abnormalities. HEART AND VASCULAR STRUCTURES: Heart normal size. No evidence for failure. BONES: No acute findings. HARDWARE: None in the chest. OTHER: No other significant finding. IMPRESSION: NO ACUTE RADIOGRAPHIC FINDING IN THE CHEST. TECHNICAL DOCUMENTATION: JOB ID: [id number] [employer]- All Rights Reserved Reading location - IP/workstation name: [email or web address]
[2019-03-12 14:11] LABS: HEMATOCRIT 29.5 % (37.9-51.0); HEMOGLOBIN 9.8 g/dL (13.5-17.0); MEAN CORPUSCULAR HEMOGLOBIN 29.1 pg (27.0-33.4); MEAN CORPUSCULAR HGB CONC 33.1 g/dL (32.0-36.0); MEAN CORPUSCULAR VOLUME 88 fl (80-97); PLATELET COUNT 300 10^3/uL (150-450); RED BLOOD COUNT 3.36 10^6/uL (4.35-5.55); RED CELL DISTRIBUTION WIDTH 16.4 % (11.5-14.0); WHITE BLOOD COUNT 9.4 10^3/uL (4.0-10.5)
[2019-03-12 14:31] LABS: ALANINE AMINOTRANSFERASE 26 U/L (21-72); ALBUMIN 3.4 g/dL (3.5-5.0); ALKALINE PHOSPHATASE 63 U/L (38-126); ANION GAP 12 (5-19); ASPARTATE AMINO TRANSFERASE 24 U/L (17-59); BILIRUBIN,DIRECT 0.3 mg/dL (0.0-0.4); BILIRUBIN,TOTAL 0.5 mg/dL (0.2-1.3); BLOOD UREA NITROGEN 25 mg/dL (7-20); CALCIUM 8.9 mg/dL (8.4-10.2); CARBON DIOXIDE 25 mmol/L (22-30); CHLORIDE 103 mmol/L (98-107); GLUCOSE 267 mg/dL (75-110); POTASSIUM 4.2 mmol/L (3.6-5.0); SODIUM 139.9 mmol/L (137-145); TOTAL PROTEIN 5.9 g/dL (6.3-8.2)
[2019-03-12 14:43] LABS: CREATINE KINASE MB 6.07 ng/mL (<4.55)
[2019-03-12 14:45] LABS: TROPONIN I 1.42 ng/mL
[2019-03-12 14:51] LABS: ABSOLUTE LYMPHOCYTES# (MANUAL) 0.1 10^3/uL (0.5-4.7); ABSOLUTE MONOCYTES # (MANUAL) 0.3 10^3/uL (0.1-1.4); BAND NEUTROPHILS % (MANUAL) 2 % (3-5); BASOPHILS % (MANUAL) 0 % (0-2); EOSINOPHILS % (MANUAL) 0 % (0-6); LYMPHOCYTES % (MANUAL) 1 % (13-45); MONOCYTES % (MANUAL) 3 % (3-13); SEGMENTED NEUTROPHILS % (MAN) 94 % (42-78); TOTAL CELLS COUNTED 100
[2019-03-12 14:52] LABS: ANISOCYTOSIS 1+
[2019-03-12 14:53] LABS: PLATELET COMMENT ADEQUATE
[2019-03-12 14:58] LABS: APPEARANCE,URINE CLEAR; BILIRUBIN,URINE NEGATIVE (NEGATIVE); GLUCOSE, URINE 50 mg/dL (NEGATIVE); KETONES,URINE TRACE mg/dL (NEGATIVE); LEUKOCYTE ESTERASE,URINE NEGATIVE (NEGATIVE); NITRITE,URINE NEGATIVE (NEGATIVE); PROTEIN,URINE 30 mg/dL (NEGATIVE); URINE SPECIFIC GRAVITY 1.027; UROBILINOGEN,URINE NEGATIVE mg/dL (<2.0)
[2019-03-12 14:59] LABS: COLOR,URINE YELLOW
[2019-03-12 15:19] LABS: INTERNATIONAL RATION (INR) 0.94
[2019-03-12] MEDS ORDERED: FUROSEMIDE INJ/PF 40 MG/4 ML SDV IV ONE (17:09)
[2019-03-12] MEDS ORDERED: ONDANSETRON HCL INJ/PF 4 MG/2 ML SDV IV PRN (17:34)
--- NOTE | 2019-03-12 17:35 | ER Document Report ---
ED General - General Chief Complaint: Shortness Of Breath Stated Complaint: DIFFICULTY BREATHING Time Seen by Provider: 03/12/19 13:24 Primary Care Provider: DEVON PHOENIX MD [Primary Care Provider] - Follow up as needed Mode of Arrival: Wheelchair Notes: Pleasant 83-year-old male with history of COPD, CHF, diabetes, coronary artery disease who had a end STEMI and was admitted here December 29 presents to the emergency department for acute dyspnea at rest. Patient states 2 nights ago he was feeling little chest pain and took 1 nitro tab and had relief, then yet last night he was having a little bit of chest pain and he took 2 nitro tabs but he gained relief. Today he was in acute distress and came to the emergency department. On arrival patient was tachycardic in the 120s and had rales throughout. He said that he is short of breath at rest and even if he tries to move or roll around he says "I feel like I am going to ". Patient denies any recent illness, fevers, diaphoresis, nausea, vomiting, is currently chest pain- free, denies any confusion or slurred speech, complains of some lower extremity edema, no other complaints. TRAVEL OUTSIDE OF THE [place] IN LAST 30 DAYS: No - Related Data Allergies/Adverse Reactions: Penicillins Allergy (Verified 03/12/19 13:17) SWELLS Past Medical History - General Information source: Patient, Relative - Granddaughter - Social History Smoking Status: Former Smoker Chew tobacco use (# tins/day): Yes Frequency of alcohol use: None Drug Abuse: None Family History: Reviewed & Not Pertinent, CAD, Hypertension Patient has suicidal ideation: No Patient has homicidal ideation: No - Past Medical History Cardiac Medical History: Reports: Hx Atrial Fibrillation, Hx Coronary Artery Disease, Hx Heart Attack, Hx Hypertension Pulmonary Medical History: Reports: Hx COPD, Hx Sleep Apnea Neurological Medical History: Reports: Hx Cerebrovascular Accident - "years ago" Endocrine Medical History: Reports: Hx Diabetes Mellitus Type 1, Hx Diabetes Mellitus Type 2 Renal/ Medical History: Reports: Hx Benign Prostatic Hyperplasia. Denies: Hx Peritoneal Dialysis GI Medical History: Reports: Hx Gastroesophageal Reflux Disease Musculoskeletal Medical History: Reports Hx Arthritis Psychiatric Medical History: Denies: Hx Depression Past Surgical History: Reports: Hx Cardiac Catheterization - RCA, LDA, Hx Coronary Stent - RCA & LAD, Hx Orthopedic Surgery - right clavicle, left THR - Immunizations Hx Diphtheria, Pertussis, Tetanus Vaccination: Yes Review of Systems - Review of Systems Constitutional: See HPI EENT: No symptoms reported Cardiovascular: See HPI Respiratory: See HPI Gastrointestinal: See HPI Genitourinary: No symptoms reported Male Genitourinary: No symptoms reported Musculoskeletal: No symptoms reported Skin: No symptoms reported Hematologic/Lymphatic: No symptoms reported Neurological/Psychological: No symptoms reported Physical Exam - Vital signs Vitals: Temp Pulse Resp BP Pulse Ox 97.4 F 125 H 24 H 139/67 H 97 03/12/19 13:12 03/12/19 13:12 03/12/19 13:12 03/12/19 13:12 03/12/19 13:12 - Notes Notes: PHYSICAL EXAMINATION: Reviewed vital signs and charting by RN GENERAL: Alert, interacts well. No acute distress. HEAD: Normocephalic, atraumatic. EYES: Pupils equal, round, and reactive to light. Extraocular movements intact. ENT: Oral mucosa moist, tongue midline. NECK: Full range of motion. Supple. Trachea midline. LUNGS: Mild respiratory distress, Rales heard throughout HEART: Tachycardia ABDOMEN: soft, non-tender. No distention. Bowel sounds present EXTREMITIES: Moves all 4 extremities spontaneously. 2+ pitting edema left lower extremity PSYCH: Normal affect, normal mood. SKIN: Warm, dry, normal turgor. No rashes or lesions noted. Course - Re-evaluation Re-evalutation: 03/12/19 19:46 Patient arrived in no acute distress but mildly tachypneic and tachycardic. Chest x-ray obtained which did show evidence of volume overload and pulmonary vascular congestion. A troponin was obtained and was 1.4. BNP was elevated from previous visit. 03/12/19 19:48 Initial lactate was 2.9 but repeat lactate cleared. I called to give the patient fluids as he is in acute CHF. I called Dr. William, cyber analyst, who came and saw the patient at the bedside and agreed that the patient was having an acute CHF exacerbation. I then called Dr. Carmona who admitted the patient for full admission with telemetry. While on the floor patient started becoming more tachycardic and he is now steadily in the 1 teens to 125. Nurse was concerned because he looked like he was having changes on the monitor so an EKG was obtained and 1 amp of bicarb was given and repeat EKG showed a tachycar julia. - Vital Signs Vital signs: Temp Pulse Resp BP Pulse Ox 97.4 F 125 H 24 H 139/67 H 97 03/12/19 13:12 03/12/19 13:12 03/12/19 13:12 03/12/19 13:12 03/12/19 13:12 - Laboratory Result Diagrams: 03/12/19 13:54 03/12/19 13:54 Laboratory results interpreted by me: 03/12/19 03/12/19 03/12/19 13:54 13:54 13:54 RBC 3.36 L Hgb 9.8 L Hct 29.5 L RDW 16.4 H Seg Neuts % (Manual) 94 H Band Neutrophils % 2 L Lymphocytes % (Manual) 1 L Abs Neuts (Manual) 9.0 H Abs Lymphs (Manual) 0.1 L BUN 25 H Glucose 267 H Lactic Acid CK-MB (CK-2) 6.07 H NT-Pro-B Natriuret Pep Total Protein 5.9 L Albumin 3.4 L Urine Protein Urine Glucose (UA) Urine Ketones 03/12/19 03/12/19 03/12/19 13:54 13:54 14:11 RBC Hgb Hct RDW Seg Neuts % (Manual) Band Neutrophils % Lymphocytes % (Manual) Abs Neuts (Manual) Abs Lymphs (Manual) BUN Glucose Lactic Acid 2.9 H CK-MB (CK-2) NT-Pro-B Natriuret Pep 05797 H Total Protein Albumin Urine Protein 30 H Urine Glucose (UA) 50 H Urine Ketones TRACE H Critical Care Note - Critical Care Note Total time excluding time spent on procedures (mins): 35 Comments: Critical care time spent obtaining history from patient or surrogate, discussions with consultants, development of treatment plan with patient or surrogate, evaluation of patient's response to treatment, examination of patient, ordering and performing treatments and interventions, ordering and review of laboratory studies, re-evaluation of patient's condition, ordering and review of radiographic studies and review of old charts Discharge - Discharge Clinical Impression: NSTEMI (non-ST elevated myocardial infarction), Acute systolic (congestive) heart failure, Shortness of breath Condition: Stable Disposition: ADMITTED INPATIENT Unit Admitted: Telemetry Referrals: DEVON PHOENIX MD [Primary Care Provider] - Follow up as needed
--- NOTE | 2019-03-12 17:44 | PDOC CONSULTATION ---
Consultation Consult Date: 03/12/19 Provider Consulted: PERICO CARBAJAL Consult reason:: NSTEMI History of Present Illness Admission Date/PCP: DEVON PHOENIX MD History of Present Illness: MICHAELA KUHN is a 83 year old male with the following problems 1. COPD 2. LV dysfunction EF 30% [2018] 3. CAD 4. Dilated ischemic CMP 5. CHF systolic 6. Systemic hypertension Patient presented with gradually worsening dypspnea over the last few days. He has had increasing cough with little expectoration. He denies chest pain or palpitations. He is not a great historian. In the ED he is resting comfortably. His Troponin is midly elevated. Past Medical History Cardiac Medical History: Reports: Congestive Heart Failure, Coronary Artery Disease, Myocardial Infarction, Hypertension Pulmonary Medical History: Reports: Chronic Obstructive Pulmonary Disease (COPD), Sleep Apnea Endocrine Medical History: Reports: Diabetes Mellitus Type 1, Diabetes Mellitus Type 2 GI Medical History: Reports: Gastroesophageal Reflux Disease Musculoskeltal Medical History: Reports: Arthritis Psychiatric Medical History: Reports: Dementia Denies: Depression Hematology: Denies: Anemia, Sickle Cell Disease Past Surgical History Past Surgical History: Reports: Cardiac Catheterization - RCA, LDA, Coronary Stent - RCA & LAD, Orthopedic Surgery - right clavicle, left THR Social History Smoking Status: Former Smoker Frequency of Alcohol Use: None Hx Recreational Drug Use: No Drugs: None Hx Prescription Drug Abuse: No Family History Family History: Reviewed & Not Pertinent, CAD, Hypertension Parental Family History Reviewed: Yes - Not relevant Children Family History Reviewed: Unknown Sibling(s) Family History Reviewed.: No Medication/Allergy Home Medications: Albuterol Sulfate [Proair HFA Inhalation Aerosol 8.5 gm MDI] 2 puff IH Q6HP PRN 03/12/19 Atorvastatin Calcium [Lipitor 40 mg Tablet] 40 mg PO QHS 03/12/19 Brinzolamide/Brimonidine Tart [Simbrinza 1%-0.2% Eye Drops] 1 drop OU BID 03/12/19 Budesonide/Formoterol Fumarate [Symbicort HFA 160-4.5 mcg Inhaler 6 gm] 1 puff IH Q12 03/12/19 Clopidogrel Bisulfate [Plavix 75 mg Tablet] 75 mg PO DAILY 03/12/19 Insulin Aspart [Novolog Flexpen] 10 unit SQ AC 03/12/19 Insulin Detemir [Levemir] 20 unit SQ Q12 03/12/19 Ipratropium/Albuterol Sulfate [Duoneb 3 ml Ampul] 1 vial NEB Q6HP PRN 03/12/19 Metoprolol Succinate [Toprol Xl 50 mg Tab.sr] 50 mg PO DAILY 03/12/19 RX: Diltiazem HCl [Cardizem 30 mg Tablet] 30 mg PO Q8 03/12/19 RX: Lisinopril [Prinivil 2.5 mg Tablet] 2.5 mg PO DAILY 03/12/19 Ranolazine [Ranexa 500 mg Tab.sr] 500 mg PO BID 03/12/19 Sitagliptin Phosphate [Januvia 50 mg Tablet] 50 mg PO DAILY 03/12/19 Tamsulosin HCl [Flomax 0.4 mg Cap.sr] 0.4 mg PO QHS 03/12/19 Allergies/Adverse Reactions: Penicillins Allergy (Verified 03/12/19 13:17) SWELLS Review of Systems Constitutional: PRESENT: as per HPI Cardiovascular: PRESENT: as per HPI, dyspnea on exertion Respiratory: PRESENT: as per HPI, cough Physical Exam Vital Signs: Temp Pulse Resp BP Pulse Ox 97.4 F 125 H 24 H 139/67 H 97 03/12/19 13:12 03/12/19 13:12 03/12/19 13:12 03/12/19 13:12 03/12/19 13:12 Intake & Output 03/11/19 03/12/19 03/13/19 06:59 06:59 06:59 Weight 72.1 kg General appearance: PRESENT: mild distress Head exam: PRESENT: atraumatic Eye exam: PRESENT: EOMI Ear exam: PRESENT: normal external ear exam Mouth exam: PRESENT: moist Teeth exam: PRESENT: edentulous Neck exam: PRESENT: full ROM, JVD Respiratory exam: PRESENT: crackles, decreased breath sounds, prolonged expiratory phas, rales Cardiovascular exam: PRESENT: irregular rhythm GI/Abdominal exam: PRESENT: soft Rectal exam: PRESENT: deferred Musculoskeletal exam: PRESENT: normal inspection Neurological exam: PRESENT: alert, oriented to person, oriented to place Skin exam: PRESENT: dry, intact Results Laboratory Results: 03/12/19 13:54 03/12/19 13:54 03/12/19 03/12/19 03/12/19 13:54 13:54 13:54 WBC 9.4 RBC 3.36 L Hgb 9.8 L Hct 29.5 L MCV 88 MCH 29.1 MCHC 33.1 RDW 16.4 H Plt Count 300 Seg Neutrophils % Not Reportable Lymphocytes % Not Reportable Monocytes % Not Reportable Eosinophils % Not Reportable Basophils % Not Reportable Absolute Neutrophils Not Reportable Absolute Lymphocytes Not Reportable Absolute Monocytes Not Reportable Absolute Eosinophils Not Reportable Absolute Basophils Not Reportable Sodium 139.9 Potassium 4.2 Chloride 103 Carbon Dioxide 25 Anion Gap 12 BUN 25 H Creatinine 1.02 Est GFR ( Amer) > 60 Est GFR (Non-Af Amer) > 60 Glucose 267 H Lactic Acid 2.9 H Calcium 8.9 Total Bilirubin 0.5 AST 24 ALT 26 Alkaline Phosphatase 63 Total Protein 5.9 L Albumin 3.4 L Urine Color Urine Appearance Urine pH Ur Specific [place] Urine Protein Urine Glucose (UA) Urine Ketones Urine Blood Urine Nitrite Ur Leukocyte Esterase Urine WBC (Auto) Urine RBC (Auto) 03/12/19 14:11 WBC RBC Hgb Hct MCV MCH MCHC RDW Plt Count Seg Neutrophils % Lymphocytes % Monocytes % Eosinophils % Basophils % Absolute Neutrophils Absolute Lymphocytes Absolute Monocytes Absolute Eosinophils Absolute Basophils Sodium Potassium Chloride Carbon Dioxide Anion Gap BUN Creatinine Est GFR ( Amer) Est GFR (Non-Af Amer) Glucose Lactic Acid Calcium Total Bilirubin AST ALT Alkaline Phosphatase Total Protein Albumin Urine Color YELLOW Urine Appearance CLEAR Urine pH 5.0 Ur Specific [place] 1.027 Urine Protein 30 H Urine Glucose (UA) 50 H Urine Ketones TRACE H Urine Blood NEGATIVE Urine Nitrite NEGATIVE Ur Leukocyte Esterase NEGATIVE Urine WBC (Auto) 2 Urine RBC (Auto) 1 03/12/19 03/12/19 13:54 13:54 CK-MB (CK-2) 6.07 H Troponin I 1.420 NT-Pro-B Natriuret Pep 87536 H EKG Comments: EKG reviewed by me in ED Sinus rhythm with PACs 96 pm, RBBB LPFB, inferior Q waves Sinus tahcycardia 112 bpm, RBBB, LPF Impressions: Chest X-Ray 03/12/19 13:27 IMPRESSION: NO ACUTE RADIOGRAPHIC FINDING IN THE CHEST. Status: Image reviewed by me - Prominent pulmonary vasculature. CP angles are clear Assessment & Plan - Diagnosis (1) Acute on chronic respiratory failure with hypoxemia Is this a current diagnosis for this admission?: Yes Plan: Supportive care. Oxygen Bronchodilators Gentle diuresis I/O Check Echocardiogram Previous LVEF estimated at 30% in 2018 (2) Acute systolic (congestive) heart failure Is this a current diagnosis for this admission?: Yes Plan: Free water and salt restriction Gentle diuresis Beta jr Check Echo (3) COPD (chronic obstructive pulmonary disease) Qualifiers: COPD type: COPD with acute exacerbation Qualified Code(s): J44.1 - Chronic obstructive pulmonary disease with (acute) exacerbation Is this a current diagnosis for this admission?: Yes Plan: He does have prominent cough with difficulty in expectoration. Supportive care. Bronchodilators. Does not seem to have ongoing infection (4) NSTEMI (non-ST elevated myocardial infarction) Is this a current diagnosis for this admission?: Yes Plan: Likely type 2 demand mediated ischemia in a patient with known CAD in face of hypoxia and respiratory distress. Given age, lack of chest pain and lack of STT changes would treat conservatively. Recommend gentle diuresis to diminish filling pressures; can use Nitro gtt however BP may limit this. Beta Jr ASA Statin Medical therapy for NSTEMI with Enoxaparin or Heparin gtt x 48 hours. - Time Time Spent: 30 to 50 Minutes Medications reviewed and adjusted accordingly: Yes
[2019-03-12] MEDS ORDERED: ENOXAPARIN SODIUM INJ 40 MG/0.4 ML DISP.SYRIN SUBCUT SCH ×2 (17:45→22:00)
--- NOTE | 2019-03-12 18:01 | PDOC H&P ---
History of Present Illness Admission Date/PCP: DEVON PHOENIX MD History of Present Illness: MICHAELA KUHN is a 83 year old male patient with multiple comorbidities including atrial fibrillation, hypertension, history of DC, coronary artery disease, diabetes mellitus, COPD, obstructive sleep apnea, benign prostatic hypertrophy and chronic respiratory failure on home O2 who presents with chief complaint of shortness of breath. Of note patient has underlying long-standing shortness of breath but the last 3 to 4 days his shortness of breath is worsening day by day and he has associated right-sided chest pain. He denied any fever, chills, cough, palpitation or diaphoresis. His blood work shows hemoglobin of 9.8 lactic acid of 2.9 troponin of 1.420 and BNP of 10,800. I discussed the case with Dr. Bridger William who states that patient is not a candidate for any kind of cardiac surgical intervention beats coronary artery bypass graft or stent placement so he recommended medical management. Past Medical History Cardiac Medical History: Reports: Atrial Fibrillation, Congestive Heart Failure, Coronary Artery Disease, Myocardial Infarction, Hypertension Pulmonary Medical History: Reports: Chronic Obstructive Pulmonary Disease (COPD), Sleep Apnea Endocrine Medical History: Reports: Diabetes Mellitus Type 1, Diabetes Mellitus Type 2 GI Medical History: Reports: Gastroesophageal Reflux Disease Musculoskeltal Medical History: Reports: Arthritis Psychiatric Medical History: Reports: Dementia Denies: Depression Hematology: Denies: Anemia, Sickle Cell Disease Past Surgical History Past Surgical History: Reports: Cardiac Catheterization - RCA, LDA, Coronary Stent - RCA & LAD, Orthopedic Surgery - right clavicle, left THR Social History Smoking Status: Former Smoker Frequency of Alcohol Use: None Hx Recreational Drug Use: No Drugs: None Hx Prescription Drug Abuse: No - Advance Directive Resuscitation Status: Do Not Resuscitate Family History Family History: Reviewed & Not Pertinent, CAD, Hypertension Parental Family History Reviewed: Yes Children Family History Reviewed: Yes Sibling(s) Family History Reviewed.: Yes Medication/Allergy Allergies/Adverse Reactions: Penicillins Allergy (Verified 03/12/19 13:17) CHIKIS Review of Systems Constitutional: ABSENT: chills, fever(s), headache(s), weight gain, weight loss Eyes: ABSENT: visual disturbances Ears: ABSENT: hearing changes Cardiovascular: PRESENT: chest pain, dyspnea on exertion, edema Respiratory: ABSENT: cough, hemoptysis Gastrointestinal: ABSENT: abdominal pain, constipation, diarrhea, hematemesis, hematochezia, nausea, vomiting Genitourinary: ABSENT: dysuria, hematuria Musculoskeletal: ABSENT: joint swelling Integumentary: ABSENT: rash, wounds Neurological: ABSENT: abnormal gait, abnormal speech, confusion, dizziness, focal weakness, syncope Psychiatric: ABSENT: anxiety, depression, homidical ideation, suicidal ideation Endocrine: ABSENT: cold intolerance, heat intolerance, polydipsia, polyuria Hematologic/Lymphatic: ABSENT: easy bleeding, easy bruising Physical Exam Vital Signs: Temp Pulse Resp BP Pulse Ox 97.4 F 125 H 24 H 139/67 H 97 03/12/19 13:12 03/12/19 13:12 03/12/19 13:12 03/12/19 13:12 03/12/19 13:12 Intake & Output 03/11/19 03/12/19 03/13/19 06:59 06:59 06:59 Weight 72.1 kg General appearance: PRESENT: severe distress Head exam: PRESENT: atraumatic Eye exam: PRESENT: conjunctiva pink Mouth exam: PRESENT: dry mucosa Neck exam: PRESENT: JVD Respiratory exam: PRESENT: crackles, decreased breath sounds, wheezes Cardiovascular exam: PRESENT: irregular rhythm GI/Abdominal exam: PRESENT: normal bowel sounds, soft. ABSENT: distended, guarding, mass, organolmegaly, rebound, tenderness Extremities exam: PRESENT: +2 edema Neurological exam: PRESENT: alert, awake, oriented to time, oriented to situation Results Laboratory Results: 03/12/19 13:54 03/12/19 13:54 03/12/19 03/12/19 03/12/19 13:54 13:54 13:54 WBC 9.4 RBC 3.36 L Hgb 9.8 L Hct 29.5 L MCV 88 MCH 29.1 MCHC 33.1 RDW 16.4 H Plt Count 300 Seg Neutrophils % Not Reportable Lymphocytes % Not Reportable Monocytes % Not Reportable Eosinophils % Not Reportable Basophils % Not Reportable Absolute Neutrophils Not Reportable Absolute Lymphocytes Not Reportable Absolute Monocytes Not Reportable Absolute Eosinophils Not Reportable Absolute Basophils Not Reportable Sodium 139.9 Potassium 4.2 Chloride 103 Carbon Dioxide 25 Anion Gap 12 BUN 25 H Creatinine 1.02 Est GFR ( Amer) > 60 Est GFR (Non-Af Amer) > 60 Glucose 267 H Lactic Acid 2.9 H Calcium 8.9 Total Bilirubin 0.5 AST 24 ALT 26 Alkaline Phosphatase 63 Total Protein 5.9 L Albumin 3.4 L Urine Color Urine Appearance Urine pH Ur Specific [place] Urine Protein Urine Glucose (UA) Urine Ketones Urine Blood Urine Nitrite Ur Leukocyte Esterase Urine WBC (Auto) Urine RBC (Auto) 03/12/19 14:11 WBC RBC Hgb Hct MCV MCH MCHC RDW Plt Count Seg Neutrophils % Lymphocytes % Monocytes % Eosinophils % Basophils % Absolute Neutrophils Absolute Lymphocytes Absolute Monocytes Absolute Eosinophils Absolute Basophils Sodium Potassium Chloride Carbon Dioxide Anion Gap BUN Creatinine Est GFR ( Amer) Est GFR (Non-Af Amer) Glucose Lactic Acid Calcium Total Bilirubin AST ALT Alkaline Phosphatase Total Protein Albumin Urine Color YELLOW Urine Appearance CLEAR Urine pH 5.0 Ur Specific [place] 1.027 Urine Protein 30 H Urine Glucose (UA) 50 H Urine Ketones TRACE H Urine Blood NEGATIVE Urine Nitrite NEGATIVE Ur Leukocyte Esterase NEGATIVE Urine WBC (Auto) 2 Urine RBC (Auto) 1 03/12/19 03/12/19 13:54 13:54 CK-MB (CK-2) 6.07 H Troponin I 1.420 NT-Pro-B Natriuret Pep [id number] H Impressions: Chest X-Ray 03/12/19 13:27 IMPRESSION: NO ACUTE RADIOGRAPHIC FINDING IN THE CHEST. Assessment and Plan - Diagnosis (1) Acute on chronic systolic congestive heart failure, NYHA class 3 Is this a current diagnosis for this admission?: Yes Plan: Patient has been started on IV Lasix and will put him on cardioprotective medications. Strict input output Daily weight Elevate bed head Supplemental oxygen. (2) COPD exacerbation Is this a current diagnosis for this admission?: Yes Plan: Patient has bilateral diffuse wheezing and shortness of breath. Patient will be started on bronchodilator, steroid and supplemental oxygen. (3) Non-STEMI (non-ST elevated myocardial infarction) Is this a current diagnosis for this admission?: Yes Plan: Patient is not a candidate for cardiac catheterization, stent placement or coronary bypass graft. Medical management recommended Dr. Bridger William (4) Atrial fibrillation Qualifiers: Atrial fibrillation type: chronic Qualified Code(s): I48.2 - Chronic atrial fibrillation Is this a current diagnosis for this admission?: Yes Plan: Patient has hemoglobin of 9.8 and has also ecchymotic lesion on his thigh. We will check his stool for occult blood if it is negative we will start him on Lovenox. (5) Type 2 diabetes mellitus Is this a current diagnosis for this admission?: Yes Plan: We will put him on sliding scale and continue his home medication. (6) Obstructive sleep apnea Is this a current diagnosis for this admission?: Yes Plan: CPAP nightly and as needed (7) Coronary artery disease Qualifiers: Coronary Disease-Associated Artery/Lesion type: [place] artery Is this a current diagnosis for this admission?: Yes Plan: Management as #2 (8) Hypertension Qualifiers: Hypertension type: essential hypertension Qualified Code(s): I10 - Essential (primary) hypertension Is this a current diagnosis for this admission?: Yes Plan: Continue his home medication. (9) Hyperlipidemia Qualifiers: Hyperlipidemia type: unspecified Qualified Code(s): E78.5 - Hyperlipidemia, unspecified Is this a current diagnosis for this admission?: Yes Plan: Continue his home medication (10) BPH (benign prostatic hyperplasia) Is this a current diagnosis for this admission?: Yes Plan: No urinary difficulty. And continues on medication. - Inpatient Certification Medical Necessity: Failure to Improve With Outpatient Therapy, Significant Comorbidiites Make Outpatient Treatment Too Risky, Need for Nebulizer Therapy and Monitoring of Response
[2019-03-12] MEDS ORDERED: SODIUM BICARBONATE 8.4% INJ 50 MEQ/50 ML DISP.SYRIN IV ONE (18:55)
--- NOTE | 2019-03-12 18:57 | EKG REPORT ---
SEVERITY:- ABNORMAL ECG - SINUS TACHYCARDIA. RBBB AND LPFB NO CHANGE : Confirmed by: Martir Beck MD 12-Mar-2019 18:57:28
[2019-03-12] MEDS ORDERED: METOPROLOL TARTRATE PF/INJ 5 MG/5 ML SDV IV PRN (20:14)
[2019-03-12] MEDS: IPRATROPIUM/ALBUTEROL 0.5-2.5 MG/3 ML AMPUL NEB SCH (20:59)
[2019-03-12] MEDS: DILTIAZEM HCL 30 MG TABLET PO SCH (20:59)
[2019-03-12] MEDS: FUROSEMIDE INJ/PF 40 MG/4 ML SDV IV SCH (23:21)
[2019-03-12] MEDS: ENOXAPARIN SODIUM INJ 80 MG/0.8 ML DISP.SYRIN SUBCUT SCH (23:22)
[2019-03-12] MEDS: METHYLPREDNISOLONE INJ 40 MG/1 ML SDV IV SCH (23:22)
[2019-03-12] MEDS: TEMAZEPAM 7.5 MG CAPSULE PO SCH (23:24)
[2019-03-13] MEDS: IPRATROPIUM/ALBUTEROL 0.5-2.5 MG/3 ML AMPUL NEB SCH ×6 (01:09→20:43)
[2019-03-13] MEDS: INSULIN LISPRO 100 UNIT/ML 3 ML VIAL SUBCUT SCH ×5 (02:20→21:35)
[2019-03-13] MEDS: DILTIAZEM HCL 30 MG TABLET PO SCH ×4 (02:21→21:34)
[2019-03-13] MEDS ORDERED: GLUCAGON,HUMAN RECOMB 1 MG INJ IM PRN (02:30)
[2019-03-13] MEDS ORDERED: DEXTROSE 40% GEL 15 GM TUBE X 2 PO PRN (02:30)
[2019-03-13] MEDS ORDERED: DEXTROSE 50%-WATER SYRINGE 12.5 GM/25 ML DOSE IV PRN (02:30)
[2019-03-13] MEDS ORDERED: DEXTROSE 50%-WATER SYRINGE 25 GM/50 ML DOSE IV PRN (02:30)
[2019-03-13] MEDS ORDERED: DEXTROSE 40% GEL 15 GM TUBE PO PRN (02:30)
[2019-03-13] MEDS: FUROSEMIDE INJ/PF 40 MG/4 ML SDV IV SCH ×2 (06:13→15:41)
[2019-03-13] MEDS: METHYLPREDNISOLONE INJ 40 MG/1 ML SDV IV SCH ×3 (06:13→21:35)
[2019-03-13 06:38] LABS: HEMOGLOBIN 9.9 g/dL (13.5-17.0); MEAN CORPUSCULAR HEMOGLOBIN 28.8 pg (27.0-33.4); MEAN CORPUSCULAR VOLUME 87 fl (80-97); PLATELET COUNT 297 10^3/uL (150-450); RED BLOOD COUNT 3.43 10^6/uL (4.35-5.55); RED CELL DISTRIBUTION WIDTH 16.7 % (11.5-14.0); WHITE BLOOD COUNT 7.7 10^3/uL (4.0-10.5)
[2019-03-13 06:57] LABS: ANION GAP 8 (5-19); BLOOD UREA NITROGEN 28 mg/dL (7-20); CALCIUM 8.7 mg/dL (8.4-10.2); CARBON DIOXIDE 33 mmol/L (22-30); CHLORIDE 100 mmol/L (98-107); GLUCOSE 283 mg/dL (75-110); SODIUM 140.8 mmol/L (137-145)
--- NOTE | 2019-03-13 07:34 | EKG REPORT ---
SEVERITY:- ABNORMAL ECG - SINUS OR ECTOPIC ATRIAL TACHYCARDIA RBBB AND LPFB : Confirmed by: Martir Beck MD 13-Mar-2019 07:34:19
--- NOTE | 2019-03-13 07:35 | EKG REPORT ---
SEVERITY:- ABNORMAL ECG - SINUS TACHYCARDIA RBBB AND LPFB PERSISTENT INFERIOR ST ELEVATIONS. : Confirmed by: Martir Beck MD 13-Mar-2019 07:35:00
[2019-03-13] MEDS: DOCUSATE SODIUM 100 MG/10 ML UDC PO SCH ×3 (08:22→17:35)
--- NOTE | 2019-03-13 09:23 | PDOC PROGRESS REPORT ---
Subjective Progress Note for:: 03/13/19 Subjective:: Patient is doing much better. Good relief of dyspnea. Smiling and able to speak in complete sentences. Reason For Visit: ACUTE ON CHRONIC SYSTOLIC CONGESTIVE HEART Physical Exam Vital Signs: Temp Pulse Resp BP Pulse Ox 97.7 F 89 26 H 129/91 H 100 03/12/19 21:28 03/13/19 03:23 03/13/19 08:45 03/13/19 07:00 03/13/19 08:45 Intake & Output 03/12/19 03/13/19 03/14/19 06:59 06:59 06:59 Output Total 1999 Balance -1999 Weight 72.1 kg General appearance: PRESENT: no acute distress, cooperative Head exam: PRESENT: atraumatic, normocephalic Eye exam: PRESENT: EOMI Ear exam: PRESENT: normal external ear exam Mouth exam: PRESENT: neck supple Teeth exam: PRESENT: edentulous Neck exam: PRESENT: full ROM, JVD Respiratory exam: PRESENT: crackles, decreased breath sounds, rales, unlabored Cardiovascular exam: PRESENT: RRR Vascular exam: PRESENT: normal capillary refill GI/Abdominal exam: PRESENT: soft Rectal exam: PRESENT: deferred Gentrourinary exam: PRESENT: indwelling catheter Musculoskeletal exam: PRESENT: normal inspection Neurological exam: PRESENT: alert, oriented to person, oriented to place Psychiatric exam: PRESENT: appropriate affect Skin exam: PRESENT: dry, warm Results Laboratory Results: 03/13/19 06:31 03/13/19 06:31 03/12/19 03/12/19 03/12/19 13:54 13:54 13:54 WBC 9.4 RBC 3.36 L Hgb 9.8 L Hct 29.5 L MCV 88 MCH 29.1 MCHC 33.1 RDW 16.4 H Plt Count 300 Seg Neutrophils % Not Reportable Lymphocytes % Not Reportable Monocytes % Not Reportable Eosinophils % Not Reportable Basophils % Not Reportable Absolute Neutrophils Not Reportable Absolute Lymphocytes Not Reportable Absolute Monocytes Not Reportable Absolute Eosinophils Not Reportable Absolute Basophils Not Reportable Sodium 139.9 Potassium 4.2 Chloride 103 Carbon Dioxide 25 Anion Gap 12 BUN 25 H Creatinine 1.02 Est GFR ( Amer) > 60 Est GFR (Non-Af Amer) > 60 Glucose 267 H Lactic Acid 2.9 H Calcium 8.9 Total Bilirubin 0.5 AST 24 ALT 26 Alkaline Phosphatase 63 Total Protein 5.9 L Albumin 3.4 L TSH Urine Color Urine Appearance Urine pH Ur Specific [place] Urine Protein Urine Glucose (UA) Urine Ketones Urine Blood Urine Nitrite Ur Leukocyte Esterase Urine WBC (Auto) Urine RBC (Auto) 03/12/19 03/12/19 03/13/19 14:11 18:19 06:31 WBC 7.7 RBC 3.43 L Hgb 9.9 L Hct 30.0 L MCV 87 MCH 28.8 MCHC 33.0 RDW 16.7 H Plt Count 297 Seg Neutrophils % Lymphocytes % Monocytes % Eosinophils % Basophils % Absolute Neutrophils Absolute Lymphocytes Absolute Monocytes Absolute Eosinophils Absolute Basophils Sodium Potassium Chloride Carbon Dioxide Anion Gap BUN Creatinine Est GFR ( Amer) Est GFR (Non-Af Amer) Glucose Lactic Acid 1.6 Calcium Total Bilirubin AST ALT Alkaline Phosphatase Total Protein Albumin TSH Urine Color YELLOW Urine Appearance CLEAR Urine pH 5.0 Ur Specific [place] 1.027 Urine Protein 30 H Urine Glucose (UA) 50 H Urine Ketones TRACE H Urine Blood NEGATIVE Urine Nitrite NEGATIVE Ur Leukocyte Esterase NEGATIVE Urine WBC (Auto) 2 Urine RBC (Auto) 1 03/13/19 03/13/19 06:31 06:31 WBC RBC Hgb Hct MCV MCH MCHC RDW Plt Count Seg Neutrophils % Lymphocytes % Monocytes % Eosinophils % Basophils % Absolute Neutrophils Absolute Lymphocytes Absolute Monocytes Absolute Eosinophils Absolute Basophils Sodium 140.8 Potassium 4.0 Chloride 100 Carbon Dioxide 33 H Anion Gap 8 BUN 28 H Creatinine 1.03 Est GFR ( Amer) > 60 Est GFR (Non-Af Amer) > 60 Glucose 283 H Lactic Acid Calcium 8.7 Total Bilirubin AST ALT Alkaline Phosphatase Total Protein Albumin TSH 7.56 H Urine Color Urine Appearance Urine pH Ur Specific [place] Urine Protein Urine Glucose (UA) Urine Ketones Urine Blood Urine Nitrite Ur Leukocyte Esterase Urine WBC (Auto) Urine RBC (Auto) 03/12/19 03/12/19 13:54 13:54 CK-MB (CK-2) 6.07 H Troponin I 1.420 NT-Pro-B Natriuret Pep [id number] H Impressions: Chest X-Ray 03/12/19 13:27 IMPRESSION: NO ACUTE RADIOGRAPHIC FINDING IN THE CHEST. Assessment & Plan - Diagnosis (1) Acute on chronic respiratory failure with hypoxemia Is this a current diagnosis for this admission?: Yes (2) Acute systolic (congestive) heart failure Is this a current diagnosis for this admission?: Yes (3) COPD (chronic obstructive pulmonary disease) Qualifiers: COPD type: COPD with acute exacerbation Qualified Code(s): J44.1 - Chronic obstructive pulmonary disease with (acute) exacerbation Is this a current diagnosis for this admission?: Yes (4) NSTEMI (non-ST elevated myocardial infarction) Is this a current diagnosis for this admission?: Yes - Notes Notes: Good improvement in respiratory distress. Decent urine out put. RN reports 250 mL out since 0600 today Recommend maintaining IV diuresis for another 24 hours and switch to oral diuretic Stop Enoxaparin in another 24 hours. Patient is chest pain free Tele shows SR 84 bpm Continue GDMT for CHF and LV dysfunction Discussed with RN.
[2019-03-13] MEDS: ENOXAPARIN SODIUM INJ 80 MG/0.8 ML DISP.SYRIN SUBCUT SCH ×2 (10:21→21:34)
--- NOTE | 2019-03-13 15:30 | XCELERA REPORT ---
[address] [address] Transthoracic Echocardiogram Report Name: MICHAELA KUHN Age: 83 yrs Gender: Male : 1935 Patient Status: Inpatient Patient Location: [place] [address]^A Study Date: 03/13/2019 11:28 AM History: CHF Height: 66 in Weight: 158 lb BSA: 1.8 m2 Procedure: The study was technically difficult with many images being suboptimal in quality. Reason For Study: chf afib History: Shortness of breath. Ordering Physician: INES GOMES Performed By: Diamond Cardenas Interpretation Summary The study was technically difficult with many images being suboptimal in quality. Left ventricular systolic function is mild to moderately reduced. LV EF is 40-45% The right ventricle is normal in size and function. The left atrium is moderately dilated. There is a moderate amount of mitral regurgitation There is no aortic valve stenosis There is a mild amount of tricuspid regurgitation There is mild to moderate pulmonary hypertension by echo There is no pericardial effusion. MMode/2D Measurements & Calculations RVDd: 3.7 cm LVIDd: 5.9 cm FS: 35.8 % Ao root diam: 3.2 cm IVSd: 0.96 cm LVIDs: 3.8 cm EDV(Teich): LVPWd: 1.0 cm 171.6 ml Ao root area: ESV(Teich): 8.1 cm2 60.9 ml EF(Teich): 64.5 % EDV(MOD-sp4): SV(MOD-sp4): 171.0 ml 97.5 ml ESV(MOD-sp4): 73.5 ml EF(MOD-sp4): 57.0 % Doppler Measurements & Calculations MV E max leisa: MV dec slope: Ao V2 max: LV V1 max P.2 cm/sec 130.4 cm/sec 2.4 mmHg MV A max leisa: 738.2 cm/sec2 Ao max P.8 mmHgLV V1 max: 83.4 cm/sec MV dec time: 0.15 sec 76.8 cm/sec MV E/A: 1.3 MR max leisa: PA V2 max: TR max leisa: 488.5 cm/sec 76.8 cm/sec 313.0 cm/sec MR max P.5 mmHgPA max P.4 mmHg TR max P.1 mmHg Left Ventricle The left ventricle is mildly dilated. There is mild asymmetric left ventricular hypertrophy. Left ventricular systolic function is mild to moderately reduced. LV EF is 40-45%. Doppler measurements suggest pseudonormalized left ventricular relaxation, which is associated with grade II/IV or mild to moderate diastolic dysfunction. There is anterior wall hypokinesis. There is anteroseptal wall akinesis. There is apical wall akinesis. Right Ventricle The right ventricle is normal in size and function. Atria The right atrium is mildly dilated. The left atrium is moderately dilated. Mitral Valve The mitral valve leaflets are sclerotic, but show no functional abnormalities. There is no evidence of mitral valve prolapse. There is no mitral valve stenosis. There is a moderate amount of mitral regurgitation. Aortic Valve The aortic valve is sclerotic, but shows no functional abnormality. The aortic valve is calcified. There is no aortic valve stenosis. No aortic regurgitation is present. Tricuspid Valve The tricuspid valve is normal in structure and function. There is a mild amount of tricuspid regurgitation. There is mild to moderate pulmonary hypertension by echo. Right ventricular systolic pressure is estimated to be elevated at 50-60mmHg. Pulmonic Valve The pulmonic valve is not well visualized. Great Vessels The aortic root is normal size. The inferior vena cava appeared dilated and decreased < 50% with respiration (RAP 15-20 mmHg). Effusions There is no pericardial effusion. : INES GOMES > Bridger William
--- NOTE | 2019-03-13 16:47 | PDOC PROGRESS REPORT ---
Subjective Progress Note for:: 03/13/19 Subjective:: MICHAELA KUHN is a 83 year old male patient with multiple comorbidities including atrial fibrillation, hypertension, history of DC, coronary artery disease, diabetes mellitus, COPD, obstructive sleep apnea, benign prostatic hypertrophy and chronic respiratory failure on home O2 who presents with chief complaint of shortness of breath. Of note patient has underlying long-standing shortness of breath but the last 3 to 4 days his shortness of breath is worse drake day by day and he has associated right-sided chest pain. He denied any fever, chills, cough, palpitation or diaphoresis. His blood work shows hemoglobin of 9.8 lactic acid of 2.9 troponin of 1.420 and BNP of 10,800. I discussed the case with Dr. Bridger William who states that patient is not a c andidate for any kind of cardiac surgical intervention beats coronary artery bypass graft or stent placement so he recommended medical management. This morning patient seen and examined at bedside. He is awake alert and oriented. Reports his shortness of breath has been subsiding and he has a restful night. His edema is decreasing. I will taper his IV Lasix from 40 mg IV every 8 hours to 20 mg. Next 48 hours I will switch it to p.o. Reason For Visit: ACUTE ON CHRONIC SYSTOLIC CONGESTIVE HEART Physical Exam Vital Signs: Temp Pulse Resp BP Pulse Ox 97.8 F 86 19 126/54 H 100 03/13/19 15:00 03/13/19 16:03 03/13/19 16:03 03/13/19 15:00 03/13/19 16:03 Intake & Output 03/12/19 03/13/19 03/14/19 06:59 06:59 06:59 Output Total 1999 -1999 Weight 72.1 kg General appearance: PRESENT: mild distress Head exam: PRESENT: atraumatic Eye exam: PRESENT: conjunctiva pink Mouth exam: PRESENT: moist Neck exam: PRESENT: JVD Respiratory exam: PRESENT: crackles, decreased breath sounds Cardiovascular exam: PRESENT: irregular rhythm GI/Abdominal exam: PRESENT: normal bowel sounds, soft. ABSENT: distended, guarding, mass, organolmegaly, rebound, tenderness Extremities exam: PRESENT: +2 edema Neurological exam: PRESENT: alert, awake Results Laboratory Results: 03/13/19 06:31 03/13/19 06:31 03/12/19 03/13/19 03/13/19 18:19 06:31 06:31 WBC 7.7 RBC 3.43 L Hgb 9.9 L Hct 30.0 L MCV 87 MCH 28.8 MCHC 33.0 RDW 16.7 H Plt Count 297 Sodium 140.8 Potassium 4.0 Chloride 100 Carbon Dioxide 33 H Anion Gap 8 BUN 28 H Creatinine 1.03 Est GFR ( Amer) > 60 Est GFR (Non-Af Amer) > 60 Glucose 283 H Lactic Acid 1.6 Calcium 8.7 TSH 03/13/19 06:31 WBC RBC Hgb Hct MCV MCH MCHC RDW Plt Count Sodium Potassium Chloride Carbon Dioxide Anion Gap BUN Creatinine Est GFR ( Amer) Est GFR (Non-Af Amer) Glucose Lactic Acid Calcium TSH 7.56 H 03/12/19 03/12/19 13:54 13:54 CK-MB (CK-2) 6.07 H Troponin I 1.420 NT-Pro-B Natriuret Pep [id number] H Impressions: Chest X-Ray 03/12/19 13:27 IMPRESSION: NO ACUTE RADIOGRAPHIC FINDING IN THE CHEST. Assessment and Plan - Diagnosis (1) Acute on chronic systolic congestive heart failure, NYHA class 3 Is this a current diagnosis for this admission?: Yes Plan: His edema and shortness of breath is subsiding. (2) COPD exacerbation Is this a current diagnosis for this admission?: Yes Plan: Patient has bilateral diffuse wheezing and shortness of breath. Patient will be started on bronchodilator, steroid and supplemental oxygen. (3) Non-STEMI (non-ST elevated myocardial infarction) Is this a current diagnosis for this admission?: Yes Plan: Patient is not a candidate for cardiac catheterization, stent placement or coronary bypass graft. Medical management recommended Dr. Bridger William (4) Atrial fibrillation Qualifiers: Atrial fibrillation type: chronic Qualified Code(s): I48.2 - Chronic atrial fibrillation Is this a current diagnosis for this admission?: Yes Plan: Patient has hemoglobin of 9.8 and has also ecchymotic lesion on his thigh. We will check his stool for occult blood if it is negative we will start him on Lovenox. (5) Type 2 diabetes mellitus Is this a current diagnosis for this admission?: Yes Plan: We will put him on sliding scale and continue his home medication. (6) Obstructive sleep apnea Is this a current diagnosis for this admission?: Yes Plan: CPAP nightly and as needed (7) Coronary artery disease Qualifiers: Coronary Disease-Associated Artery/Lesion type: [place] artery Is this a current diagnosis for this admission?: Yes Plan: Management as #2 (8) Hypertension Qualifiers: Hypertension type: essential hypertension Qualified Code(s): I10 - E ssential (primary) hypertension Is this a current diagnosis for this admission?: Yes Plan: Continue his home medication. (9) Hyperlipidemia Qualifiers: Hyperlipidemia type: unspecified Qualified Code(s): E78.5 - Hyperlipidemia, unspecified Is this a current diagnosis for this admission?: Yes Plan: Continue his home medication (10) BPH (benign prostatic hyperplasia) Is this a current diagnosis for this admission?: Yes Plan: No urinary difficulty. And continues on medication.
--- NOTE | 2019-03-13 16:50 | ADVANCED CARE ---
Resuscitation Status: Do Not Resuscitate Discussion: I have a long discussion with the patient regarding his CODE STATUS. Patient states that he does not want any heroic measures to revive him. But he agrees to take appropriate medications for his medical problems. Care Planning Goals: DNR/DNI Patient wants appropriate medication for his underlying comorbidities. He agrees with pain control and oxygen supplement. Time Spent: 16 minutes
[2019-03-13] MEDS: RANOLAZINE 500 MG TAB.SR.12H PO SCH (17:38)
[2019-03-13] MEDS ORDERED: (PENDING PHARMACY ID) (Brinzolamide/Brimonidine Tart [Simbrinza 1%-0.2% Eye Drops] 1 DROP) OU SCH (18:00)
[2019-03-13] MEDS: TAMSULOSIN HCL 0.4 MG CAP.SR.24H PO SCH (21:34)
[2019-03-13] MEDS: TEMAZEPAM 7.5 MG CAPSULE PO SCH (21:34)
[2019-03-13] MEDS: ATORVASTATIN CALCIUM 40 MG TABLET PO SCH (21:34)
[2019-03-13] MEDS: FUROSEMIDE INJ/PF 20 MG/2 ML SDV IV SCH (21:35)
[2019-03-13] MEDS ORDERED: INSULIN DETEMIR 20 UNIT SQ SCH (22:00)
[2019-03-13] MEDS ORDERED: (PENDING PHARMACY ID) (Budesonide/Formoterol Fumarate 1 PUFF) IH SCH (22:00)
[2019-03-13] MEDS ORDERED: FUROSEMIDE INJ/PF 40 MG/4 ML SDV IV SCH (22:00)
[2019-03-13] MEDS: INSULIN GLARGINE,HUM.REC.ANLOG 1,000 UNIT/10 ML VIAL SUBCUT SCH (22:48)
[2019-03-13] MEDS ORDERED: ACETAMINOPHEN 325 MG TABLET ONE (22:54)
[2019-03-13] MEDS: ACETAMINOPHEN 325 MG TABLET PO PRN (22:56)
[2019-03-14] MEDS: IPRATROPIUM/ALBUTEROL 0.5-2.5 MG/3 ML AMPUL NEB SCH ×6 (00:07→20:34)
[2019-03-14] MEDS: METHYLPREDNISOLONE INJ 40 MG/1 ML SDV IV SCH ×3 (05:03→21:17)
[2019-03-14] MEDS: DILTIAZEM HCL 30 MG TABLET PO SCH ×4 (05:03→21:17)
[2019-03-14] MEDS: FUROSEMIDE INJ/PF 20 MG/2 ML SDV IV SCH ×3 (05:03→21:17)
[2019-03-14 05:14] LABS: HEMATOCRIT 31.7 % (37.9-51.0); HEMOGLOBIN 10.3 g/dL (13.5-17.0); MEAN CORPUSCULAR HEMOGLOBIN 28.4 pg (27.0-33.4); MEAN CORPUSCULAR HGB CONC 32.5 g/dL (32.0-36.0); MEAN CORPUSCULAR VOLUME 88 fl (80-97); PLATELET COUNT 266 10^3/uL (150-450); RED BLOOD COUNT 3.63 10^6/uL (4.35-5.55); RED CELL DISTRIBUTION WIDTH 16.4 % (11.5-14.0); WHITE BLOOD COUNT 8.2 10^3/uL (4.0-10.5)
[2019-03-14 05:31] LABS: ANION GAP 7 (5-19); BLOOD UREA NITROGEN 32 mg/dL (7-20); CALCIUM 8.9 mg/dL (8.4-10.2); CARBON DIOXIDE 35 mmol/L (22-30); CHLORIDE 97 mmol/L (98-107); GLUCOSE 213 mg/dL (75-110); POTASSIUM 4.5 mmol/L (3.6-5.0); SODIUM 139.1 mmol/L (137-145)
[2019-03-14] MEDS: INSULIN LISPRO 100 UNIT/ML 3 ML VIAL SUBCUT SCH ×4 (09:46→21:17)
[2019-03-14] MEDS: METOPROLOL SUCCINATE 50 MG TAB.SR.24H PO SCH (09:49)
[2019-03-14] MEDS: SITAGLIPTIN PHOSPHATE 50 MG TABLET PO SCH (09:49)
[2019-03-14] MEDS: LISINOPRIL 5 MG TABLET PO SCH (09:49)
[2019-03-14] MEDS: CLOPIDOGREL BISULFATE 75 MG TABLET PO SCH (09:49)
[2019-03-14] MEDS: RANOLAZINE 500 MG TAB.SR.12H PO SCH ×2 (09:49→17:40)
[2019-03-14] MEDS: INSULIN GLARGINE,HUM.REC.ANLOG 1,000 UNIT/10 ML VIAL SUBCUT SCH ×2 (09:50→21:18)
[2019-03-14] MEDS: ENOXAPARIN SODIUM INJ 80 MG/0.8 ML DISP.SYRIN SUBCUT SCH (09:50)
[2019-03-14] MEDS: FLUTICASONE/VILANTEROL 200-25 MCG/DOSE IH SCH (09:50)
[2019-03-14] MEDS: DOCUSATE SODIUM 100 MG/10 ML UDC PO SCH ×2 (09:51→17:38)
[2019-03-14] MEDS ORDERED: (PENDING PHARMACY ID) (Lisinopril [Prinivil 2.5 Mg Tablet] 2.5 MG) PO SCH (10:00)
--- NOTE | 2019-03-14 13:00 | PDOC PROGRESS REPORT ---
Subjective Progress Note for:: 03/14/19 Subjective:: Patient resting in bed. No complaints. Chest pain free. On BIPAP. Elevated blood sugars. No dyspnea or chest pain. Reason For Visit: ACUTE ON CHRONIC SYSTOLIC CONGESTIVE HEART Physical Exam Vital Signs: Temp Pulse Resp BP Pulse Ox 97.4 F 69 15 124/51 L 97 03/14/19 08:42 03/14/19 12:40 03/14/19 12:40 03/14/19 08:42 03/14/19 12:40 Intake & Output 03/13/19 03/14/19 03/15/19 06:59 06:59 06:59 Intake Total 237 Output Total 3450 Balance -3213 Weight 72.1 kg 71.5 kg General appearance: PRESENT: no acute distress, cooperative, disheveled Head exam: PRESENT: atraumatic, normocephalic Eye exam: PRESENT: EOMI Teeth exam: PRESENT: dental caries, edentulous Neck exam: PRESENT: full ROM Respiratory exam: PRESENT: decreased breath sounds, symmetrical, unlabored Cardiovascular exam: PRESENT: RRR, +S1, +S2 Vascular exam: PRESENT: normal capillary refill GI/Abdominal exam: PRESENT: soft Rectal exam: PRESENT: deferred Musculoskeletal exam: PRESENT: normal inspection Neurological exam: PRESENT: alert, altered, awake, oriented to person, oriented to place Psychiatric exam: PRESENT: appropriate affect Skin exam: PRESENT: abrasion, dry, skin tears Results Laboratory Results: 03/14/19 04:43 03/14/19 04:43 03/14/19 03/14/19 04:43 04:43 WBC 8.2 RBC 3.63 L Hgb 10.3 L Hct 31.7 L MCV 88 MCH 28.4 MCHC 32.5 RDW 16.4 H Plt Count 266 Sodium 139.1 Potassium 4.5 Chloride 97 L Carbon Dioxide 35 H Anion Gap 7 BUN 32 H Creatinine 1.17 Est GFR ( Amer) > 60 Est GFR (Non-Af Amer) > 60 Glucose 213 H Calcium 8.9 03/12/19 03/12/19 13:54 13:54 CK-MB (CK-2) 6.07 H Troponin I 1.420 NT-Pro-B Natriuret Pep [id number] H Impressions: Chest X-Ray 03/12/19 13:27 IMPRESSION: NO ACUTE RADIOGRAPHIC FINDING IN THE CHEST. Assessment & Plan - Diagnosis (1) Acute on chronic respiratory failure with hypoxemia Is this a current diagnosis for this admission?: Yes (2) Acute systolic (congestive) heart failure Is this a current diagnosis for this admission?: Yes (3) COPD (chronic obstructive pulmonary disease) Qualifiers: COPD type: COPD with acute exacerbation Qualified Code(s): J44.1 - Chronic obstructive pulmonary disease with (acute) exacerbation Is this a current diagnosis for this admission?: Yes (4) NSTEMI (non-ST elevated myocardial infarction) Is this a current diagnosis for this admission?: Yes - Notes Notes: Overall considerably improved Oral maintenance diuretic regimen to be continued Echo shows mild to moderate LV dysfunction with apical scar. However overall LE VEF is 40-45% which is improved compared to prior study last year. Recommend continued GDMT for CAD and CHF. He appears better compensated now. Suspect there was a component of COPD as well during this admission. But for fair measure he did demonstrate features of Acute decompensated systolic CHF NSTEMI is likely due to demand. Off Enoxaparin. Continue ASA, Statin and BB Avoid added salt in diet Has been evaluated by PT/OT for home with home health. Anticpate dicharge soon. Will arrange for out patient follow up Discussed with RN and Dr. Preston
--- NOTE | 2019-03-14 15:23 | PDOC PROGRESS REPORT ---
Subjective Progress Note for:: 03/14/19 Subjective:: I seen patient propped up in bed. He is awake alert oriented. He is more conversant and he speaks in full sentences. He states his shortness of breath described gradually subsiding. I tapered his Lasix to 20 mg IV every 12 hours and his Solu-Medrol from 80 mg every 6 hours to every 12 hours. Reason For Visit: ACUTE ON CHRONIC SYSTOLIC CONGESTIVE HEART Physical Exam Vital Signs: Temp Pulse Resp BP Pulse Ox 97.9 F 65 17 111/43 L 100 03/14/19 13:20 03/14/19 13:20 03/14/19 13:20 03/14/19 13:20 03/14/19 13:20 Intake & Output 03/13/19 03/14/19 03/15/19 06:59 06:59 06:59 Intake Total 237 Output Total 3450 Balance -3213 Weight 72.1 kg 71.5 kg General appearance: PRESENT: mild distress Eye exam: PRESENT: conjunctiva pink Mouth exam: PRESENT: dry mucosa Neck exam: ABSENT: carotid bruit, JVD, lymphadenopathy, thyromegaly Respiratory exam: PRESENT: crackles, decreased breath sounds, wheezes Cardiovascular exam: PRESENT: irregular rhythm Neurological exam: PRESENT: alert, awake, oriented to time, oriented to situation Results Laboratory Results: 03/14/19 04:43 03/14/19 04:43 03/14/19 03/14/19 04:43 04:43 WBC 8.2 RBC 3.63 L Hgb 10.3 L Hct 31.7 L MCV 88 MCH 28.4 MCHC 32.5 RDW 16.4 H Plt Count 266 Sodium 139.1 Potassium 4.5 Chloride 97 L Carbon Dioxide 35 H Anion Gap 7 BUN 32 H Creatinine 1.17 Est GFR ( Amer) > 60 Est GFR (Non-Af Amer) > 60 Glucose 213 H Calcium 8.9 03/12/19 14:11 Clean Catch Midstream Urine Culture - Final C.albicans/C.dubliniensis Mixed Urogenital Linda 03/12/19 03/12/19 13:54 13:54 CK-MB (CK-2) 6.07 H Troponin I 1.420 NT-Pro-B Natriuret Pep [id number] H Impressions: Chest X-Ray 03/12/19 13:27 IMPRESSION: NO ACUTE RADIOGRAPHIC FINDING IN THE CHEST. Assessment and Plan - Diagnosis (1) Acute on chronic systolic congestive heart failure, NYHA class 3 Is this a current diagnosis for this admission?: Yes Plan: His edema and shortness of breath is subsiding. (2) COPD exacerbation Is this a current diagnosis for this admission?: Yes Plan: Patient has bilateral diffuse wheezing and shortness of breath. Patient will be started on bronchodilator, steroid and supplemental oxygen. (3) Non-STEMI (non-ST elevated myocardial infarction) Is this a current diagnosis for this admission?: Yes Plan: Patient is not a candidate for cardiac catheterization, stent placement or coronary bypass graft. Medical management recommended Dr. Bridger William (4) Atrial fibrillation Qualifiers: Atrial fibrillation type: chronic Qualified Code(s): I48.2 - Chronic atrial fibrillation Is this a current diagnosis for this admission?: Yes Plan: Patient has hemoglobin of 9.8 and has also ecchymotic lesion on his thigh. We will check his stool for occult blood if it is negative we will start him on Lovenox. (5) Type 2 diabetes mellitus Is this a current diagnosis for this admission?: Yes Plan: We will put him on sliding scale and continue his home medication. (6) Obstructive sleep apnea Is this a current diagnosis for this admission?: Yes Plan: CPAP nightly and as needed (7) Coronary artery disease Qualifiers: Coronary Disease-Associated Artery/Lesion type: [place] artery Is this a current diagnosis for this admission?: Yes Plan: Management as #2 (8) Hypertension Qualifiers: Hypertension type: essential hypertension Qualified Code(s): I10 - Essential (primary) hypertension Is this a current diagnosis for this admission?: Yes Plan: Continue his home medication. (9) Hyperlipidemia Qualifiers: Hyperlipidemia type: unspecified Qualified Code(s): E78.5 - Hyperlipidemia, unspecified Is this a current diagnosis for this admission?: Yes Plan: Continue his home medication (10) BPH (benign prostatic hyperplasia) Is this a current diagnosis for this admission?: Yes Plan: No urinary difficulty. And continues on medication.
[2019-03-14] MEDS: ACETAMINOPHEN 325 MG TABLET PO PRN (21:16)
[2019-03-14] MEDS: TEMAZEPAM 7.5 MG CAPSULE PO SCH (21:17)
[2019-03-14] MEDS: ATORVASTATIN CALCIUM 40 MG TABLET PO SCH (21:17)
[2019-03-14] MEDS: TAMSULOSIN HCL 0.4 MG CAP.SR.24H PO SCH (21:17)
[2019-03-15] MEDS: IPRATROPIUM/ALBUTEROL 0.5-2.5 MG/3 ML AMPUL NEB SCH ×6 (00:18→20:46)
[2019-03-15] MEDS: ACETAMINOPHEN 325 MG TABLET PO PRN ×2 (01:51→22:29)
[2019-03-15] MEDS: DILTIAZEM HCL 30 MG TABLET PO SCH ×4 (02:00→22:16)
[2019-03-15 06:08] LABS: HEMATOCRIT 28.2 % (37.9-51.0); HEMOGLOBIN 9.4 g/dL (13.5-17.0); MEAN CORPUSCULAR HGB CONC 33.4 g/dL (32.0-36.0); MEAN CORPUSCULAR VOLUME 87 fl (80-97); PLATELET COUNT 254 10^3/uL (150-450); RED BLOOD COUNT 3.25 10^6/uL (4.35-5.55); RED CELL DISTRIBUTION WIDTH 15.8 % (11.5-14.0); WHITE BLOOD COUNT 7.7 10^3/uL (4.0-10.5)
[2019-03-15 06:11] LABS: ANION GAP 9 (5-19); BLOOD UREA NITROGEN 50 mg/dL (7-20); CALCIUM 8.3 mg/dL (8.4-10.2); CARBON DIOXIDE 33 mmol/L (22-30); CHLORIDE 95 mmol/L (98-107); GLUCOSE 194 mg/dL (75-110); SODIUM 137.3 mmol/L (137-145)
[2019-03-15] MEDS: INSULIN LISPRO 100 UNIT/ML 3 ML VIAL SUBCUT SCH ×4 (08:48→22:25)
[2019-03-15] MEDS ORDERED: ACETYLCYSTEINE 10% NEB 400 MG/4 ML VIAL NEB ONE (09:30)
[2019-03-15] MEDS: SITAGLIPTIN PHOSPHATE 50 MG TABLET PO SCH (09:42)
[2019-03-15] MEDS: DOCUSATE SODIUM 100 MG/10 ML UDC PO SCH ×2 (09:42→18:55)
[2019-03-15] MEDS: METOPROLOL SUCCINATE 50 MG TAB.SR.24H PO SCH (09:43)
[2019-03-15] MEDS: METHYLPREDNISOLONE INJ 40 MG/1 ML SDV IV SCH (09:43)
[2019-03-15] MEDS: CLOPIDOGREL BISULFATE 75 MG TABLET PO SCH (09:43)
[2019-03-15] MEDS: RANOLAZINE 500 MG TAB.SR.12H PO SCH ×2 (09:43→19:06)
[2019-03-15] MEDS: LISINOPRIL 5 MG TABLET PO SCH (09:43)
[2019-03-15] MEDS: FUROSEMIDE INJ/PF 20 MG/2 ML SDV IV SCH (09:43)
[2019-03-15] MEDS: FLUTICASONE/VILANTEROL 200-25 MCG/DOSE IH SCH (09:44)
[2019-03-15] MEDS: INSULIN GLARGINE,HUM.REC.ANLOG 1,000 UNIT/10 ML VIAL SUBCUT SCH ×2 (09:44→22:24)
--- NOTE | 2019-03-15 11:06 | PDOC PROGRESS REPORT ---
Subjective Progress Note for:: 03/15/19 Subjective:: Patient resting in bed. No complaints. Chest pain free. Receiving bronchodilator by nebulization therapy. No dyspnea or chest pain. Reason For Visit: ACUTE ON CHRONIC SYSTOLIC CONGESTIVE HEART Physical Exam Vital Signs: Temp Pulse Resp BP Pulse Ox 97.5 F 64 20 125/49 L 99 03/15/19 08:06 03/15/19 10:45 03/15/19 10:45 03/15/19 08:06 03/15/19 10:45 Intake & Output 03/14/19 03/15/19 03/16/19 06:59 06:59 06:59 Intake Total 237 921 Output Total 3450 800 Balance -3213 121 Weight 71.5 kg 70.8 kg General appearance: PRESENT: no acute distress, cooperative Head exam: PRESENT: atraumatic, normocephalic Eye exam: PRESENT: EOMI Ear exam: PRESENT: normal external ear exam Mouth exam: PRESENT: dry mucosa, moist Teeth exam: PRESENT: edentulous Respiratory exam: PRESENT: crackles, decreased breath sounds, prolonged expiratory phas, rhonchi Cardiovascular exam: PRESENT: RRR GI/Abdominal exam: PRESENT: soft Rectal exam: PRESENT: deferred Extremities exam: PRESENT: full ROM Musculoskeletal exam: PRESENT: normal inspection Neurological exam: PRESENT: alert, oriented to time, oriented to situation Psychiatric exam: PRESENT: appropriate affect Skin exam: PRESENT: dry, normal color Results Laboratory Results: 03/15/19 05:18 03/15/19 05:18 03/15/19 03/15/19 05:18 05:18 WBC 7.7 RBC 3.25 L Hgb 9.4 L Hct 28.2 L MCV 87 MCH 29.0 MCHC 33.4 RDW 15.8 H Plt Count 254 Sodium 137.3 Potassium 4.0 Chloride 95 L Carbon Dioxide 33 H Anion Gap 9 BUN 50 H Creatinine 1.26 H Est GFR ( Amer) > 60 Est GFR (Non-Af Amer) 55 L Glucose 194 H Calcium 8.3 L 03/12/19 14:11 Clean Catch Midstream Urine Culture - Final C.albicans/C.dubliniensis Mixed Urogenital Linda 03/12/19 03/12/19 13:54 13:54 CK-MB (CK-2) 6.07 H Troponin I 1.420 NT-Pro-B Natriuret Pep [id number] H Impressions: Chest X-Ray 03/12/19 13:27 IMPRESSION: NO ACUTE RADIOGRAPHIC FINDING IN THE CHEST. Assessment & Plan - Diagnosis (1) Acute on chronic respiratory failure with hypoxemia Is this a current diagnosis for this admission?: Yes (2) Acute systolic (congestive) heart failure Is this a current diagnosis for this admission?: Yes (3) COPD (chronic obstructive pulmonary disease) Qualifiers: COPD type: COPD with acute exacerbation Qualified Code(s): J44.1 - Chronic obstructive pulmonary disease with (acute) exacerbation Is this a current diagnosis for this admission?: Yes (4) NSTEMI (non-ST elevated myocardial infarction) Is this a current diagnosis for this admission?: Yes - Notes Notes: Overall. Continued improvement Consider switching to oral diuretics Continue GDMT Need help with expectoration. Exam shows large airway rhonchi and gurgling due to pooled thick secretions. Agree with Mucomyst, Nebs, Bronchodilators From heart failure stand point better compensated and nearly euvolemic. I suspect his filling pressures have improved given no dyspnea now. Off Enoxaparin Echo with mild improvement ib LVEF PT/OT evaluation and discharge planning Discussed with Dr. Preston. We are in agreement that patient has improved markedly
[2019-03-15] MEDS: ACETYLCYSTEINE 20% SOLN 800 MG/4 ML VIAL.NEB NEB SCH ×2 (13:09→20:46)
[2019-03-15] MEDS ORDERED: ACETYLCYSTEINE 10% NEB 400 MG/4 ML VIAL NEB SCH (14:00)
--- NOTE | 2019-03-15 15:46 | PDOC PROGRESS REPORT ---
Subjective Progress Note for:: 03/15/19 Subjective:: Patient seen and examined at bedside. He is awake alert oriented. He complains of that he could not cough up sputum and asked for something which loosen his sputum up. I reviewed his lab and it shows that his kidney function is mildly deteriorated to that his initial creatinine was 1.02 and his weight is 1.26 most probably due to aggressive diuresis. I switched Lasix to p.o. Reason For Visit: ACUTE ON CHRONIC SYSTOLIC CONGESTIVE HEART Physical Exam Vital Signs: Temp Pulse Resp BP Pulse Ox 97.5 F 69 20 120/53 L 98 03/15/19 13:05 03/15/19 13:58 03/15/19 13:58 03/15/19 13:05 03/15/19 13:58 Intake & Output 03/14/19 03/15/19 03/16/19 06:59 06:59 06:59 Intake Total 237 921 Output Total 3450 800 Balance -3213 121 Weight 71.5 kg 70.8 kg General appearance: PRESENT: mild distress Head exam: PRESENT: atraumatic Mouth exam: PRESENT: dry mucosa Neck exam: ABSENT: carotid bruit, JVD, lymphadenopathy, thyromegaly Respiratory exam: PRESENT: decreased breath sounds Cardiovascular exam: PRESENT: irregular rhythm Neurological exam: PRESENT: alert, awake Results Laboratory Results: 03/15/19 05:18 03/15/19 05:18 03/15/19 03/15/19 05:18 05:18 WBC 7.7 RBC 3.25 L Hgb 9.4 L Hct 28.2 L MCV 87 MCH 29.0 MCHC 33.4 RDW 15.8 H Plt Count 254 Sodium 137.3 Potassium 4.0 Chloride 95 L Carbon Dioxide 33 H Anion Gap 9 BUN 50 H Creatinine 1.26 H Est GFR ( Amer) > 60 Est GFR (Non-Af Amer) 55 L Glucose 194 H Calcium 8.3 L 03/12/19 14:11 Clean Catch Midstream Urine Culture - Final C.albicans/C.dubliniensis Mixed Urogenital Linda 03/12/19 03/12/19 13:54 13:54 CK-MB (CK-2) 6.07 H Troponin I 1.420 NT-Pro-B Natriuret Pep [id number] H Impressions: Chest X-Ray 03/12/19 13:27 IMPRESSION: NO ACUTE RADIOGRAPHIC FINDING IN THE CHEST. Assessment and Plan - Diagnosis (1) Acute kidney injury Is this a current diagnosis for this admission?: Yes Plan: Most probably due to aggressive diuresis. I switched his IV Lasix to p.o. (2) Acute on chronic systolic congestive heart failure, NYHA class 3 Is this a current diagnosis for this admission?: Yes Plan: Improving. (3) COPD exacerbation Is this a current diagnosis for this admission?: Yes (4) Non-STEMI (non-ST elevated myocardial infarction) Is this a current diagnosis for this admission?: Yes Plan: Patient is not a candidate for cardiac catheterization, stent placement or coronary bypass graft. Medical management recommended Dr. Bridger William (5) Atrial fibrillation Qualifiers: Atrial fibrillation type: chronic Qualified Code(s): I48.2 - Chronic atrial fibrillation Is this a current diagnosis for this admission?: Yes Plan: Patient has hemoglobin of 9.8 and has also ecchymotic lesion on his thigh. We will check his stool for occult blood if it is negative we will start him on Lovenox. (6) Type 2 diabetes mellitus Is this a current diagnosis for this admission?: Yes Plan: We will put him on sliding scale and continue his home medication. (7) Obstructive sleep apnea Is this a current diagnosis for this admission?: Yes Plan: CPAP nightly and as needed (8) Coronary artery disease Qualifiers: Coronary Disease-Associated Artery/Lesion type: [place] artery Is this a current diagnosis for this admission?: Yes Plan: Management as #2 (9) Hypertension Qualifiers: Hypertension type: essential hypertension Qualified Code(s): I10 - Essential (primary) hypertension Is this a current diagnosis for this admission?: Yes Plan: Continue his home medication. (10) Hyperlipidemia Qualifiers: Hyperlipidemia type: unspecified Qualified Code(s): E78.5 - Hyperlipidemia, unspecified Is this a current diagnosis for this admission?: Yes Plan: Continue his home medication (11) BPH (benign prostatic hyperplasia) Is this a current diagnosis for this admission?: Yes Plan: No urinary difficulty. And continues on medication.
[2019-03-15] MEDS: FUROSEMIDE 40 MG TABLET PO SCH (19:06)
[2019-03-15] MEDS: ATORVASTATIN CALCIUM 40 MG TABLET PO SCH (22:16)
[2019-03-15] MEDS: TAMSULOSIN HCL 0.4 MG CAP.SR.24H PO SCH (22:17)
[2019-03-15] MEDS: TEMAZEPAM 7.5 MG CAPSULE PO SCH (22:17)
[2019-03-16] MEDS: IPRATROPIUM/ALBUTEROL 0.5-2.5 MG/3 ML AMPUL NEB SCH ×7 (00:25→23:44)
[2019-03-16] MEDS: DILTIAZEM HCL 30 MG TABLET PO SCH ×4 (04:12→21:22)
[2019-03-16 06:36] LABS: ANION GAP 7 (5-19); BLOOD UREA NITROGEN 48 mg/dL (7-20); CALCIUM 8.2 mg/dL (8.4-10.2); CARBON DIOXIDE 34 mmol/L (22-30); CHLORIDE 98 mmol/L (98-107); POTASSIUM 3.7 mmol/L (3.6-5.0)
[2019-03-16 06:51] LABS: GLUCOSE 65 mg/dL (75-110)
[2019-03-16] MEDS: ACETYLCYSTEINE 20% SOLN 800 MG/4 ML VIAL.NEB NEB SCH ×2 (08:20→19:53)
[2019-03-16] MEDS: INSULIN LISPRO 100 UNIT/ML 3 ML VIAL SUBCUT SCH ×4 (08:32→21:23)
[2019-03-16] MEDS: DOCUSATE SODIUM 100 MG/10 ML UDC PO SCH ×2 (09:52→17:23)
[2019-03-16] MEDS: FUROSEMIDE 40 MG TABLET PO SCH ×2 (09:54→18:10)
[2019-03-16] MEDS: METOPROLOL SUCCINATE 50 MG TAB.SR.24H PO SCH (09:54)
[2019-03-16] MEDS: LISINOPRIL 5 MG TABLET PO SCH (09:55)
[2019-03-16] MEDS: SITAGLIPTIN PHOSPHATE 50 MG TABLET PO SCH (09:55)
[2019-03-16] MEDS: PREDNISONE 20 MG TABLET PO SCH (09:55)
[2019-03-16] MEDS: INSULIN GLARGINE,HUM.REC.ANLOG 1,000 UNIT/10 ML VIAL SUBCUT SCH ×2 (09:55→21:22)
[2019-03-16] MEDS: RANOLAZINE 500 MG TAB.SR.12H PO SCH ×2 (09:55→18:10)
[2019-03-16] MEDS: FLUTICASONE/VILANTEROL 200-25 MCG/DOSE IH SCH (09:55)
[2019-03-16] MEDS: CLOPIDOGREL BISULFATE 75 MG TABLET PO SCH (09:55)
--- NOTE | 2019-03-16 14:44 | PDOC PROGRESS REPORT ---
Subjective Progress Note for:: 03/16/19 Subjective:: Patient is clinically stable but says this morning he develops hypoglycemia with blood glucose level of 57. He is failed his given D5 and his blood sugar increased to 116. I further taper down his prednisone to 40 mg p.o. daily. If he remains stable he is potential discharge for tomorrow. Reason For Visit: ACUTE ON CHRONIC SYSTOLIC CONGESTIVE HEART Physical Exam Vital Signs: Temp Pulse Resp BP Pulse Ox 97.6 F 72 16 114/51 L 94 03/16/19 11:41 03/16/19 14:00 03/16/19 12:18 03/16/19 11:41 03/16/19 12:18 Intake & Output 03/15/19 03/16/19 03/17/19 06:59 06:59 06:59 Intake Total 921 540 720 Output Total 800 1460 400 Balance 121 -920 320 Weight 70.8 kg 73.8 kg General appearance: PRESENT: no acute distress Mouth exam: PRESENT: dry mucosa Neck exam: ABSENT: carotid bruit, JVD, lymphadenopathy, thyromegaly Respiratory exam: PRESENT: clear to auscultation crystal. ABSENT: rales, rhonchi, wheezes Cardiovascular exam: PRESENT: irregular rhythm Neurological exam: PRESENT: alert, awake Results Laboratory Results: 03/15/19 05:18 03/16/19 05:51 03/16/19 05:51 Sodium 139.0 Potassium 3.7 Chloride 98 Carbon Dioxide 34 H Anion Gap 7 BUN 48 H Creatinine 1.15 Est GFR ( Amer) > 60 Est GFR (Non-Af Amer) > 60 Glucose 65 L Calcium 8.2 L 03/12/19 03/12/19 13:54 13:54 CK-MB (CK-2) 6.07 H Troponin I 1.420 NT-Pro-B Natriuret Pep [id number] H Impressions: Chest X-Ray 03/12/19 13:27 IMPRESSION: NO ACUTE RADIOGRAPHIC FINDING IN THE CHEST. Assessment and Plan - Diagnosis (1) Hypoglycemia Is this a current diagnosis for this admission?: Yes Plan: I will revise his diabetic medication and adjust accordingly. (2) Acute kidney injury Is this a current diagnosis for this admission?: Yes Plan: Most probably due to aggressive diuresis. I switched his IV Lasix to p.o. (3) Acute on chronic systolic congestive heart failure, NYHA class 3 Is this a current diagnosis for this admission?: Yes Plan: Improving. (4) COPD exacerbation Is this a current diagnosis for this admission?: Yes Plan: Patient has bilateral diffuse wheezing and shortness of breath. Patient will be started on bronchodilator, steroid and supplemental oxygen. (5) Non-STEMI (non-ST elevated myocardial infarction) Is this a current diagnosis for this admission?: Yes Plan: Patient is not a candidate for cardiac catheterization, stent placement or coronary bypass graft. Medical management recommended Dr. Bridger William (6) Atrial fibrillation Qualifiers: Atrial fibrillation type: chronic Qualified Code(s): I48.2 - Chronic atrial fibrillation Is this a current diagnosis for this admission?: Yes Plan: Patient has hemoglobin of 9.8 and has also ecchymotic lesion on his thigh. We will check his stool for occult blood if it is negative we will start him on Lovenox. (7) Type 2 diabetes mellitus Is this a current diagnosis for this admission?: Yes Plan: We will put him on sliding scale and continue his home medication. (8) Obstructive sleep apnea Is this a current diagnosis for this admission?: Yes Plan: CPAP nightly and as needed (9) Coronary artery disease Qualifiers: Coronary Disease-Associated Artery/Lesion type: [place] artery Is this a current diagnosis for this admission?: Yes Plan: Management as #2 (10) Hypertension Qualifiers: Hypertension type: essential hypertension Qualified Code(s): I10 - Essential (primary) hypertension Is this a current diagnosis for this admission?: Yes Plan: Continue his home medication. (11) Hyperlipidemia Qualifiers: Hyperlipidemia type: unspecified Qualified Code(s): E78.5 - Hyperlipidemia, unspecified Is this a current diagnosis for this admission?: Yes Plan: Continue his home medication (12) BPH (benign prostatic hyperplasia) Is this a current diagnosis for this admission?: Yes
[2019-03-16] MEDS: ATORVASTATIN CALCIUM 40 MG TABLET PO SCH (21:22)
[2019-03-16] MEDS: TEMAZEPAM 7.5 MG CAPSULE PO SCH (21:22)
[2019-03-16] MEDS: TAMSULOSIN HCL 0.4 MG CAP.SR.24H PO SCH (21:22)
[2019-03-16] MEDS: ACETAMINOPHEN 325 MG TABLET PO PRN (22:44)
[2019-03-17] MEDS ORDERED: MAGNESIUM HYDROXIDE SUSP 30 ML UDCUP PO ONE (02:15)
[2019-03-17] MEDS: DILTIAZEM HCL 30 MG TABLET PO SCH ×4 (02:40→21:08)
[2019-03-17] MEDS: IPRATROPIUM/ALBUTEROL 0.5-2.5 MG/3 ML AMPUL NEB SCH ×6 (03:34→23:41)
[2019-03-17] MEDS: INSULIN LISPRO 100 UNIT/ML 3 ML VIAL SUBCUT SCH ×4 (08:02→22:28)
[2019-03-17] MEDS: ACETYLCYSTEINE 20% SOLN 800 MG/4 ML VIAL.NEB NEB SCH ×2 (08:48→20:19)
[2019-03-17] MEDS: DOCUSATE SODIUM 100 MG/10 ML UDC PO SCH ×2 (10:40→17:14)
[2019-03-17] MEDS: SITAGLIPTIN PHOSPHATE 50 MG TABLET PO SCH (10:41)
[2019-03-17] MEDS: INSULIN GLARGINE,HUM.REC.ANLOG 1,000 UNIT/10 ML VIAL SUBCUT SCH ×3 (10:41→22:31)
[2019-03-17] MEDS: PREDNISONE 20 MG TABLET PO SCH (10:41)
[2019-03-17] MEDS: RANOLAZINE 500 MG TAB.SR.12H PO SCH ×2 (10:41→18:03)
[2019-03-17] MEDS: LISINOPRIL 5 MG TABLET PO SCH (10:41)
[2019-03-17] MEDS: CLOPIDOGREL BISULFATE 75 MG TABLET PO SCH (10:41)
[2019-03-17] MEDS: METOPROLOL SUCCINATE 50 MG TAB.SR.24H PO SCH (10:41)
[2019-03-17] MEDS: FUROSEMIDE 40 MG TABLET PO SCH ×2 (10:41→18:03)
[2019-03-17] MEDS: FLUTICASONE/VILANTEROL 200-25 MCG/DOSE IH SCH (10:42)
--- NOTE | 2019-03-17 13:12 | PDOC PROGRESS REPORT ---
Subjective Progress Note for:: 03/17/19 Subjective:: Patient resting in bed comfortably. No significant change overnight. Patient has obstructive sleep apnea and he used to be on CPAP but his CPAP machine broken he wants replacement. Reason For Visit: ACUTE ON CHRONIC SYSTOLIC CONGESTIVE HEART Physical Exam Vital Signs: Temp Pulse Resp BP Pulse Ox 97.2 F 64 17 136/49 H 97 03/17/19 10:59 03/17/19 12:48 03/17/19 12:48 03/17/19 10:59 03/17/19 12:48 Intake & Output 03/16/19 03/17/19 03/18/19 06:59 06:59 06:59 Intake Total 540 960 Output Total 1460 1250 Balance -920 -290 Weight 73.8 kg 71.3 kg General appearance: PRESENT: mild distress Neck exam: ABSENT: carotid bruit, JVD, lymphadenopathy, thyromegaly Respiratory exam: PRESENT: clear to auscultation crystal. ABSENT: rales, rhonchi, wheezes Cardiovascular exam: PRESENT: irregular rhythm Neurological exam: PRESENT: alert, awake Results Laboratory Results: 03/15/19 05:18 03/16/19 05:51 03/12/19 03/12/19 13:54 13:54 CK-MB (CK-2) 6.07 H Troponin I 1.420 NT-Pro-B Natriuret Pep [id number] H Impressions: Chest X-Ray 03/12/19 13:27 IMPRESSION: NO ACUTE RADIOGRAPHIC FINDING IN THE CHEST. Assessment and Plan - Diagnosis (1) Hypoglycemia Is this a current diagnosis for this admission?: Yes Plan: Has resolved. (2) Acute kidney injury Is this a current diagnosis for this admission?: Yes Plan: Most probably due to aggressive diuresis. I switched his IV Lasix to p.o. (3) Acute on chronic systolic congestive heart failure, NYHA class 3 Is this a current diagnosis for this admission?: Yes Plan: Improving. (4) COPD exacerbation Is this a current diagnosis for this admission?: Yes Plan: Patient has bilateral diffuse wheezing and shortness of breath. Patient will be started on bronchodilator, steroid and supplemental oxygen. (5) Non-STEMI (non-ST elevated myocardial infarction) Is this a current diagnosis for this admission?: Yes Plan: Patient is not a candidate for cardiac catheterization, stent placement or coronary bypass graft. Medical management recommended Dr. Bridger William (6) Atrial fibrillation Qualifiers: Atrial fibrillation type: chronic Qualified Code(s): I48.2 - Chronic atrial fibrillation Is this a current diagnosis for this admission?: Yes Plan: Patient has hemoglobin of 9.8 and has also ecchymotic lesion on his thigh. We will check his stool for occult blood if it is negative we will start him on Lovenox. (7) Type 2 diabetes mellitus Is this a current diagnosis for this admission?: Yes Plan: We will put him on sliding scale and continue his home medication. (8) Obstructive sleep apnea Is this a current diagnosis for this admission?: Yes Plan: CPAP nightly and as needed (9) Coronary artery disease Qualifiers: Coronary Disease-Associated Artery/Lesion type: [place] artery Is this a current diagnosis for this admission?: Yes Plan: Management as #2 (10) Hypertension Qualifiers: Hypertension type: essential hypertension Qualified Code(s): I10 - Essential (primary) hypertension Is this a current diagnosis for this admission?: Yes Plan: Continue his home medication. (11) Hyperlipidemia Qualifiers: Hyperlipidemia type: unspecified Qualified Code(s): E78.5 - Hyperlipidemia, unspecified Is this a current diagnosis for this admission?: Yes Plan: Continue his home medication (12) BPH (benign prostatic hyperplasia) Is this a current diagnosis for this admission?: Yes Plan: No urinary difficulty. And continues on medication.
[2019-03-17] MEDS: ATORVASTATIN CALCIUM 40 MG TABLET PO SCH (21:08)
[2019-03-17] MEDS: TEMAZEPAM 7.5 MG CAPSULE PO SCH (21:08)
[2019-03-17] MEDS: TAMSULOSIN HCL 0.4 MG CAP.SR.24H PO SCH (21:08)
[2019-03-17] MEDS ORDERED: INSULIN GLARGINE,HUM.REC.ANLOG 1,000 UNIT/10 ML VIAL SUBCUT SCH (22:11)
[2019-03-18] MEDS: ACETAMINOPHEN 325 MG TABLET PO PRN ×2 (02:18→16:02)
[2019-03-18] MEDS: DILTIAZEM HCL 30 MG TABLET PO SCH ×4 (03:38→22:04)
[2019-03-18] MEDS: IPRATROPIUM/ALBUTEROL 0.5-2.5 MG/3 ML AMPUL NEB SCH ×5 (04:27→20:12)
[2019-03-18] MEDS: ACETYLCYSTEINE 20% SOLN 800 MG/4 ML VIAL.NEB NEB SCH ×2 (08:23→20:12)
[2019-03-18] MEDS: INSULIN LISPRO 100 UNIT/ML 3 ML VIAL SUBCUT SCH ×4 (09:11→22:05)
[2019-03-18] MEDS: DOCUSATE SODIUM 100 MG CAPSULE PO SCH ×2 (10:09→17:34)
[2019-03-18] MEDS: RANOLAZINE 500 MG TAB.SR.12H PO SCH ×2 (10:09→17:34)
[2019-03-18] MEDS: METOPROLOL SUCCINATE 50 MG TAB.SR.24H PO SCH (10:09)
[2019-03-18] MEDS: PREDNISONE 20 MG TABLET PO SCH (10:09)
[2019-03-18] MEDS: FUROSEMIDE 40 MG TABLET PO SCH ×2 (10:09→17:34)
[2019-03-18] MEDS: LISINOPRIL 10 MG TABLET PO SCH (10:09)
[2019-03-18] MEDS: CLOPIDOGREL BISULFATE 75 MG TABLET PO SCH (10:09)
[2019-03-18] MEDS: SITAGLIPTIN PHOSPHATE 50 MG TABLET PO SCH (10:09)
[2019-03-18] MEDS: FLUTICASONE/VILANTEROL 200-25 MCG/DOSE IH SCH (10:10)
[2019-03-18] MEDS ORDERED: INSULIN GLARGINE,HUM.REC.ANLOG 1,000 UNIT/10 ML VIAL SUBCUT SCH (12:00)
--- NOTE | 2019-03-18 14:28 | PDOC PROGRESS REPORT ---
Subjective Progress Note for:: 03/18/19 Subjective:: MICHAELA KUHN is a 83 year old male patient with multiple comorbidities including atrial fibrillation, hypertension, history of IA, coronary artery disease, diabetes mellitus, COPD, obstructive sleep apnea, benign prostatic hypertrophy and chronic respiratory failure on home O2 who presents with chief complaint of shortness of breath. Of note patient has underlying long-standing shortness of breath but the last 3 to 4 days his shortness of breath is worse drake day by day and he has associated right-sided chest pain. He denied any fever, chills, cough, palpitation or diaphoresis. His blood work shows hemoglobin of 9.8 lactic acid of 2.9 troponin of 1.420 and BNP of 10,800. I discussed the case with Dr. Bridger William who states that patient is not a c andidate for any kind of cardiac surgical intervention , so he recommended medical management. So patient has been managed with therapeutic dose of Lovenox, aspirin, Plavix and beta-camila. His Lovenox was discontinued after 48 hours. Initially patient was aggressively diuresed with Lasix 40 mg IV every 8 hours and gradually it is tapered and switched to p.o. 02/15/2019: Patient seen resting in bed while on full mask BiPAP. He is awake alert. No new complaints and no significant change overnight. Since patient is debilitated and conditions he qualifies for less than 30 days short-term rehab. planner internship consulted and they are working on it. Reason For Visit: ACUTE ON CHRONIC SYSTOLIC CONGESTIVE HEART Physical Exam Vital Signs: Temp Pulse Resp BP Pulse Ox 97.3 F 73 18 133/52 H 97 03/18/19 07:18 03/18/19 11:15 03/18/19 11:15 03/18/19 07:18 03/18/19 11:15 Intake & Output 03/17/19 03/18/19 03/19/19 06:59 06:59 06:59 Intake Total 960 900 702 Output Total 1250 1700 750 Balance -290 -800 -48 Weight 71.3 kg 71.7 kg General appearance: PRESENT: no acute distress Head exam: PRESENT: atraumatic Neck exam: ABSENT: carotid bruit, JVD, lymphadenopathy, thyromegaly Respiratory exam: PRESENT: decreased breath sounds Cardiovascular exam: PRESENT: diastolic murmur, irregular rhythm. ABSENT: rubs GI/Abdominal exam: PRESENT: normal bowel sounds, soft. ABSENT: distended, guarding, mass, organolmegaly, rebound, tenderness Neurological exam: PRESENT: alert, awake Results Laboratory Results: 03/15/19 05:18 03/16/19 05:51 03/12/19 14:25 Blood Blood Culture - Final NO GROWTH IN 5 DAYS 03/12/19 14:55 Blood Blood Culture - Final NO GROWTH IN 5 DAYS 03/12/19 03/12/19 13:54 13:54 CK-MB (CK-2) 6.07 H Troponin I 1.420 NT-Pro-B Natriuret Pep [id number] H Impressions: Chest X-Ray 03/12/19 13:27 IMPRESSION: NO ACUTE RADIOGRAPHIC FINDING IN THE CHEST. Assessment and Plan - Diagnosis (1) Hypoglycemia Is this a current diagnosis for this admission?: Yes Plan: Patient has recurrent hypoglycemia. He has been on Lantus 20 units every 12 hours. Decreased his Lantus to 10 units subcu nightly. (2) Acute kidney injury Is this a current diagnosis for this admission?: Yes Plan: Most probably due to aggressive diuresis. I switched his IV Lasix to p.o. (3) Acute on chronic systolic congestive heart failure, NYHA class 3 Is this a current diagnosis for this admission?: Yes Plan: Improving. (4) COPD exacerbation Is this a current diagnosis for this admission?: Yes Plan: Patient has bilateral diffuse wheezing and shortness of breath. Patient will be started on bronchodilator, steroid and supplemental oxygen. (5) Non-STEMI (non-ST elevated myocardial infarction) Is this a current diagnosis for this admission?: Yes Plan: Patient is not a candidate for cardiac catheterization, stent placement or coronary bypass graft. Medical management recommended Dr. Bridger William (6) Atrial fibrillation Qualifiers: Atrial fibrillation type: chronic Qualified Code(s): I48.2 - Chronic atrial fibrillation Is this a current diagnosis for this admission?: Yes Plan: Patient has hemoglobin of 9.8 and has also ecchymotic lesion on his thigh. We will check his stool for occult blood if it is negative we will start him on Lovenox. (7) Type 2 diabetes mellitus Is this a current diagnosis for this admission?: Yes Plan: We will put him on sliding scale and continue his home medication. (8) Obstructive sleep apnea Is this a current diagnosis for this admission?: Yes Plan: CPAP nightly and as needed (9) Coronary artery disease Qualifiers: Coronary Disease-Associated Artery/Lesion type: [place] artery Is this a current diagnosis for this admission?: Yes Plan: Management as #2 (10) Hypertension Qualifiers: Hypertension type: essential hypertension Qualified Code(s): I10 - Essential (primary) hypertension Is this a current diagnosis for this admission?: Yes Plan: Continue his home medication. (11) Hyperlipidemia Qualifiers: Hyperlipidemia type: unspecified Qualified Code(s): E78.5 - Hyperlipidemia, unspecified Is this a current diagnosis for this admission?: Yes Plan: Continue his home medication (12) BPH (benign prostatic hyperplasia) Is this a current diagnosis for this admission?: Yes Plan: No urinary difficulty. And continues on medication.
[2019-03-18] MEDS: TAMSULOSIN HCL 0.4 MG CAP.SR.24H PO SCH (22:04)
[2019-03-18] MEDS: TEMAZEPAM 7.5 MG CAPSULE PO SCH (22:04)
[2019-03-18] MEDS: INSULIN GLARGINE,HUM.REC.ANLOG 1,000 UNIT/10 ML VIAL SUBCUT SCH (22:04)
[2019-03-18] MEDS: ATORVASTATIN CALCIUM 40 MG TABLET PO SCH (22:04)
[2019-03-19] MEDS: IPRATROPIUM/ALBUTEROL 0.5-2.5 MG/3 ML AMPUL NEB SCH ×6 (00:13→20:08)
[2019-03-19] MEDS: DILTIAZEM HCL 30 MG TABLET PO SCH ×4 (04:13→21:43)
[2019-03-19] MEDS: ACETYLCYSTEINE 20% SOLN 800 MG/4 ML VIAL.NEB NEB SCH ×2 (08:44→20:08)
[2019-03-19] MEDS: INSULIN LISPRO 100 UNIT/ML 3 ML VIAL SUBCUT SCH ×4 (10:11→21:55)
[2019-03-19] MEDS: DOCUSATE SODIUM 100 MG CAPSULE PO SCH ×2 (10:13→17:49)
[2019-03-19] MEDS: RANOLAZINE 500 MG TAB.SR.12H PO SCH ×2 (10:13→17:49)
[2019-03-19] MEDS: PREDNISONE 20 MG TABLET PO SCH (10:13)
[2019-03-19] MEDS: FUROSEMIDE 40 MG TABLET PO SCH ×2 (10:13→17:49)
[2019-03-19] MEDS: METOPROLOL SUCCINATE 50 MG TAB.SR.24H PO SCH (10:13)
[2019-03-19] MEDS: SITAGLIPTIN PHOSPHATE 50 MG TABLET PO SCH (10:13)
[2019-03-19] MEDS: CLOPIDOGREL BISULFATE 75 MG TABLET PO SCH (10:14)
[2019-03-19] MEDS: FLUTICASONE/VILANTEROL 200-25 MCG/DOSE IH SCH (10:14)
[2019-03-19] MEDS: LISINOPRIL 10 MG TABLET PO SCH (10:16)
--- NOTE | 2019-03-19 15:01 | PDOC TRANSFER SUMMARY ---
General - Admit/Disc Date/PCP Admission Date/Primary Care Provider: 03/12/19 17:48 DEVON PHOENIX MD Discharge Date: 03/19/19 - Discharge Diagnosis (1) Hypoglycemia Is this a current diagnosis for this admission?: Yes Summary: Adjustments have been made in his insulin therapy. Now his sugars are running over 200. He was getting NovoLog 10 units with meals. Please review his r egimen and adjust accordingly. He was also on Levemir and I have kept him on Lantus. His other medications have been restarted and so his sugars should decrease. As he tapers off of prednisone his sugars should improve as well. (2) Acute kidney injury Is this a current diagnosis for this admission?: Yes Summary: Resolved. May have been due to aggressive diuresis. Continue to monitor furosemide and adjust dosage based on the patient's clinical condition. (3) Acute on chronic systolic congestive heart failure, NYHA class 3 Is this a current diagnosis for this admission?: Yes Summary: Greatly improved. Continue to monitor intake and output and adjust furosemide accordingly. Continue lisinopril, furosemide, metoprolol and Cardizem. Echocardiogram revealed ejection fraction of 40 to 45%. (4) Atrial fibrillation Is this a current diagnosis for this admission?: Yes Summary: Continue diltiazem and metoprolol. The patient is also on Plavix. Is not on any other anticoagulants. (5) COPD exacerbation Is this a current diagnosis for this admission?: Yes Summary: The patient is still on DuoNeb's. His acetylcysteine has been discontinued. Try to taper his nebulizers back to 4 times a day scheduled and taper prednisone slowly. Resume his outpatient inhaler therapy. (6) Non-STEMI (non-ST elevated myocardial infarction) Is this a current diagnosis for this admission?: Yes Summary: Continue Plavix, diltiazem, metoprolol, lisinopril and furosemide. Try to maintain systolic blood pressure less than 130 and diastolic pressure less than 90. Continue diabetic/cardiac diet. (7) Type 2 diabetes mellitus Is this a current diagnosis for this admission?: Yes Summary: Was previously on Levemir as well as NovoLog 10 units before meals. Levemir was once a day. Currently on Lantus and sliding scale. Consider transitioning back to home regimen. His Accu-Chek should improve as he tapers off of the prednisone. (8) Obstructive sleep apnea Is this a current diagnosis for this admission?: Yes Summary: Continue CPAP. He currently needs it during the day as well. Try to taper to nasal cannula during the day. His CPAP settings are 6 cm water pressure with an FiO2 of 26. Try to keep oxygen saturation between 89 and 92. (9) Coronary artery disease Is this a current diagnosis for this admission?: Yes Summary: Patient had a non-ST elevation myocardial infarction during this admission. Continue current medications and diet. Consider cardiac and pulmonary rehab if it is felt that the patient would tolerate this. (10) Hypertension Is this a current diagnosis for this admission?: Yes Summary: Blood pressure is improved. Trying to keep the systolic pressure less than 130 in the diastolic less than 90. He is currently on metoprolol, diltiazem, lisinopril and furosemide. (11) BPH (benign prostatic hyperplasia) Is this a current diagnosis for this admission?: Yes Summary: Continue Flomax (12) Hyperlipidemia Is this a current diagnosis for this admission?: Yes Summary: Continue atorvastatin and cardiac diet - Additional Information Resuscitation Status: Do Not Resuscitate Discharge Diet: Cardiac, Diabetic Discharge Activity: Activity As Tolerated, Balance Activity w/Rest, Weigh Daily Home Medications: Atorvastatin Calcium [Lipitor 40 mg Tablet] 40 mg PO QHS 03/12/19 Brinzolamide/Brimonidine Tart [Simbrinza 1%-0.2% Eye Drops] 1 drop OU BID 03/12/19 Budesonide/Formoterol Fumarate [Symbicort HFA 160-4.5 mcg Inhaler 6 gm] 1 puff IH Q12 03/12/19 Clopidogrel Bisulfate [Plavix 75 mg Tablet] 75 mg PO DAILY 03/12/19 Diltiazem HCl [Cardizem 30 mg Tablet] 30 mg PO Q8 03/12/19 Ipratropium/Albuterol Sulfate [Duoneb 3 ml Ampul] 1 vial NEB Q6HP PRN 03/12/19 Lisinopril [Prinivil 2.5 mg Tablet] 2.5 mg PO DAILY 03/12/19 Metoprolol Succinate [Toprol Xl 50 mg Tab.sr] 50 mg PO DAILY 03/12/19 Ranolazine [Ranexa 500 mg Tab.sr] 500 mg PO BID 03/12/19 Sitagliptin Phosphate [Januvia 50 mg Tablet] 50 mg PO DAILY 03/12/19 Tamsulosin HCl [Flomax 0.4 mg Cap.sr] 0.4 mg PO QHS 03/12/19 Acetaminophen [Tylenol 325 mg Tablet] 650 mg PO Q8HP PRN tablet 03/19/19 Docusate Sodium [Colace 100 mg Capsule] 100 mg PO BID capsule 03/19/19 Furosemide [Lasix 40 mg Tablet] 40 mg PO BID tablet 03/19/19 Insulin Glargine,Hum.rec.anlog [Lantus Insulin 100 Unit/1 ml 10 ml] 10 unit SUBCUT QHS unit 03/19/19 Insulin Lispro [Humalog Insulin (Lispro) 100 unit/mL] 0 - 12 unit SUBCUT ACHS unit 03/19/19 Ipratropium/Albuterol Sulfate [Duoneb 3 ml Ampul] 3 ml NEB RTQ4 vial.neb 03/19/19 Prednisone [Deltasone 20 mg Tablet] 40 mg PO DAILY tablet 03/19/19 Tamsulosin HCl [Flomax 0.4 mg Cap.sr] 0.4 mg PO QHS cap.sr.24h 03/19/19 History of Present Illness Admission Date/PCP: 03/12/19 17:48 DEVON PHOENIX MD Patient complains of: The patient presented to the emergency department with complaints of worsening of his chronic shortness of breath as well as chest discomfort. History of Present Illness: MICHAELA KUHN is a 83 year old male with multiple comorbidities including heart and lung disease as well as diabetes. He presented emergency department with worsening of his chronic shortness of breath as well as chest pain. He is deterioration has been progressive over the last 3 to 4 days. On evaluation he was found to have an elevated troponin at 1.42 as well as an elevated lactic acid, brain atretic peptide and low hemoglobin. He was referred to the hospitalist service for admission. Dr. William, drilling superintendent, recommended medical management as he is not up candidate for any interventional therapy or cardiac surgery. Hospital Course Hospital Course: The patient had a relatively benign hospital course. He was diuresed and is COPD was treated with nebulizers and steroids. He was placed back on his CPAP. He did require during the day as well as at night. He is currently pain-free. He responded well to the diuresis as well as steroids and nebulizer treatments for his COPD. He did develop an acute kidney injury likely from aggressive diuresis but this has resolved. His diabetes mellitus has been labile. He is currently on Lantus and a sliding scale. His sitagliptin will be restarted. As the prednisone dose decreases his glucose readings should improve. Physical Exam Vital Signs: Temp Pulse Resp BP Pulse Ox 97.4 F 68 22 H 106/49 L 97 03/19/19 14:20 03/19/19 14:20 03/19/19 14:20 03/19/19 14:20 03/19/19 14:20 Intake & Output 03/18/19 03/19/19 03/20/19 06:59 06:59 06:59 Intake Total 900 942 560 Output Total 1700 1650 200 Balance -800 -708 360 Weight 71.7 kg 72.7 kg General appearance: PRESENT: no acute distress, well-developed, other - Currently on CPAP Head exam: PRESENT: atraumatic, normocephalic Eye exam: PRESENT: conjunctiva pale Respiratory exam: PRESENT: decreased breath sounds - At bases, rales - On the right, symmetrical, tachypnea. ABSENT: accessory muscle use, rhonchi, wheezes Cardiovascular exam: PRESENT: irregular rhythm GI/Abdominal exam: PRESENT: normal bowel sounds, soft. ABSENT: tenderness Rectal exam: PRESENT: deferred Neurological exam: PRESENT: alert, awake, oriented to person, oriented to place, oriented to situation Psychiatric exam: PRESENT: appropriate affect. ABSENT: agitated, anxious Focused psych exam: ABSENT: delusional, restlessness Results Laboratory Results: 03/15/19 05:18 03/16/19 05:51 03/12/19 03/12/19 13:54 13:54 CK-MB (CK-2) 6.07 H Troponin I 1.420 NT-Pro-B Natriuret Pep [id number] H Impressions: Chest X-Ray 03/12/19 13:27 IMPRESSION: NO ACUTE RADIOGRAPHIC FINDING IN THE CHEST. Transfer Plan - Disposition Transfer Plan: The patient will transfer to [facility] for ongoing rehab. He believes that he has been there before. - Time Spent with Patient Time spent with patient: Greater than 30 Minutes Qualifiers - * PATIENT BEING DISCHARGED WITH ANY OF THE FOLLOWING DIAGNOSIS: HI HI Pt being discharged on Aspirin therapy?: No Reason(s) for not prescribing Aspirin therapy:: Not indicated - He is being discharged on Plavix HI Pt being discharged on Statins?: Yes HI Pt discharged ACEI/ARBS?: Yes Acute Heart Failure - Is this a Heart Failure Patient?: Yes Documentation of LVEF assessment?: Yes LVEF < 40%?: No- if no continue to question #3 a) Discharged on ACEI?: Yes d) Discharged on evidence-based Beta camila(carvedilol, sustained release metoprolol succinate, or bisoprolol)?: Yes 3. Anticoagulant therapy for permanect/persistent/paraoxysmal Afib or Aflutter: No, document contraindications Reason(s) not discharged on anticoagulant therapy for permanect/persistent/paraoxysmal Afib or Aflutter: Repeated falls/unsteady gait Follow-up Appointment scheduled within 7 days?: No, document reason - Patient transferring to long-term facility first
[2019-03-19] MEDS: ATORVASTATIN CALCIUM 40 MG TABLET PO SCH (21:43)
[2019-03-19] MEDS: TEMAZEPAM 7.5 MG CAPSULE PO SCH (21:43)
[2019-03-19] MEDS: INSULIN GLARGINE,HUM.REC.ANLOG 1,000 UNIT/10 ML VIAL SUBCUT SCH (21:43)
[2019-03-19] MEDS: TAMSULOSIN HCL 0.4 MG CAP.SR.24H PO SCH (21:43)
[2019-03-19] MEDS: ACETAMINOPHEN 325 MG TABLET PO PRN (21:53)
[2019-03-20] MEDS: IPRATROPIUM/ALBUTEROL 0.5-2.5 MG/3 ML AMPUL NEB SCH ×6 (00:01→20:39)
[2019-03-20] MEDS: DILTIAZEM HCL 30 MG TABLET PO SCH ×4 (02:49→21:11)
[2019-03-20] MEDS: ACETYLCYSTEINE 20% SOLN 800 MG/4 ML VIAL.NEB NEB SCH ×2 (08:16→20:39)
[2019-03-20] MEDS: PREDNISONE 20 MG TABLET PO SCH (09:48)
[2019-03-20] MEDS: RANOLAZINE 500 MG TAB.SR.12H PO SCH ×2 (09:48→17:07)
[2019-03-20] MEDS: INSULIN LISPRO 100 UNIT/ML 3 ML VIAL SUBCUT SCH ×4 (09:48→22:00)
[2019-03-20] MEDS: DOCUSATE SODIUM 100 MG CAPSULE PO SCH ×2 (09:49→17:07)
[2019-03-20] MEDS: SITAGLIPTIN PHOSPHATE 50 MG TABLET PO SCH (09:49)
[2019-03-20] MEDS: METOPROLOL SUCCINATE 50 MG TAB.SR.24H PO SCH (09:49)
[2019-03-20] MEDS: CLOPIDOGREL BISULFATE 75 MG TABLET PO SCH (09:49)
[2019-03-20] MEDS: FUROSEMIDE 40 MG TABLET PO SCH ×2 (09:49→17:08)
[2019-03-20] MEDS: LISINOPRIL 10 MG TABLET PO SCH (09:49)
[2019-03-20] MEDS: FLUTICASONE/VILANTEROL 200-25 MCG/DOSE IH SCH (09:50)
--- NOTE | 2019-03-20 20:23 | PDOC PROGRESS REPORT ---
Subjective Progress Note for:: 03/20/19 Subjective:: Patient's discharge yesterday was delayed. He is still complaining of a congested cough. Reason For Visit: ACUTE ON CHRONIC SYSTOLIC CONGESTIVE HEART Physical Exam Vital Signs: Temp Pulse Resp BP Pulse Ox 97.8 F 69 18 116/49 L 100 03/20/19 11:21 03/20/19 19:00 03/20/19 16:23 03/20/19 11:21 03/20/19 16:23 Intake & Output 03/19/19 03/20/19 03/21/19 06:59 06:59 06:59 Intake Total 942 920 702 Output Total 2587 576 5736 Balance -708 520 -728 Weight 72.7 kg 73.3 kg General appearance: PRESENT: mild distress, well-developed - But sickly appearing 83-year-old patient resting in bed Head exam: PRESENT: atraumatic, normocephalic Eye exam: PRESENT: conjunctiva pale. ABSENT: scleral icterus Ear exam: PRESENT: normal external ear exam Teeth exam: PRESENT: edentulous Respiratory exam: PRESENT: rhonchi - Coarse breath sounds bilaterally. Congested cough., symmetrical, unlabored. ABSENT: accessory muscle use, rales, tachypnea, wheezes Cardiovascular exam: PRESENT: irregular rhythm GI/Abdominal exam: PRESENT: normal bowel sounds, soft. ABSENT: distended, tenderness Rectal exam: PRESENT: deferred Extremities exam: ABSENT: calf tenderness, pedal edema Neurological exam: PRESENT: alert, awake, oriented to person, oriented to place, oriented to situation, other - Dysarthria due to lack of dentures Psychiatric exam: PRESENT: flat affect. ABSENT: agitated, anxious Focused psych exam: ABSENT: delusional, restlessness Results Laboratory Results: 03/15/19 05:18 03/16/19 05:51 03/12/19 03/12/19 13:54 13:54 CK-MB (CK-2) 6.07 H Troponin I 1.420 NT-Pro-B Natriuret Pep [id number] H Impressions: Chest X-Ray 03/12/19 13:27 IMPRESSION: NO ACUTE RADIOGRAPHIC FINDING IN THE CHEST. Assessment and Plan - Diagnosis (1) Hypoglycemia Is this a current diagnosis for this admission?: Yes Plan: Accu-Cheks improved with decreased insulin (2) Acute kidney injury Is this a current diagnosis for this admission?: Yes Plan: Resolved (3) Acute on chronic systolic congestive heart failure, NYHA class 3 Is this a current diagnosis for this admission?: Yes Plan: Continue current medication regimen. Furosemide is 40 mg twice daily and this should create a good diuresis. (4) Atrial fibrillation Qualifiers: Atrial fibrillation type: chronic Qualified Code(s): I48.2 - Chronic atrial fibrillation Is this a current diagnosis for this admission?: Yes Plan: Continue current medications (5) COPD exacerbation Is this a current diagnosis for this admission?: Yes Plan: I did add guaifenesin to the patient's regimen to help with the congested cough. I did point out that the flutter valve will likely help. He feels that he is too weak with inspiration for it to be effective. (6) Non-STEMI (non-ST elevated myocardial infarction) Is this a current diagnosis for this admission?: Yes Plan: As the patient is not a good candidate for catheterization cardiology has recommended medical management. (7) Type 2 diabetes mellitus Is this a current diagnosis for this admission?: Yes Plan: We will tailor medications based on Accu-Cheks. (8) Obstructive sleep apnea Is this a current diagnosis for this admission?: Yes Plan: Continue CPAP (9) Coronary artery disease Qualifiers: Coronary Disease-Associated Artery/Lesion type: [place] artery Is this a current diagnosis for this admission?: Yes Plan: Medical management. No change in medications. (10) Hypertension Qualifiers: Hypertension type: essential hypertension Qualified Code(s): I10 - Essential (primary) hypertension Is this a current diagnosis for this admission?: Yes Plan: Continue current medication regimen. (11) BPH (benign prostatic hyperplasia) Is this a current diagnosis for this admission?: Yes Plan: Continue Flomax (12) Hyperlipidemia Qualifiers: Hyperlipidemia type: unspecified Qualified Code(s): E78.5 - Hyperlipidemia, unspecified Is this a current diagnosis for this admission?: Yes Plan: Continue statin therapy - Time Time Spent with patient: Less than 15 minutes Medications reviewed and adjusted accordingly: Yes Anticipated discharge: SNF Within: within 24 hours - Plan Summary Plan Summary: They were unable to get the CPAP equipment at the senior care facility. Hopefully we will have the equipment tomorrow and we can complete the transfer.
[2019-03-20] MEDS: ATORVASTATIN CALCIUM 40 MG TABLET PO SCH (21:10)
[2019-03-20] MEDS: TEMAZEPAM 7.5 MG CAPSULE PO SCH (21:11)
[2019-03-20] MEDS: TAMSULOSIN HCL 0.4 MG CAP.SR.24H PO SCH (21:11)
[2019-03-20] MEDS: GUAIFENESIN 600 MG TABLET.SA PO SCH (21:11)
[2019-03-20] MEDS: ACETAMINOPHEN 325 MG TABLET PO PRN (21:11)
[2019-03-20] MEDS: INSULIN GLARGINE,HUM.REC.ANLOG 1,000 UNIT/10 ML VIAL SUBCUT SCH (22:01)
[2019-03-21] MEDS: IPRATROPIUM/ALBUTEROL 0.5-2.5 MG/3 ML AMPUL NEB SCH ×4 (00:05→11:24)
[2019-03-21] MEDS: DILTIAZEM HCL 30 MG TABLET PO SCH ×2 (03:26→10:05)
[2019-03-21 04:06] VITALS: BP 119/39
[2019-03-21] MEDS: ACETYLCYSTEINE 20% SOLN 800 MG/4 ML VIAL.NEB NEB SCH (08:09)
[2019-03-21] MEDS: SITAGLIPTIN PHOSPHATE 50 MG TABLET PO SCH (10:05)
[2019-03-21] MEDS: RANOLAZINE 500 MG TAB.SR.12H PO SCH (10:05)
[2019-03-21] MEDS: GUAIFENESIN 600 MG TABLET.SA PO SCH (10:05)
[2019-03-21] MEDS: METOPROLOL SUCCINATE 50 MG TAB.SR.24H PO SCH (10:05)
[2019-03-21] MEDS: CLOPIDOGREL BISULFATE 75 MG TABLET PO SCH (10:05)
[2019-03-21] MEDS: FUROSEMIDE 40 MG TABLET PO SCH (10:05)
[2019-03-21] MEDS: PREDNISONE 20 MG TABLET PO SCH (10:05)
[2019-03-21] MEDS: LISINOPRIL 10 MG TABLET PO SCH (10:05)
[2019-03-21] MEDS: DOCUSATE SODIUM 100 MG CAPSULE PO SCH (10:05)
[2019-03-21] MEDS: INSULIN LISPRO 100 UNIT/ML 3 ML VIAL SUBCUT SCH (10:06)
[2019-03-21] MEDS: FLUTICASONE/VILANTEROL 200-25 MCG/DOSE IH SCH (10:12)
--- NOTE | 2019-03-21 12:53 | PDOC PROGRESS REPORT ---
Subjective Progress Note for:: 03/21/19 Subjective:: Patient resting in bed. Chest pain free. No dyspnea Reason For Visit: ACUTE ON CHRONIC SYSTOLIC CONGESTIVE HEART Physical Exam Vital Signs: Temp Pulse Resp BP Pulse Ox 97.5 F 74 16 119/39 L 98 03/21/19 03:34 03/21/19 11:26 03/21/19 11:26 03/21/19 03:34 03/21/19 11:26 Intake & Output 03/20/19 03/21/19 03/22/19 06:59 06:59 06:59 Intake Total 920 702 Output Total 400 1430 Balance 520 -728 Weight 73.3 kg 68.6 kg General appearance: PRESENT: no acute distress Head exam: PRESENT: atraumatic, normocephalic Eye exam: PRESENT: EOMI Mouth exam: PRESENT: moist Respiratory exam: PRESENT: clear to auscultation crystal Cardiovascular exam: PRESENT: irregular rhythm GI/Abdominal exam: PRESENT: soft Musculoskeletal exam: PRESENT: normal inspection Skin exam: PRESENT: dry, intact Results Laboratory Results: 03/15/19 05:18 03/16/19 05:51 03/12/19 03/12/19 13:54 13:54 CK-MB (CK-2) 6.07 H Troponin I 1.420 NT-Pro-B Natriuret Pep [id number] H Impressions: Chest X-Ray 03/12/19 13:27 IMPRESSION: NO ACUTE RADIOGRAPHIC FINDING IN THE CHEST. Assessment & Plan - Diagnosis (1) Acute on chronic respiratory failure with hypoxemia Is this a current diagnosis for this admission?: Yes (2) Acute systolic (congestive) heart failure Is this a current diagnosis for this admission?: Yes (3) COPD (chronic obstructive pulmonary disease) Qualifiers: COPD type: COPD with acute exacerbation Qualified Code(s): J44.1 - Chronic obstructive pulmonary disease with (acute) exacerbation Is this a current diagnosis for this admission?: Yes (4) NSTEMI (non-ST elevated myocardial infarction) Is this a current diagnosis for this admission?: Yes - Notes Notes: Considerable improvement in symptoms. Agree with discharge planning Continue medical therapy for CAD, CHF COPD seems to be stable as well.
--- NOTE | 2019-03-21 14:32 | PDOC TRANSFER SUMMARY ---
General - Admit/Disc Date/PCP Admission Date/Primary Care Provider: 03/12/19 17:48 DEVON PHOENIX MD Discharge Date: 03/21/19 - Discharge Diagnosis (1) Hypoglycemia Is this a current diagnosis for this admission?: Yes Summary: Hypoglycemia has resolved. In fact the patient has high sugars. He is on sitagliptin, Lantus and a sliding scale. As the prednisone decreases he will l ikely experience better glucose readings. Adjust medications based on sliding scale requirements. (2) Acute kidney injury Is this a current diagnosis for this admission?: Yes Summary: Resolved (3) Acute on chronic systolic congestive heart failure, NYHA class 3 Is this a current diagnosis for this admission?: Yes Summary: Ejection fraction is 40 to 45%. Continue metoprolol, diltiazem, lisinopril and furosemide. Adjust medications based on intake and output. Weigh the patient daily. (4) Atrial fibrillation Is this a current diagnosis for this admission?: Yes Summary: Reasonable rate control with metoprolol and diltiazem. Continue Plavix. (5) COPD exacerbation Is this a current diagnosis for this admission?: Yes Summary: The patient has been stable. Continue to taper prednisone. He should be able to resume his normal outpatient inhaler regimen and wean off belies her treatments. (6) Non-STEMI (non-ST elevated myocardial infarction) Is this a current diagnosis for this admission?: Yes Summary: Continue current medication regimen including Plavix, statin therapy and the antihypertensive medications noted above. Goal would be systolic blood pressure less than 130 and diastolic less than 90. (7) Type 2 diabetes mellitus Is this a current diagnosis for this admission?: Yes Summary: As noted above, the patient is on sitagliptin and Lantus. He is also on sliding scale. Adjust medications based on sliding scale requirements. Glucose should improve as prednisone tapers. (8) Obstructive sleep apnea Is this a current diagnosis for this admission?: Yes Summary: Continue CPAP at 6 cmH2O. Adjust FiO2 to keep back in saturation 88 to 92% (9) Coronary artery disease Is this a current diagnosis for this admission?: Yes (10) Hypertension Is this a current diagnosis for this admission?: Yes (11) BPH (benign prostatic hyperplasia) Is this a current diagnosis for this admission?: Yes Summary: Continue Flomax (12) Hyperlipidemia Is this a current diagnosis for this admission?: Yes Summary: Continue statin therapy - Additional Information Resuscitation Status: Do Not Resuscitate Discharge Diet: Cardiac, Diabetic Discharge Activity: Activity As Tolerated, Balance Activity w/Rest, Weigh Daily Home Medications: Atorvastatin Calcium [Lipitor 40 mg Tablet] 40 mg PO QHS 03/12/19 Brinzolamide/Brimonidine Tart [Simbrinza 1%-0.2% Eye Drops] 1 drop OU BID 0 03/12/19 Budesonide/Formoterol Fumarate [Symbicort HFA 160-4.5 mcg Inhaler 6 gm] 1 puff IH Q12 03/12/19 Clopidogrel Bisulfate [Plavix 75 mg Tablet] 75 mg PO DAILY 03/12/19 Diltiazem HCl [Cardizem 30 mg Tablet] 30 mg PO Q8 03/12/19 Ipratropium/Albuterol Sulfate [Duoneb 3 ml Ampul] 1 vial NEB Q6HP PRN 03/12/19 Lisinopril [Prinivil 2.5 mg Tablet] 2.5 mg PO DAILY 03/12/19 Metoprolol Succinate [Toprol Xl 50 mg Tab.sr] 50 mg PO DAILY 03/12/19 Ranolazine [Ranexa 500 mg Tab.sr] 500 mg PO BID 03/12/19 Sitagliptin Phosphate [Januvia 50 mg Tablet] 50 mg PO DAILY 03/12/19 Tamsulosin HCl [Flomax 0.4 mg Cap.sr] 0.4 mg PO QHS 03/12/19 Acetaminophen [Tylenol 325 mg Tablet] 650 mg PO Q8HP PRN tablet 03/19/19 Docusate Sodium [Colace 100 mg Capsule] 100 mg PO BID capsule 03/19/19 Furosemide [Lasix 40 mg Tablet] 40 mg PO BID tablet 03/19/19 Insulin Glargine,Hum.rec.anlog [Lantus Insulin 100 Unit/1 ml 10 ml] 10 unit SUBCUT QHS unit 03/19/19 Insulin Lispro [Humalog Insulin (Lispro) 100 unit/mL] 0 - 12 unit SUBCUT ACHS unit 03/19/19 Ipratropium/Albuterol Sulfate [Duoneb 3 ml Ampul] 3 ml NEB RTQ4 vial.neb 03/19/19 Prednisone [Deltasone 20 mg Tablet] 40 mg PO DAILY tablet 03/19/19 Tamsulosin HCl [Flomax 0.4 mg Cap.sr] 0.4 mg PO QHS cap.sr.24h 03/19/19 History of Present Illness Admission Date/PCP: 03/12/19 17:48 DEVON PHOENIX MD Patient complains of: Presented to emergency department with worsening shortness of breath and chest pain History of Present Illness: MICHAELA KUHN is a 83 year old male with multiple comorbidities including heart and lung disease as well as diabetes. He presented emergency department with worsening of his chronic shortness of breath as well as chest pain. He is deterioration has been progressive over the last 3 to 4 days. On evaluation he was found to have an elevated troponin at 1.42 as well as an elevated lactic acid, brain atretic peptide and low hemoglobin. He was referred to the hospitalist service for admission. Dr. William, sharepoint application developer, recommended medical management as he is not up candidate for any interventional therapy or cardiac surgery. Hospital Course Hospital Course: Patient had a relatively benign hospital course. He was noted to have the non- ST elevation microinfarction with a troponin of 1.42. He required BiPAP for his respiratory failure but he responded to aggressive nebulizer treatments, steroids and diuresis. He has not had any recent complaints of chest pain. He did develop an acute kidney injury but this was likely to aggressive diuresis. This has resolved. As he tapers off of prednisone his glucose readings should improve. He may need an adjustment in his Lantus. Physical Exam Vital Signs: Temp Pulse Resp BP Pulse Ox 97.5 F 74 16 119/39 L 98 03/21/19 03:34 03/21/19 11:26 03/21/19 11:26 03/21/19 03:34 03/21/19 11:26 Intake & Output 03/20/19 03/21/19 03/22/19 06:59 06:59 06:59 Intake Total 920 702 Output Total 400 1430 Balance 520 -728 Weight 73.3 kg 68.6 kg General appearance: PRESENT: no acute distress, cooperative Head exam: PRESENT: atraumatic, normocephalic Eye exam: PRESENT: conjunctiva pale Respiratory exam: PRESENT: decreased breath sounds - At bases, rales - On the right, symmetrical, unlabored. ABSENT: rhonchi, tachypnea, wheezes Cardiovascular exam: PRESENT: irregular rhythm GI/Abdominal exam: PRESENT: normal bowel sounds. ABSENT: distended, tenderness Rectal exam: PRESENT: deferred Neurological exam: PRESENT: alert, awake, oriented to person, oriented to place, oriented to time, other - Somewhat dysarthric likely due to lack of dentures. Psychiatric exam: PRESENT: appropriate affect. ABSENT: agitated, anxious Focused psych exam: ABSENT: delusional, restlessness Results Laboratory Results: 03/15/19 05:18 03/16/19 05:51 03/12/19 03/12/19 13:54 13:54 CK-MB (CK-2) 6.07 H Troponin I 1.420 NT-Pro-B Natriuret Pep [id number] H Impressions: Chest X-Ray 03/12/19 13:27 IMPRESSION: NO ACUTE RADIOGRAPHIC FINDING IN THE CHEST. Transfer Plan - Disposition Transfer Plan: Transfer to [facility] - Time Spent with Patient Time spent with patient: Greater than 30 Minutes Qualifiers - * PATIENT BEING DISCHARGED WITH ANY OF THE FOLLOWING DIAGNOSIS: TX [place] Pt being discharged on Aspirin therapy?: No Reason(s) for not prescribing Aspirin therapy:: Not indicated - He is being discharged on Plavix TX Pt being discharged on Statins?: Yes TX Pt discharged ACEI/ARBS?: Yes Acute Heart Failure - Is this a Heart Failure Patient?: No Plan Time Spent: Greater than 30 Minutes
== END 2019-03-21 13:00 | DRG 280 ==
LOC: ER 13:05 → EH 17:48 → 3W 03-13 14:14
PROVIDERS: ADMIT Internal Medicine; ATTEND Internal Medicine
DX: I21.4 Non-ST elevation (NSTEMI) myocardial infarction (principal); I50.23 Acute on chronic systolic (congestive) heart failure; J44.1 Chronic obstructive pulmonary disease with (acute) exacerbation; N17.9 Acute kidney failure, unspecified; I11.0 Hypertensive heart disease with heart failure; I25.10 Atherosclerotic heart disease of native coronary artery without angina pectoris; N40.0 Benign prostatic hyperplasia without lower urinary tract symptoms; E78.5 Hyperlipidemia, unspecified; E11.65 Type 2 diabetes mellitus with hyperglycemia; Z79.899 Other long term (current) drug therapy; G47.33 Obstructive sleep apnea (adult) (pediatric); E11.649 Type 2 diabetes mellitus with hypoglycemia without coma; I48.2 Chronic atrial fibrillation; Z66 Do not resuscitate; Z99.81 Dependence on supplemental oxygen; M19.90 Unspecified osteoarthritis, unspecified site; F03.90 Unspecified dementia, unspecified severity, without behavioral disturbance, psychotic disturbance, mood disturbance, and anxiety; Z95.5 Presence of coronary angioplasty implant and graft; Z87.891 Personal history of nicotine dependence; Z88.0 Allergy status to penicillin; Z79.02 Long term (current) use of antithrombotics/antiplatelets; Z79.4 Long term (current) use of insulin; Z79.51 Long term (current) use of inhaled steroids; I25.2 Old myocardial infarction
CPT/HCPCS: 36415; 71046; 80048; 80053; 81001; 82553; 82962; 83605; 83880; 84443; 84484; 85025; 85027; 85610; 87040; 87086; 93005; 93010; 93306; 94640; 94660; 94667; 94668; 99291; J1650; J1815; J1940; J2405; J2920; J3490; J7512; J7620

== ENCOUNTER 2019-04-21 05:52 | Inpatient (IN) | payer MEDICARE, MEDICAID ==
--- NOTE | 2019-04-21 06:26 | ER Document Report ---
ED General - General Stated Complaint: CONSTIPATION Time Seen by Provider: 04/21/19 06:02 Notes: Patient is a 83 year old male that presents to the emergency department for chief complaint of constipation and shortness of breath. Patient's home health nurse apparently called EMS, complaint of constipation, but the patient is a poor historian, cannot tell me when his last bowel movement was. He was apparently found to be hypoxic at 88% on 3 L nasal cannula by EMS, and his lungs sounded poor. He was giving a DuoNeb breathing treatment by EMS. He has bandaging on his right arm and left hand, from an apparent fall that he thinks may have occurred on Monday but he is not sure which day, and this was managed from a home health nurse. He denies having headache, chest pain, nausea, vomiting or abdominal pain. He does feel somewhat short of breath compared to his baseline. Past Medical History: CHF, COPD, hypertension, hyperlipidemia, atrial fibrillation, dementia Past Surgical History: PCI with stenting x2, total hip arthroplasty Social History: Lives at home, no current tobacco, alcohol or drug use. Family History: Reviewed and noncontributory for presenting illness Allergies: Reviewed, see documented allergy list. REVIEW OF SYSTEMS: Other than noted above, the 12 point review of systems was reviewed with the patient and were negative, all pertinent findings are included in the HPI. PHYSICAL EXAMINATION: Vital signs reviewed, nursing noted reviewed. GENERAL: Elderly male, poor historian, no acute distress, appears somewhat disheveled HEAD: Atraumatic, normocephalic. EYES: Eyes appear normal, extraocular movements intact, sclera anicteric, conjunctiva are normal. ENT: nares patent, oropharynx clear without exudates. Moist mucous membranes. NECK: Normal range of motion, supple without lymphadenopathy LUNGS: Coarse lung sounds throughout, no acute respiratory distress HEART: Regular rate and rhythm without murmurs ABDOMEN: Soft, nontender, normoactive bowel sounds. No rebound, guarding, or rigidity. No masses appreciated. Reducible umbilical hernia noted. EXTREMITIES: Nontender, good range of motion, bilateral lower extremity pitting edema. NEUROLOGICAL: No focal neurological deficits. Moves all extremities spon taneously Motor and sensory grossly intact on exam. PSYCH: Normal mood, normal affect. SKIN: Warm, Dry, normal turgor, multiple skin tears noted to the right forearm, and one to the left hand, no evidence of acute infection. Patient does have large areas of ecchymosis on both forearms as well. Multiple stages of healing. TRAVEL OUTSIDE OF THE [place] IN LAST 30 DAYS: No - Related Data Allergies/Adverse Reactions: Penicillins Allergy (Verified 03/12/19 13:17) SWELLS Past Medical History - Social History Smoking Status: Former Smoker Family History: Reviewed & Not Pertinent, CAD, Hypertension - Past Medical History Cardiac Medical History: Reports: Hx Atrial Fibrillation, Hx Congestive Heart Failure, Hx Coronary Artery Disease, Hx Heart Attack, Hx Hypertension Pulmonary Medical History: Reports: Hx COPD, Hx Sleep Apnea Neurological Medical History: Reports: Hx Cerebrovascular Accident - "years ago" Endocrine Medical History: Reports: Hx Diabetes Mellitus Type 1, Hx Diabetes Mellitus Type 2 Renal/ Medical History: Reports: Hx Benign Prostatic Hyperplasia. Denies: Hx Peritoneal Dialysis GI Medical History: Reports: Hx Gastroesophageal Reflux Disease Musculoskeletal Medical History: Reports Hx Arthritis Psychiatric Medical History: Reports: Hx Dementia Denies: Hx Depression Past Surgical History: Reports: Hx Cardiac Catheterization - RCA, LDA, Hx Coronary Stent - RCA & LAD, Hx Orthopedic Surgery - right clavicle, left THR - Immunizations Hx Diphtheria, Pertussis, Tetanus Vaccination: Yes Physical Exam - Vital signs Vitals: Temp Pulse Resp BP Pulse Ox 98.7 F 100 22 H 140/71 H 84 L 04/21/19 05:53 04/21/19 05:53 04/21/19 05:53 04/21/19 05:53 04/21/19 05:53 Course - Re-evaluation Re-evalutation: Patient seen and examined vital signs reviewed. Laboratory data and imaging were ordered as appropriate for the patient's presenting symptoms and complaint, with consideration of any critical or life threatening conditions that may be associated with their obtained history and exam as noted above. Patient was treated with IV vancomycin and cefepime, for pneumonia as noted on chest x-ray, and the right middle lobe, patient was given IV Lasix as well, given that he did have some peripheral edema, and his lungs did sound rhonchorous with associated rales, with history of heart failure. Results were reviewed when available and demonstrated leukocytosis, 18,000, he had a mild hyperkalemia, and troponin was minimally elevated, no new EKG changes. The patient was re-evaluated and was stable, his pulse ox would range from 88 to 92%, on nasal cannula, with unlabored breathing, patient stated he just wanted to be comfortable. Was complaining of a mild headache, and given Tylenol for this. Evaluation was most consistent with acute on chronic respiratory failure, with mild hypoxia, pneumonia, possible aspiration type, with leukocytosis and mild hyperkalemia. Results were discussed with the patient at this point after careful consideration I feel that that patient should be admitted to the hospital. This was discussed with the patient that it is in the best interest for their care to be admitted for further evaluation and management. Patient agreed with this p jamilah of care. A call was placed to the hospalist, discussed with Cooper Cutler MANUFACTURING SHIFT SUPERVISOR who graciously accepted the patient onto their service. *Note is created using voice recognition software and may contain spelling, syntax or grammatical errors. I received a call from the admitting nurse practitioner, requesting a central line, patient had a functioning IV, I did not feel is necessary at this time, a nd patient was refusing further IVs, and was hemodynamically stable, did not feel there is a true indication for central line at this time, as he is not requiring vasopressors, or any mandatory medications requiring central venous catheter. Upon reviewing patient's prior chart, he was a DNR, and DO NOT INTUBATE, based on the discussion from his previous admission on 03/12/2019, paperwork is not available at this time, patient does have dementia and states he has paperwork at home and wants to be comfortable at this time and I do not feel forcing him to have a central line is in his best interest if he is making these statements. I did place calls to his listed next of kin, without answer at this time. I will defer this decision ultimately to the hospitalist team. Laboratory 04/21/19 04/21/19 04/21/19 06:25 06:35 06:35 WBC 18.4 H RBC 3.64 L Hgb 10.1 L Hct 32.7 L MCV 90 MCH 27.8 MCHC 30.9 L RDW 16.1 H Plt Count 400 Total Counted 100 Seg Neutrophils % Not Reportable Seg Neuts % (Manual) 85 H Band Neutrophils % 4 Lymphocytes % Not Reportable Lymphocytes % (Manual) 6 L Monocytes % Not Reportable Monocytes % (Manual) 5 Eosinophils % Not Reportable Eosinophils % (Manual) 0 Basophils % Not Reportable Basophils % (Manual) 0 Absolute Neutrophils Not Reportable Abs Neuts (Manual) 16.4 H Absolute Lymphocytes Not Reportable Abs Lymphs (Manual) 1.1 Absolute Monocytes Not Reportable Abs Monocytes (Manual) 0.9 Absolute Eosinophils Not Reportable Absolute Eos (Manual) 0.0 Absolute Basophils Not Reportable Abs Basophils (Manual) 0.0 Toxic Granulation SLIGHT Clumped Platelets PRESENT Platelet Comment Not Reportable Polychromasia SLIGHT Hypochromasia 1+ Poikilocytosis 1+ Anisocytosis 1+ PT 12.9 INR 0.97 VBG pH VBG pCO2 VBG HCO3 VBG Base Excess Sodium Potassium Chloride Carbon Dioxide Anion Gap BUN Creatinine Est GFR ( Amer) Est GFR (Non-Af Amer) Glucose Lactic Acid Calcium Total Bilirubin Direct Bilirubin Neonat Total Bilirubin Neonat Direct Bilirubin Neonat Indirect Bili AST ALT Alkaline Phosphatase Troponin I NT-Pro-B Natriuret Pep Total Protein Albumin Urine Color YELLOW Urine Appearance SLIGHTLY-CLOUDY Urine pH 5.0 Ur Specific [place] 1.014 Urine Protein NEGATIVE Urine Glucose (UA) NEGATIVE Urine Ketones NEGATIVE Urine Blood NEGATIVE Urine Nitrite NEGATIVE Urine Bilirubin NEGATIVE Urine Urobilinogen NEGATIVE Ur Leukocyte Esterase NEGATIVE Urine WBC (Auto) 1 Urine RBC (Auto) 0 Squamous Epi Cells Auto <1 Urine Mucus (Auto) RARE Urine Ascorbic Acid 40 H 04/21/19 04/21/19 04/21/19 06:35 06:35 06:35 WBC RBC Hgb Hct MCV MCH MCHC RDW Plt Count Total Counted Seg Neutrophils % Seg Neuts % (Manual) Band Neutrophils % Lymphocytes % Lymphocytes % (Manual) Monocytes % Monocytes % (Manual) Eosinophils % Eosinophils % (Manual) Basophils % Basophils % (Manual) Absolute Neutrophils Abs Neuts (Manual) Absolute Lymphocytes Abs Lymphs (Manual) Absolute Monocytes Abs Monocytes (Manual) Absolute Eosinophils Absolute Eos (Manual) Absolute Basophils Abs Basophils (Manual) Toxic Granulation Clumped Platelets Platelet Comment Polychromasia Hypochromasia Poikilocytosis Anisocytosis PT INR VBG pH VBG pCO2 VBG HCO3 VBG Base Excess Sodium 140.4 Potassium 5.2 H Chloride 98 Carbon Dioxide 35 H Anion Gap 7 BUN 42 H Creatinine 1.02 Est GFR ( Amer) > 60 Est GFR (Non-Af Amer) > 60 Glucose 113 H Lactic Acid 2.4 H Calcium 8.7 Total Bilirubin 0.6 Direct Bilirubin 0.4 Neonat Total Bilirubin Not Reportable Neonat Direct Bilirubin Not Reportable Neonat Indirect Bili Not Reportable AST 25 ALT 28 Alkaline Phosphatase 70 Troponin I 0.047 NT-Pro-B Natriuret Pep Total Protein 5.4 L Albumin 3.0 L Urine Color Urine Appearance Urine pH Ur Specific [place] Urine Protein Urine Glucose (UA) Urine Ketones Urine Blood Urine Nitrite Urine Bilirubin Urine Urobilinogen Ur Leukocyte Esterase Urine WBC (Auto) Urine RBC (Auto) Squamous Epi Cells Auto Urine Mucus (Auto) Urine Ascorbic Acid 04/21/19 04/21/19 04/21/19 06:35 06:35 07:07 WBC RBC Hgb Hct MCV MCH MCHC RDW Plt Count Total Counted Seg Neutrophils % Seg Neuts % (Manual) Band Neutrophils % Lymphocytes % Lymphocytes % (Manual) Monocytes % Monocytes % (Manual) Eosinophils % Eosinophils % (Manual) Basophils % Basophils % (Manual) Absolute Neutrophils Abs Neuts (Manual) Absolute Lymphocytes Abs Lymphs (Manual) Absolute Monocytes Abs Monocytes (Manual) Absolute Eosinophils Absolute Eos (Manual) Absolute Basophils Abs Basophils (Manual) Toxic Granulation Clumped Platelets Platelet Comment Polychromasia Hypochromasia Poikilocytosis Anisocytosis PT INR VBG pH Cancelled 7.36 VBG pCO2 Cancelled 58.4 VBG HCO3 Cancelled 32.5 H VBG Base Excess Cancelled 5.8 Sodium Potassium Chloride Carbon Dioxide Anion Gap BUN Creatinine Est GFR ( Amer) Est GFR (Non-Af Amer) Glucose Lactic Acid Calcium Total Bilirubin Direct Bilirubin Neonat Total Bilirubin Neonat Direct Bilirubin Neonat Indirect Bili AST ALT Alkaline Phosphatase Troponin I NT-Pro-B Natriuret Pep 3700 H Total Protein Albumin Urine Color Urine Appearance Urine pH Ur Specific [place] Urine Protein Urine Glucose (UA) Urine Ketones Urine Blood Urine Nitrite Urine Bilirubin Urine Urobilinogen Ur Leukocyte Esterase Urine WBC (Auto) Urine RBC (Auto) Squamous Epi Cells Auto Urine Mucus (Auto) Urine Ascorbic Acid Chest X-Ray 04/21/19 06:24 IMPRESSION: 1. Developing airspace disease in the right perihilar region concerning for a pneumonic infiltrate. 2. Old right-sided rib fractures. 3. Hyperinflation of the lungs. - Vital Signs Vital signs: Temp Pulse Resp BP Pulse Ox 99.0 F 100 17 144/68 H 89 L 04/21/19 09:42 04/21/19 05:53 04/21/19 09:00 04/21/19 09:00 04/21/19 09:00 - Laboratory Result Diagrams: 04/21/19 06:35 04/21/19 06:35 Laboratory results interpreted by me: 04/21/19 04/21/19 04/21/19 06:25 06:35 06:35 WBC 18.4 H RBC 3.64 L Hgb 10.1 L Hct 32.7 L MCHC 30.9 L RDW 16.1 H Seg Neuts % (Manual) 85 H Lymphocytes % (Manual) 6 L Abs Neuts (Manual) 16.4 H VBG HCO3 Potassium 5.2 H Carbon Dioxide 35 H BUN 42 H Glucose 113 H Lactic Acid NT-Pro-B Natriuret Pep Total Protein 5.4 L Albumin 3.0 L Urine Ascorbic Acid 40 H 04/21/19 04/21/19 04/21/19 06:35 06:35 07:07 WBC RBC Hgb Hct MCHC RDW Seg Neuts % (Manual) Lymphocytes % (Manual) Abs Neuts (Manual) VBG HCO3 32.5 H Potassium Carbon Dioxide BUN Glucose Lactic Acid 2.4 H NT-Pro-B Natriuret Pep 3700 H Total Protein Albumin Urine Ascorbic Acid - EKG Interpretation by Me Additional EKG results interpreted by me: EKG demonstrates what appears to be sinus tachycardia with a ventricular rate of 101 bpm, normal axis, QTC 488 ms, no ST elevation, there is significant baseline artifact in this EKG. This is compared with a prior EKG from 03/12/2019, without significant change. Critical Care Note - Critical Care Note Total time excluding time spent on procedures (mins): 35 Comments: Critical care time 35 minutes exclusive from separate billable procedures for a patient requiring complex medical decision making, and high potential for clinical deterioration. Patient with acute on chronic respiratory failure, with mild hypoxia, and pneumonia, requiring treatment and close monitoring and frequent re-evaluations. Time spent obtaining history from patient or surrogate, discussions with consultants, development of treatment plan with patient or surrogate, evaluation of patient's response to treatment, examination of patient, ordering and performing treatments and interventions, ordering and review of laboratory studies, re-evaluation of patient's condition, ordering and review of radiographic studies and review of old charts Discharge - Discharge Clinical Impression: Hyperkalemia Acute and chronic respiratory failure Qualifiers: Respiratory failure complication: hypoxia Qualified Code(s): J96.21 - Acute and chronic respiratory failure with hypoxia Pneumonia Qualifiers: Pneumonia type: due to unspecified organism Laterality: right Lung location: middle lobe of lung Qualified Code(s): J18.1 - Lobar pneumonia, unspecified organism Leukocytosis Qualifiers: Leukocytosis type: unspecified Qualified Code(s): D72.829 - Elevated white blood cell count, unspecified Condition: Stable Disposition: ADMITTED INPATIENT Admitting Provider: Kary (Hospitalist) - Cooper Cutler VACUUM PAN OPERATOR Unit Admitted: Telemetry
[2019-04-21] MEDS ORDERED: IPRATROPIUM/ALBUTEROL 0.5-2.5 MG/3 ML AMPUL NEB ONE (06:33)
[2019-04-21 06:52] LABS: HEMATOCRIT 32.7 % (37.9-51.0); HEMOGLOBIN 10.1 g/dL (13.5-17.0); MEAN CORPUSCULAR HEMOGLOBIN 27.8 pg (27.0-33.4); MEAN CORPUSCULAR HGB CONC 30.9 g/dL (32.0-36.0); MEAN CORPUSCULAR VOLUME 90 fl (80-97); PLATELET COUNT 400 10^3/uL (150-450); RED BLOOD COUNT 3.64 10^6/uL (4.35-5.55); RED CELL DISTRIBUTION WIDTH 16.1 % (11.5-14.0); WHITE BLOOD COUNT 18.4 10^3/uL (4.0-10.5)
[2019-04-21 06:55] LABS: INTERNATIONAL RATION (INR) 0.97; PROTHROMBIN TIME 12.9 SEC (11.4-15.4)
[2019-04-21 07:07] LABS: ABSOLUTE LYMPHOCYTES# (MANUAL) 1.1 10^3/uL (0.5-4.7); ABSOLUTE MONOCYTES # (MANUAL) 0.9 10^3/uL (0.1-1.4); BAND NEUTROPHILS % (MANUAL) 4 % (3-5); BASOPHILS % (MANUAL) 0 % (0-2); EOSINOPHILS % (MANUAL) 0 % (0-6); LYMPHOCYTES % (MANUAL) 6 % (13-45); MONOCYTES % (MANUAL) 5 % (3-13); PLATELET CLUMPS PRESENT; SEGMENTED NEUTROPHILS % (MAN) 85 % (42-78); TOTAL CELLS COUNTED 100
[2019-04-21 07:09] LABS: ANISOCYTOSIS 1+; HYPOCHROMASIA 1+; POIKILOCYTOSIS 1+; POLYCHROMASIA SLIGHT; TOXIC GRANULATION SLIGHT
[2019-04-21 07:10] LABS: APPEARANCE,URINE SLIGHTLY-CLOUDY; BILIRUBIN,URINE NEGATIVE (NEGATIVE); COLOR,URINE YELLOW; GLUCOSE, URINE NEGATIVE (NEGATIVE); KETONES,URINE NEGATIVE (NEGATIVE); LEUKOCYTE ESTERASE,URINE NEGATIVE (NEGATIVE); NITRITE,URINE NEGATIVE (NEGATIVE); PROTEIN,URINE NEGATIVE (NEGATIVE); URINE SPECIFIC GRAVITY 1.014; UROBILINOGEN,URINE NEGATIVE mg/dL (<2.0)
[2019-04-21 07:20] LABS: ALANINE AMINOTRANSFERASE 28 U/L (21-72); ALKALINE PHOSPHATASE 70 U/L (38-126); ANION GAP 7 (5-19); ASPARTATE AMINO TRANSFERASE 25 U/L (17-59); BILIRUBIN,DIRECT 0.4 mg/dL (0.0-0.4); BILIRUBIN,TOTAL 0.6 mg/dL (0.2-1.3); BLOOD UREA NITROGEN 42 mg/dL (7-20); CALCIUM 8.7 mg/dL (8.4-10.2); CARBON DIOXIDE 35 mmol/L (22-30); CHLORIDE 98 mmol/L (98-107); GLUCOSE 113 mg/dL (75-110); POTASSIUM 5.2 mmol/L (3.6-5.0); SODIUM 140.4 mmol/L (137-145); TOTAL PROTEIN 5.4 g/dL (6.3-8.2)
[2019-04-21] MEDS ORDERED: VANCOMYCIN HCL INJ 1000 MG VIAL IV ONE (07:25)
[2019-04-21] MEDS ORDERED: CEFEPIME 1 GM/D5W RTU 1 GM/50 ML RTUPB IV ONE (07:25)
--- NOTE | 2019-04-21 07:33 | RADIOLOGY REPORT (SQ) ---
EXAM DESCRIPTION: X-ray single view chest. CLINICAL HISTORY: 83 years Male, shortness of breath COMPARISON: 01/03/2019 and 03/12/2019 TECHNIQUE: Single portable x-ray view of the chest performed on 04/21/2019 at 7:15 AM FINDINGS: The lungs are well expanded and are hyperinflated. There is developing airspace disease in the right perihilar region concerning for a pneumonic infiltrate. The left lung is clear. There is no evidence of a pneumothorax. The cardiac silhouette is normal in size and configuration. The mediastinal contours are normal. No acute osseous abnormality is identified. There are old right-sided rib fractures. There are remote postsurgical changes of the right humerus. No focal soft tissue abnormalities are seen. Lines and tubes: None. IMPRESSION: 1. Developing airspace disease in the right perihilar region concerning for a pneumonic infiltrate. 2. Old right-sided rib fractures. 3. Hyperinflation of the lungs.
[2019-04-21] MEDS ORDERED: FUROSEMIDE INJ/PF 20 MG/2 ML SDV IV ONE (07:45)
[2019-04-21 07:51] LABS: VENOUS BLOOD BASE EXCESS 5.8 mmol/L; VENOUS BLOOD HCO3 32.5 mmol/L (20-32); VENOUS BLOOD PCO2 58.4 mmHg (35-63); VENOUS BLOOD PH 7.36 (7.30-7.42)
[2019-04-21] MEDS ORDERED: ACETAMINOPHEN 325 MG TABLET PO ONE (08:21)
[2019-04-21] MEDS ORDERED: NORMAL SALINE 1000 ML 1,000 ML IV PRN (08:40)
[2019-04-21] MEDS ORDERED: DEXTROSE 50%-WATER 25 GM/50 ML DISP.SYRIN IV PRN ×2 (08:40)
[2019-04-21] MEDS ORDERED: ACETAMINOPHEN 650 MG SUPP.RECT PR PRN (08:40)
[2019-04-21] MEDS ORDERED: GLUCAGON,HUMAN RECOMB 1 MG INJ SUBCUT PRN (08:40)
[2019-04-21] MEDS ORDERED: DEXTROSE 40% GEL 15 GM TUBE PO PRN ×2 (08:40)
[2019-04-21] MEDS ORDERED: VANCOMYCIN HCL INJ 500 MG VIAL IV ONE (08:49)
--- NOTE | 2019-04-21 09:06 | Progress Note Acknowledgement ---
Progress Note Acknowledgement Progess Note Acknowledgement: I, the undersigned member of the medical staff with appropriate privileges and with supervisory authority over Cooper Cutler, a [facility] practice allied health professional, acknowledge that I have reviewed the progress notes entered on this patient, and in my professional judgment believe that the assessment made and/or any care evidenced was appropriate
--- NOTE | 2019-04-21 09:17 | PDOC H&P ---
History of Present Illness Admission Date/PCP: 04/21/19 08:18 Sepsis from unknown origin. Patient complains of: Unable to assess at this time secondary to patient's mental status. History of Present Illness: MICHAELA KUHN is a 83 year old male who presents the ER with sepsis of unknown origin as well as acute on chronic congestive heart failure. Patient is unable to answer questions at this time secondary to mental status. Past Medical History Cardiac Medical History: Reports: Atrial Fibrillation, Congestive Heart Failure, Coronary Artery Disease, Myocardial Infarction, Hypertension Pulmonary Medical History: Reports: Chronic Obstructive Pulmonary Disease (COPD), Sleep Apnea Endocrine Medical History: Reports: Diabetes Mellitus Type 1, Diabetes Mellitus Type 2 GI Medical History: Reports: Gastroesophageal Reflux Disease Musculoskeltal Medical History: Reports: Arthritis Psychiatric Medical History: Reports: Dementia Denies: Depression Hematology: Denies: Anemia, Sickle Cell Disease Past Surgical History Past Surgical History: Reports: Cardiac Catheterization - RCA, LDA, Coronary Stent - RCA & LAD, Orthopedic Surgery - right clavicle, left THR Social History Smoking Status: Former Smoker Frequency of Alcohol Use: None Hx Recreational Drug Use: No Drugs: None Hx Prescription Drug Abuse: No - Advance Directive Resuscitation Status: Do Not Resuscitate Family History Family History: Reviewed & Not Pertinent, CAD, Hypertension Parental Family History Reviewed: No - Unable to assess due to patient's mental status Children Family History Reviewed: No Sibling(s) Family History Reviewed.: No Medication/Allergy Allergies/Adverse Reactions: Penicillins Allergy (Verified 03/12/19 13:17) CHIKIS Review of Systems Review of Systems: Unable to assess secondary to patient's mental status Physical Exam Vital Signs: Temp Pulse Resp BP Pulse Ox 98.7 F 100 14 132/60 H 89 L 04/21/19 05:53 04/21/19 05:53 04/21/19 07:15 04/21/19 07:15 04/21/19 07:15 Intake & Output 04/20/19 04/21/19 04/22/19 06:59 06:59 06:59 Intake Total 50 Balance 50 Weight 72 kg General appearance: PRESENT: severe distress Head exam: PRESENT: atraumatic, normocephalic Neck exam: ABSENT: carotid bruit, lymphadenopathy, thyromegaly Respiratory exam: PRESENT: accessory muscle use, crackles, tachypnea Cardiovascular exam: PRESENT: tachycardia Pulses: PRESENT: +1 pedal pulses bilateral GI/Abdominal exam: PRESENT: hypoactive bowel sounds, soft Extremities exam: PRESENT: pedal edema - +3-4 bilateral pitting Neurological exam: PRESENT: other - Patient disoriented to person place and time at this time Skin exam: PRESENT: other - Patient has multiple scattered skin tears throughout his whole body especially on the right upper extremity. Results Laboratory Results: 04/21/19 06:35 04/21/19 06:35 04/21/19 04/21/19 04/21/19 06:25 06:35 06:35 WBC 18.4 H RBC 3.64 L Hgb 10.1 L Hct 32.7 L MCV 90 MCH 27.8 MCHC 30.9 L RDW 16.1 H Plt Count 400 Seg Neutrophils % Not Reportable Lymphocytes % Not Reportable Monocytes % Not Reportable Eosinophils % Not Reportable Basophils % Not Reportable Absolute Neutrophils Not Reportable Absolute Lymphocytes Not Reportable Absolute Monocytes Not Reportable Absolute Eosinophils Not Reportable Absolute Basophils Not Reportable VBG pH VBG pCO2 VBG HCO3 VBG Base Excess Sodium 140.4 Potassium 5.2 H Chloride 98 Carbon Dioxide 35 H Anion Gap 7 BUN 42 H Creatinine 1.02 Est GFR ( Amer) > 60 Est GFR (Non-Af Amer) > 60 Glucose 113 H Lactic Acid Calcium 8.7 Total Bilirubin 0.6 AST 25 ALT 28 Alkaline Phosphatase 70 Total Protein 5.4 L Albumin 3.0 L Urine Color YELLOW Urine Appearance SLIGHTLY-CLOUDY Urine pH 5.0 Ur Specific [place] 1.014 Urine Protein NEGATIVE Urine Glucose (UA) NEGATIVE Urine Ketones NEGATIVE Urine Blood NEGATIVE Urine Nitrite NEGATIVE Ur Leukocyte Esterase NEGATIVE Urine WBC (Auto) 1 Urine RBC (Auto) 0 04/21/19 04/21/19 04/21/19 06:35 06:35 07:07 WBC RBC Hgb Hct MCV MCH MCHC RDW Plt Count Seg Neutrophils % Lymphocytes % Monocytes % Eosinophils % Basophils % Absolute Neutrophils Absolute Lymphocytes Absolute Monocytes Absolute Eosinophils Absolute Basophils VBG pH Cancelled 7.36 VBG pCO2 Cancelled 58.4 VBG HCO3 Cancelled 32.5 H VBG Base Excess Cancelled 5.8 Sodium Potassium Chloride Carbon Dioxide Anion Gap BUN Creatinine Est GFR ( Amer) Est GFR (Non-Af Amer) Glucose Lactic Acid 2.4 H Calcium Total Bilirubin AST ALT Alkaline Phosphatase Total Protein Albumin Urine Color Urine Appearance Urine pH Ur Specific [place] Urine Protein Urine Glucose (UA) Urine Ketones Urine Blood Urine Nitrite Ur Leukocyte Esterase Urine WBC (Auto) Urine RBC (Auto) 04/21/19 04/21/19 06:35 06:35 Troponin I 0.047 NT-Pro-B Natriuret Pep 3700 H Impressions: Chest X-Ray 04/21/19 06:24 IMPRESSION: 1. Developing airspace disease in the right perihilar region concerning for a pneumonic infiltrate. 2. Old right-sided rib fractures. 3. Hyperinflation of the lungs. Assessment and Plan - Diagnosis (1) Acute on chronic respiratory failure with hypoxemia Is this a current diagnosis for this admission?: Yes Plan: 04/21/2019-patient with a history of respiratory failure with hypoxia. Patient comes into the ER today in severe distress. Patient does have a leukocytosis cultures have been sent chest x-ray does not show any acute findings per my reading. I will await radiology findings on his chest x-ray. At this time implant in place and on vancomycin and cefepime. Will await the cultures for fitting organism and may change plan of care as appropriate. BiPAP per respirat ory therapy. (2) Acute on chronic systolic congestive heart failure, NYHA class 3 Is this a current diagnosis for this admission?: Yes Plan: 04/21/2019-patient does have a history of chronic systolic congestive heart failure class III. Patient was given Lasix in the ER. Unfortunately patient is septic from unknown cause at this time. Patient is lactic acid of 2.4. I will rehydrate with normal saline 150 mL an hour patient on IMCU for constant monitoring. Patient is a DNR. (3) Hyperkalemia Is this a current diagnosis for this admission?: Yes Plan: 04/21/2019-mild at this time. Potassium 5.2. Patient got Lasix in the ER and will rehydrate him this should fix the potassium level. I will repeat labs in the a.m. (4) DNR (do not resuscitate) Is this a current diagnosis for this admission?: Yes Plan: 04/21/2019-discussed case with Nina from risk management. She states that if patient has a known DNR from her previous chart this was sufficient to keep patient DNR. Patient was made a DNR at this time. (5) Anemia Qualifiers: Anemia type: unspecified type Qualified Code(s): D64.9 - Anemia, unspecified Is this a current diagnosis for this admission?: Yes Plan: 04/21/2019-chronic in nature. Continue follow daily CBCs. - Time Time Spent with patient: 35 or more minutes - Inpatient Certification Based on my medical assessment, after consideration of the patient's comorbidities, presenting symptoms, or acuity I expect that the services needed warrant INPATIENT care.: Yes I certify that my determination is in accordance with my understanding of Medicare's requirements for reasonable and necessary INPATIENT services [42 CFR 412.3e].: Yes Medical Necessity: Other - IV fluids, IV antibiotics, sepsis.
[2019-04-21] MEDS ORDERED: CEFEPIME 1 GM/D5W RTU 1 GM/50 ML RTUPB IV SCH ×2 (10:00→18:00)
[2019-04-21] MEDS ORDERED: PANTOPRAZOLE SODIUM 40 MG VIAL IV SCH (10:00)
[2019-04-21] MEDS ORDERED: HEPARIN SOD (PORCINE) 5,000 UNIT/ML 1 ML SYRINGE SUBCUT SCH (14:00)
[2019-04-21] MEDS: MORPHINE SULFATE 10 MG/ML INJ IV PRN ×2 (15:21→21:04)
--- NOTE | 2019-04-21 19:00 | EKG REPORT ---
SEVERITY:- DEFECTIVE ECG - SEVERE BASELINE ARTIFACT REPEAT EKG : Confirmed by: Herminia Hussein MD 21-Apr-2019 19:00:13
[2019-04-22] MEDS: MORPHINE SULFATE 10 MG/ML INJ IV PRN ×4 (03:14→22:30)
[2019-04-22] MEDS: LORAZEPAM INJ 2 MG/1 ML VIAL IV PRN (03:15)
[2019-04-22] MEDS ORDERED: VANCOMYCIN HCL 1,000 MG in DEXTROSE 5%-WATER 250 ML IV SCH (10:00)
--- NOTE | 2019-04-22 10:11 | Progress Note Acknowledgement ---
Progress Note Acknowledgement Progess Note Acknowledgement: I, the undersigned member of the medical staff with appropriate privileges and with supervisory authority over [Cooper Cutler], a dependent practice allied health professional, acknowledge that I have reviewed the progress notes entered on this patient, and in my professional judgment believe that the assessment made and/or any care evidenced was appropriate
--- NOTE | 2019-04-22 10:12 | PDOC PROGRESS REPORT ---
Subjective Progress Note for:: 04/22/19 Subjective:: 04/22/2019-patient continues to decline through comfort care measures. We will follow and give appropriate morphine and Ativan as needed. Reason For Visit: ACUTE CHRONIC RESPIRATORY FAILURE WITH LABORED JOHNATHAN Physical Exam Vital Signs: Temp Pulse Resp BP Pulse Ox 99.1 F 125 H 22 H 124/60 89 L 04/21/19 15:22 04/21/19 16:34 04/21/19 20:27 04/21/19 15:22 04/22/19 09:49 Intake & Output 04/21/19 04/22/19 04/23/19 06:59 06:59 06:59 Intake Total 1050 Output Total 950 Balance 100 Weight 72 kg 71.6 kg Results Laboratory Results: 04/21/19 06:35 04/21/19 06:35 04/21/19 11:45 Lactic Acid 1.8 04/21/19 04/21/19 06:35 06:35 Troponin I 0.047 NT-Pro-B Natriuret Pep 3700 H Impressions: Chest X-Ray 04/21/19 06:24 IMPRESSION: 1. Developing airspace disease in the right perihilar region concerning for a pneumonic infiltrate. 2. Old right-sided rib fractures. 3. Hyperinflation of the lungs. Assessment and Plan - Diagnosis (1) Acute on chronic respiratory failure with hypoxemia Is this a current diagnosis for this admission?: Yes (2) Acute on chronic systolic congestive heart failure, NYHA class 3 Is this a current diagnosis for this admission?: Yes (3) Hyperkalemia Is this a current diagnosis for this admission?: Yes (4) DNR (do not resuscitate) Is this a current diagnosis for this admission?: Yes (5) Anemia Qualifiers: Anemia type: unspecified type Qualified Code(s): D64.9 - Anemia, unspecified Is this a current diagnosis for this admission?: Yes (6) Comfort measures only status Is this a current diagnosis for this admission?: Yes Plan: 04/22/2019-continue comfort measures. - Time Time Spent with patient: Less than 15 minutes Anticipated discharge: Other - Inpatient Certification Based on my medical assessment, after consideration of the patient's comorbidities, presenting symptoms, or acuity I expect that the services needed warrant INPATIENT care.: Yes I certify that my determination is in accordance with my understanding of Medicare's requirements for reasonable and necessary INPATIENT services [42 CFR 412.3e].: Yes Medical Necessity: Other - Comfort measures
--- NOTE | 2019-04-22 12:51 | ADVANCED CARE ---
Attendance: I discussed patient's care with Dr. Steward as well as Nina from risk management. I was able to finally get a hold of the family member by phone but have never made any in person. Myself and by Dr. Jenkins agreed that patient should be made comfort measures and we made him comfort measures at that time. Resuscitation Status: Comfort Measures Only Discussion: Patient made comfort measures only after Dr. Steward myself agreed patient had no chance of survival from this illness. Time Spent: To the total of 10 minutes to discuss with everyone
[2019-04-23] MEDS: LORAZEPAM INJ 2 MG/1 ML VIAL IV PRN ×3 (02:34→12:46)
[2019-04-23] MEDS: MORPHINE SULFATE 10 MG/ML INJ IV PRN ×4 (05:17→21:11)
[2019-04-23 12:43] VITALS: BP 129/57
--- NOTE | 2019-04-23 17:09 | PDOC PROGRESS REPORT ---
Subjective Progress Note for:: 04/23/19 Subjective:: MICHAELA KUHN is a 83 year old male who presents the ER with sepsis of unknown origin as well as acute on chronic congestive heart failure. Patient is unable to answer questions at this time secondary to mental status. 04/23/2019. Patient is HE[employer] WORK[employer] as of 04/22/2019. Appears comfortable in no apparent distress. Responds to painful stimuli. Reason For Visit: ACUTE CHRONIC RESPIRATORY FAILURE WITH LABORED JOHNATHAN Physical Exam Vital Signs: Temp Pulse Resp BP Pulse Ox 98.7 F 101 H 20 129/57 H 95 04/23/19 08:08 04/23/19 08:08 04/23/19 08:08 04/23/19 08:08 04/23/19 10:24 Intake & Output 04/22/19 04/23/19 04/24/19 06:59 06:59 06:59 Intake Total 1050 0 Output Total 950 625 Balance 100 -625 Weight 71.6 kg 71 kg General appearance: PRESENT: no acute distress Head exam: PRESENT: atraumatic, normocephalic Respiratory exam: PRESENT: clear to auscultation crystal. ABSENT: rales, rhonchi, wheezes Cardiovascular exam: PRESENT: RRR. ABSENT: diastolic murmur, rubs, systolic murmur Neurological exam: PRESENT: altered Results Laboratory Results: 04/21/19 06:35 04/21/19 06:35 04/21/19 06:25 Catheterized Urine Urine Culture - Final NO GROWTH 2 DAYS 04/21/19 04/21/19 06:35 06:35 Troponin I 0.047 NT-Pro-B Natriuret Pep 3700 H Impressions: Chest X-Ray 04/21/19 06:24 IMPRESSION: 1. Developing airspace disease in the right perihilar region concerning for a pneumonic infiltrate. 2. Old right-sided rib fractures. 3. Hyperinflation of the lungs. Assessment and Plan - Diagnosis (1) Comfort measures only status Is this a current diagnosis for this admission?: Yes Plan: On comfort measures since 04/22/2019. Please refer to ACP note on 04/22/2019. (2) Acute on chronic respiratory failure with hypoxemia Is this a current diagnosis for this admission?: Yes (3) Acute on chronic systolic congestive heart failure, NYHA class 3 Is this a current diagnosis for this admission?: Yes (4) Anemia Qualifiers: Anemia type: unspecified type Qualified Code(s): D64.9 - Anemia, unspecified Is this a current diagnosis for this admission?: Yes (5) DNR (do not resuscitate) Is this a current diagnosis for this admission?: Yes (6) Hyperkalemia Is this a current diagnosis for this admission?: Yes
--- NOTE | 2019-04-25 18:24 | Death Summary ---
Summary Date : 04/23/192214 Autopsy: No Resuscitation Status: Comfort Measures Only - Final Diagnosis (1) Acute on chronic systolic congestive heart failure, NYHA class 3 Is this a current diagnosis for this admission?: Yes (2) Acute on chronic respiratory failure with hypoxemia Is this a current diagnosis for this admission?: Yes (3) Comfort measures only status Is this a current diagnosis for this admission?: Yes (4) Anemia Is this a current diagnosis for this admission?: Yes (5) DNR (do not resuscitate) Is this a current diagnosis for this admission?: Yes (6) Hyperkalemia Is this a current diagnosis for this admission?: Yes (7) Former smoker Is this a current diagnosis for this admission?: Yes (8) COPD (chronic obstructive pulmonary disease) Is this a current diagnosis for this admission?: Yes (9) Coronary artery disease Is this a current diagnosis for this admission?: Yes (10) Diabetes mellitus Is this a current diagnosis for this admission?: Yes (11) Hyperlipidemia Is this a current diagnosis for this admission?: Yes (12) Hypertension Is this a current diagnosis for this admission?: Yes (13) Obstructive sleep apnea Is this a current diagnosis for this admission?: Yes Hospital Course:: [place] Martinez who was a resident of group home with PMHx of CHF, COPD, former smoker, CAD, diabetes, obstructive sleep apnea, hypertension, dyslipidemia, was admitted on 04/23/2019, he was admitted for the following reasons. I assumed care of Mr. Golden on 04/23/2019. (1) Acute on chronic respiratory failure with hypoxemia Was admitted on 04/21/2019 for acute respiratory failure with hypoxia. Noted to be in severe distress and ED. Found to have leukocytosis. Was started on empiric IV antibiotics and BiPAP and admitted to IMCU (2) Acute on chronic systolic congestive heart failure, NYHA class 3 History of chronic systolic heart failure NYHA class III. Was given Lasix in ED. In fact that patient was found to be septic was restarted on all NS bolus and was transferred to IMCU. (3) DNR (do not resuscitate) I assumed care of patient on 04/23/2019 as per PACKAGING DESIGNER note from 04/22/2019 he had tried to get hold of family members to discuss patient's care however he was unsuccessful, he discussed the case with Dr. Jenkins 1 of the hospitalist and again from risk management they both agreed on transitioning. To comfort measures to poor prognosis of her underlying medical conditions. Patient was t ransitioned to [facility] on 04/22/2019.
== END 2019-04-24 00:01 | disposition expired | DRG 871 ==
LOC: ER 05:52 → EH 08:18 → UNDOADMIN 08:18 → EH 08:40 → 3W 15:02
PROVIDERS: ADMIT Internal Medicine; ATTEND Internal Medicine
DX: A41.9 Sepsis, unspecified organism (principal); J18.1 Lobar pneumonia, unspecified organism; J96.21 Acute and chronic respiratory failure with hypoxia; I50.23 Acute on chronic systolic (congestive) heart failure; J44.9 Chronic obstructive pulmonary disease, unspecified; E78.5 Hyperlipidemia, unspecified; I48.91 Unspecified atrial fibrillation; F03.90 Unspecified dementia, unspecified severity, without behavioral disturbance, psychotic disturbance, mood disturbance, and anxiety; Z87.891 Personal history of nicotine dependence; E11.8 Type 2 diabetes mellitus with unspecified complications; K21.9 Gastro-esophageal reflux disease without esophagitis; M19.90 Unspecified osteoarthritis, unspecified site; Z66 Do not resuscitate; Z51.5 Encounter for palliative care; D64.9 Anemia, unspecified; I25.10 Atherosclerotic heart disease of native coronary artery without angina pectoris; Z95.5 Presence of coronary angioplasty implant and graft; I25.2 Old myocardial infarction; N40.0 Benign prostatic hyperplasia without lower urinary tract symptoms; E87.5 Hyperkalemia; G47.33 Obstructive sleep apnea (adult) (pediatric); Z88.0 Allergy status to penicillin
CPT/HCPCS: 36415; 51702; 71045; 80053; 81001; 82803; 82962; 83605; 83880; 84484; 85025; 85610; 87040; 87086; 93005; 93010; 94640; 94660; 96374; 99291; J0692; J1644; J1940; J2060; J2270; J3370; J3490; J7030; J7620; S0164